=== PATIENT | female | born 1980 | race Caucasian/White ===

== ENCOUNTER 2018-09-03 22:33 | Emergency (ER) | payer BC, SELFPAY ==
[2018-09-03 22:35] VITALS: BP 161/112; PULSE 105; RESP 16; TEMP 36.6; O2SAT 96; BMI 24.9
[2018-09-03 23:27] LABS: Bacteria 0 SEEN /hpf (None Seen); Mucous, Urine 0 SEEN /hpf (<or=2+); Red Blood Cells-Urine 0 SEEN /hpf (0-5); White Blood Cells 0 SEEN /hpf (0-5)
[2018-09-03 23:33] LABS: Color, Urine Straw (Yellow); Glucose, Dipstick Normal (Normal); Ketone-Dipstick Negative (Negative); Leukocyte Esterase-Dipstick Negative /ul (Negative); Nitrite-Dipstick Negative (Negative); Occult Blood-Urine Negative /ul (Negative); Protein-Dipstick Negative (Negative); Specific Gravity, Urine 1.005 (1.002-1.030); Urine Bilirubin Dipstick Negative (Negative); Urine Clarity Clear (Clear); Urine Urobilinogen Normal (Normal); Urine pH 6.5 (5.0 - 8.0)
[2018-09-03 23:42] LABS: Absolute Lymphocyte Count 2.99 X10^3/ul (0.83-4.51); Absolute Neutrophil Count 4.8 X10^3/uL (2.0-7.7); Basophil# 0.11 X10^3/uL; Basophil% 1.3 % (0-1); Eosinophil# 0.16 X10^3/uL; Eosinophils% 1.9 % (0-5); Hematocrit 48.5 % (37-47); Lymphocyte # 2.99 X10^3/ul (4.0); Lymphocyte % 35.2 % (19-41); Mean Corp Hgb Conc 35.1 g/gl (32-36); Mean Corpuscular Hgb 35.6 pg (27.0-32.0); Mean Corpuscular Volume 101.7 fL (81-99); Mean Platelet Vol. 9.4 fl (6.2-12.0); Monocyte# 0.39 X10^3/uL; Monocyte% 4.6 % (0-10); Neutrophil # 4.82 X10^3/uL (2.7-7.7); Neutrophil % 56.8 % (47-70); Platelet Count 358 K/mm3 (150-450); RBC Distribution Width CV 13.6 % (11.6-14.6); RBC Distribution Width SD 50.6 fl (35.1-43.9); Red Blood Count 4.77 M/mm3 (4.2-5.4); White Blood Count 8.5 K/mm3 (4.4-11.0)
--- NOTE | 2018-09-03 23:44 | ED.VIS.GEN ---
History of Present Illness Chief Complaint: Abd Pain Informant: Patient Narrative: Patient presents abdominal pain for the last month. She describes continuous right-sided pain. She thought it might be related to endometriosis that she has had this in the past. Denies any urinary symptoms. She is never had this before. When she has. She normally gets pain on her right side and was told by her BAND SAWING MACHINE OPERATOR that it could be related to endometriosis. She still has her gallbladder. She denies any other medical problems. She is never had abdominal surgeries. She denies nausea vomiting. She has chronic loose bowel movements which have not changed in nature. No fevers or chills. currently her symptoms are resolved. Past Medical History - Allergies and Home Meds Allergies/Adverse Reactions: Allergies No Known Allergies Allergy (Verified 09/03/18 22:39) Primary Care Physician: Care Physician,No Primary [Primary Care Provider] - Prior records reviewed: Yes Past Medical History: - - Endometriosis Surgical History: no surgical history Lives: Spouse/ Significant Other Alcohol: Rare Drugs: None Review of Systems General: Denies: Chills, Fever, Sweats Eyes: Denies: Visual changes - bilaterally, Diplopia ENT: Denies: Rhinorrhea, Sore throat Cardiovascular: Denies: Chest pain, Palpitations Respiratory: Denies: Dyspnea, Cough, Dyspnea on exertion Gastrointestinal: Reports: Abdominal pain. Denies: Nausea, Vomiting, Diarrhea, Melena, Hematochezia Genitourinary: Denies: Dysuria, Hematuria, Frequency Musculoskeletal: Denies: Back pain, Extremity Pain Skin: Denies: Rash, Wounds Neurological: Denies: Headache, Weakness, Numbness Physical Exam Vital Signs/Narrative: Vital Signs Temp Pulse Resp BP Pulse Ox 09/03/18 22:35 97.9 F 105 H 16 161/112 H 96 General: Well nourished, Well developed, No Acute Distress Head: Normocephalic, Atraumatic Eyes: Perrl, EOMI ENT: Moist mucous membranes, No rhinorrhea Neck: Supple, Nontender Cardiovascular: Regular rate, Regular rhythm, No murmurs Respiratory: No distress, CTA bilaterally, Chest nontender Abdomen: Soft, Nontender, Nondistended, Normal bowel sounds Back: Nontender, Normal Inspection Extremities: Nontender, No edema Skin: Normal color, No rash Neurological: Alert, Oriented x3, Cranial nerves II-XII grossly intact, Normal Strength, Normal Sensation Psychological: Normal affect, Normal Mood Diagnostic/Tx/Re-eval - Medical Decision Making Patient stated she is not dehydrated therefore does not need IV fluids. She does not have pain currently or nausea. Lab work obtained. Lab work returns and shows a little bit of elevation in her AST and ALT above 100. The patient does admit to drinking alcohol daily. She states that she at least has 3 drinks daily. She may indeed have a hepatitis from alcohol for the last month that has been causing her symptoms. She does not have elevation in her alk phos or bilirubin. The rest of her lab work is essentially unremarkable. CT abdomen pelvis obtained. CT shows hepatic steatosis and hepatomegaly. 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 The patient is nontoxic. I instructed her that she will have to quit drinking alcohol and her liver should come down with this inflammation. She will follow-up with GI. Given a referral to gastroenterology. She will use [id number] ibuprofen. Instructed not use Tylenol. ED Disposition - Plan for ED Patient: Disposition: Home or Assisted Living Diagnosis: Hepatitis Instructions: Hepatitis C: Know the Facts Referrals: Care Physician,No Primary [Primary Care Provider] - Armando Khan MD [NON-STAFF] -
[2018-09-03 23:45] LABS: Squamous Epithelial Cells - UA 0-5 SEEN /hpf (5-10)
[2018-09-03 23:46] LABS: POSITIVE COUNT NO; POSITIVE DIFFERENTIAL NO; POSITIVE MORPHOLOGY NO
[2018-09-03 23:54] VITALS: BP 121/90
[2018-09-03 23:56] LABS: Anion Gap 9 (5-15); BUN 7 mg/dL (7-18); BUN/Creat Ratio 10.8 RATIO (10-20); Calcium,Total 9.1 mg/dL (8.5-10.1); Chloride 102 mmol/L (98-107); Creatinine, Serum 0.65 mg/dL (0.55-1.02); EST Glomerular Filtration Rate 107 mL/min (>60); Est Glom Filt Rate - Afr Amer 130 mL/min (>60); Estimated Creatinine Clearance 108.78 ml/min; Glucose 92 mg/dL (74-106); Potassium 3.5 mmol/L (3.5-5.1); Sodium Level 136 mmol/L (136-145)
[2018-09-03 23:57] LABS: Internal QC Validated? YES +Cl - CLEAR BKGD; Pregnancy, Serum, hCG Quali. NEGATIVE Negative
[2018-09-04 00:07] LABS: AST(SGOT) 139 U/L (15-37); Alanine Aminotransfer ALT/SGPT 85 U/L (13-56); Albumin, Serum 4.1 g/dL (3.2-5.0); Alkaline Phosphatase 91 U/L (45-117); Bilirubin, Direct 0.12 mg/dL (0.00-0.30); Globulin 4.9 g/dL (2.2-4.2); Lipase 206 U/L (73-393)
--- NOTE | 2018-09-04 00:12 | CT_ITS ---
HISTORY: RUQ PAIN intermittent x one month ADDITIONAL HISTORY: None provided. TECHNIQUE: CT images were obtained of the abdomen and pelvis without IV contrast. Enteric contrast was not given. Number of images including paperwork: [id number]. A radiation dose optimization technique was used for this scan. COMPARISON: None FINDINGS: Evaluation of the abdominopelvic organs is limited in the absence of contrast. LOWER THORAX: No consolidation or pleural effusion. LIVER: No concerning focal lesion. Decreased density compatible with steatosis. Enlarged, right lobe about 20 cm. GALLBLADDER: No radiopaque calculi. BILE DUCTS: No significant biliary dilatation. SPLEEN: Unremarkable. PANCREAS: Unremarkable. ADRENAL GLANDS: Unremarkable. KIDNEYS/URETERS: Unremarkable. BOWEL: No bowel obstruction. No significant bowel wall thickening. No localized inflammation. Colonic diverticulosis. APPENDIX: Normal. FREE FLUID: No significant free fluid. FREE AIR: None. LYMPH NODES: No pathologic appearing adenopathy. PERITONEUM, RETROPERITONEUM AND MESENTERY: Otherwise unremarkable. VASCULATURE: Unremarkable as imaged. ABDOMINAL WALL: Unremarkable. PELVIS: Unremarkable bladder. OSSEOUS AND SOFT TISSUE STRUCTURES: No acute skeletal findings. CT/Abdomen/Pelvis without Cont IMPRESSION: 1. No acute abdominopelvic abnormality. 2. Hepatomegaly. 3. Hepatic steatosis. Individualized dose optimization techniques were used for this CT. at 0049 Reported and signed by: Renetta Claudio MD Electronically Signed: Renetta Claudio MD at 0:49 EDT Tel , Service support ,
[2018-09-04 01:20] VITALS: BP 133/97; PULSE 88; RESP 16; O2SAT 98
== END 2018-09-04 01:20 | disposition home or self-care (01) ==
PROVIDERS: Emergency Provider Emergency Medicine
DX: K75.9 Inflammatory liver disease, unspecified (principal); K76.0 Fatty (change of) liver, not elsewhere classified; F10.99 Alcohol use, unspecified with unspecified alcohol-induced disorder; N80.9 Endometriosis, unspecified
CPT/HCPCS: 74176; 80048; 80076; 81001; 83690; 84703; 85025; 99283

== ENCOUNTER → 2018-12-26 10:04 | Outpatient (CLI) | payer BC, SELFPAY ==
[2018-12-26 09:11] VITALS: BMI 24.9
[2018-12-26 11:01] LABS: Cholesterol 224 mg/dL (200); Estradiol 90.5 pg/mL; Follicle Stimulating Hormone 6.3 mIU/mL; High Density Lipoprotein 43 mg/dL; Thyroid Stim Hormone (TSH) 2.65 uIU/mL (0.358-3.74); Triglycerides 311 mg/dL; Very Low Density Lipoprotein 62 mg/dL (5-40)
[2018-12-31 16:52] LABS: HPV APTIMA, High Risk Negative (Negative)
== END ==
PROVIDERS: Referring Provider Nurse Practitioner Women's Health; Visit Provider Nurse Practitioner Women's Health
DX: Z00.00 Encounter for general adult medical examination without abnormal findings (principal); N92.6 Irregular menstruation, unspecified; Z12.4 Encounter for screening for malignant neoplasm of cervix
CPT/HCPCS: 36415; 80061; 82670; 83001; 84443; 87624; 88175; G0145

== ENCOUNTER 2023-09-02 16:19 | Inpatient (IN) | payer MEDICAID, SELFPAY ==
[2023-09-02] VITALS (14 sets, daily range): BP systolic 82–106; BP diastolic 45–68; PULSE 61–121; RESP 16–29; TEMP 36.3–37.6; O2SAT 88–95; BMI 24.2; BMI 23.9
--- NOTE | 2023-09-02 16:34 | EKG12_ITS ---
Test Reason : GENERAL Blood Pressure : / mmHG Vent. Rate : 108 BPM Atrial Rate : 108 BPM P-R Int : 132 ms QRS Dur : 108 ms QT Int : 412 ms P-R-T Axes : 038 046 063 degrees QTc Int : 552 ms Critical Test Result: Long QTc Sinus tachycardia Nonspecific ST abnormality Prolonged QT Abnormal ECG Confirmed by Griffin Montgomery ([id number]), editor newspaper ASIF VENTURA ([id number]) on 09/04/2023 9:38:08 AM Referred By: Confirmed By:Griffin Montgomery
--- NOTE | 2023-09-02 16:38 | EX.ED.DYSGE1 ---
HPI <RUBÉN Calderon - Last Filed: 09/02/23 19:24> History of Present Illness Chief Complaint: Substance Abuse Narrative Narrative: 43-year-old female is here requesting alcohol detox. She drinks 12 white claws a day and states she has been a heavy drinker for 20 years without cessation. Last drink was last night. Over the last few days she has had epigastric discomfort and heartburn and was taking [id number] medication which helped for short time. She vomited last night. Denies hematemesis, melena, hematochezia or history of bleeding. She states she has never tried to detox before. She smokes 1 pack of cigarettes over about 3 days. Denies other drug use. PFSH <RUBÉN Calderon - Last Filed: 09/02/23 19:24> PFSH Home Medications ?Medication ?Instructions ?Recorded ?Last Taken ?Type levocetirizine 5 mg tablet (Xyzal) 5 mg PO DAILY 09/02/23 Unknown History Allergy/AdvReac Type Severity Reaction Status Date / Time No Known Allergies Allergy Verified 09/02/23 16:23 Family History Brother Diabetes Mother H/O: hysterectomy Social History (Updated 01/21/19 @ 10:28 by Madeleine Spencer NP, DINKING MACHINE OPERATOR-C) number of children: 0 current occupational status: employed current occupation: [employer] Smoking Status: Current every day smoker tobacco type: cigarettes alcohol intake: current alcohol intake frequency: 0-2 drinks per day substance use type: does not use seatbelt use: always do you feel safe at home: Yes additional social history: Nikolai Osman [employer] of [employer] <RUBÉN Calderon - Last Filed: 09/02/23 19:24> ROS ED ROS Narrative Constitutional: Negative for fever, chills. CVS: Negative for chest pain. Respiratory: Negative for shortness of breath. GI: Positive for abdominal pain, nausea, vomiting. EXAM <RUBÉN Calderon - Last Filed: 09/02/23 19:24> Physical Exam Narrative Exam Narrative: CONST: Patient sitting in no acute distress. EYES: Scleral icterus ENT: Normal inspection, slightly dry mucous membranes. NECK: Normal inspection. RESP: No respiratory distress, faint bibasilar expiratory wheeze. CVS: Regular rate and rhythm, no murmur, no gallop. ABD: Abdomen soft with mild distention and hepatomegaly, nontender, no distended veins. SKIN: Mild facial jaundice. EXTREMITIES: 1+ pitting edema both ankles. NEURO: Alert and answering questions appropriately. PSYCH: Normal affect. Const Vital Signs: 09/02/23 16:20 09/02/23 16:20 09/02/23 16:29 Temperature 97.3 F L Temperature Source Temporal Pulse Rate 118 H 115 H 111 H Respiratory Rate 16 16 25 H Respiratory Effort Respiratory Pattern Blood Pressure 85/65 L 85/65 L 104/59 L Blood Pressure Mean 71 71 74 Blood Pressure Source Monitor Blood Pressure Position Semi-Fowlers Blood Pressure Location Right Arm Pulse Ox 91 91 95 Oxygen Delivery Method Room Air Room Air Room Air Oxygen Flow Rate (L/min) 09/02/23 17:31 09/02/23 17:32 09/02/23 17:41 Temperature Temperature Source Pulse Rate 61 Respiratory Rate 18 Respiratory Effort Normal Non-Labored Respiratory Pattern Normal Blood Pressure 99/68 Blood Pressure Mean 78 Blood Pressure Source Blood Pressure Position Blood Pressure Location Pulse Ox 88 95 Oxygen Delivery Method Room Air Nasal Cannula Oxygen Flow Rate (L/min) 2 09/02/23 19:05 Temperature Temperature Source Pulse Rate 108 H Respiratory Rate 29 H Respiratory Effort Respiratory Pattern Blood Pressure 106/64 Blood Pressure Mean 78 Blood Pressure Source Blood Pressure Position Blood Pressure Location Pulse Ox 94 Oxygen Delivery Method Nasal Cannula Oxygen Flow Rate (L/min) 2 <Dr. Tom Fuentes MD - Last Filed: 09/02/23 17:31> Physical Exam Const Vital Signs: 09/02/23 16:20 09/02/23 16:20 09/02/23 16:29 Temperature 97.3 F L Temperature Source Temporal Pulse Rate 118 H 115 H 111 H Respiratory Rate 16 16 25 H Respiratory Effort Respiratory Pattern Blood Pressure 85/65 L 85/65 L 104/59 L Blood Pressure Mean 71 71 74 Blood Pressure Source Monitor Blood Pressure Position Semi-Fowlers Blood Pressure Location Right Arm Pulse Ox 91 91 95 Oxygen Delivery Method Room Air Room Air Room Air Oxygen Flow Rate (L/min) 09/02/23 17:31 09/02/23 17:32 09/02/23 17:41 Temperature Temperature Source Pulse Rate 61 Respiratory Rate 18 Respiratory Effort Normal Non-Labored Respiratory Pattern Normal Blood Pressure 99/68 Blood Pressure Mean 78 Blood Pressure Source Blood Pressure Position Blood Pressure Location Pulse Ox 88 95 Oxygen Delivery Method Room Air Nasal Cannula Oxygen Flow Rate (L/min) 2 09/02/23 19:05 Temperature Temperature Source Pulse Rate 108 H Respiratory Rate 29 H Respiratory Effort Respiratory Pattern Blood Pressure 106/64 Blood Pressure Mean 78 Blood Pressure Source Blood Pressure Position Blood Pressure Location Pulse Ox 94 Oxygen Delivery Method Nasal Cannula Oxygen Flow Rate (L/min) 2 [facility] <RUBÉN Calderon - Last Filed: 09/02/23 19:24> [facility] Narrative Medical decision making narrative: History gathered from: Patient and boyfriend Differential: Alcohol abuse, liver failure, electrolyte abnormality Patient is here for alcohol detox. She has been aeavy drinker for 20 years with recent frequency of about 12 white claws daily. Last drink last night. She appears ill but nontoxic. She has dry mucous membranes and is jaundiced with scleral icterus, hepatomegaly, and 1+ lower extremity pitting edema. She was initially hypotensive but recheck is 104/59. She is in sinus tachycardia in the 110s. Otherwise stable vital signs. She was ordered IV fluids, Protonix, thiamine and folate while labs are pending. WBC is 16.3, hemoglobin 10.6, platelets 547. She has profound electrolyte abnormalities with sodium of 118, potassium 1.8, magnesium 1.2, chloride 69, glucose 44 and anion gap of 20. This was a second BMP drawn to confirm these values. Fingerstick glucose confirms it is 50 and she was given D10 as well as IV and p.o. potassium and IV magnesium sulfate 2 mg. She also has elevated total bilirubin and liver enzymes. Lipase is 1853 consistent with acute pancreatitis. INR normal at 1.2. Case was discussed with the hospitalist and she was admitted to the ICU. I have personally performed a face to face assessment of the patient and have reviewed the MAURI Note. I performed a substantive portion of the visit including all aspects of the following. My palomino findings include: History is 43-year-old female history of alcohol abuse drinks white claws about 12 a day. Patient is requesting detox. Exam is [44-year-old female vital signs are stable afebrile. Does not look septic toxic. No distress. H EENT exam unremarkable. Mildly scleral icterus. Neck nontender. Lungs clear. Heart regular rhythm rate about 110 no murmur. Chest wall and ribs nontender. Abdomen soft nontender. Back nontender. Moving all 4 extremities. Normal strength. Trace ankle edema bilaterally. Neurologically she is awake and alert no focal motor deficits.] Medical Decision Making [patient with a detox workup for liver enzymes are not significantly abnormal she will be admitted here for detox.] Other additions or changes: [None] Lab Data Labs: Laboratory Results - last 24 hr 09/02/23 09/02/23 09/02/23 16:45 17:49 18:23 WBC 16.3 H RBC 3.10 L Hgb 10.6 L Hct 30.5 L MCV 98.4 MCH 34.2 H MCHC 34.8 RDW Std Deviation 46.5 H RDW Coeff of Rebel 13.0 Plt Count 547 H MPV 10.0 Immature Gran % (Auto) 0.800 Neut % (Auto) 88.6 H Lymph % (Auto) 7.0 L [place] % (Auto) 2.6 Eos % (Auto) 0.8 Baso % (Auto) 0.2 Absolute Neuts (auto) 14.4 H Absolute Lymphs (auto) 1.14 Nucleated RBC % 0 PT 15.5 H INR 1.2 Sodium Cancelled 118 L* Potassium Cancelled 1.8 L* Chloride Cancelled 69 L* Carbon Dioxide Cancelled 29.0 Anion Gap Cancelled 20 H BUN Cancelled 17 Creatinine Cancelled 0.96 Estim Creat Clear Calc Cancelled 64.58 Est GFR (MDRD) Af Amer Cancelled 81 Est GFR (MDRD) Non-Af Cancelled 67 BUN/Creatinine Ratio Cancelled 17.7 Glucose Cancelled 44 L* Calcium Cancelled 11.1 H Magnesium Total Bilirubin Cancelled 8.00 H Direct Bilirubin Cancelled 6.14 H AST Cancelled 178 H ALT Cancelled 31 Alkaline Phosphatase Cancelled 92 Ammonia 11.0 Total Protein Cancelled 5.9 L Albumin Cancelled 2.2 L Globulin Cancelled 3.7 Albumin/Globulin Ratio Lipase Cancelled 1853 H Serum , Qual NEGATIVE Urine Opiates Screen NEGATIVE Urine Methadone Screen NEGATIVE Ur Barbiturates Screen NEGATIVE Ur Phencyclidine Scrn NEGATIVE Ur Amphetamines Screen NEGATIVE MDMA (Ecstasy) Screen NEGATIVE U Benzodiazepines Scrn NEGATIVE Urine Cocaine Screen NEGATIVE U Cannabinoids Screen NEGATIVE Ur Drug Screen Comment POC Glucose 50 L 09/02/23 18:30 WBC RBC Hgb Hct MCV MCH MCHC RDW Std Deviation RDW Coeff of Rebel Plt Count MPV Immature Gran % (Auto) Neut % (Auto) Lymph % (Auto) [place] % (Auto) Eos % (Auto) Baso % (Auto) Absolute Neuts (auto) Absolute Lymphs (auto) Nucleated RBC % PT INR Sodium 119 L* Potassium 1.8 L* Chloride 70 L* Carbon Dioxide 29.0 Anion Gap 20 H BUN 18 Creatinine 0.84 Estim Creat Clear Calc 73.80 Est GFR (MDRD) Af Amer 95 Est GFR (MDRD) Non-Af 78 BUN/Creatinine Ratio 21.4 H Glucose 48 L Calcium 11.2 H Magnesium 1.2 L Total Bilirubin 7.90 H Direct Bilirubin AST 190 H ALT 31 Alkaline Phosphatase 89 Ammonia Total Protein 6.0 L Albumin 2.2 L Globulin 3.8 Albumin/Globulin Ratio 0.6 L Lipase Serum , Qual Urine Opiates Screen Urine Methadone Screen Ur Barbiturates Screen Ur Phencyclidine Scrn Ur Amphetamines Screen MDMA (Ecstasy) Screen U Benzodiazepines Scrn Urine Cocaine Screen U Cannabinoids Screen Ur Drug Screen Comment POC Glucose Radiography Diagnostic Testing: Clinical Impression(s) from Imaging Studies Chest X-Ray 09/02/23 16:55 IMPRESSION: No radiographic evidence of acute cardiopulmonary disease. Electronically Signed: Yon Link DO at 17:52 EDT Reading Location ID and State: [facility] / [place] Tel [phone], Service support , EKG Initial EKG: Attestation: I personally reviewed and interpreted this EKG as follows: Comments: Sinus tachycardia at [address] changes Prolonged QTc at 552 ms <Dr. Tom Fuentes MD - Last Filed: 09/02/23 17:31> MDM MDM Narrative Medical decision making narrative: History gathered from: Patient and boyfriend Differential: Alcohol abuse, liver failure Patient is here for alcohol detox. Heavy drinker for 20 years with recent frequency of about 12 white claws daily. Last drink last night. She appears well. She has dry mucous membranes and is mildly jaundiced with scleral icterus, hepatomegaly, and 1+ lower extremity pitting edema. She was initially hypotensive but is rechecked and is 104/59. She is in sinus tachycardia in the 110s. Otherwise stable vital signs. She was ordered IV fluids, Protonix, thiamine and folate while labs are pending. I have personally performed a face to face assessment of the patient and have reviewed the MAURI Note. I performed a substantive portion of the visit including all aspects of the following. My palomino findings include: History is 43-year-old female history of alcohol abuse drinks white claws about 12 a day. Patient is requesting detox. Exam is [44-year-old female vital signs are stable afebrile. Does not look septic toxic. No distress. H EENT exam unremarkable. Mildly scleral icterus. Neck nontender. Lungs clear. Heart regular rhythm rate about 110 no murmur. Chest wall and ribs nontender. Abdomen soft nontender. Back nontender. Moving all 4 extremities. Normal strength. Trace ankle edema bilaterally. Neurologically she is awake and alert no focal motor deficits.] Medical Decision Making [patient with a detox workup for liver enzymes are not significantly abnormal she will be admitted here for detox.] Other additions or changes: [None] Lab Data Attestation: I reviewed the patient's lab results. Lab results narrative: CBC shows a white count of 16.3. H&H 10.6 and 30. Platelets 547. PT and INR 15 and 1.2. Serum test negative. Labs: Laboratory Results - last 24 hr 09/02/23 09/02/23 09/02/23 16:45 17:49 18:23 WBC 16.3 H RBC 3.10 L Hgb 10.6 L Hct 30.5 L MCV 98.4 MCH 34.2 H MCHC 34.8 RDW Std Deviation 46.5 H RDW Coeff of Rebel 13.0 Plt Count 547 H MPV 10.0 Immature Gran % (Auto) 0.800 Neut % (Auto) 88.6 H Lymph % (Auto) 7.0 L [place] % (Auto) 2.6 Eos % (Auto) 0.8 Baso % (Auto) 0.2 Absolute Neuts (auto) 14.4 H Absolute Lymphs (auto) 1.14 Nucleated RBC % 0 PT 15.5 H INR 1.2 Sodium Cancelled 118 L* Potassium Cancelled 1.8 L* Chloride Cancelled 69 L* Carbon Dioxide Cancelled 29.0 Anion Gap Cancelled 20 H BUN Cancelled 17 Creatinine Cancelled 0.96 Estim Creat Clear Calc Cancelled 64.58 Est GFR (MDRD) Af Amer Cancelled 81 Est GFR (MDRD) Non-Af Cancelled 67 BUN/Creatinine Ratio Cancelled 17.7 Glucose Cancelled 44 L* Calcium Cancelled 11.1 H Magnesium Total Bilirubin Cancelled 8.00 H Direct Bilirubin Cancelled 6.14 H AST Cancelled 178 H ALT Cancelled 31 Alkaline Phosphatase Cancelled 92 Ammonia 11.0 Total Protein Cancelled 5.9 L Albumin Cancelled 2.2 L Globulin Cancelled 3.7 Albumin/Globulin Ratio Lipase Cancelled 1853 H Serum , Qual NEGATIVE Urine Opiates Screen NEGATIVE Urine Methadone Screen NEGATIVE Ur Barbiturates Screen NEGATIVE Ur Phencyclidine Scrn NEGATIVE Ur Amphetamines Screen NEGATIVE MDMA (Ecstasy) Screen NEGATIVE U Benzodiazepines Scrn NEGATIVE Urine Cocaine Screen NEGATIVE U Cannabinoids Screen NEGATIVE Ur Drug Screen Comment POC Glucose 50 L 09/02/23 18:30 WBC RBC Hgb Hct MCV MCH MCHC RDW Std Deviation RDW Coeff of Rebel Plt Count MPV Immature Gran % (Auto) Neut % (Auto) Lymph % (Auto) [place] % (Auto) Eos % (Auto) Baso % (Auto) Absolute Neuts (auto) Absolute Lymphs (auto) Nucleated RBC % PT INR Sodium 119 L* Potassium 1.8 L* Chloride 70 L* Carbon Dioxide 29.0 Anion Gap 20 H BUN 18 Creatinine 0.84 Estim Creat Clear Calc 73.80 Est GFR (MDRD) Af Amer 95 Est GFR (MDRD) Non-Af 78 BUN/Creatinine Ratio 21.4 H Glucose 48 L Calcium 11.2 H Magnesium 1.2 L Total Bilirubin 7.90 H Direct Bilirubin AST 190 H ALT 31 Alkaline Phosphatase 89 Ammonia Total Protein 6.0 L Albumin 2.2 L Globulin 3.8 Albumin/Globulin Ratio 0.6 L Lipase Serum , Qual Urine Opiates Screen Urine Methadone Screen Ur Barbiturates Screen Ur Phencyclidine Scrn Ur Amphetamines Screen MDMA (Ecstasy) Screen U Benzodiazepines Scrn Urine Cocaine Screen U Cannabinoids Screen Ur Drug Screen Comment POC Glucose Radiography Diagnostic Testing: Clinical Impression(s) from Imaging Studies Chest X-Ray 09/02/23 16:55 IMPRESSION: No radiographic evidence of acute cardiopulmonary disease. Electronically Signed: Yon Link DO at 17:52 EDT , Discharge Plan Triage Chief Complaint: Substance Abuse ED Midlevel Provider: Hailey Mcqueen ED Provider: Tom Fuentes Dx/Rx/DC Orders Clinical Impression: Alcohol abuse, Hypokalemia, Acute hyponatremia, Hypoglycemia, Anemia, Alcoholic liver failure, Acute pancreatitis, Hypomagnesemia, Desire for detoxification Prescriptions: No Action levocetirizine [Xyzal] 5 mg tablet 5 mg PO DAILY Primary Care Provider: Care Physician,No Primary Referrals: Care Physician,No Primary [Primary Care Provider] - Print Language: Nepali
--- NOTE | 2023-09-02 16:39 | NURSING ---
NO OLD EKGS
[2023-09-02] MEDS: 0.9% Normal Saline (1000mL) 1,000 ML 999 ML IV (16:53)
--- NOTE | 2023-09-02 16:55 | RAD_ITS ---
INDICATION: dyspnea EXAMINATION/TECHNIQUE: X-RAY - XR Chest 1 View COMPARISON: FINDINGS: LINES/DEVICES: None. LUNGS: No consolidation, edema or effusion. No pneumothorax. MEDIASTINUM AND CARDIOVASCULAR STRUCTURES: Cardiac silhouette not enlarged. Central airways and mediastinal contour are unremarkable. BONES AND SOFT TISSUES: Unremarkable. RAD/Chest 1 View (Portable) IMPRESSION: No radiographic evidence of acute cardiopulmonary disease. Electronically Signed: Yon Link DO at 17:52 EDT ,
[2023-09-02 17:06] LABS: Absolute Lymphocyte Count 1.14 X10^3/uL (0.83-4.51); Absolute Neutrophil Count 14.4 X10^3/uL (2.0-7.7); Basophil# 0.04 X10^3/uL; Basophil% 0.2 % (0-1); Eosinophil# 0.13 X10^3/uL; Eosinophils% 0.8 % (0-5); Hematocrit 30.5 % (37-47); Hemoglobin 10.6 g/dL (12.0-15.0); Lymphocyte # 1.14 X10^3/ul (0.83-4.51); Mean Corp Hgb Conc 34.8 g/dL (32-36); Mean Corpuscular Hgb 34.2 pg (27.0-32.0); Mean Corpuscular Volume 98.4 fL (81-99); Monocyte# 0.43 X10^3/uL; Monocyte% 2.6 % (0-10); NRBC Flagged by Analyzer 0 % (0-5); Neutrophil # 14.41 X10^3/uL (2.7-7.7); Neutrophil % 88.6 % (47-70); Platelet Count 547 K/mm3 (150-450); RBC Distribution Width SD 46.5 fl (35.1-43.9); White Blood Count 16.3 K/mm3 (4.4-11.0)
[2023-09-02 17:15] LABS: International Normalized Ratio 1.2; Prothrombin Time (Protime)PT. 15.5 SECONDS (11.7-14.9)
[2023-09-02] MEDS: Pantoprazole Sodium 40 MG in 0.9% Normal Saline (100mL MB+) 100 ML 330 MG IV (17:15)
[2023-09-02 17:18] LABS: Internal QC Validated? YES +Cl - CLEAR BKGD; Pregnancy, Serum, hCG Quali. NEGATIVE Negative
[2023-09-02] MEDS: Thiamine Hydrochloride 100 MG in 0.9% Normal Saline (50mL Bag) 50 ML 200 MG IV (17:46)
[2023-09-02 18:16] LABS: Amphetamine Urine VISTA NEGATIVE (<1000 ng/mL); Barbiturate Urine VISTA NEGATIVE (< 200 ng/mL); Benzodiazepine Urine VISTA NEGATIVE (< 200 ng/mL); Cocaine Urine VISTA NEGATIVE (< 300 ng/mL); Ecstacy Urine VISTA NEGATIVE (< 500 ng/mL); Methadone Urine VISTA NEGATIVE (< 300 ng/mL); PCP Urine VISTA NEGATIVE (< 25 ng/mL); THC Urine VISTA NEGATIVE (< 50 ng/mL); Vista UDS pH Range 5
[2023-09-02] MEDS: Folic Acid 1 MG in 0.9% Normal Saline (50mL Bag) 50 ML 200 MG IV (18:19)
[2023-09-02 18:21] LABS: AST(SGOT) 178 U/L (15-37); Alanine Aminotransfer ALT/SGPT 31 U/L (13-56); Albumin, Serum 2.2 g/dL (3.2-5.0); Alkaline Phosphatase 92 U/L (45-117); Anion Gap 20 (5-15); BUN 17 mg/dL (7-18); BUN/Creat Ratio 17.7 RATIO (10-20); Bilirubin, Direct 6.14 mg/dL (0.00-0.30); Calcium,Total 11.1 mg/dL (8.5-10.1); Chloride 69 mmol/L (98-107); Creatinine, Serum 0.96 mg/dL (0.55-1.02); EST Glomerular Filtration Rate 67 mL/min (>60); Est Glom Filt Rate - Afr Amer 81 mL/min (>60); Estimated Creatinine Clearance 64.58 ml/min; Globulin 3.7 g/dL (2.2-4.2); Glucose 44 mg/dL (74-106); Lipase 1853 U/L (13-75); Potassium 1.8 mmol/L (3.5-5.1); Protein, Total 5.9 g/dL (6.4-8.2); Sodium Level 118 mmol/L (136-145)
[2023-09-02] MEDS: Dextrose 10%-Water 250 ML 999 ML IV (18:37)
[2023-09-02] MEDS: Potassium Chloride Oral Tablet 20 MEQ PO (18:38)
[2023-09-02 18:41] LABS: Bedside Glucose 50 mg/dL (74-106)
[2023-09-02] MEDS: Potassium Chloride 10mEq/100mL 10 MEQ/100 ML IV.SOLN. 100 MEQ IV BOLUS ×2 (18:49→20:42)
[2023-09-02 18:50] LABS: Magnesium 1.2 mg/dL (1.6-2.6)
[2023-09-02 19:15] LABS: ALB/GLOB Ratio 0.6 RATIO (0.9-2.4); AST(SGOT) 190 U/L (15-37); Alanine Aminotransfer ALT/SGPT 31 U/L (13-56); Albumin, Serum 2.2 g/dL (3.2-5.0); Alkaline Phosphatase 89 U/L (45-117); Anion Gap 20 (5-15); BUN 18 mg/dL (7-18); BUN/Creat Ratio 21.4 RATIO (10-20); Calcium,Total 11.2 mg/dL (8.5-10.1); Chloride 70 mmol/L (98-107); Creatinine, Serum 0.84 mg/dL (0.55-1.02); EST Glomerular Filtration Rate 78 mL/min (>60); Est Glom Filt Rate - Afr Amer 95 mL/min (>60); Globulin 3.8 g/dL (2.2-4.2); Glucose 48 mg/dL (74-106); Potassium 1.8 mmol/L (3.5-5.1); Sodium Level 119 mmol/L (136-145)
--- NOTE | 2023-09-02 19:17 | PCM.HP.STD ---
[facility] - General General Date of Admission: 09/02/23 Date of Service: 09/02/23 Chief Complaint: Wants EtOH Detox. HPI Narrative FIONA ZAFAR, is a 43 F with past medical history of tobacco abuse, chronic anemia, history of lichen sclerosis and chronic EtOH Abuse who presents to [facility] ER complaining of wanting help with alcohol detoxification. Ms. Zafar reports she typically drinks 12 white claws a day and has been a heavy drinker for 20 years without cessation. Her last drink was last night. She states that over the 2-3 days she has noted increasing epigastric abdominal pain with associated heartburn for which she has been taking [id number] medications which only helped for short period of time. She denies having undergone alcohol detoxification in the past. She admits to nausea and vomiting with bilious emesis with yellowing of her eyes and mild lower extremity edema. She denies related fever, chills, diarrhea, constipation, chest pain, shortness of breath or obvious signs of bleeding. In the ER she was noted to have laboratory evidence of severe acute hyponatremia of 119 mmol/L, critical hypokalemia of 1.8 mmol/L, severe hypomagnesemia of 1.2 mg/dL, critical hypophosphatemia of 0.1 mg/dL and evidence of acute liver failure with acute hyperbilirubinemia with total bilirubin of 7.9 mg/dL and direct bilirubin of 6.14 mg/dL in the setting of chronic alcohol abuse with patient requesting alcohol detoxification compounded by elevated lipase of 1,853 units/L present on admission with corresponding CT evidence of acute pancreatitis likely due to chronic alcohol abuse and she was then admitted to the ICU for ongoing care for stay that is expected to extend beyond 2 midnights. [facility] Home Medications ?Medication ?Instructions ?Recorded ?Last Taken ?Type levocetirizine 5 mg tablet (Xyzal) 5 mg PO DAILY 09/02/23 Unknown History Allergy/AdvReac Type Severity Reaction Status Date / Time No Known Allergies Allergy Verified 09/02/23 16:23 Family History Brother Diabetes Mother H/O: hysterectomy Social History number of children: 0 current occupational status: employed current occupation: [employer] Smoking Status: Current every day smoker tobacco type: cigarettes alcohol intake: current alcohol intake frequency: 0-2 drinks per day substance use type: does not use seatbelt use: always do you feel safe at home: Yes additional social history: [employer] ROS ROS Narrative Review of systems: General: Patient denies fever or chills. HENT: Denies headache, denies stuffy nose, denies sore throat EYES: Patient admits to yellowing of her eyes but she denies changes in vision or discharge from eyes. Resp: Denies cough, denies shortness of breath Cardiac: Denies chest pain, palpitations or heart racing. GI: Patient admits to abdominal pain and nausea with bilious emesis as per HPI. : Denies changes in urination Extremity: Patient admits to mild symmetrical bilateral lower extremity edema. Musculoskeletal: Feels somewhat generally weak and unwell but denies arthralgias or myalgias. Neuro: Patient denies headache, paresthesias or focal neurologic deficits. Heme: Denies any bleeding or bruising Skin: Denies rashes Psychiatric: No complaints voiced related to uncontrolled depression or anxiety. Endocrine: No polyuria, polydipsia or polyphagia. The rest of the 14 point ROS was negative except for positives in HPI. Vital Signs Vital Signs Vital Signs: 09/02/23 16:20 09/02/23 16:20 09/02/23 16:29 Temperature 97.3 F L Temperature Source Temporal Pulse Rate 118 H 115 H 111 H Respiratory Rate 16 16 25 H Respiratory Effort Respiratory Pattern Blood Pressure 85/65 L 85/65 L 104/59 L Blood Pressure Mean 71 71 74 Blood Pressure Source Monitor Blood Pressure Position Semi-Fowlers Blood Pressure Location Right Arm Pulse Ox 91 91 95 Oxygen Delivery Method Room Air Room Air Room Air Oxygen Flow Rate (L/min) 09/02/23 17:31 09/02/23 17:32 09/02/23 17:41 Temperature Temperature Source Pulse Rate 61 Respiratory Rate 18 Respiratory Effort Normal Non-Labored Respiratory Pattern Normal Blood Pressure 99/68 Blood Pressure Mean 78 Blood Pressure Source Blood Pressure Position Blood Pressure Location Pulse Ox 88 95 Oxygen Delivery Method Room Air Nasal Cannula Oxygen Flow Rate (L/min) 2 09/02/23 19:05 Temperature Temperature Source Pulse Rate 108 H Respiratory Rate 29 H Respiratory Effort Respiratory Pattern Blood Pressure 106/64 Blood Pressure Mean 78 Blood Pressure Source Blood Pressure Position Blood Pressure Location Pulse Ox 94 Oxygen Delivery Method Nasal Cannula Oxygen Flow Rate (L/min) 2 Weight Weight: 141 lb 1.533 oz Body Mass Index (BMI) 24.2 Physical Exam Const alert, oriented x3, no apparent distress and average body habitus General Appearance: cooperative HEENT normocephalic, head/scalp atraumatic and hearing grossly normal bilaterally HEENT Narrative: Mucous membranes dry. Eyes PERRL and EOMs intact bilaterally Neck no lymphadenopathy and supple Resp normal respiratory effort, no retractions, no use of accessory muscles and clear to auscultation bilaterally Cardio regular rate and regular rhythm GI GI Narrative: Patient has mild distention with hepatomegaly but abdomen is soft with normal bowel sounds and nontender. Extremity Extremity Narrative: 1+ bilateral symmetrical with pitting lower extremity edema. Skin Skin Narrative: Patient has evidence of jaundice and scleral icterus but no rash or abscess noted. Neuro oriented x3, CN's II-XII intact bilaterally, moves all extremities and no focal motor deficits Sensorium / Orientation: awake, alert, oriented to person, oriented to place and oriented to time Speech: speech normal Psych affect normal Results Medical Records Data Attestation: I reviewed the patient's medical records Lab / Micro Data Attestation: I reviewed the patient's lab results. 09/03/23 02:00 09/03/23 02:00 Labs: Laboratory Results - last 24 hr 09/02/23 16:45: WBC 16.3 H, RBC 3.10 L, Hgb 10.6 L, Hct 30.5 L, MCV 98.4, MCH 34.2 H, MCHC 34.8, RDW Std Deviation 46.5 H, RDW Coeff of Rebel 13.0, Plt Count 547 H, MPV 10.0, Immature Gran % (Auto) 0.800, Neut % (Auto) 88.6 H, Lymph % (Auto) 7.0 L, Ripley % (Auto) 2.6, Eos % (Auto) 0.8, Baso % (Auto) 0.2, Absolute Neuts (auto) 14.4 H, Absolute Lymphs (auto) 1.14, Nucleated RBC % 0, PT 15.5 H, INR 1.2, Sodium Cancelled, Potassium Cancelled, Chloride Cancelled, Carbon Dioxide Cancelled, Anion Gap Cancelled, BUN Cancelled, Creatinine Cancelled, Estim Creat Clear Calc Cancelled, Est GFR (MDRD) Af Amer Cancelled, Est GFR (MDRD) Non-Af Cancelled, BUN/Creatinine Ratio Cancelled, Glucose Cancelled, Calcium Cancelled, Total Bilirubin Cancelled, Direct Bilirubin Cancelled, AST Cancelled, ALT Cancelled, Alkaline Phosphatase Cancelled, Ammonia 11.0, Total Protein Cancelled, Albumin Cancelled, Globulin Cancelled, Lipase Cancelled, Serum , Qual NEGATIVE 09/02/23 17:49: Sodium 118 L*, Potassium 1.8 L*, Chloride 69 L*, Carbon Dioxide 29.0, Anion Gap 20 H, BUN 17, Creatinine 0.96, Estim Creat Clear Calc 64.58, Est GFR (MDRD) Af Amer 81, Est GFR (MDRD) Non-Af 67, BUN/Creatinine Ratio 17.7, Glucose 44 L*, Calcium 11.1 H, Total Bilirubin 8.00 H, Direct Bilirubin 6.14 H, AST 178 H, ALT 31, Alkaline Phosphatase 92, Total Protein 5.9 L, Albumin 2.2 L, Globulin 3.7, Lipase 1853 H, Urine Opiates Screen NEGATIVE, Urine Methadone Screen NEGATIVE, Ur Barbiturates Screen NEGATIVE, Ur Phencyclidine Scrn NEGATIVE, Ur Amphetamines Screen NEGATIVE, MDMA (Ecstasy) Screen NEGATIVE, U Benzodiazepines Scrn NEGATIVE, Urine Cocaine Screen NEGATIVE, U Cannabinoids Screen NEGATIVE, Ur Drug Screen Comment 09/02/23 18:23: POC Glucose 50 L 09/02/23 18:30: Sodium 119 L*, Potassium 1.8 L*, Chloride 70 L*, Carbon Dioxide 29.0, Anion Gap 20 H, BUN 18, Creatinine 0.84, Estim Creat Clear Calc 73.80, Est GFR (MDRD) Af Amer 95, Est GFR (MDRD) Non-Af 78, BUN/Creatinine Ratio 21.4 H, Glucose 48 L, Calcium 11.2 H, Magnesium 1.2 L, Total Bilirubin 7.90 H, AST 190 H, ALT 31, Alkaline Phosphatase 89, Total Protein 6.0 L, Albumin 2.2 L, Globulin 3.8, Albumin/Globulin Ratio 0.6 L Imaging Radiology Impression Chest X-Ray 09/02/23 16:55 IMPRESSION: No radiographic evidence of acute cardiopulmonary disease. Electronically Signed: Yon Link DO at 17:52 EDT , [facility] Imaging Services [address] [place] [id number] Abdomen/Pelvis without Cont MR#: [id number] Acct: [id number] Name: FIONA ZAFAR Rep #: [id number] : 1980 F 43 From: Yon Link DO PCP: Care Physician,No Primary Status: ADM IN Study: Abdomen/Pelvis without Cont Date of Exam: 09/02/23 Exam# [id number] Ordering Dr: Jimbo Winters DO STUDY: CT ABDOMEN AND PELVIS WITHOUT CONTRAST REASON FOR EXAM: Female, 43 years old. Suspected cirrhosis with EtOH pancreatitis. RADIATION DOSAGE (If Supplied By Facility): CTDIvol = ( 9.22 ) mGy, DLP = ( 501.95 ) mGycm TECHNIQUE: Transaxial images were obtained from the dome of the diaphragm to the symphysis pubis without oral contrast, and without intravenous contrast. Sagittal and coronal images were reconstructed. Individualized dose optimization techniques were used for this CT. COMPARISON: None. FINDINGS: The visualized lung bases are unremarkable. The visualized portions of the heart are within normal limits. Enlarged fatty liver. Normal gallbladder and extrahepatic biliary system. Normal spleen. Peripancreatic mesenteric stranding adjacent to the pancreas. Normal bilateral adrenal glands. Normal right kidney. Normal left kidney. Normal visualized stomach. Normal small intestine. Diverticulosis of the colon. The appendix is visualized and appears normal. Normal abdominal aorta. Normal inferior vena cava. Normal retroperitoneum. Normal urinary bladder. Normal abdominal wall. Normal osseous structures. CT/Abdomen/Pelvis without Cont IMPRESSION: Fatty liver with hepatomegaly. Pancreatitis is suspected in the proper clinical settings. Colonic diverticulosis. Electronically Signed: Yon Link DO at 21:09 EDT Reading Location ID and State: [facility] / [place] Tel [phone], Service support , CC: Dr. 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 Severe acute hyponatremia of 119 mmol/L present on admission - Admit to ICU. Start normal saline IV fluid and recheck BMP every 4 hours to ensure gradual rise of no more than 8 to 10 mmol/L per 24 hours. Check serum and urine osmolality. 2. Critical hypokalemia of 1.8 mmol/L present on admission complicating #1 - Give supplemental IV and oral KCl and then recheck level in a.m. to ensure improvement. 3. Severe hypomagnesemia of 1.2 mg/dL present on admission compounding #1 & #2 - Give magnesium sulfate 2 g IV and then recheck level in a.m. to ensure improvement. 4. Critical Hypophosphatemia of 0.1 mg/dL present on admission adding to the complexity of #1 - #3 - Give IV K-Phos 40 mmol IV once and then recheck level to ensure improvement. 5. Acute hyperbilirubinemia with total bilirubin of 7.9 mg/dL and direct bilirubin of 6.14 mg/dL in the setting of chronic alcohol abuse with patient requesting alcohol detox adding to the pathology of #1 - #4 - EtOH cessation will be strongly encouraged. We will give phenobarbital IV per protocol for alcohol detoxification. Check CMP daily to follow trend. Avoid potentially hepatotoxic agents. Finally, we will consult Dr. Pedraza of gastroenterology to see this patient on-rounds in the AM for further recommendations with help appreciated in advance. 5. Elevated lipase of 1,853 units/L present on admission consistent with suspected alcohol induced pancreatitis enhancing the complexity of #1 - #4 - Keep strict n.p.o. and start IV Protonix. Give IV Zofran as needed nausea or vomiting. Serialize lipase to follow trend. INR 1.2 present on admission indicating adequate synthetic liver function of clotting factors at this time. 6. Mild hypercalcemia of 11.2 mg/dL present on admission - Volume resuscitate and check PTH. Check vitamin D level. 7. Hypoalbuminemia of 2.2 g/dL present on admission suspicious for protein calorie malnutrition - Check prealbumin to confirm suspicion. 8. Leukocytosis of 16.3 K and thrombocytosis of 547 K present on admission - Patient has no obvious signs of infections at this time therefore leukocytosis is suspected to be due to acute stress response arising from above outlined pathologies. 9. Tobacco abuse - Tobacco cessation will be strongly encouraged with nicotine patch offered to control cravings. 10. Chronic anemia - Stable with hemoglobin of 10.6 g/dL present on admission. No reports or signs of bleeding up to this point in time. Check iron studies, ferritin and Hemoccult stools. 11. History of lichen sclerosis - Noted. 12. DVT prophylaxis - SCDs only with hemoglobin dropping to 6.6 g/dL after initial round of volume resuscitation. Total time: Approximately 75 minutes. Update: Patient's hemoglobin dropped to 6.6 g/dL after volume resuscitation requiring transfusion of one unit of PRBC's. Charges/Coding Visit Charges Inpatient E&M: 45252 Init Hosp L3
[2023-09-02 19:24] LABS: Bedside Glucose 136 mg/dL (74-106)
[2023-09-02] MEDS: Magnesium Sulfate 2 GM in Dextrose 5%-Water (100mL Bag) 100 ML IV (19:29)
[2023-09-02] MEDS: 0.9% Normal Saline (500mL Bag) 500 ML 999 ML IV (19:39)
--- NOTE | 2023-09-02 19:52 | CT_ITS ---
STUDY: CT ABDOMEN AND PELVIS WITHOUT CONTRAST REASON FOR EXAM: Female, 43 years old. Suspected cirrhosis with EtOH pancreatitis. RADIATION DOSAGE (If Supplied By Facility): CTDIvol = ( 9.22 ) mGy, DLP = ( 501.95 ) mGycm TECHNIQUE: Transaxial images were obtained from the dome of the diaphragm to the symphysis pubis without oral contrast, and without intravenous contrast. Sagittal and coronal images were reconstructed. Individualized dose optimization techniques were used for this CT. COMPARISON: None. FINDINGS: The visualized lung bases are unremarkable. The visualized portions of the heart are within normal limits. Enlarged fatty liver. Normal gallbladder and extrahepatic biliary system. Normal spleen. Peripancreatic mesenteric stranding adjacent to the pancreas. Normal bilateral adrenal glands. Normal right kidney. Normal left kidney. Normal visualized stomach. Normal small intestine. Diverticulosis of the colon. The appendix is visualized and appears normal. Normal abdominal aorta. Normal inferior vena cava. Normal retroperitoneum. Normal urinary bladder. Normal abdominal wall. Normal osseous structures. CT/Abdomen/Pelvis without Cont IMPRESSION: Fatty liver with hepatomegaly. Pancreatitis is suspected in the proper clinical settings. Colonic diverticulosis. Electronically Signed: Yon Link DO at 21:09 EDT Reading Location ID and State: [facility] / [place] Tel [phone], Service support ,
[2023-09-02 21:08] LABS: Bedside Glucose 108 mg/dL (74-106)
[2023-09-02] MEDS: Potassium Chloride Oral Tablet 20 MEQ 60 MEQ PO (21:17)
[2023-09-02] MEDS: KCL 20MEQ in 0.9% NS 20 MEQ/1,000 ML IV.SOLN. 150 MEQ IV (21:17)
[2023-09-02] MEDS: 0.9% Saline Lock 10 ML Syringe IV (21:18)
[2023-09-02 22:06] LABS: PTHIN 3.5 pg/mL (18.4-80.1)
[2023-09-02] MEDS: Phenobarbital Sodium 65 MG/ML Vial 32.5 MG IV (22:06)
[2023-09-02 22:20] LABS: Anion Gap 17 (5-15); BUN 18 mg/dL (7-18); BUN/Creat Ratio 22.6 RATIO (10-20); Calcium,Total 10.4 mg/dL (8.5-10.1); Chloride 74 mmol/L (98-107); EST Glomerular Filtration Rate 83 mL/min (>60); Est Glom Filt Rate - Afr Amer 101 mL/min (>60); Estimated Creatinine Clearance 77.49 ml/min; Glucose 104 mg/dL (74-106); Potassium 2.1 mmol/L (3.5-5.1); Prealbumin 7.2 mg/dL (20.0-40.0); Sodium Level 121 mmol/L (136-145)
[2023-09-02 22:27] LABS: Osmolality, Serum 262 mOsm/KG (275-295)
[2023-09-02] MEDS: Albumin Human 25% (100 mL) 25 GM/100 ML BAG IV (22:41)
[2023-09-02 22:47] LABS: Hemoglobin A1c 4.6 % (3.8-5.6)
[2023-09-02 23:19] LABS: Allen Test Positive; Base Excess 8 mmol/L (-2 to +2); Bicarbonate 29.8 mmol/L (22-26); Blood Gas Specimen Type ART; Mode Not entered; O2 Delivery Device Cannula; PO2 61 mmHG (75-100); SITE L Radial; SO2 94 % (95-99); Total Carbon Dioxide 31 mmol/L; pCO2 32.7 mmHg (35-45); pH 7.57 (7.35-7.45)
[2023-09-03] VITALS (45 sets, daily range): BP systolic 77–135; BP diastolic 50–95; PULSE 102–129; RESP 12–42; TEMP 36.3–37.3; O2SAT 80–100; BMI 23.9
[2023-09-03] MEDS: KCL 20MEQ in 0.9% NS 20 MEQ/1,000 ML IV.SOLN. 75 MEQ IV (00:24)
[2023-09-03] MEDS: Potassium Chloride Oral Tablet 20 MEQ 60 MEQ PO ×3 (01:00→07:55)
[2023-09-03] MEDS: Furosemide 40 MG/4 ML Vial IV ×4 (01:20→17:12)
[2023-09-03 01:46] LABS: Osmolality, Urine 309 mOsm/KG
[2023-09-03] MEDS: 0.9% Saline Lock 10 ML Syringe IV ×8 (02:19→20:18)
[2023-09-03 02:23] LABS: Absolute Lymphocyte Count 1.05 X10^3/uL (0.83-4.51); Absolute Neutrophil Count 17.4 X10^3/uL (2.0-7.7); Basophil# 0.06 X10^3/uL; Basophil% 0.3 % (0-1); Eosinophils% 0.5 % (0-5); Hematocrit 18.9 % (37-47); Hemoglobin 6.6 g/dL (12.0-15.0); Lymphocyte # 1.05 X10^3/ul (0.83-4.51); Lymphocyte % 5.4 % (19-41); Mean Corp Hgb Conc 34.9 g/dL (32-36); Mean Corpuscular Hgb 34.6 pg (27.0-32.0); Mean Platelet Vol. 10.5 fl (6.2-12.0); Monocyte# 0.71 X10^3/uL; Monocyte% 3.6 % (0-10); NRBC Flagged by Analyzer 0 % (0-5); Neutrophil # 17.39 X10^3/uL (2.7-7.7); Neutrophil % 89.3 % (47-70); POSITIVE MORPHOLOGY YES; Platelet Count 316 K/mm3 (150-450); RBC Distribution Width CV 12.9 % (11.6-14.6); Red Blood Count 1.91 M/mm3 (4.2-5.4); White Blood Count 19.5 K/mm3 (4.4-11.0)
[2023-09-03 02:38] LABS: Differential Indicated SCAN CRITERIA MET
[2023-09-03 03:17] LABS: ALB/GLOB Ratio 0.8 RATIO (0.9-2.4); AST(SGOT) 312 U/L (15-37); Alanine Aminotransfer ALT/SGPT 38 U/L (13-56); Albumin, Serum 2.4 g/dL (3.2-5.0); Alkaline Phosphatase 48 U/L (45-117); Anion Gap 15 (5-15); BUN 21 mg/dL (7-18); BUN/Creat Ratio 28.2 RATIO (10-20); Calcium,Total 10.2 mg/dL (8.5-10.1); Chloride 75 mmol/L (98-107); Creatinine, Serum 0.74 mg/dL (0.55-1.02); EST Glomerular Filtration Rate 90 mL/min (>60); Est Glom Filt Rate - Afr Amer 109 mL/min (>60); Estimated Creatinine Clearance 83.77 ml/min; Globulin 2.9 g/dL (2.2-4.2); Glucose 92 mg/dL (74-106); Lipase 861 U/L (13-75); Magnesium 1.7 mg/dL (1.6-2.6); Phosphorus 0.1 mg/dL (2.5-4.9); Potassium 2.3 mmol/L (3.5-5.1); Protein, Total 5.3 g/dL (6.4-8.2); Sodium Level 120 mmol/L (136-145); Thyroid Stim Hormone (TSH) 0.72 uIU/mL (0.358-3.74)
[2023-09-03] MEDS: Potassium Phosphate 40 MM in 0.9% Normal Saline (500mL Bag) 500 ML 62.5 MM IV (03:31)
[2023-09-03] MEDS: Vancomycin HCl 1,500 MG in 0.9% Normal Saline (500mL Bag) 500 ML 250 MG IV (04:31)
[2023-09-03 04:42] LABS: Allen Test Positive; Base Excess 8 mmol/L (-2 to +2); Bicarbonate 30.6 mmol/L (22-26); Blood Gas Specimen Type ART; Mode Not entered; O2 Delivery Device Cannula; PO2 71 mmHG (75-100); SITE L Radial; SO2 96 % (95-99); Total Carbon Dioxide 32 mmol/L; pH 7.53 (7.35-7.45)
[2023-09-03 04:42] LABS: Ferritin 3101 ng/mL (8-252); Iron 121 ug/dL (50-170); Iron Binding Capacity,Total 131 ug/dL (250-450); PERCENT IRON SATURATION 92.4 % (15.0-55.0)
--- NOTE | 2023-09-03 04:49 | PCM.RX.CS ---
Consult Antibiotic Management Pharmacy has been consulted to manage selected antibiotic: Vancomycin Type of Intervention Type of Consult: New start Labs Labs: Sodium 120 mmol/L (136-145) L 09/03/23 02:00 Potassium 2.3 mmol/L (3.5-5.1) L* 09/03/23 02:00 Chloride 75 mmol/L (98-107) L 09/03/23 02:00 Carbon Dioxide 30.0 mmol/L (21.0-32.0) 09/03/23 02:00 Anion Gap 15 (5-15) 09/03/23 02:00 BUN 21 mg/dL (7-18) H 09/03/23 02:00 Creatinine 0.74 mg/dL (0.55-1.02) 09/03/23 02:00 Est GFR (MDRD) Af Amer 109 mL/min (>60) 09/03/23 02:00 Est GFR (MDRD) Non-Af 90 mL/min (>60) 09/03/23 02:00 BUN/Creatinine Ratio 28.2 RATIO (10-20) H 09/03/23 02:00 Glucose 92 mg/dL (74-106) 09/03/23 02:00 Dosing Weight Weight used for dosin.3 kg Estimated Creatinine Clearance Estimated Creatinine Clearance: 84 Goal Trough Goal Trough: 15-20 mcg/mL Pharmacy Plan for Drug Dosing Pharmacy Plan for Drug Dosing: Pharmacy Service will continue to monitor and adjust dosing as required. Follow-Up Labs Follow-Up Labs: Trough: Vancomycin Date/Time Labs Ordered Labs to be done on [date and time ordered]: 09/04/23 @1600
[2023-09-03] MEDS: Piperacil/Tazobactam 3.375 GM in 0.9% Normal Saline (50mL MB+) 50 ML IV ×3 (05:04→20:07)
[2023-09-03] MEDS: Phenobarbital Sodium 65 MG/ML Vial 32.5 MG IV (05:07)
[2023-09-03 05:49] LABS: BNP,B-Type NATRIURETIC PEPTIDE 143.5 pg/mL (0-100)
[2023-09-03 06:42] LABS: Anion Gap 14 (5-15); BUN 21 mg/dL (7-18); BUN/Creat Ratio 32.5 RATIO (10-20); Chloride 79 mmol/L (98-107); Creatinine, Serum 0.65 mg/dL (0.55-1.02); EST Glomerular Filtration Rate 106 mL/min (>60); Est Glom Filt Rate - Afr Amer 128 mL/min (>60); Estimated Creatinine Clearance 95.37 ml/min; Glucose 81 mg/dL (74-106); Sodium Level 123 mmol/L (136-145)
[2023-09-03 06:46] LABS: Differential Comment SCANNED; Stomatocyte 3+
--- NOTE | 2023-09-03 08:39 | CPS ---
Patient attempted BiPAP and tolerated only 10 minutes.
[2023-09-03] MEDS: Pantoprazole Sodium 40 MG in 0.9% Normal Saline (100mL MB+) 100 ML 330 MG IV (09:29)
[2023-09-03] MEDS: Phenobarbital 32.4 MG Tablet 64.8 MG PO ×4 (09:29→19:58)
[2023-09-03] MEDS: Magnesium Sulfate 2 GM in Dextrose 5%-Water (100mL Bag) 100 ML IV (09:29)
--- NOTE | 2023-09-03 10:22 | EX.PCM.CON.G ---
HPI Consult Data Date of Consult: 09/03/23 HPI Narrative Reason for Consultation: Alcoholic hepatitis HPI Narrative: FIONA ZAFAR, is a 43 F with past medical history of tobacco abuse and chronic EtOH Abuse who presents to [facility] ER complaining of wanting help with alcohol detoxification. Ms. Zafar reports she typically drinks 12 white claws a day and has been a heavy drinker for 20 years without cessation. Her last drink was last night. She states that over the 2-3 days she has noted increasing epigastric abdominal pain with associated heartburn for which she has been taking [id number] medications which only helped for short period of time. She denies having undergone alcohol detoxification in the past. She admits to nausea and vomiting with bilious emesis with yellowing of her eyes and mild lower extremity edema. She denies related fever, chills, diarrhea, constipation, chest pain, shortness of breath or obvious signs of bleeding. In the ER she was noted to have laboratory evidence of severe acute hyponatremia of 119 mmol/L, critical hypokalemia of 1.8 mmol/L, severe hypomagnesemia of 1.2 mg/dL, critical hypophosphatemia of 0.1 mg/dL and evidence of acute liver failure with acute hyperbilirubinemia with total bilirubin of 7.9 mg/dL and direct bilirubin of 6.14 mg/dL. In the setting of chronic alcohol abuse with patient requesting alcohol detoxification compounded by elevated lipase of 1,853 units/L present on admission with corresponding CT evidence of acute pancreatitis likely due to chronic alcohol abuse and she was then admitted to the ICU. Also the CT noted massive hepatomegaly with the liver span of 35 cm. There was no splenomegaly that was noted. [facility] Home Medications ?Medication ?Instructions ?Recorded ?Last Taken ?Type levocetirizine 5 mg tablet (Xyzal) 5 mg PO DAILY 09/02/23 Unknown History Allergy/AdvReac Type Severity Reaction Status Date / Time No Known Allergies Allergy Verified 09/02/23 16:23 Family History Brother Diabetes Mother H/O: hysterectomy Social History number of children: 0 current occupational status: employed current occupation: [employer] Smoking Status: Current every day smoker tobacco type: cigarettes alcohol intake: current alcohol intake frequency: 0-2 drinks per day substance use type: does not use seatbelt use: always do you feel safe at home: Yes additional social history: [employer] Narrative Review of systems: General: Patient denies fever or chills. HENT: Denies headache, denies stuffy nose, denies sore throat EYES: Patient admits to yellowing of her eyes but she denies changes in vision or discharge from eyes. Resp: Denies cough, denies shortness of breath Cardiac: Denies chest pain, palpitations or heart racing. GI: Patient admits to abdominal pain and nausea with bilious emesis as per HPI. : Denies changes in urination Extremity: Patient admits to mild symmetrical bilateral lower extremity edema. Musculoskeletal: Feels somewhat generally weak and unwell but denies arthralgias or myalgias. Neuro: Patient denies headache, paresthesias or focal neurologic deficits. Heme: Denies any bleeding or bruising Skin: Denies rashes Psychiatric: No complaints voiced related to uncontrolled depression or anxiety. Endocrine: No polyuria, polydipsia or polyphagia. The rest of the 14 point ROS was negative except for positives in HPI. Physical Exam Const alert, oriented x3, no apparent distress and average body habitus General Appearance: cooperative HEENT normocephalic, head/scalp atraumatic and hearing grossly normal bilaterally HEENT Narrative: Mucous membranes dry. Eyes PERRL and EOMs intact bilaterally Neck no lymphadenopathy and supple Resp normal respiratory effort, no retractions, no use of accessory muscles and clear to auscultation bilaterally Cardio regular rate and regular rhythm GI GI Narrative: Patient has mild distention with hepatomegaly but abdomen is soft with normal bowel sounds and nontender. Extremity Extremity Narrative: 1+ bilateral symmetrical with pitting lower extremity edema. Skin Skin Narrative: Patient has evidence of jaundice and scleral icterus but no rash or abscess noted. Neuro oriented x3, CN's II-XII intact bilaterally, moves all extremities and no focal motor deficits Sensorium / Orientation: awake, alert, oriented to person, oriented to place and oriented to time Speech: speech normal Psych affect normal Lab / Micro Data 09/03/23 10:15 09/03/23 10:15 Labs: Laboratory Results - last 24 hr 09/02/23 16:45: WBC 16.3 H, RBC 3.10 L, Hgb 10.6 L, Hct 30.5 L, MCV 98.4, MCH 34.2 H, MCHC 34.8, RDW Std Deviation 46.5 H, RDW Coeff of Rebel 13.0, Plt Count 547 H, MPV 10.0, Immature Gran % (Auto) 0.800, Neut % (Auto) 88.6 H, Lymph % (Auto) 7.0 L, Deuel % (Auto) 2.6, Eos % (Auto) 0.8, Baso % (Auto) 0.2, Absolute Neuts (auto) 14.4 H, Absolute Lymphs (auto) 1.14, Nucleated RBC % 0, PT 15.5 H, INR 1.2, Sodium Cancelled, Potassium Cancelled, Chloride Cancelled, Carbon Dioxide Cancelled, Anion Gap Cancelled, BUN Cancelled, Creatinine Cancelled, Estim Creat Clear Calc Cancelled, Est GFR (MDRD) Af Amer Cancelled, Est GFR (MDRD) Non-Af Cancelled, BUN/Creatinine Ratio Cancelled, Glucose Cancelled, Hemoglobin A1c 4.6, Calcium Cancelled, Total Bilirubin Cancelled, Direct Bilirubin Cancelled, AST Cancelled, ALT Cancelled, Alkaline Phosphatase Cancelled, Ammonia 11.0, Total Protein Cancelled, Albumin Cancelled, Globulin Cancelled, Lipase Cancelled, Serum , Qual NEGATIVE 09/02/23 17:49: Sodium 118 L*, Potassium 1.8 L*, Chloride 69 L*, Carbon Dioxide 29.0, Anion Gap 20 H, BUN 17, Creatinine 0.96, Estim Creat Clear Calc 64.58, Est GFR (MDRD) Af Amer 81, Est GFR (MDRD) Non-Af 67, BUN/Creatinine Ratio 17.7, Glucose 44 L*, Calcium 11.1 H, Total Bilirubin 8.00 H, Direct Bilirubin 6.14 H, AST 178 H, ALT 31, Alkaline Phosphatase 92, Total Protein 5.9 L, Albumin 2.2 L, Globulin 3.7, Lipase 1853 H, Urine Opiates Screen NEGATIVE, Urine Methadone Screen NEGATIVE, Ur Barbiturates Screen NEGATIVE, Ur Phencyclidine Scrn NEGATIVE, Ur Amphetamines Screen NEGATIVE, MDMA (Ecstasy) Screen NEGATIVE, U Benzodiazepines Scrn NEGATIVE, Urine Cocaine Screen NEGATIVE, U Cannabinoids Screen NEGATIVE, Ur Drug Screen Comment 09/02/23 18:23: POC Glucose 50 L 09/02/23 18:30: Sodium 119 L*, Potassium 1.8 L*, Chloride 70 L*, Carbon Dioxide 29.0, Anion Gap 20 H, BUN 18, Creatinine 0.84, Estim Creat Clear Calc 73.80, Est GFR (MDRD) Af Amer 95, Est GFR (MDRD) Non-Af 78, BUN/Creatinine Ratio 21.4 H, Glucose 48 L, Calcium 11.2 H, Magnesium 1.2 L, Total Bilirubin 7.90 H, AST 190 H, ALT 31, Alkaline Phosphatase 89, Total Protein 6.0 L, Albumin 2.2 L, Globulin 3.8, Albumin/Globulin Ratio 0.6 L 09/02/23 19:06: POC Glucose 136 H 09/02/23 20:45: POC Glucose 108 H 09/02/23 21:25: Sodium 121 L, Potassium 2.1 L*, Chloride 74 L*, Carbon Dioxide 30.0, Anion Gap 17 H, BUN 18, Creatinine 0.80, Estim Creat Clear Calc 77.49, Est GFR (MDRD) Af Amer 101, Est GFR (MDRD) Non-Af 83, BUN/Creatinine Ratio 22.6 H, Glucose 104, Serum Osmolality 262 L, Calcium 10.4 H, Prealbumin 7.2 L, PTH Intact 3.5 L 09/03/23 00:50: Urine Osmolality 309 09/03/23 02:00: WBC 19.5 H, RBC 1.91 L, Hgb 6.6 L, Hct 18.9 L, MCV 99.0, MCH 34.6 H, MCHC 34.9, RDW Std Deviation 46.0 H, RDW Coeff of Rebel 12.9, Plt Count 316, MPV 10.5, Immature Gran % (Auto) 0.900, Neut % (Auto) 89.3 H, Lymph % (Auto) 5.4 L, Deuel % (Auto) 3.6, Eos % (Auto) 0.5, Baso % (Auto) 0.3, Absolute Neuts (auto) 17.4 H, Absolute Lymphs (auto) 1.05, Nucleated RBC % 0, Differential Comment SCANNED, Stomatocytes 3+, Sodium 120 L, Potassium 2.3 L*, Chloride 75 L, Carbon Dioxide 30.0, Anion Gap 15, BUN 21 H, Creatinine 0.74, Estim Creat Clear Calc 83.77, Est GFR (MDRD) Af Amer 109, Est GFR (MDRD) Non-Af 90, BUN/Creatinine Ratio 28.2 H, Glucose 92, Calcium 10.2 H, Phosphorus 0.1 L*, Magnesium 1.7, Iron 121, TIBC 131 L, Iron Saturation 92.4 H, Ferritin 3101 H, Total Bilirubin 11.50 H, AST 312 H, ALT 38, Alkaline Phosphatase 48, B-Natriuretic Peptide 143.5 H, Total Protein 5.3 L, Albumin 2.4 L, Globulin 2.9, Albumin/Globulin Ratio 0.8 L, Lipase 861 H, TSH 0.72 09/03/23 03:25: Blood Type B POSITIVE, Antibody Screen NEGATIVE, Crossmatch See Detail 09/03/23 05:45: Sodium 123 L, Potassium 3.0 L, Chloride 79 L, Carbon Dioxide 30.0, Anion Gap 14, BUN 21 H, Creatinine 0.65, Estim Creat Clear Calc 95.37, Est GFR (MDRD) Af Amer 128, Est GFR (MDRD) Non-Af 106, BUN/Creatinine Ratio 32.5 H, Glucose 81, Calcium 10.0 ABG Data ABG results: ABG 09/02/23 09/03/23 23:16 04:38 Specimen Type ART ART Sample Site L Radial L Radial pH 7.57 H 7.53 H Bicarbonate Actual 29.8 H 30.6 H Total CO2 31 32 Base Excess 8 H 8 H O2 Saturation 94 L 96 O2 % 6.0 15.0 ABG pCO2 32.7 L 37.0 ABG pO2 61 L 71 L Oswald Test Positive Positive O2 Delivery Device Cannula Cannula Vent Mode Not entered Not entered Imaging Radiology Impression Chest X-Ray 09/02/23 16:55 IMPRESSION: No radiographic evidence of acute cardiopulmonary disease. Electronically Signed: Yon Link DO at 17:52 EDT , Abdomen/Pelvis CT 06/22/24 19:52 IMPRESSION: Fatty liver with hepatomegaly. Pancreatitis is suspected in the proper clinical settings. Colonic diverticulosis. Electronically Signed: Yon Nikolay at 21:09 EDT Reading Location ID and State: [facility] / [place] Tel [phone], Service support , Assessment & Plan Assessment/Plan (1) Acute hyponatremia: (2) Hypokalemia: (3) Hypomagnesemia: (4) Hypophosphatemia: (5) Alcoholic liver failure: (6) Acute pancreatitis: QUALIFIERS: Acute pancreatitis complication: unspecified Pancreatitis type: alcohol induced Qualified Code(s): K85.20 - Alcohol induced acute pancreatitis without necrosis or infection (7) Desire for detoxification: (8) Alcohol abuse: PLAN: Plan 43-year-old with history of alcoholism presents with status discovered to have multiple metabolic abnormalities : Severe acute hyponatremia of 119 mmol/L likely secondary to to alcoholism. Current sodium is 123. It accompanies her multiple electrolyte abnormalities including critical hypokalemia, hypomagnesemia and hypophosphatemia. This is being managed by primary team. She also has severe acute hyperbilirubinemia with total bilirubin of 7.9 mg/dL that has increased to 11.5. And direct bilirubin of 6.14 mg/dL in the setting of chronic alcohol abuse with patient requesting alcohol detox adding to the pathology of #1 - #4 - EtOH cessation will be strongly encouraged. We will give phenobarbital IV per protocol for alcohol detoxification. Check CMP daily to follow trend. Avoid potentially hepatotoxic agents. She has no previous history of cirrhosis. No previous history of chronic hepatitis B or chronic hepatitis C. No previous history HIV. She does not take any medicines for lichen sclerosus. She has not been diagnosed with alcoholic hepatitis in the past. She has not received any blood transfusions she has no past medical history of tuberculosis. We need to check her for acute viral hepatitis and nonviral hepatitis. In the ICU she was discovered to have a pH of 7.5, sodium bicarbonate of 30, CO2 37. Her creatinine is 0.65, bilirubin is 11 and INR is 1.4. This gives her a MELD sodium score of 20 which carries of 25% mortality rate in 90 days. Her Madrey score for alcoholic hepatitis was 31.9. She is mildly encephalopathic and is on phenobarbital. Alcoholic pancreatitis identified by elevated lipase of 1,853 units/L and imaging showing pancreatitis. Severe alcoholic hepatitis has a high mortality, and it is associated with encephalopathy, acute renal failure, sepsis, gastrointestinal bleeding, and endotoxemia. The 28-d mortality remains poor (34%-40%), because no effective treatment has been established. Recently, corticosteroids have been considered effective for significantly improving the prognosis of those with AH, as it prevents the production of pro-inflammatory cytokines. However, CS are not always appropriate as an initial therapeutic option, such as in cases with an infection or resistance to CS. Hyper ferritin anemia secondary to acute liver injury. There is a possibility of secondary hemochromatosis and infiltrative disease affecting the liver. Patient's hemoglobin dropped to 6.6 g/dL after volume resuscitation requiring transfusion of one unit of PRBC's. Recommendations: -Hopefully INR will not continue to increase. I would give her vitamin K 5 mg IV -I would also carefully look at her magnesium and Phos and potassium -I am hesitant to give her steroids at this time due to her increasing white blood cell count and monotherapy with N-acetylcysteine for nonacetaminophen-induced alcoholic hepatitis has not been proven to improve more than 30-day mortality -At this time she does not need a liver transplant evaluation. She is not acidotic by her blood gas. She is high risk for development of respiratory and metabolic acidosis. -Check labs for autoimmune hepatitis, Siddharth's disease, CMV, EBV, HIV -Check SHADI, iron, transferrin and if white blood cell count continues to increase -Lactulose 30 cc twice daily -Xifaxan 550 mg twice a day Patient's hemoglobin dropped to 6.6 g/dL after volume resuscitation requiring transfusion of one unit of PRBC's. Charges/Coding Visit Charges Inpatient E&M: 85963 Init Hosp L3
[2023-09-03 10:30] LABS: Hematocrit 24.1 % (37-47); Hemoglobin 8.4 g/dL (12.0-15.0); Mean Corp Hgb Conc 34.9 g/dL (32-36); Mean Corpuscular Hgb 34.4 pg (27.0-32.0); Mean Corpuscular Volume 98.8 fL (81-99); Mean Platelet Vol. 10.4 fl (6.2-12.0); Platelet Count 236 K/mm3 (150-450); RBC Distribution Width CV 13.2 % (11.6-14.6); RBC Distribution Width SD 46.8 fl (35.1-43.9); Red Blood Count 2.44 M/mm3 (4.2-5.4); White Blood Count 24.4 K/mm3 (4.4-11.0)
[2023-09-03 10:44] LABS: Albumin, Serum 2.3 g/dL (3.2-5.0); BUN 20 mg/dL (7-18); BUN/Creat Ratio 29.6 RATIO (10-20); Calcium,Total 9.6 mg/dL (8.5-10.1); Chloride 84 mmol/L (98-107); Creatinine, Serum 0.68 mg/dL (0.55-1.02); EST Glomerular Filtration Rate 100 mL/min (>60); Est Glom Filt Rate - Afr Amer 121 mL/min (>60); Estimated Creatinine Clearance 91.17 ml/min; Glucose 79 mg/dL (74-106); Phosphorus 1.5 mg/dL (2.5-4.9); Sodium Level 125 mmol/L (136-145)
[2023-09-03 10:47] LABS: International Normalized Ratio 1.4; Prothrombin Time (Protime)PT. 16.7 SECONDS (11.7-14.9)
--- NOTE | 2023-09-03 11:00 | RAD_ITS ---
INDICATION: Shortness of breath EXAMINATION/TECHNIQUE: X-RAY - XR Chest 1 View COMPARISON: Prior study dated: 09/02/2023 FINDINGS: LINES/DEVICES: None. LUNGS: Hypoventilatory changes. Mild left perihilar and lower lung infiltrate new since previous exam. No evidence of pleural effusions. MEDIASTINUM AND CARDIOVASCULAR STRUCTURES: Cardiac silhouette not enlarged. Central airways and mediastinal contour are unremarkable. BONES AND SOFT TISSUES: Unremarkable. RAD/Chest 1 View (Portable) IMPRESSION: Hypoventilatory changes. New mild left perihilar and lower lung infiltrate. Electronically Signed: Gaurang Hadley MD at 11:47 EDT ,
--- NOTE | 2023-09-03 11:02 | PCM.PN.HOSP ---
Reason for Visit Reason for Visit: Diagnoses Other disorders of phosphorus metabolism (09/02/23) Hypomagnesemia (09/02/23) Hypo-osmolality and hyponatremia (09/02/23) Hypokalemia (09/02/23) Alcohol abuse, uncomplicated (09/02/23) Alcoholic hepatic failure without coma (09/02/23) Alcohol induced acute pancreatitis without necrosis or infection (09/02/23) Acute pancreatitis without necrosis or infection, unspecified (09/02/23) Subjective Subjective Patient admitted overnight to the ICU for acute alcoholic hepatitis with several other significant medical concerns. These concerns include the following: Acute hypoxic respiratory failure, acute pancreatitis, severe anemia, severe hypophosphatemia, severe hypokalemia, severe hyponatremia and impending alcohol withdrawal. Patient does not wear oxygen at home. I saw her at the bedside this morning. She was requiring 15 L of high flow nasal cannula with oxygen saturations in the low to mid 90s. Patient was given a significant amount of fluids for acute pancreatitis on admission and it was suspected she was volume overloaded from this. Was given a dose of IV Lasix earlier this morning with only some urine output. When I saw her, she was breathing comfortably but her breaths were shallow likely due to abdominal distention and some abdominal pain. Shortly after this encounter, nursing staff trialed her on BiPAP but she did not tolerate this well, so they switched her over to Airvo. When I saw her this afternoon, she was again having shallow breaths with respiration rate around 30 but otherwise had good oxygen saturations and did not look any more fatigued than she did this morning. Patient had a hemoglobin drop of 10.6 overnight to 6.6 this morning. Only lab for comparison was back in 2019 when hemoglobin was 17.0. Patient was given a unit of blood with hemoglobin recheck of 8.4. Patient denies any recent dark or bloody bowel movements. Suspect that patient has largely chronic anemia and the large drop from overnight to this morning was due to IV fluid resuscitation. Dr. Pedraza with GI saw patient this morning. Patient has severe alcohol hepatitis with MELD score of 20 and Madrey score of 31. Also has very high ferritin level of 3101 and it is suspected that her anemia is secondary to her acute liver disease. Per GI, large lab workup was ordered and patient was started on lactulose and Xifaxan. Notably, steroids were not started at this time given her increasing white blood cell count. Patient's potassium, phosphorus and magnesium have been aggressively repleted today and repeat labs have shown significant improvement in these values. Patient's sodium was 118 this morning and has slowly been rising on lab checks with most recent sodium being 125. Not getting any further fluids currently and will give 1 more dose of IV Lasix tonight. Will plan to recheck sodium and electrolytes again tonight and tomorrow morning and can make adjustments to management based on these findings. Patient's significant other was present at the bedside this afternoon as well. Patient has tolerated the first few doses of phenobarbital without significant issue, has not had significant sedation with these doses. She denies any acute withdrawal symptoms. Told patient and significant other that we would continue to monitor her very closely given her significant medical issues as noted above. Patient had no other acute concerns at this time. Objective Data Objective Data Vital Signs: Vital Signs Temp Pulse Resp BP Pulse Ox O2 Del Method O2 Flow Rate 98.2 F 121 H 33 H 110/77 98 Airvo 60 09/03/23 10:00 09/03/23 11:00 09/03/23 11:00 09/03/23 11:00 09/03/23 11:00 09/03/23 11:00 09/03/23 11:00 FiO2 45 09/03/23 11:00 Oxygen Flow Rate (L/min) 60 Oxygen Delivery Method Airvo Weight: 63.6 kg Body Mass Index (BMI) 23.9 Intake & Output: Intake and Output for Last 24 Hours 09/01/23 09/02/23 09/03/23 23:59 23:59 23:59 Intake Total 2527.7 / 2527.7 1074.75 / 1074.75 Output Total 500 / 500 Balance 2527.7 / 2527.7 574.75 / 574.75 Lab / Micro Data 09/03/23 10:15 09/03/23 10:15 Labs: Laboratory Results - last 24 hr 09/02/23 16:45: WBC 16.3 H, RBC 3.10 L, Hgb 10.6 L, Hct 30.5 L, MCV 98.4, MCH 34.2 H, MCHC 34.8, RDW Std Deviation 46.5 H, RDW Coeff of Rebel 13.0, Plt Count 547 H, MPV 10.0, Immature Gran % (Auto) 0.800, Neut % (Auto) 88.6 H, Lymph % (Auto) 7.0 L, [place] % (Auto) 2.6, Eos % (Auto) 0.8, Baso % (Auto) 0.2, Absolute Neuts (auto) 14.4 H, Absolute Lymphs (auto) 1.14, Nucleated RBC % 0, PT 15.5 H, INR 1.2, Sodium Cancelled, Potassium Cancelled, Chloride Cancelled, Carbon Dioxide Cancelled, Anion Gap Cancelled, BUN Cancelled, Creatinine Cancelled, Estim Creat Clear Calc Cancelled, Est GFR (MDRD) Af Amer Cancelled, Est GFR (MDRD) Non-Af Cancelled, BUN/Creatinine Ratio Cancelled, Glucose Cancelled, Hemoglobin A1c 4.6, Calcium Cancelled, Total Bilirubin Cancelled, Direct Bilirubin Cancelled, AST Cancelled, ALT Cancelled, Alkaline Phosphatase Cancelled, Ammonia 11.0, Total Protein Cancelled, Albumin Cancelled, Globulin Cancelled, Lipase Cancelled, Serum , Qual NEGATIVE 09/02/23 17:49: Sodium 118 L*, Potassium 1.8 L*, Chloride 69 L*, Carbon Dioxide 29.0, Anion Gap 20 H, BUN 17, Creatinine 0.96, Estim Creat Clear Calc 64.58, Est GFR (MDRD) Af Amer 81, Est GFR (MDRD) Non-Af 67, BUN/Creatinine Ratio 17.7, Glucose 44 L*, Calcium 11.1 H, Total Bilirubin 8.00 H, Direct Bilirubin 6.14 H, AST 178 H, ALT 31, Alkaline Phosphatase 92, Total Protein 5.9 L, Albumin 2.2 L, Globulin 3.7, Lipase 1853 H, Urine Opiates Screen NEGATIVE, Urine Methadone Screen NEGATIVE, Ur Barbiturates Screen NEGATIVE, Ur Phencyclidine Scrn NEGATIVE, Ur Amphetamines Screen NEGATIVE, MDMA (Ecstasy) Screen NEGATIVE, U Benzodiazepines Scrn NEGATIVE, Urine Cocaine Screen NEGATIVE, U Cannabinoids Screen NEGATIVE, Ur Drug Screen Comment 09/02/23 18:23: POC Glucose 50 L 09/02/23 18:30: Sodium 119 L*, Potassium 1.8 L*, Chloride 70 L*, Carbon Dioxide 29.0, Anion Gap 20 H, BUN 18, Creatinine 0.84, Estim Creat Clear Calc 73.80, Est GFR (MDRD) Af Amer 95, Est GFR (MDRD) Non-Af 78, BUN/Creatinine Ratio 21.4 H, Glucose 48 L, Calcium 11.2 H, Magnesium 1.2 L, Total Bilirubin 7.90 H, AST 190 H, ALT 31, Alkaline Phosphatase 89, Total Protein 6.0 L, Albumin 2.2 L, Globulin 3.8, Albumin/Globulin Ratio 0.6 L 09/02/23 19:06: POC Glucose 136 H 09/02/23 20:45: POC Glucose 108 H 09/02/23 21:25: Sodium 121 L, Potassium 2.1 L*, Chloride 74 L*, Carbon Dioxide 30.0, Anion Gap 17 H, BUN 18, Creatinine 0.80, Estim Creat Clear Calc 77.49, Est GFR (MDRD) Af Amer 101, Est GFR (MDRD) Non-Af 83, BUN/Creatinine Ratio 22.6 H, Glucose 104, Serum Osmolality 262 L, Calcium 10.4 H, Prealbumin 7.2 L, PTH Intact 3.5 L 09/03/23 00:50: Urine Osmolality 309 09/03/23 02:00: WBC 19.5 H, RBC 1.91 L, Hgb 6.6 L, Hct 18.9 L, MCV 99.0, MCH 34.6 H, MCHC 34.9, RDW Std Deviation 46.0 H, RDW Coeff of Rebel 12.9, Plt Count 316, MPV 10.5, Immature Gran % (Auto) 0.900, Neut % (Auto) 89.3 H, Lymph % (Auto) 5.4 L, [place] % (Auto) 3.6, Eos % (Auto) 0.5, Baso % (Auto) 0.3, Absolute Neuts (auto) 17.4 H, Absolute Lymphs (auto) 1.05, Nucleated RBC % 0, Differential Comment SCANNED, Stomatocytes 3+, Sodium 120 L, Potassium 2.3 L*, Chloride 75 L, Carbon Dioxide 30.0, Anion Gap 15, BUN 21 H, Creatinine 0.74, Estim Creat Clear Calc 83.77, Est GFR (MDRD) Af Amer 109, Est GFR (MDRD) Non-Af 90, BUN/Creatinine Ratio 28.2 H, Glucose 92, Calcium 10.2 H, Phosphorus 0.1 L*, Magnesium 1.7, Iron 121, TIBC 131 L, Iron Saturation 92.4 H, Ferritin 3101 H, Total Bilirubin 11.50 H, AST 312 H, ALT 38, Alkaline Phosphatase 48, B-Natriuretic Peptide 143.5 H, Total Protein 5.3 L, Albumin 2.4 L, Globulin 2.9, Albumin/Globulin Ratio 0.8 L, Lipase 861 H, TSH 0.72 09/03/23 03:25: Blood Type B POSITIVE, Antibody Screen NEGATIVE, Crossmatch See Detail 09/03/23 05:45: Sodium 123 L, Potassium 3.0 L, Chloride 79 L, Carbon Dioxide 30.0, Anion Gap 14, BUN 21 H, Creatinine 0.65, Estim Creat Clear Calc 95.37, Est GFR (MDRD) Af Amer 128, Est GFR (MDRD) Non-Af 106, BUN/Creatinine Ratio 32.5 H, Glucose 81, Calcium 10.0 09/03/23 10:15: WBC 24.4 H, RBC 2.44 L, Hgb 8.4 L, Hct 24.1 L, MCV 98.8, MCH 34.4 H, MCHC 34.9, RDW Std Deviation 46.8 H, RDW Coeff of Rebel 13.2, Plt Count 236, MPV 10.4, PT 16.7 H, INR 1.4, Sodium 125 L, Potassium 4.0, Chloride 84 L, Carbon Dioxide 28.0, BUN 20 H, Creatinine 0.68, Estim Creat Clear Calc 91.17, Est GFR (MDRD) Af Amer 121, Est GFR (MDRD) Non-Af 100, BUN/Creatinine Ratio 29.6 H, Glucose 79, Calcium 9.6, Phosphorus 1.5 L, Albumin 2.3 L ABG Data ABG results: ABG 09/02/23 09/03/23 23:16 04:38 Specimen Type ART ART Sample Site L Radial L Radial pH 7.57 H 7.53 H Bicarbonate Actual 29.8 H 30.6 H Total CO2 31 32 Base Excess 8 H 8 H O2 Saturation 94 L 96 O2 % 6.0 15.0 ABG pCO2 32.7 L 37.0 ABG pO2 61 L 71 L Oswald Test Positive Positive O2 Delivery Device Cannula Cannula Vent Mode Not entered Not entered Radiography Diagnostic Testing: Radiology Impression Chest X-Ray 09/02/23 16:55 IMPRESSION: No radiographic evidence of acute cardiopulmonary disease. Electronically Signed: Yon Link DO at 17:52 EDT , Abdomen/Pelvis CT 09/02/23 19:52 IMPRESSION: Fatty liver with hepatomegaly. Pancreatitis is suspected in the proper clinical settings. Colonic diverticulosis. Electronically Signed: Yon Link DO at 21:09 EDT , Physical Exam Const alert Constitutional Narrative: Middle-age female, whole-body jaundice noted, mildly fatigued appearing, shallow respirations with mild increased work of breathing noted, otherwise sitting up in bed, making appropriate eye contact and answering questions with short appropriate responses, in no acute distress. General Appearance: cooperative HEENT normocephalic, head/scalp atraumatic, hearing grossly normal bilaterally and nasal mucous membranes and turbinates normal Eyes PERRL and EOMs intact bilaterally Eyes Narrative: Scleral icterus noted. Neck full ROM Chest inspection of chest normal Resp Resp Narrative: Mild increased work of breathing with shallow respirations noted on Airvo. Moderate crackles noted in upper to mid airways bilaterally with decreased lung sounds noted at bases. No wheezing noted. Cardio no murmurs and peripheral pulses 2+ throughout Cardio Narrative: Tachycardic, regular rhythm. GI GI Narrative: Abdomen distended and mildly hard on palpation. Mildly tender to palpation diffusely. Mildly hypoactive bowel sounds throughout. Back/Spine normal ROM Extremity normal to inspection and full ROM Extremity Narrative: +1-2 lower extremity edema noted. Neuro no focal motor deficits and no sensory deficits noted Assessment & Plan Assessment/Plan (1) Acute hypoxic respiratory failure: (2) Alcoholic hepatitis: (3) Acute pancreatitis: QUALIFIERS: Pancreatitis type: alcohol induced Acute pancreatitis complication: unspecified Qualified Code(s): K85.20 - Alcohol induced acute pancreatitis without necrosis or infection (4) Anemia: (5) Acute hyponatremia: (6) Hypokalemia: (7) Hypophosphatemia: (8) Alcohol abuse: (9) Desire for detoxification: PLAN: Plan Patient is a 43-year-old female who presented [facility] ED on 09/02/2023 with worsening abdominal pain and distention. 1. Acute hypoxic respiratory failure ? Underground Dr[employer] consulted. Suspect due to volume overload from heavy IV fluid resuscitation on admission along with shallow breathing from abdominal pain/distention. Cannot rule out pneumonia. Chest x-ray on hospital day 2 showed hypoventilatory changes with some vascular congestion new and mild left perihilar and lower lung infiltrates currently requiring high flow nasal cannula at 15 L with oxygen saturations in the mid 90s. Given 3 doses of IV Lasix since admission, will give another dose tonight and continue to spot dose for now as needed. Wean supplemental oxygen as able. DuoNebs as needed ordered. Encouraged use of incentive spirometry. Treated with antibiotics as noted below. 2. Severe acute alcoholic hepatitis ? GI following. MELD score of 20 and Madrey score of 31 on admit. Labs on admit of T. bili 7.90, direct bili 6.14, AST 190, ALT 31, alk phos 89, INR 1.2. CT abdomen pelvis without contrast on admit showed fatty liver with hepatomegaly and suspected pancreatitis. Suspected alcoholic hepatitis without underlying cirrhosis at this time. Large lab workup sent per GI, will follow-up on results. INR worsened to 1.4 on hospital day 2, given dose of IV vitamin K 5 mg x 1. Ammonia level normal x 2 but patient does seem to have mild cognitive slowing so started on Xifaxan and lactulose by GI. Monitor daily labs. Not giving steroids at this time given concern for active infection. 3. Acute pancreatitis ? GI following as above. Lipase [address] abdomen pelvis with findings consistent with pancreatitis as noted above. Was given heavy IV fluid resuscitation on admission but developed volume overload as noted above, holding on further IV fluids for now. Pain control with IV morphine every 4 hours as needed. Patient notably with abdominal distention and mild abdominal pain but does not have severe pain or active nausea/vomiting at this time. 4. Severe anemia ? Hemoglobin 10.6 on admit, decreased to 6.6 on hospital day 2 after heavy IV fluid resuscitation. S/p 1 unit of blood on 09/02 with hemoglobin recheck 8.4. Iron studies with ferritin 3101. Suspected that patient has acute on chronic anemia due to severe acute liver disease as noted above. Monitor CBC daily. 5. Severe hyponatremia ? Sodium 118 on admit. Patient with mild cognitive slowing but was not acutely encephalopathic so she was not given hypertonic saline. Suspected to be more chronic hyponatremia possibly due to beer potomania and poor solute intake. Sodium with steady rise on frequent lab checks on hospital day 2. Most recent sodium level 125. Will recheck sodium level at again tonight and tomorrow morning. Goal sodium less than 128 tomorrow morning. Not giving any further IV fluids, giving intermittent doses of IV Lasix as noted above. Would be careful with any IV fluid resuscitation for sodium overcorrection. 6. Severe hypophosphatemia, hypokalemia and hypomagnesemia ? Phosphorus 0.1, potassium 1.8, magnesium 1.2 on admit. Presumed secondary to alcohol abuse with poor solute intake. All electrolytes aggressively repleted on admission with significant improvement. Repeat labs ordered for tonight and tomorrow morning. Suspect patient will be at high risk for refeeding syndrome once she is able to start a diet again, will need to check labs more frequently at that point. 7. Alcohol abuse with concern for alcohol withdrawal ? Reported drinking about 12 white claws per day recently. Has 20-year history of heavy alcohol use without cessation. No history of alcohol withdrawal. Given high concern for impending alcohol drawl, patient was started on phenobarbital taper admission with adequate symptom control. Continue phenobarbital taper and other as needed medications per alcohol withdrawal order set. Continue folate and thiamine. Monitor closely. 8. Leukocytosis ? WBC count 16.3 on admit, worsening to 24.4 on hospital day 2 despite IV fluid resuscitation. Chest x-ray on hospital day 2 with concern for developing pneumonia as noted above. Patient afebrile since admission but with persistent sinus tachycardia and hypoxia as noted above. Will treat with IV Zosyn for now. Blood cultures pending. Sputum culture and UA ordered. Trend daily CBC. 9. Tobacco abuse ? Current smoker. Nicotine patch ordered on admission. Encouraged cessation. 10. Suspected protein calorie malnutrition with hypoalbuminemia ? Nutrition consulted. Albumin 2.2 on admit, prealbumin also low. Suspect malnutrition secondary to poor food intake as noted above. 11. Mild hypercalcemia ? Calcium 11.2 on admit. Improved back to normal range after IV fluid resuscitation. PTH low at 3.5, vitamin D level pending. Continue to monitor calcium level. 12. History of lichen sclerosis ? Previously required treatment, not currently active. DVT prophylaxis: SCDs CODE STATUS: Full code, verified Expected disposition: TBD Total clinical time spent by myself addressing the patient's medical issues, reviewing all the data, and collaborating with patient's care team: 50 minutes. Charges/Coding Visit Charges Inpatient E&M: 52804 Subs Hosp L3
[2023-09-03 11:30] LABS: Ammonia < 10.0 umol/L (11-32)
[2023-09-03 12:07] LABS: Erythrocyte Sedimentation Rate 17 mm/hr (0-30)
[2023-09-03] MEDS: Potassium Phosphate 30 MM in 0.9% Normal Saline (250mL Bag) 250 ML 42 MM IV (12:19)
[2023-09-03 12:26] LABS: CPK Total, Creatine Kinase 134 U/L (26-192)
[2023-09-03] MEDS: Phytonadione (Vit K) 5 MG in 0.9% Normal Saline (50mL Bag) 50 ML 150 MG IV (13:23)
[2023-09-03 13:35] LABS: HIV - WCH Non-Reactive (Nonreactive)
[2023-09-03] MEDS: Albuterol 2.5 MG/3 ML VIAL.NEB. INHALATION (14:10)
[2023-09-03 15:59] LABS: Mucous, Urine 0 SEEN /hpf (<or=2+)
--- NOTE | 2023-09-03 16:01 | CON.PCM.CC_ITS ---
HPI Consult Data Date of Consult: 09/03/23 HPI Narrative Reason for Consultation: SOB HPI Narrative: FIONA ZAFAR, is a 43 F who presents to ICU after admission to hospital with worsening respiratory distress this morning so that BiPAP was needed for a time.She apparently has a complicated medical history with alcoholism, hepatic steatosis on that basis and presents jaundiced with profound metabolic derangements all attributed to liver disease. She initially improved with NIV, was given two doses of furosemide 20 mg IV with only modest urinary response. She states she feels some better but is clearly tachypneic at the time of the interview. PFSH Home Medications ?Medication ?Instructions ?Recorded ?Last Taken ?Type levocetirizine 5 mg tablet (Xyzal) 5 mg PO DAILY 09/02/23 Unknown History Allergy/AdvReac Type Severity Reaction Status Date / Time No Known Allergies Allergy Verified 09/02/23 16:23 Family History Brother Diabetes Mother H/O: hysterectomy Social History number of children: 0 current occupational status: employed current occupation: [employer] Smoking Status: Current every day smoker tobacco type: cigarettes alcohol intake: current alcohol intake frequency: 0-2 drinks per day substance use type: does not use seatbelt use: always do you feel safe at home: Yes additional social history: Nikolai Osman Pres. of [employer] [facility] Review of Systems ROS Unobtainable: due to encephalopathy Objective Data Objective Data Vital Signs: Vital Signs Last response 3 Temperature 37.2 C 09/03/23 14:00 Temperature Source Oral 09/03/23 14:00 Pulse Rate 119 H 09/03/23 15:00 Respiratory Rate 31 H 09/03/23 15:00 Respiratory Effort Short of Breath, Labored 09/03/23 15:54 Respiratory Depth Shallow 09/03/23 15:54 Respiratory Pattern Tachypnea 09/03/23 15:54 Blood Pressure 101/71 09/03/23 15:00 Blood Pressure Mean 81 09/03/23 15:00 Blood Pressure Source Monitor 09/03/23 15:00 Blood Pressure Position Semi-Fowlers 09/03/23 15:00 Blood Pressure Location Left Arm 09/03/23 15:00 Pulse Ox 100 09/03/23 15:00 Oxygen Delivery Method High Flow 09/03/23 15:54 Oxygen Flow Rate (L/min) 10 09/03/23 15:54 Fraction of Inspired Oxygen (FIO2) 40 09/03/23 13:00 I&O: I&O Last 24 Hours 3 09/02/23 09/03/23 09/03/23 23:59 11:59 23:59 Intake Total 2527.7 / 2527.7 1872.0833 / 1922.5833 50.5 / 1922.5833 Output Total 1000 / 1000 Balance 2527.7 / 2527.7 872.0833 / 922.5833 50.5 / 922.5833 I&O: Total Stay 3 09/02/23 16:19 thru 09/03/23 13:57 Intake Total 4450.2833 Output Total 1000 Balance 3450.2833 Current Meds Ordered / Administered: Current meds ordered / Administered 3 Generic Name Dose Route Start Last Admin Trade Name Freq PRN Reason Stop Dose Admin Albuterol Sulfate 2.5 mg 09/02/23 20:58 09/03/23 14:10 Albuterol 2.5 Mg/3 Ml Vial.Neb. INHALATION 2.5 mg Q2H PRN PRN Administration SOB &/OR WHEEZING Albuterol/Ipratropium 3 ml 09/03/23 15:00 Ipratropium/Albuterol Sulfate 3 Ml Ampul.Neb INHALATION Q6H PRN SHORTNESS OF BREATH Dicyclomine HCl 20 mg 09/03/23 08:28 Dicyclomine 10 Mg Capsule PO Q6H PRN PRN abdominal discomfort Folic Acid 1 mg 09/04/23 08:00 Folic Acid 1 Mg Tablet PO DAILY@0800 SHELIA Furosemide 40 mg 09/03/23 18:00 Furosemide 40 Mg/4 Ml Vial IV 09/03/23 18:01 X1 ONE Protocol Gabapentin 300 mg 09/03/23 08:28 Gabapentin 300 Mg Capsule PO Q8H PRN PRN moderate to severe anxiety Hydroxyzine Pamoate 50 mg 09/03/23 08:28 Hydroxyzine Angela 25 Mg Capsule PO Q4H PRN PRN mild anxiety Sodium Chloride 250 mls @ 15 mls/hr 09/02/23 21:05 IV .[id number] PRN Additional IVPB Infusion Sodium Chloride 250 mls @ 15 mls/hr 09/02/23 21:05 IV .[id number] PRN Saline Flush Piperacillin Sod/Tazobactam 50 mls @ 12.5 mls/hr 09/03/23 06:00 09/03/23 13:24 Sod 3.375 gm/ Sodium Chloride IV 12.5 mls/hr Q8 SHELIA Administration Potassium Phosphate 30 mm/ 260 mls @ 42 mls/hr 09/03/23 12:00 09/03/23 12:19 Sodium Chloride IV 09/03/23 18:11 42 mls/hr X1 ONE Administration Pantoprazole Sodium 40 mg/ 110 mls @ 330 mls/hr 09/04/23 10:00 Sodium Chloride IV DAILY SHELIA Loperamide HCl 2 mg 09/03/23 08:28 Loperamide 2 Mg Capsule PO Q4H PRN PRN Loose Stools Nicotine 14 mg 09/02/23 20:58 09/03/23 09:31 Nicotine 14 Mg Patch TD 14 mg DAILY SHELIA Administration Nutritional Formula (Lactose Free) 120 ml 09/03/23 14:00 09/03/23 12:58 Ensure Clear 120 Ml Liquid PO Not Given 4X/DAY SHELIA Ondansetron HCl 4 mg 09/02/23 20:58 Ondansetron 4 Mg/2 Ml Vial IV Q8H PRN PRN NAUSEA/VOMITING Phenobarbital 97.2 mg 09/03/23 08:45 09/03/23 13:23 Phenobarbital 32.4 Mg Tablet PO 09/07/23 16:44 97.2 mg Q4H SHELIA Administration Taper Sodium Chloride 10 - 40 ml 09/02/23 21:05 09/03/23 12:19 0.9% Saline Lock 10 Ml Syringe IV 40 ml UD PRN Administration SALINE FLUSH Thiamine HCl 100 mg 09/04/23 08:00 Thiamine Hydrochloride 100 Mg Tablet PO DAILYCM SHELIA Trazodone HCl 100 mg 09/03/23 08:28 Trazodone 100 Mg Tablet PO QHS PRN INSOMNIA Physical Exam Const alert General Appearance: ill appearing Orientation / Consciousness: confused Exam Limitations: behavioral limitations HEENT normocephalic and head/scalp atraumatic Head and Scalp: atraumatic Nose: external nose normal Mouth: oral and palatal mucosa normal Eyes Eyes Narrative: scleral icterus Pupil: PERRL Neck full ROM Resp Effort and Inspection: tachypneic and respiratory distress Auscultation: bronchovesicular breath sounds Cardio Rate: tachycardic GI Inspection: abdominal distention Palpation: hepatomegaly Lab / Micro Data Attestation: I reviewed the patient's lab results. 09/03/23 10:15 09/03/23 10:15 Labs: Laboratory Results - last 24 hr 09/02/23 16:45: WBC 16.3 H, RBC 3.10 L, Hgb 10.6 L, Hct 30.5 L, MCV 98.4, MCH 34.2 H, MCHC 34.8, RDW Std Deviation 46.5 H, RDW Coeff of Rebel 13.0, Plt Count 547 H, MPV 10.0, Immature Gran % (Auto) 0.800, Neut % (Auto) 88.6 H, Lymph % (Auto) 7.0 L, Foster % (Auto) 2.6, Eos % (Auto) 0.8, Baso % (Auto) 0.2, Absolute Neuts (auto) 14.4 H, Absolute Lymphs (auto) 1.14, Nucleated RBC % 0, PT 15.5 H, INR 1.2, Sodium Cancelled, Potassium Cancelled, Chloride Cancelled, Carbon Dioxide Cancelled, Anion Gap Cancelled, BUN Cancelled, Creatinine Cancelled, Estim Creat Clear Calc Cancelled, Est GFR (MDRD) Af Amer Cancelled, Est GFR (MDRD) Non-Af Cancelled, BUN/Creatinine Ratio Cancelled, Glucose Cancelled, Hemoglobin A1c 4.6, Calcium Cancelled, Total Bilirubin Cancelled, Direct Bilirubin Cancelled, AST Cancelled, ALT Cancelled, Alkaline Phosphatase Cancelled, Ammonia 11.0, Total Protein Cancelled, Albumin Cancelled, Globulin Cancelled, Lipase Cancelled, Serum , Qual NEGATIVE 09/02/23 17:49: Sodium 118 L*, Potassium 1.8 L*, Chloride 69 L*, Carbon Dioxide 29.0, Anion Gap 20 H, BUN 17, Creatinine 0.96, Estim Creat Clear Calc 64.58, Est GFR (MDRD) Af Amer 81, Est GFR (MDRD) Non-Af 67, BUN/Creatinine Ratio 17.7, G lucose 44 L*, Calcium 11.1 H, Total Bilirubin 8.00 H, Direct Bilirubin 6.14 H, A ST 178 H, ALT 31, Alkaline Phosphatase 92, Total Protein 5.9 L, Albumin 2.2 L, Globulin 3.7, Lipase 1853 H, Urine Opiates Screen NEGATIVE, Urine Methadone Screen NEGATIVE, Ur Barbiturates Screen NEGATIVE, Ur Phencyclidine Scrn NEGATIVE, Ur Amphetamines Screen NEGATIVE, MDMA (Ecstasy) Screen NEGATIVE, U Benzodiazepines Scrn NEGATIVE, Urine Cocaine Screen NEGATIVE, U Cannabinoids Screen NEGATIVE, Ur Drug Screen Comment 09/02/23 18:23: POC Glucose 50 L 09/02/23 18:30: Sodium 119 L*, Potassium 1.8 L*, Chloride 70 L*, Carbon Dioxide 29.0, Anion Gap 20 H, BUN 18, Creatinine 0.84, Estim Creat Clear Calc 73.80, Est GFR (MDRD) Af Amer 95, Est GFR (MDRD) Non-Af 78, BUN/Creatinine Ratio 21.4 H, G lucose 48 L, Calcium 11.2 H, Magnesium 1.2 L, Total Bilirubin 7.90 H, AST 190 H, ALT 31, Alkaline Phosphatase 89, Total Protein 6.0 L, Albumin 2.2 L, Globulin 3.8, Albumin/Globulin Ratio 0.6 L 09/02/23 19:06: POC Glucose 136 H 09/02/23 20:45: POC Glucose 108 H 09/02/23 21:25: Sodium 121 L, Potassium 2.1 L*, Chloride 74 L*, Carbon Dioxide 30.0, Anion Gap 17 H, BUN 18, Creatinine 0.80, Estim Creat Clear Calc 77.49, Est GFR (MDRD) Af Amer 101, Est GFR (MDRD) Non-Af 83, BUN/Creatinine Ratio 22.6 H, Glucose 104, Serum Osmolality 262 L, Calcium 10.4 H, Prealbumin 7.2 L, PTH Intact 3.5 L 09/03/23 00:50: Urine Osmolality 309 09/03/23 02:00: WBC 19.5 H, RBC 1.91 L, Hgb 6.6 L, Hct 18.9 L, MCV 99.0, MCH 34.6 H, MCHC 34.9, RDW Std Deviation 46.0 H, RDW Coeff of Rebel 12.9, Plt Count 316, MPV 10.5, Immature Gran % (Auto) 0.900, Neut % (Auto) 89.3 H, Lymph % (Auto) 5.4 L, Foster % (Auto) 3.6, Eos % (Auto) 0.5, Baso % (Auto) 0.3, Absolute Neuts (auto) 17.4 H, Absolute Lymphs (auto) 1.05, Nucleated RBC % 0, Differential Comment SCANNED, Stomatocytes 3+, Sodium 120 L, Potassium 2.3 L*, C hloride 75 L, Carbon Dioxide 30.0, Anion Gap 15, BUN 21 H, Creatinine 0.74, Estim Creat Clear Calc 83.77, Est GFR (MDRD) Af Amer 109, Est GFR (MDRD) Non-Af 90, BUN/Creatinine Ratio 28.2 H, Glucose 92, Calcium 10.2 H, Phosphorus 0.1 L*, Magnesium 1.7, Iron 121, TIBC 131 L, Iron Saturation 92.4 H, Ferritin 3101 H, T otal Bilirubin 11.50 H, AST 312 H, ALT 38, Alkaline Phosphatase 48, B- Natriuretic Peptide 143.5 H, Total Protein 5.3 L, Albumin 2.4 L, Globulin 2.9, A lbumin/Globulin Ratio 0.8 L, Lipase 861 H, TSH 0.72 09/03/23 03:25: Blood Type B POSITIVE, Antibody Screen NEGATIVE, Crossmatch See Detail 09/03/23 05:45: Sodium 123 L, Potassium 3.0 L, Chloride 79 L, Carbon Dioxide 30.0, Anion Gap 14, BUN 21 H, Creatinine 0.65, Estim Creat Clear Calc 95.37, Est GFR (MDRD) Af Amer 128, Est GFR (MDRD) Non-Af 106, BUN/Creatinine Ratio 32.5 H, Glucose 81, Calcium 10.0 09/03/23 10:15: WBC 24.4 H, RBC 2.44 L, Hgb 8.4 L, Hct 24.1 L, MCV 98.8, MCH 34.4 H, MCHC 34.9, RDW Std Deviation 46.8 H, RDW Coeff of Rebel 13.2, Plt Count 236, MPV 10.4, ESR 17, PT 16.7 H, INR 1.4, Sodium 125 L, Potassium 4.0, Chloride 84 L, Carbon Dioxide 28.0, BUN 20 H, Creatinine 0.68, Estim Creat Clear Calc 91.17, Est GFR (MDRD) Af Amer 121, Est GFR (MDRD) Non-Af 100, BUN/Creatinine Ratio 29.6 H, Glucose 79, Calcium 9.6, Phosphorus 1.5 L, Total Creatine Kinase 134, C-React Prot Ext Range 261.00 H, Albumin 2.3 L 09/03/23 10:55: Ammonia < 10.0 L 09/03/23 12:30: Urine Myoglobin Cancelled, Serum Copper Cancelled, HIV 1&2 Antibody Non-Reactive ABG Data ABG results: ABG 09/02/23 09/03/23 23:16 04:38 Specimen Type ART ART Sample Site L Radial L Radial pH 7.57 H 7.53 H Bicarbonate Actual 29.8 H 30.6 H Total CO2 31 32 Base Excess 8 H 8 H O2 Saturation 94 L 96 O2 % 6.0 15.0 ABG pCO2 32.7 L 37.0 ABG pO2 61 L 71 L Oswald Test Positive Positive O2 Delivery Device Cannula Cannula Vent Mode Not entered Not entered Imaging Radiology Impression Chest X-Ray 09/02/23 16:55 IMPRESSION: No radiographic evidence of acute cardiopulmonary disease. Electronically Signed: Yon Link DO at 17:52 EDT , Abdomen/Pelvis CT 09/02/23 19:52 IMPRESSION: Fatty liver with hepatomegaly. Pancreatitis is suspected in the proper clinical settings. Colonic diverticulosis. Electronically Signed: Yon Link DO at 21:09 EDT , Chest X-Ray 09/03/23 11:00 IMPRESSION: Hypoventilatory changes. New mild left perihilar and lower lung infiltrate. Electronically Signed: Gaurang Hadley MD at 11:47 EDT , Assessment and Plan . Assessment and plan: Assessment: #acute respiratory distress associated with worsening CXR - CXR showing interval development of low lung inflation and increased pulmonary vascular congestion since yesterday - volume overload vs TRALI vs pancreatitis vs. other - urinary response to lasix has only been modest (900 mL after two doses) - consensus of staff is she is improving with supportive care #smoker with some risk for COPD #hepatic failure or at least dysfunction in the setting of acute alcoholic hepatitis related to binge drinking - MELD score is elevated - per GI #acute pancreatitis - by imaging and lipase values - presumably related to binge EtOH Recommendations: 1. agree with diuresis carefully monitoring of creatinine- at risk for HRS 2. BiPAP PRN 3. Bronchodilators 4. follow CXR every 24-48 hrs 5. Standard ICU px Her prognosis is uncertain given the complexity and severity of issues confronting her Critical Care Time: 60 minutes The entirety of this encounter was done via Telemedicine
[2023-09-03 16:11] LABS: Color, Urine Yellow (Yellow); Glucose, Dipstick Normal (Normal); Ketone-Dipstick Negative (Negative); Urine Bilirubin Dipstick 6 mg/dL (Negative); Urine Clarity Cloudy (Clear)
[2023-09-03 16:12] LABS: Leukocyte Esterase-Dipstick 500 /ul (Negative); Nitrite-Dipstick Positive (Negative); Occult Blood-Urine 25 /ul (Negative); Protein-Dipstick 30 mg/dl (Negative); Urine Urobilinogen 4 mg/dl (Normal)
[2023-09-03 16:16] LABS: White Blood Cells 25-50 SEEN /hpf (0-5)
[2023-09-03 16:17] LABS: Amorphous Sediment 1+ URATE; Bacteria RARE /hpf (None Seen); Red Blood Cells-Urine 0-5 SEEN /hpf (0-5); Squamous Epithelial Cells - UA 0-5 SEEN /hpf (5-10)
--- NOTE | 2023-09-03 17:27 | ECHOCS_ITS ---
Reason For Study: other Procedure This was a 2D Doppler, Color Flow transthoracic echocardiogram. The study was technically difficult. Contrast injection was performed. Exam performed portable in ICU/CCU. Left Ventricle Normal size and thickness. Interventricular septal flattening during systole consistent with RV pressure overload. Mild to moderate LV global hypokinesis. Estimated LVEF 40%. Right Ventricle Moderate RV hypokinesis. Atria Normal left atrium. The right atrium is moderately enlarged. Mitral Valve Mild (1+) mitral valve insufficiency. Tricuspid Valve Moderately severe (3+) tricuspid valve insufficiency. Right ventricular systolic pressure estimated to be 43 mmHg. Aortic Valve Trisinus/trileaflet aortic valve. Pulmonic Valve The pulmonic valve is not well visualized. Great Vessels Normal sized aortic root. Pericardium/Pleural No pericardial effusion. Medication Diluted definity 2ml given slow IV push to enhance endocardial definition. MMode/2D Measurements & Calculations LVIDd: 4.2 cm IVSd: 0.83 cm Ao root diam: 2.7 cm LVIDs: 3.3 cm LVPWd: 0.89 cm FS: 21.9 % LAV(MOD-bp): 28.2 ml LVAd ap4: 32.2 cm2 SV(MOD-sp4): 34.1 ml LAV(MOD-bp) Indexed: 16.6 ml/m2 LVLd ap4: 8.9 cm LAV(MOD-sp2): 37.8 ml EDV(MOD-sp4): 96.2 ml LAV(MOD-sp4): 21.0 ml EDV(sp4-el): 98.9 ml LVAs ap4: 23.3 cm2 LVLs ap4: 7.2 cm ESV(MOD-sp4): 62.0 ml ESV(sp4-el): 64.0 ml EF(MOD-sp4): 35.5 % EF(sp4-el): 35.3 % SV(sp4-el): 34.9 ml LA A4 area: 11.9 cm2 LA dimension(2D): 3.1 cm RA A4 area: 19.2 cm2 TAPSE: 1.6 cm Time Measurements MV dec time: 0.23 sec Doppler Measurements & Calculations MV E max shawn: 57.2 cm/sec Lat Peak E' Shawn: 18.5 cm/sec Med Peak E' Shawn: 11.7 cm/sec MV A max shawn: 39.8 cm/sec E/E' lat: 3.1 E/E' med: 4.9 MV E/A: 1.4 MV V2 max: 67.6 cm/sec MV dec slope: 253.3 cm/sec2 Ao V2 max: 106.6 cm/sec MV max P.8 mmHg Ao max P.6 mmHg MV V2 mean: 45.1 cm/sec Ao V2 mean: 76.9 cm/sec MV mean P.90 mmHg Ao mean P.7 mmHg MV V2 VTI: 22.3 cm Ao V2 VTI: 20.0 cm AV (velocity ratio): 1.00 LV V1 max: 101.4 cm/sec PA V2 max: 87.1 cm/sec TR max shawn: 262.5 cm/sec LV V1 max P.1 mmHg PA V2 mean: 66.5 cm/sec TR max P.6 mmHg LV V1 mean P.5 mmHg LV V1 mean: 75.4 cm/sec LV V1 VTI: 20.0 cm ECHO/Echo Complete W/ Contrast Interpretation Summary Mild to moderate LV global hypokinesis. Estimated LVEF 40%. Interventricular septal flattening during systole consistent with RV pressure o verload. Moderate RV hypokinesis. The right atrium is moderately enlarged. Mild (1+) mitral valve insufficiency. Moderately severe (3+) tricuspid valve insufficiency. Right ventricular systolic pressure estimated to be 43 mmHg. Ordering Physician: Tommy Taylor Referring Physician: mayte pcp Performed By: Bette Posada RCS
[2023-09-03] MEDS: hydrOXYzine PAM 25 MG Capsule 50 MG PO (18:50)
[2023-09-03] MEDS: Gabapentin 300 MG Capsule PO (18:50)
[2023-09-03 18:52] LABS: Albumin, Serum 2.3 g/dL (3.2-5.0); BUN 24 mg/dL (7-18); BUN/Creat Ratio 29.4 RATIO (10-20); Calcium,Total 9.3 mg/dL (8.5-10.1); Chloride 87 mmol/L (98-107); Creatinine, Serum 0.82 mg/dL (0.55-1.02); EST Glomerular Filtration Rate 81 mL/min (>60); Est Glom Filt Rate - Afr Amer 98 mL/min (>60); Glucose 84 mg/dL (74-106); Phosphorus 2.4 mg/dL (2.5-4.9); Potassium 4.7 mmol/L (3.5-5.1); Sodium Level 126 mmol/L (136-145)
[2023-09-03] MEDS: traZODone 100 MG Tablet PO (20:18)
[2023-09-03] MEDS: dexMEDEtomidine 400 MCG in 0.9% Normal Saline (100mL Bag) 96 ML 8 MCG CONT INF (20:43)
[2023-09-03 21:07] LABS: Ammonia < 10.0 umol/L (11-32)
[2023-09-04] VITALS (46 sets, daily range): BP systolic 61–120; BP diastolic 38–88; PULSE 77–122; RESP 21–44; TEMP 36.1–37; O2SAT 82–100; BMI 24.5
[2023-09-04] MEDS: Phenobarbital 32.4 MG Tablet 64.8 MG PO ×6 (00:27→20:34)
[2023-09-04] MEDS: Albumin Human 25% (50 mL) 12.5 GM/50 ML IV.SOLN IV (01:58)
[2023-09-04] MEDS: CHLORHEXIDINE GLUC 2% CLOTH 1 EACH TOWELETTE TOPICAL (01:58)
[2023-09-04] MEDS: MethylPREDNISolone 125 MG/2 ML Vial IV (03:18)
[2023-09-04 03:19] LABS: Hematocrit 21.9 % (37-47); Hemoglobin 7.5 g/dL (12.0-15.0); Mean Corp Hgb Conc 34.2 g/dL (32-36); Mean Corpuscular Hgb 34.7 pg (27.0-32.0); Mean Corpuscular Volume 101.4 fL (81-99); Mean Platelet Vol. 10.7 fl (6.2-12.0); Platelet Count 201 K/mm3 (150-450); RBC Distribution Width CV 14.5 % (11.6-14.6); RBC Distribution Width SD 52.2 fl (35.1-43.9); Red Blood Count 2.16 M/mm3 (4.2-5.4)
[2023-09-04] MEDS: 0.9% Saline Lock 10 ML Syringe IV ×3 (03:20→05:44)
[2023-09-04 03:24] LABS: International Normalized Ratio 1.3; Prothrombin Time (Protime)PT. 16.1 SECONDS (11.7-14.9)
[2023-09-04 03:44] LABS: Magnesium 2.2 mg/dL (1.6-2.6)
[2023-09-04 04:11] LABS: BNP,B-Type NATRIURETIC PEPTIDE 198.8 pg/mL (0-100)
[2023-09-04] MEDS: TITRATION PARAMETER CHANGE 1 EACH IV ×2 (04:14→16:53)
[2023-09-04] MEDS: Norepinephrine 8 MG in 0.9% Normal Saline (250mL Bag) 242 ML 9.4 MG CONT INF (04:38)
[2023-09-04] MEDS: Piperacil/Tazobactam 3.375 GM in 0.9% Normal Saline (50mL MB+) 50 ML IV ×3 (04:46→20:34)
--- NOTE | 2023-09-04 05:00 | RAD_ITS ---
EXAM: XR CHEST, 1 VIEW CLINICAL INDICATION: fluid overload TECHNIQUE: Frontal view of the chest. COMPARISON: September 03, 2023 FINDINGS: LUNGS AND PLEURAL SPACES: Patchy pneumonia involving the left upper to lower lung with possible small left pleural effusion with adjacent passive atelectasis. Vascular congestion. Right lung is clear with no pneumothorax identified bilaterally. HEART: Unremarkable. Cardiac silhouette not enlarged. MEDIASTINUM: Central airways and mediastinal contour are unremarkable. BONES/JOINTS: Unremarkable. No acute fracture. SOFT TISSUES: Unremarkable. LYMPH NODES: Probably reactive left hilar adenopathy. RAD/Chest 1 View (Portable) IMPRESSION: 1. Aspiration/pneumonia suspected at the left upper and lower lobes. 2. Possible small to moderate left pleural effusion with adjacent passive atelectasis. 3. Vascular congestion at the lungs without cardiomegaly. Electronically Signed: Da Tamez MD at 3:22 EDT ,
--- NOTE | 2023-09-04 05:13 | NURSING ---
Pt incessantly fidgeting with wires/cords and pulled an IV. Bilateral soft wrist restraints applied to maintain line integrity. New IV placed in R AC.
[2023-09-04 05:29] LABS: AST(SGOT) 229 U/L (15-37); Alanine Aminotransfer ALT/SGPT 33 U/L (13-56); Albumin, Serum 2.2 g/dL (3.2-5.0); Alkaline Phosphatase 56 U/L (45-117); BUN 32 mg/dL (7-18); BUN/Creat Ratio 27.1 RATIO (10-20); Calcium,Total 8.8 mg/dL (8.5-10.1); Chloride 90 mmol/L (98-107); Creatinine, Serum 1.18 mg/dL (0.55-1.02); EST Glomerular Filtration Rate 53 mL/min (>60); Est Glom Filt Rate - Afr Amer 64 mL/min (>60); Estimated Creatinine Clearance 52.54 ml/min; Globulin 3.4 g/dL (2.2-4.2); Glucose 79 mg/dL (74-106); Phosphorus 1.4 mg/dL (2.5-4.9); Potassium 4.8 mmol/L (3.5-5.1); Protein, Total 5.6 g/dL (6.4-8.2); Sodium Level 128 mmol/L (136-145)
[2023-09-04] MEDS: dexMEDEtomidine 400 MCG in 0.9% Normal Saline (100mL Bag) 96 ML 14.7 MCG CONT INF (05:43)
[2023-09-04] MEDS: Potassium Phosphate 40 MM in 0.9% Normal Saline (500mL Bag) 500 ML 62.5 MM IV (06:13)
--- NOTE | 2023-09-04 07:39 | PCM.PN.INT ---
Assessment & Plan Assessment/Plan (1) Acute hypoxic respiratory failure: (2) Alcoholic hepatitis: (3) Acute pancreatitis: QUALIFIERS: Acute pancreatitis complication: unspecified Pancreatitis type: alcohol induced Qualified Code(s): K85.20 - Alcohol induced acute pancreatitis without necrosis or infection PLAN: Plan RECOMMENDATIONS: 1. Continue Levophed to maintain a mean arterial pressure at or above 65 mmHg. 2. Judicious use of fluids given tenuous respiratory status. 3. Transfuse blood products if hemoglobin drops below 7 g/dL. 4. Continue empiric antibiotics. 5. Continue PPI therapy. 6. Continue Precedex and phenobarbital. 7. Obtain ammonia level and ABG. 8. Patient to remain n.p.o. for now. IMPRESSIONS: 1. Multifactorial shock Clinical concern for septic versus hypovolemic etiologies in the setting of pancreatitis and infiltrates noted on chest imaging. The patient remains on vasopressor support in an attempt to maintain hemodynamic stability. Her volume status has been challenging due to her tenuous respiratory status. The patient remains on antimicrobials, which will be continued, pending culture results. In the interim, continue current supportive measures. I would advocate that we give the patient additional IV fluids, given her hemodynamic status and acute pancreatitis. If her respiratory status worsens, I would plan to proceed with intubation. 2. Acute alcohol withdrawal Continue current medication regimen along with thiamine and folic acid. 3. Acute hypoxemic respiratory failure Clinical concern for third spacing of fluids in the setting of acute pancreatitis coupled with possible underlying pneumonia. The patient remains on appropriate antimicrobial therapy at the present time. Will obtain arterial blood gas this morning. I will hold off on any additional attempts at diuresis, given the patient's tenuous hemodynamic status. I would have a low threshold to intubate this patient if she worsens any further from a respiratory perspective. 4. Severe alcoholic hepatitis/acute alcoholic pancreatitis Coagulation profile is relatively stable this morning. Total bilirubin appears to have plateaued. Gastroenterology is currently following to assist with medical management. Continue supportive measures. 5. Anemia Continue to monitor blood counts daily. Transfuse if hemoglobin drops below 7 g/dL. Continue PPI therapy. Again, gastroenterology is following to assist with medical management. TIME: 38 minutes of critical care time, independent of procedures, was spent addressing the patient's multifactorial shock, acute alcohol withdrawal, acute hypoxemic respiratory failure, alcoholic hepatitis, acute pancreatitis, anemia, review of all data and collaboration with the care team. Subjective Subjective The patient was seen and examined at the bedside this morning. Events from the last 24 hours have been reviewed. The patient is currently afebrile but is requiring Levophed at 10 mcg/min to maintain hemodynamic stability. She remains on Precedex. White count is elevated at 23,000 this morning with a hemoglobin of 7.5 g/dL. Sodium is low at 128 with a chloride of 90, BUN of 32 and creatinine of 1.18. Phosphorus is low at 1.4. Total bilirubin is increased at 11.3. AST is increased to 229. The patient remains on empiric antibiotics, thiamine, folate and phenobarbital. Objective Data Objective Data The patient's most recent lab work, culture data and imaging studies have all been personally reviewed. Sputum and blood cultures are pending. Echocardiogram is pending. Vital Signs: Vital Signs Temp Pulse Resp BP Pulse Ox O2 Del Method O2 Flow Rate 98.3 F 84 36 H 73/51 L 98 High Flow 6 09/04/23 04:00 09/04/23 07:00 09/04/23 07:00 09/04/23 07:00 09/04/23 07:00 09/04/23 07:00 09/04/23 07:00 FiO2 6 09/04/23 06:00 Oxygen Flow Rate (L/min) 6 Oxygen Delivery Method High Flow Weight: 143 lb 15.39 oz Body Mass Index (BMI) 24.5 Intake & Output: Intake and Output for Last 24 Hours 09/02/23 09/03/23 09/04/23 23:59 23:59 23:59 Intake Total 2527.7 / 2527.7 2408.4433 / 2421.1433 205.17 / 205.17 Output Total 1400 / 1400 90 / 90 Balance 2527.7 / 2527.7 1008.4433 / 1021.1433 115.17 / 115.17 Lab / Micro Data Attestation: I reviewed the patient's lab results. 09/04/23 03:00 09/04/23 03:00 Labs: Laboratory Results - last 24 hr 09/03/23 03:25: Crossmatch See Detail 09/03/23 10:15: WBC 24.4 H, RBC 2.44 L, Hgb 8.4 L, Hct 24.1 L, MCV 98.8, MCH 34.4 H, MCHC 34.9, RDW Std Deviation 46.8 H, RDW Coeff of Rebel 13.2, Plt Count 236, MPV 10.4, ESR 17, PT 16.7 H, INR 1.4, Sodium 125 L, Potassium 4.0, Chloride 84 L, Carbon Dioxide 28.0, BUN 20 H, Creatinine 0.68, Estim Creat Clear Calc 91.17, Est GFR (MDRD) Af Amer 121, Est GFR (MDRD) Non-Af 100, BUN/Creatinine Ratio 29.6 H, Glucose 79, Calcium 9.6, Phosphorus 1.5 L, Total Creatine Kinase 134, C-React Prot Ext Range 261.00 H, Albumin 2.3 L 09/03/23 10:55: Ammonia < 10.0 L 09/03/23 12:30: Urine Myoglobin Cancelled, Serum Copper Cancelled, HIV 1&2 Antibody Non-Reactive 09/03/23 15:45: Urine Color Yellow, Urine Clarity Cloudy, Urine pH 5.0, Ur Specific [place] Not Reportable, Urine Protein 30 H, Urine Glucose (UA) Normal, Urine Ketones Negative, Urine Occult Blood 25 H, Urine Nitrite Positive H, Urine Bilirubin 6 H, Urine Urobilinogen 4 H, Ur Leukocyte Esterase 500 H, Urine RBC 0-5 SEEN, Urine WBC 25-50 SEEN, Ur Squamous Epith Cells 0-5 SEEN, Amorphous Sediment 1+ URATE, Urine Bacteria RARE, Urine Mucus 0 SEEN 09/03/23 17:23: Sodium Cancelled, Potassium Cancelled, Chloride Cancelled, Carbon Dioxide Cancelled, BUN Cancelled, Creatinine Cancelled, Estim Creat Clear Calc Cancelled, Est GFR (MDRD) Af Amer Cancelled, Est GFR (MDRD) Non-Af Cancelled, BUN/Creatinine Ratio Cancelled, Glucose Cancelled, Calcium Cancelled, Phosphorus Cancelled, Albumin Cancelled 09/03/23 18:30: Sodium 126 L, Potassium 4.7, Chloride 87 L, Carbon Dioxide 26.0, BUN 24 H, Creatinine 0.82, Estim Creat Clear Calc 75.60, Est GFR (MDRD) Af Amer 98, Est GFR (MDRD) Non-Af 81, BUN/Creatinine Ratio 29.4 H, Glucose 84, Calcium 9.3, Phosphorus 2.4 L, Albumin 2.3 L 09/03/23 20:24: Ammonia < 10.0 L 09/04/23 03:00: WBC 23.0 H, RBC 2.16 L, Hgb 7.5 L, Hct 21.9 L, MCV 101.4 H, MCH 34.7 H, MCHC 34.2, RDW Std Deviation 52.2 H, RDW Coeff of Rebel 14.5, Plt Count 201, MPV 10.7, PT 16.1 H, INR 1.3, Sodium 128 L, Potassium 4.8, Chloride 90 L, Carbon Dioxide 24.0, BUN 32 H, Creatinine 1.18 H, Estim Creat Clear Calc 52.54, Est GFR (MDRD) Af Amer 64, Est GFR (MDRD) Non-Af 53 L, BUN/Creatinine Ratio 27.1 H, Glucose 79, Calcium 8.8, Phosphorus 1.4 L, Magnesium 2.2, Total Bilirubin 11.30 H, Direct Bilirubin 8.90 H, AST 229 H, ALT 33, Alkaline Phosphatase 56, B-Natriuretic Peptide 198.8 H, Total Protein 5.6 L, Albumin 2.2 L, Globulin 3.4 Radiography Diagnostic Testing: Radiology Impression Chest X-Ray 09/03/23 11:00 IMPRESSION: Hypoventilatory changes. New mild left perihilar and lower lung infiltrate. Electronically Signed: Gaurang Hadley MD at 11:47 EDT , Chest X-Ray 09/04/23 05:00 IMPRESSION: 1. Aspiration/pneumonia suspected at the left upper and lower lobes. 2. Possible small to moderate left pleural effusion with adjacent passive atelectasis. 3. Vascular congestion at the lungs without cardiomegaly. Electronically Signed: Da Tamez MD at 3:22 EDT , Physical Exam Const Constitutional Narrative: Acutely ill-appearing and diaphoretic. Currently sedated and not interactive. Jaundiced HEENT normocephalic and head/scalp atraumatic Eyes PERRL Neck supple General: trachea midline Chest inspection of chest normal Resp Effort and Inspection: tachypneic Auscultation: rhonchi, wheezes and diminished lung sounds Cardio S1 normal heart sound and S2 normal heart sound Rate: tachycardic GI normal to inspection, nondistended, normoactive bowel sounds Extremity General Extremity: edema Skin no rashes or lesions noted Neuro no focal motor deficits Psych Mood & Affect: flat affect Charges/Coding Procedures Hospitalists Procedures: 45019 Critical Care 1st Hr
[2023-09-04 08:01] LABS: Lipase 234 U/L (13-75)
[2023-09-04] MEDS: 0.9% Normal Saline (1000mL) 1,000 ML 999 ML IV (08:18)
[2023-09-04 08:27] LABS: Allen Test Positive; Base Excess 3 mmol/L (-2 to +2); Bicarbonate 26.6 mmol/L (22-26); Blood Gas Specimen Type ART; Mode Not entered; O2 Delivery Device Cannula; PO2 74 mmHG (75-100); SITE L Radial; SO2 96 % (95-99); Total Carbon Dioxide 28 mmol/L; pCO2 36.3 mmHg (35-45); pH 7.47 (7.35-7.45)
[2023-09-04] MEDS: Pantoprazole Sodium 40 MG in 0.9% Normal Saline (100mL MB+) 100 ML 330 MG IV (09:18)
[2023-09-04 09:25] LABS: Ammonia < 10.0 umol/L (11-32)
--- NOTE | 2023-09-04 10:27 | CASEMGMT ---
RN CM Assessment Pt is currently disoriented and is unable to answer this RN CM questions for assessment. TC to pt SO on file (Conrad). Conrad states that he is willing to answer this RN CM questions. Care providers, pharmacy, and demographics verified. Admitting dx: Hyponatremia, Hypokalemia, ETOH Withdrawal LACE Strata: 2 PCP: Conrad states that the pt has a PCP in [facility] but cannot recall the name at this time Specialists: Denies Preferred Pharmacy: [facility] Insurance: [facility]/ [employer] Prescription Benefit: Yes LNOK: Conrad Vanegas (SO), Hailey Moreno (M) Living Arrangements: Pt lives with her SO in a single story home with 5 steps to enter ADLs/IADLs: Ind at baseline Transportation: Self and SO DME: Conrad states that the pt does not have or need any DME at this time. However, the pt is currently requiring supplemental oxygen. A verbal list of local in-network DME companies provided to Conrad and Conrad states that he would prefer to go through [employer] if the pt qualifies for home O2. HHC/SNF: Denies history ETOH: Conrad states that the pt drinks around 6 12oz White Claws per day and also an unknown amount of vodka Plan: TBD. Pt is currently disoriented and medically unstable to be seen by PT at this time. Conrad states that the pt has shown increased weakness and fatigue lately. Conrad wishes the pt to detox and return to PLOF. Conrad wishes to have counseling for the pt. SW updated. CM and SW to follow to ensure the safest DC plan moving forward. Terra Schaffer RN, CM
--- NOTE | 2023-09-04 11:26 | PCM.PN.HOSP ---
Reason for Visit Reason for Visit: Diagnoses Anemia, unspecified (09/02/23) Other disorders of phosphorus metabolism (09/02/23) Hypomagnesemia (09/02/23) Hypo-osmolality and hyponatremia (09/02/23) Hypokalemia (09/02/23) Alcohol abuse, uncomplicated (09/02/23) Acute respiratory failure with hypoxia (09/02/23) Alcoholic hepatitis without ascites (09/02/23) Alcoholic hepatic failure without coma (09/02/23) Alcohol induced acute pancreatitis without necrosis or infection (09/02/23) Acute pancreatitis without necrosis or infection, unspecified (09/02/23) Subjective Subjective Overnight patient became combative and needed to be restrained and was started on Precedex. She did develop hypotension after starting Precedex and was started on low-dose Levophed at that time. I saw patient this morning at the bedside. Precedex had been discontinued but patient was still mildly drowsy. She was still in restraints as well. Patient was given a liter of IV fluids shortly before I saw her and her blood pressures were slightly improved. She was continuing to have shallow breaths with significant rhonchi bilaterally in upper airways but had good oxygen saturations on 4 L nasal cannula. She did make appropriate eye contact with me and answered questions with short responses. She denied any significant abdominal pain or distention this morning. She denied any chest pain or shortness of breath at rest. Had no other acute concerns this morning. Objective Data Objective Data Vital Signs: Vital Signs Temp Pulse Resp BP Pulse Ox O2 Del Method O2 Flow Rate 98.1 F 87 28 H 91/66 98 High Flow 4 09/04/23 08:00 09/04/23 10:00 09/04/23 10:00 09/04/23 10:00 09/04/23 10:00 09/04/23 10:00 09/04/23 10:00 FiO2 6 09/04/23 06:00 Oxygen Flow Rate (L/min) 4 Oxygen Delivery Method High Flow Weight: 65.3 kg Body Mass Index (BMI) 24.5 Intake & Output: Intake and Output for Last 24 Hours 09/02/23 09/03/23 09/04/23 23:59 23:59 23:59 Intake Total 2527.7 / 2527.7 2408.4433 / 2421.1433 1429.76 / 1429.76 Output Total 1400 / 1400 110 / 110 Balance 2527.7 / 2527.7 1008.4433 / 1021.1433 1319.76 / 1319.76 Lab / Micro Data 09/04/23 12:10 09/04/23 12:10 Labs: Laboratory Results - last 24 hr 09/03/23 10:15: ESR 17, Total Creatine Kinase 134, C-React Prot Ext Range 261.00 H 09/03/23 10:55: Ammonia < 10.0 L 09/03/23 12:30: Urine Myoglobin Cancelled, Serum Copper Cancelled, HIV 1&2 Antibody Non-Reactive 09/03/23 15:45: Urine Color Yellow, Urine Clarity Cloudy, Urine pH 5.0, Ur Specific [place] Not Reportable, Urine Protein 30 H, Urine Glucose (UA) Normal, Urine Ketones Negative, Urine Occult Blood 25 H, Urine Nitrite Positive H, Urine Bilirubin 6 H, Urine Urobilinogen 4 H, Ur Leukocyte Esterase 500 H, Urine RBC 0-5 SEEN, Urine WBC 25-50 SEEN, Ur Squamous Epith Cells 0-5 SEEN, Amorphous Sediment 1+ URATE, Urine Bacteria RARE, Urine Mucus 0 SEEN 09/03/23 17:23: Sodium Cancelled, Potassium Cancelled, Chloride Cancelled, Carbon Dioxide Cancelled, BUN Cancelled, Creatinine Cancelled, Estim Creat Clear Calc Cancelled, Est GFR (MDRD) Af Amer Cancelled, Est GFR (MDRD) Non-Af Cancelled, BUN/Creatinine Ratio Cancelled, Glucose Cancelled, Calcium Cancelled, Phosphorus Cancelled, Albumin Cancelled 09/03/23 18:30: Sodium 126 L, Potassium 4.7, Chloride 87 L, Carbon Dioxide 26.0, BUN 24 H, Creatinine 0.82, Estim Creat Clear Calc 75.60, Est GFR (MDRD) Af Amer 98, Est GFR (MDRD) Non-Af 81, BUN/Creatinine Ratio 29.4 H, Glucose 84, Calcium 9.3, Phosphorus 2.4 L, Albumin 2.3 L 09/03/23 20:24: Ammonia < 10.0 L 09/04/23 03:00: WBC 23.0 H, RBC 2.16 L, Hgb 7.5 L, Hct 21.9 L, MCV 101.4 H, MCH 34.7 H, MCHC 34.2, RDW Std Deviation 52.2 H, RDW Coeff of Rebel 14.5, Plt Count 201, MPV 10.7, PT 16.1 H, INR 1.3, Sodium 128 L, Potassium 4.8, Chloride 90 L, Carbon Dioxide 24.0, BUN 32 H, Creatinine 1.18 H, Estim Creat Clear Calc 52.54, Est GFR (MDRD) Af Amer 64, Est GFR (MDRD) Non-Af 53 L, BUN/Creatinine Ratio 27.1 H, Glucose 79, Calcium 8.8, Phosphorus 1.4 L, Magnesium 2.2, Total Bilirubin 11.30 H, Direct Bilirubin 8.90 H, AST 229 H, ALT 33, Alkaline Phosphatase 56, B-Natriuretic Peptide 198.8 H, Total Protein 5.6 L, Albumin 2.2 L, Globulin 3.4, Lipase 234 H 09/04/23 08:30: Ammonia < 10.0 L ABG Data ABG results: ABG 09/04/23 08:23 Specimen Type ART Sample Site L Radial pH 7.47 H Bicarbonate Actual 26.6 H Total CO2 28 Base Excess 3 H O2 Saturation 96 O2 % 6.0 ABG pCO2 36.3 ABG pO2 74 L Oswald Test Positive O2 Delivery Device Cannula Vent Mode Not entered Radiography Diagnostic Testing: Radiology Impression Chest X-Ray 09/03/23 11:00 IMPRESSION: Hypoventilatory changes. New mild left perihilar and lower lung infiltrate. Electronically Signed: Gaurang Hadley MD at 11:47 EDT , Chest X-Ray 09/04/23 05:00 IMPRESSION: 1. Aspiration/pneumonia suspected at the left upper and lower lobes. 2. Possible small to moderate left pleural effusion with adjacent passive atelectasis. 3. Vascular congestion at the lungs without cardiomegaly. Electronically Signed: Da Tamez MD at 3:22 EDT , Physical Exam Const alert Constitutional Narrative: Middle-age female, ill-appearing, whole-body jaundice noted, mildly sedated, in bilateral wrist restraints, shallow respirations with mild increased work of breathing noted, otherwise sitting up in bed, making appropriate eye contact and answering questions with short appropriate responses, not combative for me. General Appearance: cooperative HEENT normocephalic, head/scalp atraumatic, hearing grossly normal bilaterally and nasal mucous membranes and turbinates normal Mouth: dry mucous membranes Eyes PERRL and EOMs intact bilaterally Eyes Narrative: Scleral icterus noted. Neck full ROM Chest inspection of chest normal Resp Resp Narrative: Mild increased work of breathing with shallow respirations noted on low-flow nasal cannula. Moderate crackles noted in upper to mid airways bilaterally with decreased lung sounds noted at bases, similar to previous. No wheezing noted. Cardio no murmurs and peripheral pulses 2+ throughout Cardio Narrative: Tachycardic, regular rhythm. GI GI Narrative: Abdomen distended and mildly hard on palpation. Mildly tender to palpation diffusely. Mildly hypoactive bowel sounds throughout. Stable from previous. Back/Spine normal ROM Extremity normal to inspection and full ROM Extremity Narrative: +1-2 lower extremity edema noted. Stable. Neuro no focal motor deficits and no sensory deficits noted Assessment & Plan Assessment/Plan (1) Acute hypoxic respiratory failure: (2) Alcoholic hepatitis: (3) Acute pancreatitis: QUALIFIERS: Acute pancreatitis complication: unspecified Pancreatitis type: alcohol induced Qualified Code(s): K85.20 - Alcohol induced acute pancreatitis without necrosis or infection (4) Anemia: (5) Acute hyponatremia: (6) Hypokalemia: (7) Hypophosphatemia: (8) Alcohol abuse: (9) Desire for detoxification: PLAN: Plan Patient is a 43-year-old female who presented [facility] ED on 09/02/2023 with worsening abdominal pain and distention. 1. Acute hypoxic respiratory failure ? Licensed Mental Health Counselor following. Suspect due to volume overload from IV fluid resuscitation on admission along with shallow breathing from abdominal pain/distention. Cannot rule out pneumonia. Chest x-ray on hospital day 2 showed hypoventilatory changes with some vascular congestion new and mild left perihilar and lower lung infiltrates currently requiring high flow nasal cannula at 15 L with oxygen saturations in the mid 90s. Was given 3 doses of IV Lasix on hospital day 2 with decent urine output. However, became on evening of 09/02 as noted below and was suspected to be hypovolemic, so was given fluid resuscitation as noted below. Will monitor respiratory status closely. DuoNebs as needed ordered. Encouraged use of incentive spirometry. Treating with antibiotics as noted below. 2. Multifactorial shock with worsening leukocytosis ? Licensed Mental Health Counselor following as above. High concern is for septic versus hypovolemic shock in setting of pancreatitis and infiltrates noted on chest imaging. Was initially given IV fluids for pancreatitis but then developed respiratory failure as noted above, so Lasix was given on hospital day 2. Suspected that patient was dry from Lasix, now giving IV fluids on hospital day 3 and monitoring blood pressure closely. Okay to continue Levophed, wean as able. Unclear if worsening leukocytosis is secondary to infection versus generalized inflammation. Continue treatment with IV Zosyn and vancomycin for now. Blood cultures pending. 3. Severe acute alcoholic hepatitis ? GI following. MELD score of 20 and Madrey score of 31 on admit. Labs on admit of T. bili 7.90, direct bili 6.14, AST 190, ALT 31, alk phos 89, INR 1.2. CT abdomen pelvis without contrast on admit showed fatty liver with hepatomegaly and suspected pancreatitis. Suspected alcoholic hepatitis without underlying cirrhosis at this time. Large lab workup sent per GI, will follow-up on results. INR worsened to 1.4 on hospital day 2, given dose of IV vitamin K 5 mg x 1. Ammonia level normal x 2 but patient does seem to have mild cognitive slowing so started on Xifaxan and lactulose by GI. Monitor daily labs. Not giving steroids at this time given concern for active infection. 4. Acute encephalopathy, multifactorial ? Patient became more confused and combative on evening of 09/02, was placed in restraints and started on Precedex with improvement. Precedex discontinued on morning of 09/03. Suspect multifactorial in setting of shock, respiratory failure, acute hepatitis, alcohol withdrawal and medications. Treatment as noted above. Avoid deliriogenic medications as able. N.p.o. status for now. 5. New onset HFrEF, concern for PE ? Echo 09/03 showed EF 40%, mild to moderate LV global hypokinesis, interventricular septal flattening during systole consistent with RV pressure overload. Have concern for possible PE given hypoxia and hypercoagulability in setting of acute liver disease. Patient has mildly elevated INR but this is not therapeutic. Will obtain CTA chest today for further evaluation. 6. Acute pancreatitis ? GI following as above. Lipase [address] abdomen pelvis with findings consistent with pancreatitis as noted above. Was given IV fluids on admission but developed volume overload as noted above so was given IV Lasix. Appeared volume depleted on hospital day 3, given IV fluids again. Pain control with IV morphine every 4 hours as needed. Patient notably with abdominal distention and mild abdominal pain but does not have severe pain or active nausea/vomiting at this time. 7. Severe anemia ? Hemoglobin 10.6 on admit, decreased to 6.6 on hospital day 2 after heavy IV fluid resuscitation. S/p 1 unit of blood on 09/02 with hemoglobin recheck 8.4. Iron studies with ferritin 3101. Suspected that patient has acute on chronic anemia due to severe acute liver disease as noted above. Monitor CBC daily. Transfuse for hemoglobin less than 7. 8. Severe hyponatremia, improving ? Sodium 118 on admit. Patient with mild cognitive slowing but was not acutely encephalopathic so she was not given hypertonic saline. Suspected to be more chronic hyponatremia possibly due to beer potomania and poor solute intake. Sodium with steady rise on frequent lab checks on hospital day 2. Sodium 129 on hospital day 3, stable. Continue to monitor daily labs. 9. Severe hypophosphatemia, hypokalemia and hypomagnesemia ? Phosphorus 0.1, potassium 1.8, magnesium 1.2 on admit. Presumed secondary to alcohol abuse with poor solute intake. All electrolytes aggressively repleted on admission with significant improvement. Continue to monitor daily labs. Suspect patient will be at high risk for refeeding syndrome once she is able to start a diet again, will need to check labs more frequently at that point. 10. Alcohol abuse with concern for alcohol withdrawal ? Reported drinking about 12 white claws per day recently. Has 20-year history of heavy alcohol use without cessation. No history of alcohol withdrawal. Given high concern for impending alcohol drawl, patient was started on phenobarbital taper admission with adequate symptom control. Continue phenobarbital taper and other as needed medications per alcohol withdrawal order set. Continue folate and thiamine. Monitor closely. 11. Tobacco abuse ? Current smoker. Nicotine patch ordered on admission. Encouraged cessation. 12. Suspected protein calorie malnutrition with hypoalbuminemia ? Nutrition following. Albumin 2.2 on admit, prealbumin also low. Suspect malnutrition secondary to poor food intake as noted above. Patient currently n.p.o. given acute encephalopathy as noted above. 13. Mild hypercalcemia ? Calcium 11.2 on admit. Improved back to normal range after IV fluid resuscitation. PTH low at 3.5, vitamin D level pending. Continue to monitor calcium level. 14. History of lichen sclerosis ? Previously required treatment, not currently active. DVT prophylaxis: SCDs CODE STATUS: Full code, verified Expected disposition: TBD Total clinical time spent by myself addressing the patient's medical issues, reviewing all the data, and collaborating with patient's care team: 50 minutes. Charges/Coding Visit Charges Inpatient E&M: 56572 [facility] L3
[2023-09-04 12:23] LABS: Hematocrit 24.7 % (37-47); Hemoglobin 8.3 g/dL (12.0-15.0); Mean Corp Hgb Conc 33.6 g/dL (32-36); Mean Corpuscular Hgb 35.2 pg (27.0-32.0); Mean Corpuscular Volume 104.7 fL (81-99); Mean Platelet Vol. 10.8 fl (6.2-12.0); POSITIVE COUNT YES; Platelet Count 245 K/mm3 (150-450); RBC Distribution Width CV 14.9 % (11.6-14.6); RBC Distribution Width SD 56.3 fl (35.1-43.9); Red Blood Count 2.36 M/mm3 (4.2-5.4); White Blood Count 31.5 K/mm3 (4.4-11.0)
[2023-09-04 12:35] LABS: Scan Indicated on CBC? Y/N YES- FLAGS NOTED
[2023-09-04 13:06] LABS: BUN 39 mg/dL (7-18); BUN/Creat Ratio 32.2 RATIO (10-20); Calcium,Total 8.4 mg/dL (8.5-10.1); Chloride 93 mmol/L (98-107); Creatinine, Serum 1.21 mg/dL (0.55-1.02); EST Glomerular Filtration Rate 51 mL/min (>60); Est Glom Filt Rate - Afr Amer 62 mL/min (>60); Estimated Creatinine Clearance 51.23 ml/min; Glucose 131 mg/dL (74-106); Phosphorus 4.6 mg/dL (2.5-4.9); Potassium 5.9 mmol/L (3.5-5.1); Sodium Level 129 mmol/L (136-145)
--- NOTE | 2023-09-04 14:10 | CT_ITS ---
STUDY: CTA CHEST REASON FOR EXAM: Female, 43 years old. r/o PE RADIATION DOSAGE (If Supplied By Facility): CTDIvol = ( 10.12 ) mGy, DLP = ( 331.43 ) mGycm TECHNIQUE: The examination was performed with the intravenous administration of IV 100mL Isovue-370. Post-processing of the angiographic images was performed, with multiplanar reformation and 3D reconstruction. Individualized dose optimization techniques were used for this CT. COMPARISON: None. FINDINGS: Normal enhancement of the main pulmonary artery and right and left pulmonary arteries. Normal enhancement of the bilateral peripheral pulmonary arteries. There is no demonstrated pulmonary embolism. Normal thoracic aorta and visualized great vessels. There is no demonstrated aortic dissection. Normal heart and pericardium. Normal mediastinum. Normal hilar regions. Normal visualized trachea and bronchi. The lungs are well expanded. There are multifocal patchy infiltrates in the upper and lower lobes bilaterally more severe on the left. There is moderate size left pleural effusion with consolidation of the left lower lobe and smaller right pleural effusion Normal chest wall structures. Normal osseous structures. The liver is enlarged and diffusely fatty infiltrated. CT/CTA Chest W/WO Contrast IMPRESSION: Multifocal pulmonary infiltrates more severe in the left lung suspicious for inflammatory disease. Bilateral pleural effusions larger on the left with consolidation of left lower lobe No evidence for pulmonary embolus Electronically Signed: Eliseo Rios MD at 16:23 EDT ,
[2023-09-04] MEDS: Vancomycin HCl 1,750 MG in 0.9% Normal Saline (500mL Bag) 500 ML 250 MG IV (14:41)
[2023-09-04] MEDS: Insulin Lispro 10 UNIT in Syringe 0 ML 6 UNIT IV (14:41)
[2023-09-04] MEDS: Dextrose 10%-Water 250 ML 999 ML IV (14:41)
--- NOTE | 2023-09-04 15:13 | PCM.RX.CS ---
Consult Antibiotic Management Pharmacy has been consulted to manage selected antibiotic: Vancomycin Type of Intervention Type of Consult: New start Suspected Infection Suspected Infection: Pneumonia Labs Labs: Sodium 129 mmol/L (136-145) L 09/04/23 12:10 Potassium 5.9 mmol/L (3.5-5.1) H 09/04/23 12:10 Chloride 93 mmol/L (98-107) L 09/04/23 12:10 Carbon Dioxide 24.0 mmol/L (21.0-32.0) 09/04/23 12:10 Anion Gap 14 (5-15) 09/03/23 05:45 BUN 39 mg/dL (7-18) H 09/04/23 12:10 Creatinine 1.21 mg/dL (0.55-1.02) H 09/04/23 12:10 Est GFR (MDRD) Af Amer 62 mL/min (>60) 09/04/23 12:10 Est GFR (MDRD) Non-Af 51 mL/min (>60) L 09/04/23 12:10 BUN/Creatinine Ratio 32.2 RATIO (10-20) H 09/04/23 12:10 Glucose 131 mg/dL (74-106) H 09/04/23 12:10 Microbiology Microbiology: Microbiology 09/03/23 17:10 Sputum, Expectorated/Coughed Gram Stain - Final 09/03/23 17:10 Sputum, Expectorated/Coughed Respiratory Culture - Preliminary Appears to be normal respiratory sindy. Further studies to follow. Pharmacy Plan for Drug Dosing Pharmacy Plan for Drug Dosing: NEW START IV VANCOMYCIN Consulting Physician: Master Indication: Pneumonia Goal Trough: 15-20MG/DL SrCr: 1.21 MG/DL CrCl: 51.2 ML/MIN Comments: Patient did received a 1500mg loading dose 09/02 @ 0430. Since 34 hours have passed did re-dose the loading dose and patient received 1750mg 09/03 @ 1441. Vancomycin Dose: Will start 750mg Q12 09/04 @ 0300 and get a trough prior to 4th dose per policy. Pending Level: 09/06/23 @ 0230 Pharmacy Service will continue to monitor and adjust dosing as required.
[2023-09-04 16:58] LABS: Anion Gap 10 (5-15); BUN 41 mg/dL (7-18); BUN/Creat Ratio 35.3 RATIO (10-20); Calcium,Total 7.6 mg/dL (8.5-10.1); Chloride 93 mmol/L (98-107); Creatinine, Serum 1.16 mg/dL (0.55-1.02); EST Glomerular Filtration Rate 54 mL/min (>60); Est Glom Filt Rate - Afr Amer 65 mL/min (>60); Estimated Creatinine Clearance 53.44 ml/min; Glucose 153 mg/dL (74-106); Potassium 4.6 mmol/L (3.5-5.1); Sodium Level 129 mmol/L (136-145)
--- NOTE | 2023-09-04 17:39 | EX.PCM.PN.GI ---
Subjective Subjective Patient still with worsening shortness of breath. She did go down for CT of the chest because she underwent an echocardiogram and it showed decreased ejection fraction with some right heart failure. She was started on Precedex overnight and has been having some altered mental status. Objective Data Objective Data Vital Signs: Vital Signs Temp Pulse Resp BP Pulse Ox O2 Del Method O2 Flow Rate 98.6 F 105 H 22 H 120/79 96 Nasal Cannula 6 09/04/23 16:00 09/04/23 16:00 09/04/23 16:00 09/04/23 16:45 09/04/23 16:00 09/04/23 16:00 09/04/23 16:00 FiO2 6 09/04/23 06:00 Oxygen Flow Rate (L/min) 6 Oxygen Delivery Method Nasal Cannula Weight: 143 lb 15.39 oz Body Mass Index (BMI) 24.5 Intake & Output: Intake and Output for Last 24 Hours 09/02/23 09/03/23 09/04/23 23:59 23:59 23:59 Intake Total 2527.7 / 2527.7 2408.4433 / 2421.1433 2852.1433 / 2852.1433 Output Total 1400 / 1400 160 / 160 Balance 2527.7 / 2527.7 1008.4433 / 1021.1433 2692.1433 / 2692.1433 Lab / Micro Data 09/04/23 12:10 09/04/23 Unknown Labs: Laboratory Results - last 24 hr 09/03/23 17:23: Sodium Cancelled, Potassium Cancelled, Chloride Cancelled, Carbon Dioxide Cancelled, BUN Cancelled, Creatinine Cancelled, Estim Creat Clear Calc Cancelled, Est GFR (MDRD) Af Amer Cancelled, Est GFR (MDRD) Non-Af Cancelled, BUN/Creatinine Ratio Cancelled, Glucose Cancelled, Calcium Cancelled, Phosphorus Cancelled, Albumin Cancelled 09/03/23 18:30: Sodium 126 L, Potassium 4.7, Chloride 87 L, Carbon Dioxide 26.0, BUN 24 H, Creatinine 0.82, Estim Creat Clear Calc 75.60, Est GFR (MDRD) Af Amer 98, Est GFR (MDRD) Non-Af 81, BUN/Creatinine Ratio 29.4 H, Glucose 84, Calcium 9.3, Phosphorus 2.4 L, Albumin 2.3 L 09/03/23 20:24: Ammonia < 10.0 L 09/04/23 03:00: WBC 23.0 H, RBC 2.16 L, Hgb 7.5 L, Hct 21.9 L, MCV 101.4 H, MCH 34.7 H, MCHC 34.2, RDW Std Deviation 52.2 H, RDW Coeff of Rebel 14.5, Plt Count 201, MPV 10.7, PT 16.1 H, INR 1.3, Sodium 128 L, Potassium 4.8, Chloride 90 L, Carbon Dioxide 24.0, BUN 32 H, Creatinine 1.18 H, Estim Creat Clear Calc 52.54, Est GFR (MDRD) Af Amer 64, Est GFR (MDRD) Non-Af 53 L, BUN/Creatinine Ratio 27.1 H, Glucose 79, Calcium 8.8, Phosphorus 1.4 L, Magnesium 2.2, Total Bilirubin 11.30 H, Direct Bilirubin 8.90 H, AST 229 H, ALT 33, Alkaline Phosphatase 56, B-Natriuretic Peptide 198.8 H, Total Protein 5.6 L, Albumin 2.2 L, Globulin 3.4, Lipase 234 H 09/04/23 08:30: Ammonia < 10.0 L 09/04/23 12:10: WBC 31.5 H*, RBC 2.36 L, Hgb 8.3 L, Hct 24.7 L, MCV 104.7 H, MCH 35.2 H, MCHC 33.6, RDW Std Deviation 56.3 H, RDW Coeff of Rebel 14.9 H, Plt Count 245, MPV 10.8, Diff Path Review July, Sodium 129 L, Potassium 5.9 H, Chloride 93 L, Carbon Dioxide 24.0, BUN 39 H, Creatinine 1.21 H, Estim Creat Clear Calc 51.23, Est GFR (MDRD) Af Amer 62, Est GFR (MDRD) Non-Af 51 L, BUN/Creatinine Ratio 32.2 H, Glucose 131 H, Calcium 8.4 L, Phosphorus 4.6, Albumin 2.0 L 09/04/23 : Sodium 129 L, Potassium 4.6, Chloride 93 L, Carbon Dioxide 26.0, Anion Gap 10, BUN 41 H, Creatinine 1.16 H, Estim Creat Clear Calc 53.44, Est GFR (MDRD) Af Amer 65, Est GFR (MDRD) Non-Af 54 L, BUN/Creatinine Ratio 35.3 H, Glucose 153 H, Calcium 7.6 L Micro: Microbiology 09/03/23 17:10 Sputum, Expectorated/Coughed Gram Stain - Final 09/03/23 17:10 Sputum, Expectorated/Coughed Respiratory Culture - Preliminary Appears to be normal respiratory sindy. Further studies to follow. ABG Data ABG results: ABG 09/04/23 08:23 Specimen Type ART Sample Site L Radial pH 7.47 H Bicarbonate Actual 26.6 H Total CO2 28 Base Excess 3 H O2 Saturation 96 O2 % 6.0 ABG pCO2 36.3 ABG pO2 74 L Oswald Test Positive O2 Delivery Device Cannula Vent Mode Not entered Radiography Diagnostic Testing: Radiology Impression Echocardiogram 09/03/23 17:27 Interpretation Summary Mild to moderate LV global hypokinesis. Estimated LVEF 40%. Interventricular septal flattening during systole consistent with RV pressure overload. Moderate RV hypokinesis. The right atrium is moderately enlarged. Mild (1+) mitral valve insufficiency. Moderately severe (3+) tricuspid valve insufficiency. Right ventricular systolic pressure estimated to be 43 mmHg. Ordering Physician: Tommy Taylor Referring Physician: mayte pcp Performed By: Bette Posada RCS Chest X-Ray 09/04/23 05:00 IMPRESSION: 1. Aspiration/pneumonia suspected at the left upper and lower lobes. 2. Possible small to moderate left pleural effusion with adjacent passive atelectasis. 3. Vascular congestion at the lungs without cardiomegaly. Electronically Signed: Da Tamez MD at 3:22 EDT , Chest CTA 09/04/23 14:10 IMPRESSION: Multifocal pulmonary infiltrates more severe in the left lung suspicious for inflammatory disease. Bilateral pleural effusions larger on the left with consolidation of left lower lobe No evidence for pulmonary embolus Electronically Signed: Eliseo Rios MD at 16:23 EDT Reading Location ID and State: [facility] / [place] Tel , Service support , Physical Exam Const Constitutional Narrative: . Currently sedated and not interactive. Jaundiced HEENT normocephalic and head/scalp atraumatic Eyes PERRL Neck supple General: trachea midline Chest inspection of chest normal Resp Effort and Inspection: tachypneic Auscultation: rhonchi, wheezes and diminished lung sounds Cardio S1 normal heart sound and S2 normal heart sound Rate: tachycardic GI normal to inspection, nondistended, normoactive bowel sounds Extremity General Extremity: edema Skin no rashes or lesions noted Neuro no focal motor deficits Psych Mood & Affect: flat affect Assessment & Plan Assessment/Plan (1) Acute hyponatremia: (2) Hypokalemia: (3) Hypomagnesemia: (4) Hypophosphatemia: (5) Alcoholic liver failure: (6) Acute pancreatitis: QUALIFIERS: Pancreatitis type: alcohol induced Acute pancreatitis complication: unspecified Qualified Code(s): K85.20 - Alcohol induced acute pancreatitis without necrosis or infection (7) Desire for detoxification: (8) Alcohol abuse: PLAN: Plan 43-year-old with history of alcoholism presents with status discovered to have multiple metabolic abnormalities : Severe acute hyponatremia of 119 mmol/L likely secondary to to alcoholism. Current sodium is 123. It accompanies her multiple electrolyte abnormalities including critical hypokalemia, hypomagnesemia and hypophosphatemia. This is being managed by primary team. She also has severe acute hyperbilirubinemia with total bilirubin of 7.9 mg/dL that has increased to 11.5. And direct bilirubin of 6.14 mg/dL in the setting of chronic alcohol abuse with patient requesting alcohol detox adding to the pathology of #1 - #4 - EtOH cessation will be strongly encouraged. We will give phenobarbital IV per protocol for alcohol detoxification. Check CMP daily to follow trend. Avoid potentially hepatotoxic agents. She has no previous history of cirrhosis. No previous history of chronic hepatitis B or chronic hepatitis C. No previous history HIV. She does not take any medicines for lichen sclerosus. She has not been diagnosed with alcoholic hepatitis in the past. She has not received any blood transfusions she has no past medical history of tuberculosis. We need to check her for acute viral hepatitis and nonviral hepatitis. In the ICU she was discovered to have a pH of 7.5, sodium bicarbonate of 30, CO2 37. Her creatinine is 0.65, bilirubin is 11 and INR is 1.4. This gives her a MELD sodium score of 20 which carries of 25% mortality rate in 90 days. Her Madrey score for alcoholic hepatitis was 31.9. She is mildly encephalopathic and is on phenobarbital. Alcoholic pancreatitis identified by elevated lipase of 1,853 units/L and imaging showing pancreatitis. Severe alcoholic hepatitis has a high mortality, and it is associated with encephalopathy, acute renal failure, sepsis, gastrointestinal bleeding, and endotoxemia. The 28-d mortality remains poor (34%-40%), because no effective treatment has been established. Recently, corticosteroids have been considered effective for significantly improving the prognosis of those with AH, as it prevents the production of pro-inflammatory cytokines. However, CS are not always appropriate as an initial therapeutic option, such as in cases with an infection or resistance to CS. Hyper ferritin anemia secondary to acute liver injury. There is a possibility of secondary hemochromatosis and infiltrative disease affecting the liver. Patient's hemoglobin dropped to 6.6 g/dL after volume resuscitation requiring transfusion of one unit of PRBC's. Recommendations: -Hopefully INR will not continue to increase. I would give her vitamin K 5 mg IV -I would also carefully look at her magnesium and Phos and potassium -I am hesitant to give her steroids at this time due to her increasing white blood cell count and monotherapy with N-acetylcysteine for nonacetaminophen-induced alcoholic hepatitis has not been proven to improve more than 30-day mortality -At this time she does not need a liver transplant evaluation. She is not acidotic by her blood gas. She is high risk for development of respiratory and metabolic acidosis. -Check labs for autoimmune hepatitis, Siddharth's disease, CMV, EBV, HIV -Check SHADI, iron, transferrin and if white blood cell count continues to increase -Lactulose 30 cc twice daily -Xifaxan 550 mg twice a day Patient's hemoglobin dropped to 6.6 g/dL after volume resuscitation requiring transfusion of one unit of PRBC's. 09/04/2023- . Infections, particularly bacterial infections, are one of the most frequent and severe complications of severe alcoholic hepatitis. Her white blood cell count keeps increasing. Blood cultures have been negative. She has been on antibiotics since her admission. Her LFTs (bilirubin and INR) are about the same ,along with her liver enzymes improving. Also her kidney function has been holding steady. I would check stool studies such as enteric pathogens and C. difficile. .Severe alcoholic hepatitis has a high mortality, and it is associated with encephalopathy, acute renal failure, sepsis, gastrointestinal bleeding, and endotoxemia. Corticosteroids have been considered effective for significantly improving the prognosis of those with AH, as it prevents the production of pro-inflammatory cytokines. However, CS are not always appropriate as an initial therapeutic option, such as in cases with an infection. Her MELD score is still 20 and her Sarah score has improved to 29. Her David alcoholic hepatitis score is 6. Anything overnight is associated with a 50% mortality. Her CRP is very high at 261. CT showed marked hepatomegaly with severe steatosis without splenomegaly, which is a good sign. Current CT scan of the chest did not show any signs of pulmonary embolism. But it did show multifocal disease with very large left pleural effusion and small right pleural effusion. Recommendations: -Continue to monitor MELD and Madrey score -Await chronic liver disease workup -Continue Xifaxan 550 twice a day - Repeat ammonia, INR in the morning -Guarded prognosis Charges/Coding Visit Charges Inpatient E&M: 80621 Subs Hosp L3
[2023-09-04] MEDS: traZODone 100 MG Tablet PO (20:34)
[2023-09-04] MEDS: hydrOXYzine PAM 25 MG Capsule 50 MG PO (20:34)
[2023-09-04 22:05] LABS: Anion Gap 9 (5-15); BUN 43 mg/dL (7-18); BUN/Creat Ratio 41.3 RATIO (10-20); Calcium,Total 7.5 mg/dL (8.5-10.1); Chloride 96 mmol/L (98-107); Creatinine, Serum 1.04 mg/dL (0.55-1.02); EST Glomerular Filtration Rate 61 mL/min (>60); Est Glom Filt Rate - Afr Amer 74 mL/min (>60); Estimated Creatinine Clearance 59.61 ml/min; Glucose 151 mg/dL (74-106); Potassium 4.6 mmol/L (3.5-5.1); Sodium Level 132 mmol/L (136-145)
[2023-09-05] VITALS (42 sets, daily range): BP systolic 68–113; BP diastolic 45–88; PULSE 95–122; RESP 12–39; TEMP 36.2–37.1; O2SAT 93–100; BMI 24.7
[2023-09-05] MEDS: Gabapentin 300 MG Capsule PO (02:55)
[2023-09-05] MEDS: Phenobarbital 32.4 MG Tablet 64.8 MG PO ×2 (02:55→05:45)
[2023-09-05] MEDS: Piperacil/Tazobactam 3.375 GM in 0.9% Normal Saline (50mL MB+) 50 ML IV (05:45)
[2023-09-05] MEDS: CHLORHEXIDINE GLUC 2% CLOTH 1 EACH TOWELETTE TOPICAL (07:18)
[2023-09-05] MEDS: 0.9% Saline Lock 10 ML Syringe IV ×4 (07:18→21:36)
[2023-09-05] MEDS: Vancomycin HCl 750 MG in 0.9% Normal Saline (250mL Bag) 250 ML 250 MG IV ×2 (07:20→15:06)
--- NOTE | 2023-09-05 07:30 | PN.CC_ITS ---
Assessment & Plan Assessment/Plan (1) Acute hypoxic respiratory failure: (2) Alcoholic hepatitis: (3) Acute pancreatitis: QUALIFIERS: Acute pancreatitis complication: unspecified P ancreatitis type: alcohol induced Qualified Code(s): K85.20 - Alcohol induced acute pancreatitis without necrosis or infection PLAN: Plan RECOMMENDATIONS: 1. Transfuse blood products if hemoglobin drops below 7 g/dL. 2. Continue empiric antibiotics. 3. Continue PPI therapy. 4. Continue phenobarbital. 5. Cautious dietary advancement as mental status permits. IMPRESSIONS: 1. Multifactorial shock Clinical concern for septic versus hypovolemic etiologies in the setting of pancreatitis and infiltrates noted on chest imaging. The patient has been successfully weaned from vasopressor support and remains on empiric broad- spectrum antimicrobials. Cultures are pending. 2. Acute alcohol withdrawal Continue current medication regimen along with thiamine and folic acid. 3. Acute hypoxemic respiratory failure Clinical concern for third spacing of fluids in the setting of acute pancreatitis coupled with possible underlying pneumonia. The patient remains on appropriate antimicrobial therapy at the present time. CTA completed ruled out pulmonary embolism. Continue to wean supplemental oxygen as tolerated. 4. Severe alcoholic hepatitis/acute alcoholic pancreatitis Liver function parameters appear to be slowly improving. Gastroenterology is currently following to assist with medical management. Continue supportive measures. 5. Anemia Continue to monitor blood counts daily. Transfuse if hemoglobin drops below 7 g/dL. Continue PPI therapy. Again, gastroenterology is following to assist with medical management. This note was generated with [employer] dictation software. It may contain incorrect words, spelling, and punctuation that were not noted in checking the note before signing. Subjective Subjective The patient was seen and examined at the bedside this morning. Events from the last 24 hours have been reviewed. The patient is currently afebrile, hemodynamically stable and maintaining appropriate oxygen saturations on 6 L/min via nasal cannula. The patient was able to be successfully weaned off of Precedex and Levophed yesterday. Creatinine has normalized. CTA chest completed yesterday ruled out pulmonary embolism. Objective Data Objective Data The patient's most recent lab work, culture data and imaging studies have all been personally reviewed. Surface echocardiogram demonstrated normal LV size and thickness with mild to moderate global hypokinesis of the LV. Ejection fraction was noted to be 40%. Right ventricular systolic pressure was estimated to be 43 mmHg. Sputum and blood cultures are pending. Vital Signs: Vital Signs Temp Pulse Resp BP Pulse Ox O2 Del Method O2 Flow Rate 97.0 F L 115 H 21 H 87/67 L 96 Nasal Cannula 6 09/04/23 22:00 09/04/23 23:00 09/04/23 23:00 09/04/23 23:00 09/04/23 23:00 09/04/23 23:17 09/04/23 23:17 FiO2 6 09/04/23 06:00 Oxygen Flow Rate (L/min) 6 Oxygen Delivery Method Nasal Cannula Weight: 143 lb 15.39 oz Body Mass Index (BMI) 24.5 Intake & Output: Intake and Output for Last 24 Hours 09/03/23 09/04/23 09/05/23 23:59 23:59 23:59 Intake Total 2408.4433 / 2421.1433 2917.2133 / 3017.2133 150 / 150 Output Total 1400 / 1400 485 / 985 500 / 500 Balance 1008.4433 / 1021.1433 2432.2133 / 2032.2133 -350 / -350 Lab / Micro Data Attestation: I reviewed the patient's lab results. 09/04/23 12:10 09/05/23 04:55 Labs: Laboratory Results - last 24 hr 09/04/23 03:00: Lipase 234 H 09/04/23 08:30: Ammonia < 10.0 L 09/04/23 12:10: WBC 31.5 H*, RBC 2.36 L, Hgb 8.3 L, Hct 24.7 L, MCV 104.7 H, MCH 35.2 H, MCHC 33.6, RDW Std Deviation 56.3 H, RDW Coeff of Rebel 14.9 H, Plt Count 245, MPV 10.8, Diff Path Review July, Sodium 129 L, Potassium 5.9 H, C hloride 93 L, Carbon Dioxide 24.0, BUN 39 H, Creatinine 1.21 H, Estim Creat Clear Calc 51.23, Est GFR (MDRD) Af Amer 62, Est GFR (MDRD) Non-Af 51 L, B UN/Creatinine Ratio 32.2 H, Glucose 131 H, Calcium 8.4 L, Phosphorus 4.6, A lbumin 2.0 L 09/04/23 21:35: Sodium 132 L, Potassium 4.6, Chloride 96 L, Carbon Dioxide 27.0, Anion Gap 9, BUN 43 H, Creatinine 1.04 H, Estim Creat Clear Calc 59.61, Est GFR (MDRD) Af Amer 74, Est GFR (MDRD) Non-Af 61, BUN/Creatinine Ratio 41.3 H, G lucose 151 H, Calcium 7.5 L 09/04/23 : Sodium 129 L, Potassium 4.6, Chloride 93 L, Carbon Dioxide 26.0, Anion Gap 10, BUN 41 H, Creatinine 1.16 H, Estim Creat Clear Calc 53.44, Est GFR (MDRD) Af Amer 65, Est GFR (MDRD) Non-Af 54 L, BUN/Creatinine Ratio 35.3 H, G lucose 153 H, Calcium 7.6 L Micro: Microbiology 09/03/23 17:10 Sputum, Expectorated/Coughed Gram Stain - Final 09/03/23 17:10 Sputum, Expectorated/Coughed Respiratory Culture - Preliminary Appears to be normal respiratory sindy. Further studies to follow. ABG Data ABG results: ABG 09/04/23 08:23 Specimen Type ART Sample Site L Radial pH 7.47 H Bicarbonate Actual 26.6 H Total CO2 28 Base Excess 3 H O2 Saturation 96 O2 % 6.0 ABG pCO2 36.3 ABG pO2 74 L Oswald Test Positive O2 Delivery Device Cannula Vent Mode Not entered Radiography Diagnostic Testing: Radiology Impression Echocardiogram 09/03/23 17:27 Interpretation Summary Mild to moderate LV global hypokinesis. Estimated LVEF 40%. Interventricular septal flattening during systole consistent with RV pressure overload. Moderate RV hypokinesis. The right atrium is moderately enlarged. Mild (1+) mitral valve insufficiency. Moderately severe (3+) tricuspid valve insufficiency. Right ventricular systolic pressure estimated to be 43 mmHg. Ordering Physician: Tommy Taylor Referring Physician: mayte pcp Performed By: Bette Posada RCS Chest CTA 09/04/23 14:10 IMPRESSION: Multifocal pulmonary infiltrates more severe in the left lung suspicious for inflammatory disease. Bilateral pleural effusions larger on the left with consolidation of left lower lobe No evidence for pulmonary embolus Electronically Signed: Eliseo Rios MD at 16:23 EDT Reading Location ID and State: [address] [place] [address] Tel , Service support , Physical Exam Const alert and no apparent distress HEENT normocephalic and head/scalp atraumatic Eyes PERRL and EOMs intact bilaterally Neck supple General: trachea midline Chest inspection of chest normal Resp Effort and Inspection: tachypneic Auscultation: rhonchi and diminished lung sounds Cardio S1 normal heart sound and S2 normal heart sound Rate: tachycardic GI normal to inspection, nondistended, normoactive bowel sounds Extremity General Extremity: edema Skin no rashes or lesions noted Neuro moves all extremities and no focal motor deficits Psych Activity / Motor Behavior: restless Mood & Affect: flat affect Charges/Coding Visit Charges Inpatient E&M: 13212 Subs Hosp L3
[2023-09-05] MEDS: Folic Acid 1 MG Tablet PO (08:05)
[2023-09-05] MEDS: Thiamine Hydrochloride 100 MG Tablet PO (08:05)
[2023-09-05 08:06] LABS: AST(SGOT) 195 U/L (15-37); Alanine Aminotransfer ALT/SGPT 38 U/L (13-56); Albumin, Serum 1.9 g/dL (3.2-5.0); Alkaline Phosphatase 82 U/L (45-117); Anion Gap 8 (5-15); BUN 44 mg/dL (7-18); BUN/Creat Ratio 48.8 RATIO (10-20); Bilirubin, Direct 8.84 mg/dL (0.00-0.30); Calcium,Total 7.5 mg/dL (8.5-10.1); Chloride 98 mmol/L (98-107); EST Glomerular Filtration Rate 72 mL/min (>60); Est Glom Filt Rate - Afr Amer 87 mL/min (>60); Estimated Creatinine Clearance 74.52 ml/min; Globulin 3.6 g/dL (2.2-4.2); Glucose 157 mg/dL (74-106); Phosphorus 3.1 mg/dL (2.5-4.9); Potassium 4.7 mmol/L (3.5-5.1); Protein, Total 5.5 g/dL (6.4-8.2); Sodium Level 133 mmol/L (136-145)
[2023-09-05 08:10] LABS: International Normalized Ratio 1.2; Prothrombin Time (Protime)PT. 15.2 SECONDS (11.7-14.9)
[2023-09-05] MEDS: Azithromycin 500 MG in Dextrose 5%-Water (250mL Bag) 250 ML 250 MG IV (09:18)
[2023-09-05 10:13] LABS: Hematocrit 21.3 % (37-47); Hemoglobin 6.9 g/dL (12.0-15.0); Mean Corp Hgb Conc 32.4 g/dL (32-36); Mean Corpuscular Hgb 35.4 pg (27.0-32.0); Mean Corpuscular Volume 109.2 fL (81-99); POSITIVE COUNT YES; Platelet Count 188 K/mm3 (150-450); RBC Distribution Width CV 14.9 % (11.6-14.6); RBC Distribution Width SD 59.4 fl (35.1-43.9); Red Blood Count 1.95 M/mm3 (4.2-5.4); White Blood Count 30.2 K/mm3 (4.4-11.0)
[2023-09-05] MEDS: Pantoprazole Sodium 40 MG in 0.9% Normal Saline (100mL MB+) 100 ML 330 MG IV (10:32)
[2023-09-05 10:57] LABS: Scan Indicated on CBC? Y/N YES- FLAGS NOTED
[2023-09-05] MEDS: Cefepime HCl 2 GM in 0.9% Normal Saline (100mL MB+) 100 ML IV ×2 (10:59→21:31)
--- NOTE | 2023-09-05 12:39 | PN.HOSP_ITS ---
Reason for Visit Reason for Visit: Diagnoses Anemia, unspecified (09/02/23) Other disorders of phosphorus metabolism (09/02/23) Hypomagnesemia (09/02/23) Hypo-osmolality and hyponatremia (09/02/23) Hypokalemia (09/02/23) Alcohol abuse, uncomplicated (09/02/23) Acute respiratory failure with hypoxia (09/02/23) Alcoholic hepatitis without ascites (09/02/23) Alcoholic hepatic failure without coma (09/02/23) Alcohol induced acute pancreatitis without necrosis or infection (09/02/23) Acute pancreatitis without necrosis or infection, unspecified (09/02/23) Subjective Subjective Overnight patient had some worsening respiratory status and was intermittently on BiPAP. I saw patient at the bedside this morning. She was on BiPAP at that time. Her oxygen saturations were consistently in the mid to high 90s. She was moderately somnolent at that time. Was arousing to voice but not answering any questions for me. She generally appeared fatigued as well. She was maintaining her airway without issue. She continued to have crackles noted on lung exam, similar to previous days. No other significant changes from a physical exam standpoint. No other new concerns this morning. Objective Data Objective Data Vital Signs: Vital Signs Temp Pulse Resp BP Pulse Ox O2 Del Method O2 Flow Rate 98.2 F 115 H 24 H 99/71 96 Bi-pap 6 09/05/23 12:00 09/05/23 12:00 09/05/23 12:00 09/05/23 12:00 09/05/23 12:00 09/05/23 12:00 09/05/23 11:00 FiO2 60 09/05/23 12:00 Oxygen Flow Rate (L/min) 6 Oxygen Delivery Method Bi-pap Weight: 65.9 kg Body Mass Index (BMI) 24.7 Intake & Output: Intake and Output for Last 24 Hours 09/03/23 09/04/23 09/05/23 23:59 23:59 23:59 Intake Total 2408.4433 / 2421.1433 2917.2133 / 3017.2133 930 / 930 Output Total 1400 / 1400 485 / 985 1425 / 1425 Balance 1008.4433 / 1021.1433 2432.2133 / 2032.2133 -495 / -495 Lab / Micro Data 09/05/23 04:55 09/05/23 04:55 Labs: Laboratory Results - last 24 hr 09/03/23 09:25: Crossmatch See Detail 09/04/23 12:10: Diff Path Review July foll, Sodium 129 L, Potassium 5.9 H, C hloride 93 L, Carbon Dioxide 24.0, BUN 39 H, Creatinine 1.21 H, Estim Creat Clear Calc 51.23, Est GFR (MDRD) Af Amer 62, Est GFR (MDRD) Non-Af 51 L, B UN/Creatinine Ratio 32.2 H, Glucose 131 H, Calcium 8.4 L, Phosphorus 4.6, A lbumin 2.0 L 09/04/23 21:35: Sodium 132 L, Potassium 4.6, Chloride 96 L, Carbon Dioxide 27.0, Anion Gap 9, BUN 43 H, Creatinine 1.04 H, Estim Creat Clear Calc 59.61, Est GFR (MDRD) Af Amer 74, Est GFR (MDRD) Non-Af 61, BUN/Creatinine Ratio 41.3 H, G lucose 151 H, Calcium 7.5 L 09/04/23 : Sodium 129 L, Potassium 4.6, Chloride 93 L, Carbon Dioxide 26.0, Anion Gap 10, BUN 41 H, Creatinine 1.16 H, Estim Creat Clear Calc 53.44, Est GFR (MDRD) Af Amer 65, Est GFR (MDRD) Non-Af 54 L, BUN/Creatinine Ratio 35.3 H, G lucose 153 H, Calcium 7.6 L 09/05/23 04:55: WBC 30.2 H*, RBC 1.95 L, Hgb 6.9 L, Hct 21.3 L, MCV 109.2 H, MCH 35.4 H, MCHC 32.4, RDW Std Deviation 59.4 H, RDW Coeff of Rebel 14.9 H, Plt Count 188, MPV 10.0, Differential Comment COMMENT, Diff Path Review July foll, PT 15.2 H, INR 1.2, Sodium 133 L, Potassium 4.7, Chloride 98, Carbon Dioxide 27.0, Anion Gap 8, BUN 44 H, Creatinine 0.90, Estim Creat Clear Calc 74.52, Est GFR (MDRD) Af Amer 87, Est GFR (MDRD) Non-Af 72, BUN/Creatinine Ratio 48.8 H, Glucose 157 H , Calcium 7.5 L, Phosphorus 3.1, Total Bilirubin 10.60 H, Direct Bilirubin 8.84 H, AST 195 H, ALT 38, Alkaline Phosphatase 82, Total Protein 5.5 L, Albumin 1.9 L, Globulin 3.6 Micro: Microbiology 09/03/23 17:10 Sputum, Expectorated/Coughed Gram Stain - Final 09/03/23 17:10 Sputum, Expectorated/Coughed Respiratory Culture - Final Streptococcus group C 09/03/23 04:25 Blood Culture (Wb) - Anticubital Right Blood Culture - Preliminary No growth in 48 hours. 09/03/23 04:20 Blood Culture (Wb) - Left Forearm Blood Culture - Preliminary No growth in 48 hours. 09/05/23 09:15 Mucosa - Nasopharyngeal SARS-CoV-2, Influenza & RSV (PCR) - Final 09/05/23 07:35 Stool C. difficile GDH Antigen & Toxins - Final 09/05/23 07:35 Stool Clostridioides difficile (PCR) - Final 09/05/23 09:20 Urine Catheter - Catheter Legionella Antigen - Final 09/05/23 09:20 Urine Catheter - Catheter Streptococcus pneumoniae Antigen (M - Final 09/04/23 09:45 Urine Catheter - Rojas Urine Culture - Preliminary Culture exhibits no growth. 09/05/23 07:35 Stool Stool Occult Blood (JOSE) - Final Occult Blood Positive Radiography Diagnostic Testing: Radiology Impression Echocardiogram 09/03/23 17:27 Interpretation Summary Mild to moderate LV global hypokinesis. Estimated LVEF 40%. Interventricular septal flattening during systole consistent with RV pressure overload. Moderate RV hypokinesis. The right atrium is moderately enlarged. Mild (1+) mitral valve insufficiency. Moderately severe (3+) tricuspid valve insufficiency. Right ventricular systolic pressure estimated to be 43 mmHg. Ordering Physician: Tommy Taylor Referring Physician: no pcp Performed By: Bette Posada RCS Chest CTA 09/04/23 14:10 IMPRESSION: Multifocal pulmonary infiltrates more severe in the left lung suspicious for inflammatory disease. Bilateral pleural effusions larger on the left with consolidation of left lower lobe No evidence for pulmonary embolus Electronically Signed: Eliseo Rios MD at 16:23 EDT Reading Location ID and State: [address] [place] [address] Tel , Service support , Physical Exam Const alert Constitutional Narrative: Middle-age female, ill-appearing, whole-body jaundice noted, on BiPAP this morning, moderately somnolent and fatigued appearing, arousing to voice but not answering any questions for me, otherwise with good oxygen saturations and maintaining her airway without issue. General Appearance: cooperative HEENT normocephalic, head/scalp atraumatic, hearing grossly normal bilaterally and nasal mucous membranes and turbinates normal Mouth: dry mucous membranes Eyes PERRL and EOMs intact bilaterally Eyes Narrative: Scleral icterus noted. Neck full ROM Chest inspection of chest normal Resp Resp Narrative: Mild increased work of breathing with shallow respirations noted on BiPAP. Moderate crackles noted in upper to mid airways bilaterally with decreased lung sounds noted at bases, similar to previous. No wheezing noted. Cardio no murmurs and peripheral pulses 2+ throughout Cardio Narrative: Tachycardic, regular rhythm. GI GI Narrative: Abdomen distended and mildly hard on palpation. Mildly tender to palpation diffusely. Mildly hypoactive bowel sounds throughout. Stable from previous. Back/Spine normal ROM Extremity normal to inspection and full ROM Extremity Narrative: +1-2 lower extremity edema noted. Stable. Neuro no focal motor deficits and no sensory deficits noted Assessment & Plan Assessment/Plan (1) Acute hypoxic respiratory failure: (2) Alcoholic hepatitis: (3) Acute pancreatitis: QUALIFIERS: Pancreatitis type: alcohol induced Acute pancreatitis complication: unspecified Qualified Code(s): K85.20 - Alcohol induced acute pancreatitis without necrosis or infection (4) Anemia: (5) Acute hyponatremia: (6) Hypokalemia: (7) Hypophosphatemia: (8) Alcohol abuse: (9) Desire for detoxification: PLAN: Plan Patient is a 43-year-old female who presented [facility] ED on 09/02/2023 with worsening abdominal pain and distention. 1. Acute hypoxic respiratory failure ? [employer] following. Initially suspected primarily due to volume overload from initial IV fluid resuscitation along with trial breathing from abdominal pain/distention. However, now seems more consistent with some volume overload but also with pneumonia. Had concern for PE on 09/03 as noted below; CTA chest showed no PE but did show multifocal pulmonary traits more severe and left lung suspicious for inflammatory disease along with bilateral pleural effusions larger on the left with consolidation of left lower lobe. Was being treated with IV vancomycin and Zosyn but continued to have worsening leukocytosis as noted below. Infectious workup negative to this point as noted below. Treatment as below. Currently on BiPAP with moderate oxygen requirements, wean as able. 2. Multifactorial shock with severe leukocytosis ? [employer] following as above. Highest concern is for septic versus hypovolemic shock in setting of pancreatitis versus pneumonia. CTA chest on 09/03 with findings as noted above; unclear if more consistent with pneumonia versus inflammatory disease of unclear etiology. Urine antigens negative. Sputum culture negative. Blood cultures with no growth to date. WBC count only 16K on admit, worsened significantly with peak of 31K. Most recent WBC count of 30K on 09/04. Treated with IV vancomycin and Zosyn through 09/03 with no significant improvement. Transitioned to IV cefepime on 09/04, will continue IV vancomycin. Continue to monitor closely. Okay to treat with Levophed as needed to maintain MAP greater than 65. 3. Severe acute alcoholic hepatitis ? GI following. MELD score of 20 and Madrey score of 31 on admit. Labs on admit of T. bili 7.90, direct bili 6.14, AST 190, ALT 31, alk phos 89, INR 1.2. CT abdomen pelvis without contrast on admit showed fatty liver with hepatomegaly and suspected pancreatitis. Suspected alcoholic hepatitis without underlying cirrhosis at this time. Large lab workup sent per GI, will follow-up on results. INR worsened to 1.4 on hospital day 2, given dose of IV vitamin K 5 mg x 1, has now remained stable. Ammonia level normal but with encephalopathy as noted below, started on Xifaxan and lactulose on admission, will continue these for now. Monitor daily labs. Not giving steroids at this time given concern for active infection. 4. Acute encephalopathy, multifactorial ? Patient became more confused and combative on evening of 09/02, was placed in restraints and started on Precedex with improvement. Precedex discontinued on morning of 09/03. Suspect multifactorial in setting of shock, respiratory failure, acute hepatitis, alcohol withdrawal and medications. Treatment as noted above. Avoid deliriogenic medications as able. N.p.o. status for now. 5. New onset HFrEF, concern for PE ? Echo 09/03 showed EF 40%, mild to moderate LV global hypokinesis, interventricular septal flattening during systole consistent with RV pressure overload. CTA chest on 09/03 with no PE but with signs of pneumonia versus inflammatory disease as noted above. Continue treatment as noted above for now. 6. Acute pancreatitis ? GI following as above. Lipase [address] abdomen pelvis with findings consistent with pancreatitis as noted above. Was given IV fluids on admission but developed volume overload as noted above so was given IV Lasix. Appeared volume depleted on hospital day 3, given IV fluids again. Pain control with IV morphine every 4 hours as needed. Patient notably with abdominal distention and mild abdominal pain but does not have severe pain or active nausea/vomiting at this time. Holding on further IV fluids for now but can consider if needed. 7. Severe anemia ? Hemoglobin 10.6 on admit, decreased to 6.6 on hospital day 2 after heavy IV fluid resuscitation. S/p 1 unit of blood on 09/02 with hemoglobin recheck 8.4. Iron studies with ferritin 3101. Suspected that patient has acute on chronic anemia due to severe acute liver disease as noted above. Hemoglobin trended down to 6.9 on 09/04, given another 1 unit of blood, recheck pending. Stool occult blood positive on 09/04. GI following as above. 8. Severe hyponatremia, improved ? Sodium 118 on admit. Patient with mild cognitive slowing but was not acutely encephalopathic so she was not given hypertonic saline. Suspected to be more chronic hyponatremia possibly due to beer potomania and poor solute intake. Sodium with steady rise on frequent lab checks on hospital day 2. Sodium 133 on 09/04, stable. Continue to monitor daily labs. 9. Severe hypophosphatemia, hypokalemia and hypomagnesemia ? Phosphorus 0.1, potassium 1.8, magnesium 1.2 on admit. Presumed secondary to alcohol abuse with poor solute intake. All electrolytes aggressively repleted on admission with significant improvement. Continue to monitor daily labs. Suspect patient will be at high risk for refeeding syndrome once she is able to start a diet again, will need to check labs more frequently at that point. 10. Alcohol abuse with concern for alcohol withdrawal ? Reported drinking about 12 white claws per day recently. Has 20-year history of heavy alcohol use without cessation. No history of alcohol withdrawal. Given high concern for impending alcohol drawl, patient was started on phenobarbital taper admission with adequate symptom control. Continue phenobarbital taper and other as needed medications per alcohol withdrawal order set. Continue folate and thiamine. Monitor closely. 11. Tobacco abuse ? Current smoker. Nicotine patch ordered on admission. Encouraged cessation. 12. Suspected protein calorie malnutrition with hypoalbuminemia ? Nutrition following. Albumin 2.2 on admit, prealbumin also low. Suspect malnutrition secondary to poor food intake as noted above. Patient currently n.p.o. given acute encephalopathy as noted above. If remains n.p.o., will likely need to initiate supplemental feeding in the next few days. 13. Mild hypercalcemia ? Calcium 11.2 on admit. Improved back to normal range after IV fluid resuscitation. PTH low at 3.5, vitamin D level pending. Continue to monitor calcium level. 14. History of lichen sclerosis ? Previously required treatment, not currently active. DVT prophylaxis: SCDs CODE STATUS: Full code, verified Expected disposition: TBD Total clinical time spent by myself addressing the patient's medical issues, reviewing all the data, and collaborating with patient's care team: 50 minutes. Charges/Coding Visit Charges Inpatient E&M: 01306 Subs Hosp L3
[2023-09-05 13:36] LABS: Pathologist Review Reviewed
[2023-09-05] MEDS: dexMEDEtomidine 400 MCG in 0.9% Normal Saline (100mL Bag) 96 ML 8.2 MCG CONT INF (13:40)
[2023-09-05] MEDS: Furosemide 40 MG/4 ML Vial IV (13:53)
[2023-09-05 14:11] LABS: Anti-Centromere B Ab <0.2 AI (0.0-0.9); Anti-Chromatin <0.2 AI (0.0-0.9); Anti-Jo <0.2 AI (0.0-0.9); Anti-Mitochondrial AB 43.1 Units (0.0-20.0); Anti-Scleroderma-70 AB <0.2 AI (0.0-0.9); Anti-dsDNA Ab <1 IU/mL (0-9); RNP Ab 0.2 AI (0.0-0.9); SJOGREN'S Anti-SS-A test < 0.2 AI (0.0-0.9); SJOGREN'S Anti-SS-B test < 0.2 AI (0.0-0.9); Smith Ab <0.2 AI (0.0-0.9)
--- NOTE | 2023-09-05 17:42 | EX.PCM.PN.GI ---
Subjective Subjective Patient has been maintained on and off of BiPAP due to respiratory distress. She has been hypotensive and tachycardic all day today. She cannot tell if her urine is lightening up. She denies any abdominal pain, bloating, nausea or vomiting. Objective Data Objective Data Vital Signs: Vital Signs Temp Pulse Resp BP Pulse Ox O2 Del Method O2 Flow Rate 97.1 F L 112 H 39 H 81/55 L 99 Bi-pap 6 09/05/23 17:00 09/05/23 17:00 09/05/23 17:00 09/05/23 17:00 09/05/23 16:00 09/05/23 17:00 09/05/23 12:55 FiO2 60 09/05/23 17:00 Oxygen Flow Rate (L/min) 6 Oxygen Delivery Method Bi-pap Weight: 145 lb 4.554 oz Body Mass Index (BMI) 24.7 Intake & Output: Intake and Output for Last 24 Hours 09/03/23 09/04/23 09/05/23 23:59 23:59 23:59 Intake Total 2408.4433 / 2421.1433 2917.2133 / 3017.2133 1217.08 / 1217.08 Output Total 1400 / 1400 485 / 985 2100 / 2100 Balance 1008.4433 / 1021.1433 2432.2133 / 2032.2133 -882.92 / -882.92 Lab / Micro Data 09/05/23 04:55 09/05/23 04:55 Labs: Laboratory Results - last 24 hr 09/03/23 09:25: Crossmatch See Detail 09/03/23 12:30: ASHLEY-1 Antibody <0.2, SS-A/Ro IgG Antibody < 0.2, SS-B/La IgG Antibody < 0.2, Sm (Dias) Antibody <0.2, ACADEMIC HOSPITALIST Antibody 0.2, Scl-70 Scleroderma Ab <0.2, Double Strand DNA Ab <1, Centromere B Antibody <0.2, Anti-Mitochondrial Ab 43.1 H 09/04/23 12:10: Diff Path Review Reviewed 09/04/23 21:35: Sodium 132 L, Potassium 4.6, Chloride 96 L, Carbon Dioxide 27.0, Anion Gap 9, BUN 43 H, Creatinine 1.04 H, Estim Creat Clear Calc 59.61, Est GFR (MDRD) Af Amer 74, Est GFR (MDRD) Non-Af 61, BUN/Creatinine Ratio 41.3 H, Glucose 151 H, Calcium 7.5 L 09/05/23 04:55: WBC 30.2 H*, RBC 1.95 L, Hgb 6.9 L, Hct 21.3 L, MCV 109.2 H, MCH 35.4 H, MCHC 32.4, RDW Std Deviation 59.4 H, RDW Coeff of Rebel 14.9 H, Plt Count 188, MPV 10.0, Differential Comment COMMENT, Diff Path Review July, PT 15.2 H, INR 1.2, Sodium 133 L, Potassium 4.7, Chloride 98, Carbon Dioxide 27.0, Anion Gap 8, BUN 44 H, Creatinine 0.90, Estim Creat Clear Calc 74.52, Est GFR (MDRD) Af Amer 87, Est GFR (MDRD) Non-Af 72, BUN/Creatinine Ratio 48.8 H, Glucose 157 H, Calcium 7.5 L, Phosphorus 3.1, Total Bilirubin 10.60 H, Direct Bilirubin 8.84 H, AST 195 H, ALT 38, Alkaline Phosphatase 82, Total Protein 5.5 L, Albumin 1.9 L, Globulin 3.6 Micro: Microbiology 09/05/23 09:15 Mucosa - Nasopharyngeal Respiratory Panel (PCR) - Final 09/05/23 09:15 Mucosa - Nasopharyngeal SARS-CoV-2, Influenza & RSV (PCR) - Final 09/03/23 17:10 Sputum, Expectorated/Coughed Gram Stain - Final 09/03/23 17:10 Sputum, Expectorated/Coughed Respiratory Culture - Final Streptococcus group C 09/03/23 04:25 Blood Culture (Wb) - Anticubital Right Blood Culture - Preliminary No growth in 48 hours. 09/03/23 04:20 Blood Culture (Wb) - Left Forearm Blood Culture - Preliminary No growth in 48 hours. 09/05/23 07:35 Stool C. difficile GDH Antigen & Toxins - Final 09/05/23 07:35 Stool Clostridioides difficile (PCR) - Final 09/05/23 09:20 Urine Catheter - Catheter Legionella Antigen - Final 09/05/23 09:20 Urine Catheter - Catheter Streptococcus pneumoniae Antigen (M - Final 09/04/23 09:45 Urine Catheter - Rojas Urine Culture - Preliminary Culture exhibits no growth. 09/05/23 07:35 Stool Stool Occult Blood (JOSE) - Final Occult Blood Positive Physical Exam Const alert General Appearance: cooperative HEENT normocephalic, head/scalp atraumatic, hearing grossly normal bilaterally and nasal mucous membranes and turbinates normal Mouth: dry mucous membranes Eyes PERRL and EOMs intact bilaterally Eyes Narrative: Scleral icterus noted. Neck full ROM Chest inspection of chest normal Resp Resp Narrative: Mild increased work of breathing with shallow respirations noted on BiPAP. Moderate crackles noted in upper to mid airways bilaterally with decreased lung sounds noted at bases, similar to previous. No wheezing noted. Cardio no murmurs and peripheral pulses 2+ throughout Cardio Narrative: Tachycardic, regular rhythm. GI GI Narrative: Abdomen distended and mildly hard on palpation. Mildly tender to palpation diffusely. Mildly hypoactive bowel sounds throughout. Stable from previous. Back/Spine normal ROM Extremity normal to inspection and full ROM Extremity Narrative: +1-2 lower extremity edema noted. Stable. Neuro no focal motor deficits and no sensory deficits noted Assessment & Plan Assessment/Plan (1) Acute hyponatremia: (2) Hypokalemia: (3) Hypomagnesemia: (4) Hypophosphatemia: (5) Alcoholic liver failure: (6) Acute pancreatitis: QUALIFIERS: Pancreatitis type: alcohol induced Acute pancreatitis complication: unspecified Qualified Code(s): K85.20 - Alcohol induced acute pancreatitis without necrosis or infection (7) Desire for detoxification: (8) Alcohol abuse: PLAN: Plan 43-year-old with history of alcoholism presents with status discovered to have multiple metabolic abnormalities : Severe acute hyponatremia of 119 mmol/L likely secondary to to alcoholism. Current sodium is 123. It accompanies her multiple electrolyte abnormalities including critical hypokalemia, hypomagnesemia and hypophosphatemia. This is being managed by primary team. She also has severe acute hyperbilirubinemia with total bilirubin of 7.9 mg/dL that has increased to 11.5. And direct bilirubin of 6.14 mg/dL in the setting of chronic alcohol abuse with patient requesting alcohol detox adding to the pathology of #1 - #4 - EtOH cessation will be strongly encouraged. We will give phenobarbital IV per protocol for alcohol detoxification. Check CMP daily to follow trend. Avoid potentially hepatotoxic agents. She has no previous history of cirrhosis. No previous history of chronic hepatitis B or chronic hepatitis C. No previous history HIV. She does not take any medicines for lichen sclerosus. She has not been diagnosed with alcoholic hepatitis in the past. She has not received any blood transfusions she has no past medical history of tuberculosis. We need to check her for acute viral hepatitis and nonviral hepatitis. In the ICU she was discovered to have a pH of 7.5, sodium bicarbonate of 30, CO2 37. Her creatinine is 0.65, bilirubin is 11 and INR is 1.4. This gives her a MELD sodium score of 20 which carries of 25% mortality rate in 90 days. Her Madrey score for alcoholic hepatitis was 31.9. She is mildly encephalopathic and is on phenobarbital. Alcoholic pancreatitis identified by elevated lipase of 1,853 units/L and imaging showing pancreatitis. Severe alcoholic hepatitis has a high mortality, and it is associated with encephalopathy, acute renal failure, sepsis, gastrointestinal bleeding, and endotoxemia. The 28-d mortality remains poor (34%-40%), because no effective treatment has been established. Recently, corticosteroids have been considered effective for significantly improving the prognosis of those with AH, as it prevents the production of pro-inflammatory cytokines. However, CS are not always appropriate as an initial therapeutic option, such as in cases with an infection or resistance to CS. Hyper ferritin anemia secondary to acute liver injury. There is a possibility of secondary hemochromatosis and infiltrative disease affecting the liver. Patient's hemoglobin dropped to 6.6 g/dL after volume resuscitation requiring transfusion of one unit of PRBC's. Recommendations: -Hopefully INR will not continue to increase. I would give her vitamin K 5 mg IV -I would also carefully look at her magnesium and Phos and potassium -I am hesitant to give her steroids at this time due to her increasing white blood cell count and monotherapy with N-acetylcysteine for nonacetaminophen-induced alcoholic hepatitis has not been proven to improve more than 30-day mortality -At this time she does not need a liver transplant evaluation. She is not acidotic by her blood gas. She is high risk for development of respiratory and metabolic acidosis. -Check labs for autoimmune hepatitis, Siddharth's disease, CMV, EBV, HIV -Check SHADI, iron, transferrin and if white blood cell count continues to increase -Lactulose 30 cc twice daily -Xifaxan 550 mg twice a day Patient's hemoglobin dropped to 6.6 g/dL after volume resuscitation requiring transfusion of one unit of PRBC's. 09/04/2023- . Infections, particularly bacterial infections, are one of the most frequent and severe complications of severe alcoholic hepatitis. Her white blood cell count keeps increasing. Blood cultures have been negative. She has been on antibiotics since her admission. Her LFTs (bilirubin and INR) are about the same ,along with her liver enzymes improving. Also her kidney function has been holding steady. I would check stool studies such as enteric pathogens and C. difficile. .Severe alcoholic hepatitis has a high mortality, and it is associated with encephalopathy, acute renal failure, sepsis, gastrointestinal bleeding, and endotoxemia. Corticosteroids have been considered effective for significantly improving the prognosis of those with AH, as it prevents the production of pro-inflammatory cytokines. However, CS are not always appropriate as an initial therapeutic option, such as in cases with an infection. Her MELD score is still 20 and her Sarah score has improved to 29. Her Murtaugh alcoholic hepatitis score is 6. Anything overnight is associated with a 50% mortality. Her CRP is very high at 261. CT showed marked hepatomegaly with severe steatosis without splenomegaly, which is a good sign. Current CT scan of the chest did not show any signs of pulmonary embolism. But it did show multifocal disease with very large left pleural effusion and small right pleural effusion. Recommendations: -Continue to monitor MELD and Madrey score -Await chronic liver disease workup -Continue Xifaxan 550 twice a day - Repeat ammonia, INR in the morning -Guarded prognosis 09/05/2023-Patient's LFTs continue to improve. This is a good sign regarding her synthetic function being disturbed likely secondary to endotoxin from alcoholic hepatitis and pancreatitis with an underlying possible lung infection..Bilirubin I believe has peaked and should start to go down. Continue to check INR, ammonia, CRP. Charges/Coding Visit Charges Inpatient E&M: 72838 Subs Hosp L3
[2023-09-05 18:09] LABS: Aldolase 4.2 U/L (3.3-10.3); Anti-Smooth Muscle ABS 11 Units (0-19); Ceruloplasmin 32.2 mg/dL (19.0-39.0); Cytoplasmic Ab (C-ANCA) <1:20 titer (Neg:<1:20); EBV Acute VCA IgM < 36.0 U/mL (0.0-35.9); EBV Nuclear Antigen IgG > 600.0 U/mL (0.0-17.9); HEPATITIS B SURFACE AG Negative (Negative); Hep C Antibodies Non Reactive (Non Reactive); Hepatitis A IgM Antibody Negative (Negative); Hepatitis B Core AB IgM Negative (Negative); Myoglobin, Serum 353 ng/mL (25-58); Perinuclear Ab (P-ANCA) <1:20 titer (Neg:<1:20)
[2023-09-05] MEDS: Norepinephrine 8 MG in 0.9% Normal Saline (250mL Bag) 242 ML 9.4 MG CONT INF (20:05)
[2023-09-05] MEDS: dexMEDEtomidine 400 MCG in 0.9% Normal Saline (100mL Bag) 96 ML 16.3 MCG CONT INF (21:32)
[2023-09-06] VITALS (58 sets, daily range): BP systolic 75–105; BP diastolic 52–74; PULSE 92–112; RESP 12–35; TEMP 35.9–37.1; O2SAT 91–100; BMI 24.5
[2023-09-06 00:07] LABS: QNTFERON TB Mitogen Value 0.25 IU/mL (.); QNTFERON TB Nil Value 0.89 IU/mL (.); QNTFERON TB1+ Ag Value 0.16 IU/mL (.); QNTFERON TB2+ Ag Value 0.28 IU/mL (.); QNTIFERON TB Positive Criteria Indeterminate (Negative)
[2023-09-06] MEDS: Vancomycin Trough/Random Due 1 LAB MC (02:37)
[2023-09-06 02:51] LABS: Vancomycin, Trough Level 21.3 ug/mL (5.0-15.0)
[2023-09-06] MEDS: dexMEDEtomidine 400 MCG in 0.9% Normal Saline (100mL Bag) 96 ML 16.3 MCG CONT INF ×3 (02:57→15:24)
[2023-09-06] MEDS: 0.9% Saline Lock 10 ML Syringe IV ×3 (02:58→11:06)
--- NOTE | 2023-09-06 03:00 | PCM.RX.CS ---
Consult Antibiotic Management Pharmacy has been consulted to manage selected antibiotic: Vancomycin Type of Intervention Type of Consult: Follow-up Suspected Infection Suspected Infection: Pneumonia Labs Labs: Sodium 133 mmol/L (136-145) L 09/05/23 04:55 Potassium 4.7 mmol/L (3.5-5.1) 09/05/23 04:55 Chloride 98 mmol/L (98-107) 09/05/23 04:55 Carbon Dioxide 27.0 mmol/L (21.0-32.0) 09/05/23 04:55 Anion Gap 8 (5-15) 09/05/23 04:55 BUN 44 mg/dL (7-18) H 09/05/23 04:55 Creatinine 0.90 mg/dL (0.55-1.02) 09/05/23 04:55 Est GFR (MDRD) Af Amer 87 mL/min (>60) 09/05/23 04:55 Est GFR (MDRD) Non-Af 72 mL/min (>60) 09/05/23 04:55 BUN/Creatinine Ratio 48.8 RATIO (10-20) H 09/05/23 04:55 Glucose 157 mg/dL (74-106) H 09/05/23 04:55 Vancomycin Trough 21.3 ug/mL (5.0-15.0) H 09/06/23 02:27 Microbiology Microbiology: Microbiology 09/05/23 09:15 Mucosa - Nasopharyngeal Respiratory Panel (PCR) - Final 09/05/23 09:15 Mucosa - Nasopharyngeal SARS-CoV-2, Influenza & RSV (PCR) - Final 09/03/23 17:10 Sputum, Expectorated/Coughed Gram Stain - Final 09/03/23 17:10 Sputum, Expectorated/Coughed Respiratory Culture - Final Streptococcus group C 09/03/23 04:25 Blood Culture (Wb) - Anticubital Right Blood Culture - Preliminary No growth in 48 hours. 09/03/23 04:20 Blood Culture (Wb) - Left Forearm Blood Culture - Preliminary No growth in 48 hours. 09/05/23 07:35 Stool C. difficile GDH Antigen & Toxins - Final 09/05/23 07:35 Stool Clostridioides difficile (PCR) - Final 09/05/23 09:20 Urine Catheter - Catheter Legionella Antigen - Final 09/05/23 09:20 Urine Catheter - Catheter Streptococcus pneumoniae Antigen (M - Final 09/04/23 09:45 Urine Catheter - Rojas Urine Culture - Preliminary Culture exhibits no growth. 09/05/23 07:35 Stool Stool Occult Blood (JOSE) - Final Occult Blood Positive Dosing Weight Weight used for dosin.9 kg Estimated Creatinine Clearance Estimated Creatinine Clearance: 75 Goal Trough Goal Trough: 15-20 mcg/mL Pharmacy Plan for Drug Dosing Pharmacy Plan for Drug Dosing: Vancomycin trough level of 21.3, drawn 11.5hrs post-dose, was high. Current dosing will be held. A random vanco level will be drawn in 12 hours and further dosing determined from that result. Pharmacy Service will continue to monitor and adjust dosing as required. Follow-Up Labs Follow-Up Labs: Trough: Vancomycin (random) Date/Time Labs Ordered Labs to be done on [date and time ordered]: 09/06/23 @[id number]
[2023-09-06 03:37] LABS: Hematocrit 29.1 % (37-47); Hemoglobin 9.3 g/dL (12.0-15.0); Mean Corpuscular Hgb 34.3 pg (27.0-32.0); Mean Corpuscular Volume 107.4 fL (81-99); Mean Platelet Vol. 10.6 fl (6.2-12.0); POSITIVE COUNT YES; Platelet Count 238 K/mm3 (150-450); RBC Distribution Width CV 16.3 % (11.6-14.6); RBC Distribution Width SD 63.4 fl (35.1-43.9); Red Blood Count 2.71 M/mm3 (4.2-5.4)
[2023-09-06 03:43] LABS: Scan Indicated on CBC? Y/N YES- FLAGS NOTED; White Blood Count 44.3 K/mm3 (4.4-11.0)
[2023-09-06 04:04] LABS: International Normalized Ratio 1.2; Prothrombin Time (Protime)PT. 15.1 SECONDS (11.7-14.9)
[2023-09-06 04:08] LABS: Copper, Serum or Plasma 123 ug/dL (80-158)
[2023-09-06 04:13] LABS: ALB/GLOB Ratio 0.5 RATIO (0.9-2.4); AST(SGOT) 239 U/L (15-37); Alanine Aminotransfer ALT/SGPT 50 U/L (13-56); Albumin, Serum 1.9 g/dL (3.2-5.0); Alkaline Phosphatase 141 U/L (45-117); Anion Gap 7 (5-15); BUN 40 mg/dL (7-18); BUN/Creat Ratio 66.7 RATIO (10-20); Bilirubin, Direct 9.11 mg/dL (0.00-0.30); Calcium,Total 7.4 mg/dL (8.5-10.1); Chloride 105 mmol/L (98-107); EST Glomerular Filtration Rate 115 mL/min (>60); Est Glom Filt Rate - Afr Amer 139 mL/min (>60); Estimated Creatinine Clearance 111.78 ml/min; Globulin 3.9 g/dL (2.2-4.2); Glucose 151 mg/dL (74-106); Potassium 4.9 mmol/L (3.5-5.1); Protein, Total 5.8 g/dL (6.4-8.2); Sodium Level 141 mmol/L (136-145)
[2023-09-06] MEDS: Cefepime HCl 2 GM in 0.9% Normal Saline (100mL MB+) 100 ML IV ×3 (05:16→21:20)
[2023-09-06] MEDS: Midazolam 2 MG/2 ML Syringe 4 MG IV (07:44)
[2023-09-06] MEDS: fentaNYL drip 100 ML 5 MCG CONT INF (07:45)
[2023-09-06] MEDS: Etomidate 20 MG/10 ML Vial IV (07:46)
--- NOTE | 2023-09-06 07:49 | RAD_ITS ---
HISTORY: ETT, OG PLACEMENT. TECHNIQUE: XR Chest 1 View. COMPARISON: 09/04/2023. FINDINGS: LINES/TUBES: Endotracheal tube tip 2 to 3 cm above the darren. Orogastric tube tip in the left upper quadrant in the region of the stomach. Left PICC tip at the level of the right atrium. CARDIOMEDIASTINAL BORDERS: Stable. LUNGS: Moderate patchy consolidation in the bilateral lungs, most confluent in the right upper lobe. PLEURA: Trace right pleural effusion. RAD/Chest 1 View (Portable) IMPRESSION: Increased bilateral pneumonia. Satisfactory endotracheal and orogastric tube placement. Left PICC tip at the level of the right atrium; consider 3 cm retraction. Electronically Signed: Jodi Viera MD at 8:13 EDT ,
--- NOTE | 2023-09-06 08:27 | NURSING ---
Respiratory at bedside at 0730, preparing to intubate at this time. Dr. Freed at bedside at 0740. Versed given at 0744, fentanyl started at 0745, etomidate given at 0747. Successful intubation with bilateral breath sounds completed at 0750. 7.5 ETT, 21 at the lip. Pt tolerated well. CXR confirmed placement of ETT and OG.
--- NOTE | 2023-09-06 08:38 | PN.CC_ITS ---
Assessment & Plan Assessment/Plan (1) Acute hypoxic respiratory failure: (2) Alcoholic hepatitis: (3) Acute pancreatitis: QUALIFIERS: Acute pancreatitis complication: unspecified P ancreatitis type: alcohol induced Qualified Code(s): K85.20 - Alcohol induced acute pancreatitis without necrosis or infection PLAN: Plan RECOMMENDATIONS: 1. Proceed with intubation and initiate assist-control mode mechanical ventilation. Wean FiO2 and PEEP for saturations greater than 90%. 2. Postintubation ABG in 1 hour. 3. Obtain sputum and sent for culture. 4. Continue broad-spectrum antimicrobials. 5. Precedex and fentanyl for sedation. 6. Continue to monitor blood counts and transfuse if hemoglobin drops below 7 g/dL. 7. Continue PPI therapy. 8. Await additional recommendations by GI. IMPRESSIONS: 1. Multifactorial shock Clinical concern for septic versus hypovolemic etiologies in the setting of pancreatitis and progressive infiltrates noted on chest imaging. The patient remains on vasopressor support in an attempt to maintain hemodynamic stability. Cultures are currently pending. In the interim, the patient will remain on broad-spectrum antimicrobials. 2. Acute alcohol withdrawal Continue current medication regimen along with thiamine and folic acid. 3. Acute hypoxemic respiratory failure Clinical concern for third spacing of fluids in the setting of acute pancreatitis coupled with possible underlying pneumonia. The patient's respiratory status has continued to decline over the last 24 to 48 hours. Accordingly, the patient was intubated on the morning of September 05. She will be continued on broad-spectrum antimicrobials. Unfortunately, due to her tenuous hemodynamic status, I would hold off on proceeding with any form of diuresis. He will be maintained on assist-control mode mechanical ventilation, with a goal to wean FiO2 and PEEP to maintain saturations at or above 90%. 4. Severe alcoholic hepatitis/acute alcoholic pancreatitis Liver function parameters remain tenuous. Gastroenterology is currently following to assist with medical management. Continue supportive measures. 5. Anemia Continue to monitor blood counts daily. Transfuse if hemoglobin drops below 7 g/dL. Continue PPI therapy. Again, gastroenterology is following to assist with medical management. TIME: 40 minutes of critical care time, inclusive of procedures, was spent addressing the patient's multifactorial shock, acute alcohol withdrawal, acute hypoxemic respiratory failure, severe alcoholic hepatitis, anemia, review of all data and collaboration with care team. Subjective Subjective The patient was seen and examined at the bedside this morning. Events from the last 24 hours have been reviewed. Although the patient is afebrile, she is once again requiring Levophed to maintain hemodynamic stability. The patient had to be restarted on Precedex and her respiratory status continues to decline. She remains tachypneic and on BiPAP therapy. Each time she is withdrawn from PAP therapy she readily desaturates. Therefore, following my evaluation of the patient this morning, the decision was made to proceed with intubation. Laboratory evaluation revealed a white blood cell count of 44,000. Hemoglobin has improved to 9.3 g/dL. Platelet count is within normal limits. INR is stable at 1.2. Creatinine is within normal limits. Total bilirubin has increased somewhat. The patient remains on cefepime and vancomycin. She is now sedated on Precedex and fentanyl. Intubation Indication: Respiratory failure The patient was placed in the appropriate sniffing position. Preoxygenated sedation via BiPAP was provided for a minimum of 3 minutes. The patient had continuous cardiac as well as pulse oximetry monitoring during the procedure. Procedure sedation was provided by the administration of 4 mg of Versed and 20 mg of etomidate. Direct laryngoscopy was then performed using a number 3 MAC blade, which revealed a grade 1 view. A 7.5 mm endotracheal tube was visualized advancing between the cords to the level of 22 cm at the lip. The stylette was then removed and discarded. Tube placement was confirmed by fogging in the tube along with equal and bilateral breath sounds. Colorimetric change was visualized on the CO2 meter. The cuff was then inflated and the tube secured using a commercially available device. A good pulse oximetry waveform was seen on the monitor throughout the procedure. A portable chest x-ray has been ordered to confirm appropriate placement. The patient tolerated the procedure well. Objective Data Objective Data The patient's most recent lab work, culture data and imaging studies have all been personally reviewed. Surface echocardiogram demonstrated normal LV size and thickness with mild to moderate global hypokinesis of the LV. Ejection fraction was noted to be 40%. Right ventricular systolic pressure was estimated to be 43 mmHg. Sputum and blood cultures are pending. Respiratory viral panel along with COVID PCR was negative. Strep and urine Legionella antigens were negative. Vital Signs: Vital Signs Temp Pulse Resp BP Pulse Ox O2 Del Method O2 Flow Rate 98.2 F 92 20 H 87/63 L 100 Mechanical Ventilator 6 09/06/23 08:00 09/06/23 08:00 09/06/23 08:00 09/06/23 08:15 09/06/23 08:00 09/06/23 08:00 09/05/23 12:55 FiO2 21 09/06/23 08:00 Oxygen Flow Rate (L/min) 6 Oxygen Delivery Method Mechanical Ventilator Weight: 143 lb 11.862 oz Body Mass Index (BMI) 24.5 Intake & Output: Intake and Output for Last 24 Hours 09/04/23 09/05/23 09/06/23 23:59 23:59 23:59 Intake Total 2917.2133 / 3017.2133 1457.07 / 1464.85 355.88 / 355.88 Output Total 485 / 985 2300 / 2300 300 / 300 Balance 2432.2133 / 2032.2133 -842.93 / -835.15 55.88 / 55.88 Lab / Micro Data Attestation: I reviewed the patient's lab results. 09/06/23 03:25 09/06/23 03:25 Labs: Laboratory Results - last 24 hr 09/03/23 09:25: Crossmatch See Detail 09/03/23 12:30: Myoglobin 353 H, Ceruloplasmin 32.2, Aldolase 4.2, c-ANCA Antibody <1:20, Atypical p-ANCA <1:20, p-ANCA Antibody <1:20, ASHLEY-1 Antibody <0.2, SS-A/Ro IgG Antibody < 0.2, SS-B/La IgG Antibody < 0.2, Sm (Dias) Antibody <0.2, DESKTOP SUPPORT MANAGER Antibody 0.2, Scl-70 Scleroderma Ab <0.2, Double Strand DNA Ab <1, Centromere B Antibody <0.2, Anti-Mitochondrial Ab 43.1 H, Anti-Smooth Muscle Ab 11, EBV Capsid Ag IgG Ab 505.0 H, EBV Capsid Ag IgM Ab < 36.0, EBV Nuclear Ag IgG Ab > 600.0 H, EBV Antibody Interp Comment, Hepatitis A IgM Ab Negative, Hep Bs Antigen Negative, Hep B Core IgM Ab Negative, Hepatitis C Ab (EIA) Non Reactive, Hep C Ab Comment Comment 09/03/23 13:15: Serum Copper 123, TB Test (QFT) Nil 0.89, TB Test (QFT) Mitogen 0.25, TB Test (QFT) Ag 1 0.16, TB Test (QFT) Ag 2 0.28, TB Test (QFT) Comment, T B Positive Criteria Indeterminate H 09/04/23 12:10: Diff Path Review Reviewed 09/05/23 04:55: WBC 30.2 H*, RBC 1.95 L, Hgb 6.9 L, Hct 21.3 L, MCV 109.2 H, MCH 35.4 H, MCHC 32.4, RDW Std Deviation 59.4 H, RDW Coeff of Rebel 14.9 H, Plt Count 188, MPV 10.0, Differential Comment COMMENT, Diff Path Review July09/06/23 02:27: Vancomycin Trough 21.3 H 09/06/23 03:25: WBC 44.3 H*, RBC 2.71 L, Hgb 9.3 L, Hct 29.1 L, MCV 107.4 H, MCH 34.3 H, MCHC 32.0, RDW Std Deviation 63.4 H, RDW Coeff of Rebel 16.3 H, Plt Count 238, MPV 10.6, Diff Path Review July, PT 15.1 H, INR 1.2, Sodium 141, Potassium 4.9, Chloride 105, Carbon Dioxide 29.0, Anion Gap 7, BUN 40 H, Creatinine 0.60, Estim Creat Clear Calc 111.78, Est GFR (MDRD) Af Amer 139, Est GFR (MDRD) Non-Af 115, BUN/Creatinine Ratio 66.7 H, Glucose 151 H, Calcium 7.4 L , Total Bilirubin 11.30 H, Direct Bilirubin 9.11 H, AST 239 H, ALT 50, Alkaline Phosphatase 141 H, Total Protein 5.8 L, Albumin 1.9 L, Globulin 3.9, A lbumin/Globulin Ratio 0.5 L Micro: Microbiology 09/04/23 09:45 Urine Catheter - Rojas Urine Culture - Final Culture exhibits no growth. 09/05/23 09:15 Mucosa - Nasopharyngeal Respiratory Panel (PCR) - Final 09/05/23 09:15 Mucosa - Nasopharyngeal SARS-CoV-2, Influenza & RSV (PCR) - Final 09/03/23 17:10 Sputum, Expectorated/Coughed Gram Stain - Final 09/03/23 17:10 Sputum, Expectorated/Coughed Respiratory Culture - Final Streptococcus group C 09/03/23 04:25 Blood Culture (Wb) - Anticubital Right Blood Culture - Preliminary No growth in 48 hours. 09/03/23 04:20 Blood Culture (Wb) - Left Forearm Blood Culture - Preliminary No growth in 48 hours. 09/05/23 07:35 Stool C. difficile GDH Antigen & Toxins - Final 09/05/23 07:35 Stool Clostridioides difficile (PCR) - Final 09/05/23 09:20 Urine Catheter - Catheter Legionella Antigen - Final 09/05/23 09:20 Urine Catheter - Catheter Streptococcus pneumoniae Antigen (M - Final 09/05/23 07:35 Stool Stool Occult Blood (JOSE) - Final Occult Blood Positive ABG Data ABG results: ABG 09/04/23 08:23 Specimen Type ART Sample Site L Radial pH 7.47 H Bicarbonate Actual 26.6 H Total CO2 28 Base Excess 3 H O2 Saturation 96 O2 % 6.0 ABG pCO2 36.3 ABG pO2 74 L Oswald Test Positive O2 Delivery Device Cannula Vent Mode Not entered Radiography Diagnostic Testing: Radiology Impression Chest X-Ray 09/06/23 07:49 IMPRESSION: Increased bilateral pneumonia. Satisfactory endotracheal and orogastric tube placement. Left PICC tip at the level of the right atrium; consider 3 cm retraction. Electronically Signed: oJdi Viera MD at 8:13 EDT , Physical Exam Const Constitutional Narrative: Acutely ill in appearance. Lethargic on BiPAP. HEENT normocephalic and head/scalp atraumatic Eyes EOMs intact bilaterally Neck supple General: trachea midline Chest inspection of chest normal Resp Effort and Inspection: tachypneic and labored Auscultation: rhonchi, wheezes and diminished lung sounds Cardio S1 normal heart sound and S2 normal heart sound Rate: tachycardic GI normal to inspection, nondistended, normoactive bowel sounds Extremity General Extremity: edema Skin no rashes or lesions noted Neuro moves all extremities and no focal motor deficits Psych Mood & Affect: flat affect Charges/Coding Procedures Hospitalists Procedures: 65324 Critical Care 1st Hr
[2023-09-06] MEDS: Thiamine Hydrochloride 100 MG Tablet PO (08:48)
[2023-09-06] MEDS: Folic Acid 1 MG Tablet PO (08:48)
[2023-09-06 09:22] LABS: Base Excess 5 mmol/L (-2 to +2); Bicarbonate 29.6 mmol/L (22-26); Blood Gas Specimen Type ART; Mode AC; O2 Delivery Device Adult Vent; PEEP 5; PO2 72 mmHG (75-100); RR 16; SITE R Brach; SO2 94 % (95-99); Total Carbon Dioxide 31 mmol/L; pCO2 47.1 mmHg (35-45); pH 7.41 (7.35-7.45)
[2023-09-06] MEDS: Norepinephrine 8 MG in 0.9% Normal Saline (250mL Bag) 242 ML 18.8 MG CONT INF (09:26)
[2023-09-06] MEDS: Pantoprazole Sodium 40 MG in 0.9% Normal Saline (100mL MB+) 100 ML 330 MG IV (11:07)
--- NOTE | 2023-09-06 11:25 | PCM.PN.HOSP ---
Reason for Visit Reason for Visit: Diagnoses Anemia, unspecified (09/02/23) Other disorders of phosphorus metabolism (09/02/23) Hypomagnesemia (09/02/23) Hypo-osmolality and hyponatremia (09/02/23) Hypokalemia (09/02/23) Alcohol abuse, uncomplicated (09/02/23) Acute respiratory failure with hypoxia (09/02/23) Alcoholic hepatitis without ascites (09/02/23) Alcoholic hepatic failure without coma (09/02/23) Alcohol induced acute pancreatitis without necrosis or infection (09/02/23) Acute pancreatitis without necrosis or infection, unspecified (09/02/23) Subjective Subjective Patient was intubated this morning by director medicare sales for ongoing respiratory decline. Saw patient at the bedside later this morning, was intubated and sedated and not following any commands. Objective Data Objective Data Vital Signs: Vital Signs Temp Pulse Resp BP Pulse Ox O2 Del Method O2 Flow Rate 98.2 F 92 16 89/64 L 100 Mechanical Ventilator 6 09/06/23 08:00 09/06/23 09:00 09/06/23 09:00 09/06/23 09:15 09/06/23 09:00 09/06/23 09:00 09/05/23 12:55 FiO2 80 09/06/23 09:00 Oxygen Flow Rate (L/min) 6 Oxygen Delivery Method Mechanical Ventilator Weight: 65.2 kg Body Mass Index (BMI) 24.5 Intake & Output: Intake and Output for Last 24 Hours 09/04/23 09/05/23 09/06/23 23:59 23:59 23:59 Intake Total 2917.2133 / 3017.2133 1457.07 / 1464.85 412.91 / 412.91 Output Total 485 / 985 2300 / 2300 300 / 300 Balance 2432.2133 / 2032.2133 -842.93 / -835.15 112.91 / 112.91 Lab / Micro Data 09/06/23 03:25 09/06/23 03:25 Labs: Laboratory Results - last 24 hr 09/03/23 09:25: Crossmatch See Detail 09/03/23 12:30: Myoglobin 353 H, Ceruloplasmin 32.2, Aldolase 4.2, c-ANCA Antibody <1:20, Atypical p-ANCA <1:20, p-ANCA Antibody <1:20, ASHLEY-1 Antibody <0.2, SS-A/Ro IgG Antibody < 0.2, SS-B/La IgG Antibody < 0.2, Sm (Dias) Antibody <0.2, CORE COMPOSER MACHINE TENDER Antibody 0.2, Scl-70 Scleroderma Ab <0.2, Double Strand DNA Ab <1, Centromere B Antibody <0.2, Anti-Mitochondrial Ab 43.1 H, Anti-Smooth Muscle Ab 11, EBV Capsid Ag IgG Ab 505.0 H, EBV Capsid Ag IgM Ab < 36.0, EBV Nuclear Ag IgG Ab > 600.0 H, EBV Antibody Interp Comment, Hepatitis A IgM Ab Negative, Hep Bs Antigen Negative, Hep B Core IgM Ab Negative, Hepatitis C Ab (EIA) Non Reactive, Hep C Ab Comment Comment 09/03/23 13:15: Serum Copper 123, TB Test (QFT) Nil 0.89, TB Test (QFT) Mitogen 0.25, TB Test (QFT) Ag 1 0.16, TB Test (QFT) Ag 2 0.28, TB Test (QFT) Comment, TB Positive Criteria Indeterminate H 09/04/23 12:10: Diff Path Review Reviewed 09/06/23 02:27: Vancomycin Trough 21.3 H 09/06/23 03:25: WBC 44.3 H*, RBC 2.71 L, Hgb 9.3 L, Hct 29.1 L, MCV 107.4 H, MCH 34.3 H, MCHC 32.0, RDW Std Deviation 63.4 H, RDW Coeff of Rebel 16.3 H, Plt Count 238, MPV 10.6, Diff Path Review July, PT 15.1 H, INR 1.2, Sodium 141, Potassium 4.9, Chloride 105, Carbon Dioxide 29.0, Anion Gap 7, BUN 40 H, Creatinine 0.60, Estim Creat Clear Calc 111.78, Est GFR (MDRD) Af Amer 139, Est GFR (MDRD) Non-Af 115, BUN/Creatinine Ratio 66.7 H, Glucose 151 H, Calcium 7.4 L, Total Bilirubin 11.30 H, Direct Bilirubin 9.11 H, AST 239 H, ALT 50, Alkaline Phosphatase 141 H, Total Protein 5.8 L, Albumin 1.9 L, Globulin 3.9, Albumin/Globulin Ratio 0.5 L Micro: Microbiology 09/04/23 09:45 Urine Catheter - Rojas Urine Culture - Final Culture exhibits no growth. 09/05/23 09:15 Mucosa - Nasopharyngeal Respiratory Panel (PCR) - Final 09/05/23 09:15 Mucosa - Nasopharyngeal SARS-CoV-2, Influenza & RSV (PCR) - Final 09/03/23 17:10 Sputum, Expectorated/Coughed Gram Stain - Final 09/03/23 17:10 Sputum, Expectorated/Coughed Respiratory Culture - Final Streptococcus group C 09/03/23 04:25 Blood Culture (Wb) - Anticubital Right Blood Culture - Preliminary No growth in 48 hours. 09/03/23 04:20 Blood Culture (Wb) - Left Forearm Blood Culture - Preliminary No growth in 48 hours. 09/05/23 07:35 Stool C. difficile GDH Antigen & Toxins - Final 09/05/23 07:35 Stool Clostridioides difficile (PCR) - Final 09/05/23 09:20 Urine Catheter - Catheter Legionella Antigen - Final 09/05/23 09:20 Urine Catheter - Catheter Streptococcus pneumoniae Antigen (M - Final 09/05/23 07:35 Stool Stool Occult Blood (JOSE) - Final Occult Blood Positive ABG Data ABG results: ABG 09/06/23 09:19 Specimen Type ART Sample Site R Brach pH 7.41 Bicarbonate Actual 29.6 H Total CO2 31 Base Excess 5 H O2 Saturation 94 L O2 % 80.0 ABG pCO2 47.1 H ABG pO2 72 L Respiration Rate 16 O2 Delivery Device Adult Vent Vent Mode AC Tidal Volume 400.0 POC PEEP 5 Radiography Diagnostic Testing: Radiology Impression Chest X-Ray 09/06/23 07:49 IMPRESSION: Increased bilateral pneumonia. Satisfactory endotracheal and orogastric tube placement. Left PICC tip at the level of the right atrium; consider 3 cm retraction. Electronically Signed: Jodi Viera MD at 8:13 EDT , Physical Exam Const Constitutional Narrative: Intubated and sedated, not following any commands. HEENT normocephalic and head/scalp atraumatic HEENT Narrative: ET tube in place. Eyes Eyes Narrative: Scleral icterus noted. Chest inspection of chest normal Resp Resp Narrative: On mechanical ventilation. Moderate crackles still noted in bilateral airways, similar to previous days. No wheezing noted. Cardio no murmurs and peripheral pulses 2+ throughout Cardio Narrative: Tachycardic, regular rhythm. GI GI Narrative: Abdomen distended and mildly hard on palpation. Stable from previous. Extremity normal to inspection Extremity Narrative: +1-2 lower extremity edema noted. Stable. Assessment & Plan Assessment/Plan (1) Acute hypoxic respiratory failure: (2) Alcoholic hepatitis: (3) Acute pancreatitis: QUALIFIERS: Pancreatitis type: alcohol induced Acute pancreatitis complication: unspecified Qualified Code(s): K85.20 - Alcohol induced acute pancreatitis without necrosis or infection (4) Anemia: (5) Acute hyponatremia: (6) Hypokalemia: (7) Hypophosphatemia: (8) Alcohol abuse: (9) Desire for detoxification: PLAN: Plan Patient is a 43-year-old female who presented [facility] ED on 09/02/2023 with worsening abdominal pain and distention. 1. Acute hypoxic respiratory failure ? Franchise Specialist following. Initially suspected primarily due to volume overload from initial IV fluid resuscitation along with trial breathing from abdominal pain/distention. However, now seems more consistent with some volume overload but also with pneumonia. Had concern for PE on 09/03 as noted below; CTA chest showed no PE but did show multifocal pulmonary traits more severe and left lung suspicious for inflammatory disease along with bilateral pleural effusions larger on the left with consolidation of left lower lobe. Was being treated with IV vancomycin and Zosyn but continued to have worsening leukocytosis as noted below. Infectious workup negative to this point as noted below. Treatment as below. Started on IV Solu-Medrol 40 mg daily on 09/04 given no improvement in respiratory function, will continue this for now. Continue to have respiratory decline and was intubated on morning of 09/05. Currently intubated and sedated. Further vent management per director medicare sales. 2. Multifactorial shock with severe leukocytosis ? Franchise Specialist following as above. Highest concern is for septic versus hypovolemic shock in setting of pancreatitis versus pneumonia. CTA chest on 09/03 with findings as noted above; unclear if more consistent with pneumonia versus inflammatory disease of unclear etiology. Urine antigens negative. Sputum culture negative. Blood cultures with no growth to date. WBC count only 16K on admit, has worsened significantly since admission. Most recent WBC count 44 K on 09/05; notably was started on IV steroids on , could be contributing.. Treated with IV vancomycin and Zosyn through 09/03 with no significant improvement. Transitioned to IV cefepime on 09/04, will continue IV vancomycin. Continue to monitor closely. Okay to treat with Levophed as needed to maintain MAP greater than 65. 3. Severe acute alcoholic hepatitis ? GI following. MELD score of 20 and Madrey score of 31 on admit. Labs on admit of T. bili 7.90, direct bili 6.14, AST 190, ALT 31, alk phos 89, INR 1.2. CT abdomen pelvis without contrast on admit showed fatty liver with hepatomegaly and suspected pancreatitis. Suspected alcoholic hepatitis without underlying cirrhosis at this time. Large lab workup sent per GI, will follow-up on results. INR worsened to 1.4 on hospital day 2, given dose of IV vitamin K 5 mg x 1, has now remained stable. Ammonia level normal but with encephalopathy as noted below, started on Xifaxan and lactulose on admission, will continue these for now. Monitor daily labs. 4. Acute encephalopathy, multifactorial ? Patient became more confused and combative on evening of 09/02, was placed in restraints and started on Precedex with improvement. Precedex discontinued on morning of 09/03. Suspect multifactorial in setting of shock, respiratory failure, acute hepatitis, alcohol withdrawal and medications. Treatment as noted above. Patient was intubated on 09/05 as noted above. Currently intubated and sedated and not following commands. 5. New onset HFrEF, concern for PE ? Echo 09/03 showed EF 40%, mild to moderate LV global hypokinesis, interventricular septal flattening during systole consistent with RV pressure overload. CTA chest on 09/03 with no PE but with signs of pneumonia versus inflammatory disease as noted above. Continue treatment as noted above for now. 6. Acute pancreatitis ? GI following as above. Lipase [address] abdomen pelvis with findings consistent with pancreatitis as noted above. Was given IV fluids on admission but developed volume overload as noted above so was given IV Lasix. Appeared volume depleted on hospital day 3, given IV fluids again. Pain control with IV morphine every 4 hours as needed. Patient notably with abdominal distention and mild abdominal pain but does not have severe pain or active nausea/vomiting at this time. Holding on further IV fluids for now but can consider if needed. 7. Severe anemia ? Hemoglobin 10.6 on admit, decreased to 6.6 on hospital day 2 after heavy IV fluid resuscitation. S/p 1 unit of blood on 09/02 with hemoglobin recheck 8.4. Iron studies with ferritin 3101. Suspected that patient has acute on chronic anemia due to severe acute liver disease as noted above. Hemoglobin trended down to 6.9 on 09/04, given another 1 unit of blood, recheck 9.3. Stool occult blood positive on 09/04. GI following as above. 8. Severe hyponatremia, improved ? Sodium 118 on admit. Patient with mild cognitive slowing but was not acutely encephalopathic so she was not given hypertonic saline. Suspected to be more chronic hyponatremia possibly due to beer potomania and poor solute intake. Sodium with steady rise on frequent lab checks on hospital day 2. Sodium 133 on 09/04, stable. Continue to monitor daily labs. 9. Severe hypophosphatemia, hypokalemia and hypomagnesemia ? Phosphorus 0.1, potassium 1.8, magnesium 1.2 on admit. Presumed secondary to alcohol abuse with poor solute intake. All electrolytes aggressively repleted on admission with significant improvement. Continue to monitor daily labs. Suspect patient will be at high risk for refeeding syndrome once she is able to start a diet again, will need to check labs more frequently at that point. 10. Alcohol abuse with concern for alcohol withdrawal ? Reported drinking about 12 white claws per day recently. Has 20-year history of heavy alcohol use without cessation. No history of alcohol withdrawal. Given high concern for impending alcohol drawl, patient was started on phenobarbital taper admission with adequate symptom control. Continue phenobarbital taper and other as needed medications per alcohol withdrawal order set. Continue folate and thiamine. Monitor closely. 11. Tobacco abuse ? Current smoker. Nicotine patch ordered on admission. Encouraged cessation. 12. Suspected protein calorie malnutrition with hypoalbuminemia ? Nutrition following. Albumin 2.2 on admit, prealbumin also low. Suspect malnutrition secondary to poor food intake as noted above. Patient currently n.p.o. given acute encephalopathy as noted above. Intubated on 09/05. Will likely need to start tube feeds in the next few days. 13. Mild hypercalcemia ? Calcium 11.2 on admit. Improved back to normal range after IV fluid resuscitation. PTH low at 3.5, vitamin D level pending. Continue to monitor calcium level. 14. History of lichen sclerosis ? Previously required treatment, not currently active. DVT prophylaxis: SCDs CODE STATUS: Full code, verified Expected disposition: TBD Total clinical time spent by myself addressing the patient's medical issues, reviewing all the data, and collaborating with patient's care team: 35 minutes. Charges/Coding Visit Charges Inpatient E&M: 37535 Subs Hosp L2
[2023-09-06 12:09] LABS: Vitamin D 1,25-Dihydroxy <5.0 pg/mL (24.8-81.5)
[2023-09-06 15:02] LABS: Vancomycin, Random Level 14.2 ug/mL (0.0-15.0)
[2023-09-06 15:08] LABS: Myoglobin, Urine 3 ng/mL (0-13)
--- NOTE | 2023-09-06 15:26 | PCM.RX.CS ---
Consult Antibiotic Management Pharmacy has been consulted to manage selected antibiotic: Vancomycin Type of Intervention Type of Consult: Follow-up Suspected Infection Suspected Infection: Pneumonia Labs Labs: Sodium 141 mmol/L (136-145) 09/06/23 03:25 Potassium 4.9 mmol/L (3.5-5.1) 09/06/23 03:25 Chloride 105 mmol/L (98-107) 09/06/23 03:25 Carbon Dioxide 29.0 mmol/L (21.0-32.0) 09/06/23 03:25 Anion Gap 7 (5-15) 09/06/23 03:25 BUN 40 mg/dL (7-18) H 09/06/23 03:25 Creatinine 0.60 mg/dL (0.55-1.02) 09/06/23 03:25 Est GFR (MDRD) Af Amer 139 mL/min (>60) 09/06/23 03:25 Est GFR (MDRD) Non-Af 115 mL/min (>60) 09/06/23 03:25 BUN/Creatinine Ratio 66.7 RATIO (10-20) H 09/06/23 03:25 Glucose 151 mg/dL (74-106) H 09/06/23 03:25 Vancomycin Trough 21.3 ug/mL (5.0-15.0) H 09/06/23 02:27 Random Vancomycin 14.2 ug/mL (0.0-15.0) 09/06/23 14:33 Microbiology Microbiology: Microbiology 09/04/23 09:45 Urine Catheter - Rojas Urine Culture - Final Culture exhibits no growth. 09/05/23 09:15 Mucosa - Nasopharyngeal Respiratory Panel (PCR) - Final 09/05/23 09:15 Mucosa - Nasopharyngeal SARS-CoV-2, Influenza & RSV (PCR) - Final 09/03/23 17:10 Sputum, Expectorated/Coughed Gram Stain - Final 09/03/23 17:10 Sputum, Expectorated/Coughed Respiratory Culture - Final Streptococcus group C 09/03/23 04:25 Blood Culture (Wb) - Anticubital Right Blood Culture - Preliminary No growth in 48 hours. 09/03/23 04:20 Blood Culture (Wb) - Left Forearm Blood Culture - Preliminary No growth in 48 hours. 09/05/23 07:35 Stool C. difficile GDH Antigen & Toxins - Final 09/05/23 07:35 Stool Clostridioides difficile (PCR) - Final 09/05/23 09:20 Urine Catheter - Catheter Legionella Antigen - Final 09/05/23 09:20 Urine Catheter - Catheter Streptococcus pneumoniae Antigen (M - Final 09/05/23 07:35 Stool Stool Occult Blood (JOSE) - Final Occult Blood Positive Pharmacy Plan for Drug Dosing Pharmacy Plan for Drug Dosing: VANCOMYCIN LEVEL RECEIVED Current Vancomycin Dose: held, previously on 750mg Q12 Number of Doses Received: 3 Vancomycin Level: 14.2 mg/dL Hours Since Last Dose: 23.5 Renal Function: SCr 0.6 mg/dL, CrCl 111 mL/min Renal Function Trend: improved Lab/Micro: sputum cx pending, previous sputum with group c strep Vancomycin Plan/Comments: 23.5 hour random level is now slightly subtherapeutic. Will resume dosing at decreased dose of 500mg Q12 and get a trough prior to 4th dose of new regimen. Pending Level: 09/08/23 @ 0130 Pharmacy Service will continue to monitor and adjust dosing as required.
[2023-09-06] MEDS: Vancomycin IV 500 MG/100 ML BAG 100 MG IV (15:58)
[2023-09-06] MEDS: Norepinephrine 8 MG in 0.9% Normal Saline (250mL Bag) 242 ML 30 MG CONT INF (17:20)
--- NOTE | 2023-09-06 17:39 | PN.GI_ITS ---
Subjective Subjective Patient intubated and sedated with severe hypoxic respiratory failure. She is currently on a vent. Objective Data Objective Data Vital Signs: Vital Signs Temp Pulse Resp BP Pulse Ox O2 Del Method O2 Flow Rate 96.7 F L 98 26 H 98/64 93 Mechanical Ventilator 6 09/06/23 16:00 09/06/23 17:00 09/06/23 17:00 09/06/23 17:00 09/06/23 17:00 09/06/23 17:00 09/05/23 12:55 FiO2 30 09/06/23 17:00 Oxygen Flow Rate (L/min) 6 Oxygen Delivery Method Mechanical Ventilator Weight: 143 lb 11.862 oz Body Mass Index (BMI) 24.5 Intake & Output: Intake and Output for Last 24 Hours 09/04/23 09/05/23 09/06/23 23:59 23:59 23:59 Intake Total 2917.2133 / 3017.2133 1457.07 / 1464.85 1109.37 / 1109.37 Output Total 485 / 985 2300 / 2300 825 / 825 Balance 2432.2133 / 2032.2133 -842.93 / -835.15 284.37 / 284.37 Lab / Micro Data 09/06/23 03:25 09/06/23 03:25 Labs: Laboratory Results - last 24 hr 09/02/23 : Vit D 1,25-Dihydroxy <5.0 L 09/03/23 12:30: Myoglobin 353 H, Ceruloplasmin 32.2, Aldolase 4.2, c-ANCA Antibody <1:20, Atypical p-ANCA <1:20, p-ANCA Antibody <1:20, Anti-Smooth Muscle Ab 11, EBV Capsid Ag IgG Ab 505.0 H, EBV Capsid Ag IgM Ab < 36.0, EBV Nuclear Ag IgG Ab > 600.0 H, EBV Antibody Interp Comment, Hepatitis A IgM Ab Negative, Hep Bs Antigen Negative, Hep B Core IgM Ab Negative, Hepatitis C Ab (EIA) Non Reactive, Hep C Ab Comment Comment 09/03/23 13:10: Urine Myoglobin 3 09/03/23 13:15: Serum Copper 123, TB Test (QFT) Nil 0.89, TB Test (QFT) Mitogen 0.25, TB Test (QFT) Ag 1 0.16, TB Test (QFT) Ag 2 0.28, TB Test (QFT) Comment, T B Positive Criteria Indeterminate H 09/06/23 02:27: Vancomycin Trough 21.3 H 09/06/23 03:25: WBC 44.3 H*, RBC 2.71 L, Hgb 9.3 L, Hct 29.1 L, MCV 107.4 H, MCH 34.3 H, MCHC 32.0, RDW Std Deviation 63.4 H, RDW Coeff of Rebel 16.3 H, Plt Count 238, MPV 10.6, Diff Path Review July, PT 15.1 H, INR 1.2, Sodium 141, Potassium 4.9, Chloride 105, Carbon Dioxide 29.0, Anion Gap 7, BUN 40 H, Creatinine 0.60, Estim Creat Clear Calc 111.78, Est GFR (MDRD) Af Amer 139, Est GFR (MDRD) Non-Af 115, BUN/Creatinine Ratio 66.7 H, Glucose 151 H, Calcium 7.4 L , Total Bilirubin 11.30 H, Direct Bilirubin 9.11 H, AST 239 H, ALT 50, Alkaline Phosphatase 141 H, C-React Prot Ext Range 134.00 H, Total Protein 5.8 L, Albumin 1.9 L, Globulin 3.9, Albumin/Globulin Ratio 0.5 L 09/06/23 14:33: Random Vancomycin 14.2 Micro: Microbiology 09/06/23 08:03 Sputum, Induced/Lukens Gram Stain - Final 09/04/23 09:45 Urine Catheter - Rojas Urine Culture - Final Culture exhibits no growth. 09/05/23 09:15 Mucosa - Nasopharyngeal Respiratory Panel (PCR) - Final 09/05/23 09:15 Mucosa - Nasopharyngeal SARS-CoV-2, Influenza & RSV (PCR) - Final 09/03/23 17:10 Sputum, Expectorated/Coughed Gram Stain - Final 09/03/23 17:10 Sputum, Expectorated/Coughed Respiratory Culture - Final Streptococcus group C 09/03/23 04:25 Blood Culture (Wb) - Anticubital Right Blood Culture - Preliminary No growth in 48 hours. 09/03/23 04:20 Blood Culture (Wb) - Left Forearm Blood Culture - Preliminary No growth in 48 hours. 09/05/23 07:35 Stool C. difficile GDH Antigen & Toxins - Final 09/05/23 07:35 Stool Clostridioides difficile (PCR) - Final 09/05/23 09:20 Urine Catheter - Catheter Legionella Antigen - Final 09/05/23 09:20 Urine Catheter - Catheter Streptococcus pneumoniae Antigen (M - Final 09/05/23 07:35 Stool Stool Occult Blood (JOSE) - Final Occult Blood Positive ABG Data ABG results: ABG 09/06/23 09:19 Specimen Type ART Sample Site R Brach pH 7.41 Bicarbonate Actual 29.6 H Total CO2 31 Base Excess 5 H O2 Saturation 94 L O2 % 80.0 ABG pCO2 47.1 H ABG pO2 72 L Respiration Rate 16 O2 Delivery Device Adult Vent Vent Mode AC Tidal Volume 400.0 POC PEEP 5 Radiography Diagnostic Testing: Radiology Impression Chest X-Ray 09/06/23 07:49 IMPRESSION: Increased bilateral pneumonia. Satisfactory endotracheal and orogastric tube placement. Left PICC tip at the level of the right atrium; consider 3 cm retraction. Electronically Signed: Jodi Viera MD at 8:13 EDT , Physical Exam Const Constitutional Narrative: Intubated and sedated, not following any commands. HEENT normocephalic and head/scalp atraumatic HEENT Narrative: ET tube in place. Eyes Eyes Narrative: Scleral icterus noted. Chest inspection of chest normal Resp Resp Narrative: On mechanical ventilation. Moderate crackles still noted in bilateral airways, similar to previous days. No wheezing noted. Cardio no murmurs and peripheral pulses 2+ throughout Cardio Narrative: Tachycardic, regular rhythm. GI GI Narrative: Abdomen distended and mildly hard on palpation. Stable from previous. Extremity normal to inspection Extremity Narrative: +1-2 lower extremity edema noted. Stable. Assessment & Plan Assessment/Plan (1) Acute hyponatremia: (2) Hypokalemia: (3) Hypomagnesemia: (4) Hypophosphatemia: (5) Alcoholic liver failure: (6) Acute pancreatitis: QUALIFIERS: Pancreatitis type: alcohol induced Acute pancreatitis complication: unspecified Qualified Code(s): K85.20 - Alcohol induced acute pancreatitis without necrosis or infection (7) Desire for detoxification: (8) Alcohol abuse: PLAN: Plan 43-year-old with history of alcoholism presents with status discovered to have multiple metabolic abnormalities : Severe acute hyponatremia of 119 mmol/L likely secondary to to alcoholism. Current sodium is 123. It accompanies her multiple electrolyte abnormalities including critical hypokalemia, hypomagnesemia and hypophosphatemia. This is being managed by primary team. She also has severe acute hyperbilirubinemia with total bilirubin of 7.9 mg/dL that has increased to 11.5. And direct bilirubin of 6.14 mg/dL in the setting of chronic alcohol abuse with patient requesting alcohol detox adding to the pathology of #1 - #4 - EtOH cessation will be strongly encouraged. We will give phenobarbital IV per protocol for alcohol detoxification. Check CMP daily to follow trend. Avoid potentially hepatotoxic agents. She has no previous history of cirrhosis. No previous history of chronic hepatitis B or chronic hepatitis C. No previous history HIV. She does not take any medicines for lichen sclerosus. She has not been diagnosed with alcoholic hepatitis in the past. She has not received any blood transfusions she has no past medical history of tuberculosis. We need to check her for acute viral hepatitis and nonviral hepatitis. In the ICU she was discovered to have a pH of 7.5, sodium bicarbonate of 30, CO2 37. Her creatinine is 0.65, bilirubin is 11 and INR is 1.4. This gives her a MELD sodium score of 20 which carries of 25% mortality rate in 90 days. Her Madrey score for alcoholic hepatitis was 31.9. She is mildly encephalopathic and is on phenobarbital. Alcoholic pancreatitis identified by elevated lipase of 1,853 units/L and imaging showing pancreatitis. Severe alcoholic hepatitis has a high mortality, and it is associated with encephalopathy, acute renal failure, sepsis, gastrointestinal bleeding, and endotoxemia. The 28-d mortality remains poor (34%-40%), because no effective treatment has been established. Recently, corticosteroids have been considered effective for significantly improving the prognosis of those with AH, as it prevents the production of pro-inflammatory cytokines. However, CS are not always appropriate as an initial therapeutic option, such as in cases with an infection or resistance to CS. Hyper ferritin anemia secondary to acute liver injury. There is a possibility of secondary hemochromatosis and infiltrative disease affecting the liver. Patient's hemoglobin dropped to 6.6 g/dL after volume resuscitation requiring transfusion of one unit of PRBC's. Recommendations: -Hopefully INR will not continue to increase. I would give her vitamin K 5 mg IV -I would also carefully look at her magnesium and Phos and potassium -I am hesitant to give her steroids at this time due to her increasing white blood cell count and monotherapy with N-acetylcysteine for nonacetaminophen- induced alcoholic hepatitis has not been proven to improve more than 30-day mortality -At this time she does not need a liver transplant evaluation. She is not acidotic by her blood gas. She is high risk for development of respiratory and metabolic acidosis. -Check labs for autoimmune hepatitis, Siddharth's disease, CMV, EBV, HIV -Check SHADI, iron, transferrin and if white blood cell count continues to increase -Lactulose 30 cc twice daily -Xifaxan 550 mg twice a day Patient's hemoglobin dropped to 6.6 g/dL after volume resuscitation requiring transfusion of one unit of PRBC's. 09/04/2023- . Infections, particularly bacterial infections, are one of the most frequent and severe complications of severe alcoholic hepatitis. Her white blood cell count keeps increasing. Blood cultures have been negative. She has been on antibiotics since her admission. Her LFTs (bilirubin and INR) are about the same ,along with her liver enzymes improving. Also her kidney function has been holding steady. I would check stool studies such as enteric pathogens and C. difficile. .Severe alcoholic hepatitis has a high mortality, and it is associated with encephalopathy, acute renal failure, sepsis, gastrointestinal bleeding, and endotoxemia. Corticosteroids have been considered effective for significantly improving the prognosis of those with AH, as it prevents the production of pro- inflammatory cytokines. However, CS are not always appropriate as an initial therapeutic option, such as in cases with an infection. Her MELD score is still 20 and her Sarah score has improved to 29. Her David alcoholic hepatitis score is 6. Anything overnight is associated with a 50% mortality. Her CRP is very high at 261. CT showed marked hepatomegaly with severe steatosis without splenomegaly, which is a good sign. Current CT scan of the chest did not show any signs of pulmonary embolism. But it did show multifocal disease with very large left pleural effusion and small right pleural effusion. Recommendations: -Continue to monitor MELD and Madrey score -Await chronic liver disease workup -Continue Xifaxan 550 twice a day - Repeat ammonia, INR in the morning -Guarded prognosis 09/05/2023-Patient's LFTs continue to improve. This is a good sign regarding her synthetic function being disturbed likely secondary to endotoxin from alcoholic hepatitis and pancreatitis with an underlying possible lung infection..Bilirubin I believe has peaked and should start to go down. Continue to check INR, ammonia, CRP. 09/06/2023-her LFTs are about the same. Her liver function test including platelet count, INR are about the same. However her bilirubin is still elevated which is not a good sign for severe alcoholic hepatitis. Her Glascow alcoholic hepatitis score has increased to 8. Her CRP is going down from 2 61-134. Her abdomen does seem more distended and it could be secondary to third spacing in the setting of hypoalbuminemia from severe liver injury. By her liver enzymes she does not seem to be experiencing any signs of shock liver at this time. I would suggest to do an ultrasound of the abdomen to look for ascites due to distended abdomen. If her kidney functions okay I would repeat a CT scan abdomen pelvis to look for repair hepatic ascites, perisplenic ascites or pelvic ascites secondary to severe alcoholic hepatitis. MELD is still ranging 20-22. Continue supportive care. Charges/Coding Visit Charges Inpatient E&M: 18675 Subs Hosp L3
[2023-09-06] MEDS: Chlorhexidine 15 ML PO (21:20)
[2023-09-06] MEDS: dexMEDEtomidine 400 MCG in 0.9% Normal Saline (100mL Bag) 96 ML 18 MCG CONT INF (21:20)
[2023-09-07] VITALS (52 sets, daily range): BP systolic 68–118; BP diastolic 49–101; PULSE 75–109; RESP 16–27; TEMP 36.7–41.2; O2SAT 93–98; BMI 24.4
[2023-09-07] MEDS: fentaNYL drip 100 ML 7.5 MCG CONT INF (01:11)
[2023-09-07] MEDS: CHLORHEXIDINE GLUC 2% CLOTH 1 EACH TOWELETTE TOPICAL (01:23)
[2023-09-07] MEDS: Vancomycin IV 500 MG/100 ML BAG 100 MG IV ×2 (01:23→14:07)
[2023-09-07] MEDS: Norepinephrine 8 MG in 0.9% Normal Saline (250mL Bag) 242 ML 26.3 MG CONT INF (02:11)
[2023-09-07] MEDS: dexMEDEtomidine 400 MCG in 0.9% Normal Saline (100mL Bag) 96 ML 18 MCG CONT INF (02:46)
[2023-09-07 03:31] LABS: Hematocrit 28.2 % (37-47); Hemoglobin 8.9 g/dL (12.0-15.0); Mean Corp Hgb Conc 31.6 g/dL (32-36); Mean Corpuscular Hgb 34.1 pg (27.0-32.0); POSITIVE COUNT YES; Platelet Count 281 K/mm3 (150-450); RBC Distribution Width CV 16.5 % (11.6-14.6); RBC Distribution Width SD 63.9 fl (35.1-43.9); Red Blood Count 2.61 M/mm3 (4.2-5.4)
[2023-09-07 03:38] LABS: White Blood Count 45.3 K/mm3 (4.4-11.0)
[2023-09-07 03:50] LABS: ALB/GLOB Ratio 0.4 RATIO (0.9-2.4); AST(SGOT) 171 U/L (15-37); Alanine Aminotransfer ALT/SGPT 38 U/L (13-56); Albumin, Serum 1.7 g/dL (3.2-5.0); Alkaline Phosphatase 129 U/L (45-117); Anion Gap 8 (5-15); BUN 31 mg/dL (7-18); BUN/Creat Ratio 40.4 RATIO (10-20); Bilirubin, Direct 8.59 mg/dL (0.00-0.30); Calcium,Total 7.5 mg/dL (8.5-10.1); Chloride 115 mmol/L (98-107); Creatinine, Serum 0.77 mg/dL (0.55-1.02); EST Glomerular Filtration Rate 87 mL/min (>60); Est Glom Filt Rate - Afr Amer 105 mL/min (>60); Estimated Creatinine Clearance 80.51 ml/min; Glucose 125 mg/dL (74-106); Magnesium 2.3 mg/dL (1.6-2.6); Potassium 4.4 mmol/L (3.5-5.1); Protein, Total 5.7 g/dL (6.4-8.2); Sodium Level 150 mmol/L (136-145)
[2023-09-07 03:56] LABS: International Normalized Ratio 1.2; Prothrombin Time (Protime)PT. 15.5 SECONDS (11.7-14.9)
[2023-09-07 04:31] LABS: Phosphorus 0.7 mg/dL (2.5-4.9)
--- NOTE | 2023-09-07 04:36 | PCM.HOSP.N ---
Hospitalist Note Patient with onset significant fever. Given significant liver history we will cautiously dosed with Tylenol. In addition we will discontinue Precedex and transition to propofol at this time. Will add electrolyte replacement protocol given deficiencies although likely will need more even than the aggressive repletion. Will add daily CBC, CMP, mag, phos checks.
[2023-09-07 04:38] LABS: Scan Indicated on CBC? Y/N YES- FLAGS NOTED
[2023-09-07] MEDS: Acetaminophen 650 MG/20 ML UDC GT (04:40)
--- NOTE | 2023-09-07 04:44 | NURSING ---
Temporal temperature noted to be 99.8, checked an axillary and it was 104.4. Switched out existing lott with a core temp lott for accurate temperature monitoring. Core temperature on monitor noted to be 106.1. Pt put on cooling blanket, packed with ice, given ice bath, and ice water put down OG. Precedex paused. Dr. Vines notified of fever. Order given for tylenol PRN for fever and okay to switch precedex to propofol. Dr. Vines notified of phos 0.7 as well, KPhos order given.
[2023-09-07] MEDS: Cefepime HCl 2 GM in 0.9% Normal Saline (100mL MB+) 100 ML IV ×2 (04:52→12:41)
[2023-09-07] MEDS: 0.9% Saline Lock 10 ML Syringe IV ×4 (04:53→21:12)
[2023-09-07] MEDS: Potassium Phosphate 21 MM in 0.9% Normal Saline (250mL Bag) 250 ML 84 MM IV ×2 (05:02→08:55)
[2023-09-07] MEDS: Propofol 10MG/Ml 1,000 MG/100 ML Bottle 3.9 MG CONT INF (05:04)
[2023-09-07 05:11] LABS: CPK Total, Creatine Kinase 97 U/L (26-192); Triglycerides 485 mg/dL
--- NOTE | 2023-09-07 06:55 | PCM.PN.INT ---
Assessment & Plan Assessment/Plan (1) Acute hypoxic respiratory failure: (2) Alcoholic hepatitis: (3) Acute pancreatitis: QUALIFIERS: Pancreatitis type: alcohol induced Acute pancreatitis complication: unspecified Qualified Code(s): K85.20 - Alcohol induced acute pancreatitis without necrosis or infection PLAN: Plan RECOMMENDATIONS: 1. Continue assist-control mode of mechanical ventilation. Wean FiO2 and PEEP as tolerated. 2. Obtain repeat blood cultures. 3. Repeat CT abdomen/pelvis. 4. Obtain ID consultation. Continue empiric broad-spectrum antimicrobials. 5. Continue propofol and fentanyl for sedation. Monitor triglyceride level closely. 6. Continue to monitor blood counts and transfuse if hemoglobin drops below 7 g/dL. 7. Continue PPI therapy. 8. Aggressive electrolyte repletion. 9. Initiate tube feeding as tolerated. IMPRESSIONS: 1. Multifactorial shock Clinical concern for septic and hypovolemic etiologies in the setting of pancreatitis and progressive infiltrates noted on chest imaging. The patient has clinically worsened over the last 24 hours with high-grade fevers noted. She remains on broad-spectrum antimicrobials. In light of the aforementioned, will obtain ID consultation along with repeat blood cultures and follow-up CT abdomen/pelvis. Continue vasopressor support to maintain a mean arterial pressure at or above 65 mmHg. 2. Acute alcohol withdrawal Continue current medication regimen along with thiamine and folic acid. 3. Acute hypoxemic respiratory failure Clinical concern for third spacing of fluids in the setting of acute pancreatitis coupled with probable underlying pneumonia. The patient's respiratory status continued to worsen and she was ultimately intubated on September 05. Plan to continue assist-control mode mechanical ventilation. Wean FiO2 and PEEP to maintain saturations at or above 90%. The patient will remain on broad-spectrum antimicrobials. Follow-up chest x-ray will be obtained this morning. 4. Severe alcoholic hepatitis/acute alcoholic pancreatitis Liver function parameters remain tenuous. Gastroenterology is currently following to assist with medical management. Continue supportive measures. 5. Anemia Continue to monitor blood counts daily. Transfuse if hemoglobin drops below 7 g/dL. Continue PPI therapy. Again, gastroenterology is following to assist with medical management. TIME: 36 minutes of critical care time, inclusive of procedures, was spent addressing the patient's multifactorial shock, acute alcohol withdrawal, acute hypoxemic respiratory failure, severe alcoholic hepatitis, anemia, review of all data and collaboration with care team. Subjective Subjective The patient was seen and examined at the bedside this morning. Events from the last 24 hours have been reviewed. The patient reportedly spiked a fever overnight to 106.1 ?F. In addition, her Levophed requirement has increased to 17 mcg/min. Her white count is elevated at 45,000. Hemoglobin is stable at 8.9 g/dL. INR stable at 1.2. Sodium is increased at 150 with a chloride of 115 and BUN of 31. Phosphorus is low at 0.7. Liver function parameters are somewhat improved from yesterday. Ultimately, overnight, the patient's Precedex was discontinued and she was transition to propofol for sedation purposes. The patient remains on cefepime and vancomycin. Objective Data Objective Data The patient's most recent lab work, culture data and imaging studies have all been personally reviewed. Surface echocardiogram demonstrated normal LV size and thickness with mild to moderate global hypokinesis of the LV. Ejection fraction was noted to be 40%. Right ventricular systolic pressure was estimated to be 43 mmHg. Sputum culture dated September 02 was positive for group C streptococcus. Respiratory viral panel along with COVID PCR was negative. Strep and urine Legionella antigens were negative. Vital Signs: Vital Signs Temp Pulse Resp BP Pulse Ox O2 Del Method O2 Flow Rate 100.0 F H 90 22 H 95/64 94 Mechanical Ventilator 6 09/07/23 06:00 09/07/23 06:00 09/07/23 06:00 09/07/23 06:00 09/07/23 06:00 09/07/23 06:00 09/05/23 12:55 FiO2 40 09/07/23 06:00 Oxygen Flow Rate (L/min) 6 Oxygen Delivery Method Mechanical Ventilator Weight: 143 lb 1.28 oz Body Mass Index (BMI) 24.4 Intake & Output: Intake and Output for Last 24 Hours 09/05/23 09/06/23 09/07/23 23:59 23:59 23:59 Intake Total 1457.07 / 1464.85 1539.51 / 1571.59 769.46 / 769.46 Output Total 2300 / 2300 1375 / 1375 400 / 400 Balance -842.93 / -835.15 164.51 / 196.59 369.46 / 369.46 Lab / Micro Data Attestation: I reviewed the patient's lab results. 09/07/23 03:20 09/07/23 03:20 Labs: Laboratory Results - last 24 hr 09/02/23 : Vit D 1,25-Dihydroxy <5.0 L 09/03/23 13:10: Urine Myoglobin 3 09/06/23 03:25: C-React Prot Ext Range 134.00 H 09/06/23 14:33: Random Vancomycin 14.2 09/07/23 03:20: WBC 45.3 H*, RBC 2.61 L, Hgb 8.9 L, Hct 28.2 L, MCV 108.0 H, MCH 34.1 H, MCHC 31.6 L, RDW Std Deviation 63.9 H, RDW Coeff of Rebel 16.5 H, Plt Count 281, MPV 11.0, Diff Path Review July, PT 15.5 H, INR 1.2, Sodium 150 H, Potassium 4.4, Chloride 115 H, Carbon Dioxide 27.0, Anion Gap 8, BUN 31 H, Creatinine 0.77, Estim Creat Clear Calc 80.51, Est GFR (MDRD) Af Amer 105, Est GFR (MDRD) Non-Af 87, BUN/Creatinine Ratio 40.4 H, Glucose 125 H, Calcium 7.5 L, Phosphorus 0.7 L*, Magnesium 2.3, Total Bilirubin 10.60 H, Direct Bilirubin 8.59 H, AST 171 H, ALT 38, Alkaline Phosphatase 129 H, Total Creatine Kinase 97, Total Protein 5.7 L, Albumin 1.7 L, Globulin 4.0, Albumin/Globulin Ratio 0.4 L, Triglycerides 485 H Micro: Microbiology 09/06/23 08:03 Sputum, Induced/Lukens Gram Stain - Final 09/04/23 09:45 Urine Catheter - Rojas Urine Culture - Final Culture exhibits no growth. 09/05/23 09:15 Mucosa - Nasopharyngeal Respiratory Panel (PCR) - Final 09/05/23 09:15 Mucosa - Nasopharyngeal SARS-CoV-2, Influenza & RSV (PCR) - Final 09/03/23 17:10 Sputum, Expectorated/Coughed Gram Stain - Final 09/03/23 17:10 Sputum, Expectorated/Coughed Respiratory Culture - Final Streptococcus group C 09/03/23 04:25 Blood Culture (Wb) - Anticubital Right Blood Culture - Preliminary No growth in 48 hours. 09/03/23 04:20 Blood Culture (Wb) - Left Forearm Blood Culture - Preliminary No growth in 48 hours. 09/05/23 07:35 Stool C. difficile GDH Antigen & Toxins - Final 09/05/23 07:35 Stool Clostridioides difficile (PCR) - Final 09/05/23 09:20 Urine Catheter - Catheter Legionella Antigen - Final 09/05/23 09:20 Urine Catheter - Catheter Streptococcus pneumoniae Antigen (M - Final 09/05/23 07:35 Stool Stool Occult Blood (JOSE) - Final Occult Blood Positive ABG Data ABG results: ABG 09/06/23 09:19 Specimen Type ART Sample Site R Brach pH 7.41 Bicarbonate Actual 29.6 H Total CO2 31 Base Excess 5 H O2 Saturation 94 L O2 % 80.0 ABG pCO2 47.1 H ABG pO2 72 L Respiration Rate 16 O2 Delivery Device Adult Vent Vent Mode AC Tidal Volume 400.0 POC PEEP 5 Radiography Diagnostic Testing: Radiology Impression Chest X-Ray 09/06/23 07:49 IMPRESSION: Increased bilateral pneumonia. Satisfactory endotracheal and orogastric tube placement. Left PICC tip at the level of the right atrium; consider 3 cm retraction. Electronically Signed: Jodi Viera MD at 8:13 EDT , Physical Exam Const Constitutional Narrative: Acutely ill and jaundiced in appearance. Intubated, sedated and mechanically ventilated. HEENT normocephalic and head/scalp atraumatic Mouth: endotracheal tube in place and OG tube in place Eyes PERRL Sclera: sclera abnormal Neck supple General: trachea midline Chest inspection of chest normal Resp Auscultation: rhonchi and diminished lung sounds Cardio regular rate, regular rhythm, S1 normal heart sound and S2 normal heart sound GI normal to inspection, nondistended, normoactive bowel sounds Extremity General Extremity: edema Skin no rashes or lesions noted Neuro Sensorium / Orientation: sedated on vent Charges/Coding Procedures Hospitalists Procedures: [id number] Critical Care 1st Hr
--- NOTE | 2023-09-07 08:00 | CPS ---
Increased Peep to [address] Freed
[2023-09-07] MEDS: Pantoprazole Sodium 40 MG in 0.9% Normal Saline (100mL MB+) 100 ML 330 MG IV (08:09)
[2023-09-07] MEDS: Dextrose 5%-Water (1000mL Bag) 1,000 ML 100 ML IV ×2 (08:09→17:15)
[2023-09-07] MEDS: Thiamine Hydrochloride 100 MG Tablet PO (08:10)
[2023-09-07] MEDS: Chlorhexidine 15 ML PO ×2 (08:10→21:11)
[2023-09-07] MEDS: Folic Acid 1 MG Tablet PO (08:10)
--- NOTE | 2023-09-07 08:11 | RAD_ITS ---
STUDY: X-RAY CHEST REASON FOR EXAM: Female, 43 years old. Hypoxia TECHNIQUE: Single AP portable view of the chest. COMPARISON: Comparison is made with prior study dated September 06, 2023. FINDINGS: An endotracheal tube is in situ. The tip is at 1.2 cm proximal to the darren. This should be withdrawn approximately 2 cm. The tip of the orogastric tube is in the body of the stomach. A left-sided PICC line catheter seen with the tip in the right atrium. Stable infiltrations in the right upper lobe as well as in the left upper and left lower lobes. There is no demonstrated pleural abnormality. Normal size heart. Normal mediastinum and zenaida. Normal visualized pulmonary arteries. Normal visualized aortic arch and descending thoracic aorta. Normal visualized thoracic spine. Normal visualized ribs, clavicles, and shoulders. There is no demonstrated abnormality of the visualized soft tissue structures of the upper abdomen. RAD/Chest 1 View (Portable) IMPRESSION: Essentially stable examination. The tip of the endotracheal tube is at 1.2 cm proximal to the darren. It should be withdrawn approximately 2 cm. Electronically Signed: Bong Krishnamurthy MD at 8:29 EDT ,
[2023-09-07] MEDS: Norepinephrine 8 MG in 0.9% Normal Saline (250mL Bag) 242 ML 37.5 MG CONT INF (09:50)
[2023-09-07 10:16] LABS: Pathologist Review Reviewed
[2023-09-07 10:26] LABS: Pathologist Review Reviewed
[2023-09-07 10:49] LABS: Bedside Glucose 148 mg/dL (74-106)
[2023-09-07] MEDS: fentaNYL drip 100 ML 12.5 MCG CONT INF ×2 (10:57→18:35)
--- NOTE | 2023-09-07 11:40 | CT_ITS ---
STUDY: CT ABDOMEN AND PELVIS WITH CONTRAST REASON FOR EXAM: Female, 43 years old. Septic Shock RADIATION DOSAGE (If Supplied By Facility): CTDIvol = ( 16.77 ) mGy, DLP = ( 1179.70 ) mGycm TECHNIQUE: Transaxial images were obtained from the dome of the diaphragm to the symphysis pubis with oral contrast. Oral and amp; IV Gastrografin and amp; 100mL Isovue-370 was administered. Sagittal and coronal images were reconstructed. Individualized dose optimization techniques were used for this CT. COMPARISON: None. FINDINGS: A right-sided line is seen in the superior vena cava. A nasogastric tube is seen. Dense consolidation in the right upper lobe as well as patchy consolidation in the lingular segment of the left upper lobe and left lower lobe with atelectasis and/or infiltrates at both lung bases. Small left pleural effusion. The visualized portions of the heart are within normal limits. There is decreased attenuation of the liver consistent with steatosis. Hepatomegaly. Gallbladder wall thickening. Normal spleen. There is diffuse enlargement of the pancreas with adelfo-pancreatic edema suggesting acute pancreatitis. Normal bilateral adrenal glands. Normal right kidney. Normal left kidney. Fluid is seen in the left pararenal space most likely secondary to the acute pancreatitis. Normal visualized stomach. Normal small intestine. Abnormal appearance of the cecum and ascending colon to the level of the hepatic flexure with thickening of the haustral pattern. Colitis should be ruled out. The appendix is visualized and appears normal. Normal abdominal aorta. Normal inferior vena cava. Normal retroperitoneum. A Rojas catheter is seen within the decompressed urinary bladder. Free fluid is seen in the pelvis. Subcutaneous edema of the subcutaneous fat overlying the lower abdomen. Normal osseous structures. CT/Abdomen/Pelvis WITH Contrast IMPRESSION: Diffuse pancreatitis. Marked degree of hepatomegaly with diffuse fatty infiltration of the liver. Thickening of the gallbladder wall with small amount of pericholecystic fluid. Ascites. Abnormal appearance of the right hemicolon. Dense infiltration in the lungs as described. Electronically Signed: Bong Krishnamurthy MD at 12:00 EDT ,
--- NOTE | 2023-09-07 12:25 | CPS ---
Per MD decreased pt PEEP to 8
[2023-09-07] MEDS: Propofol 10MG/Ml 1,000 MG/100 ML Bottle 7.8 MG CONT INF (14:11)
--- NOTE | 2023-09-07 14:13 | PCM.PN.HOSP ---
Reason for Visit Reason for Visit: Diagnoses Anemia, unspecified (09/02/23) Other disorders of phosphorus metabolism (09/02/23) Hypomagnesemia (09/02/23) Hypo-osmolality and hyponatremia (09/02/23) Hypokalemia (09/02/23) Alcohol abuse, uncomplicated (09/02/23) Acute respiratory failure with hypoxia (09/02/23) Alcoholic hepatitis without ascites (09/02/23) Alcoholic hepatic failure without coma (09/02/23) Alcohol induced acute pancreatitis without necrosis or infection (09/02/23) Acute pancreatitis without necrosis or infection, unspecified (09/02/23) Objective Data Objective Data Vital Signs: Vital Signs Temp Pulse Resp BP Pulse Ox O2 Del Method O2 Flow Rate 98.9 F 77 16 90/63 98 Mechanical Ventilator 6 09/07/23 14:00 09/07/23 14:00 09/07/23 14:00 09/07/23 14:00 09/07/23 14:00 09/07/23 14:00 09/05/23 12:55 FiO2 40 09/07/23 14:00 Oxygen Flow Rate (L/min) 6 Oxygen Delivery Method Mechanical Ventilator Weight: 143 lb 1.28 oz Body Mass Index (BMI) 24.4 Intake & Output: Intake and Output for Last 24 Hours 09/05/23 09/06/23 09/07/23 23:59 23:59 23:59 Intake Total 1457.07 / 1464.85 1539.51 / 1571.59 1982.55 / 1982.55 Output Total 2300 / 2300 1375 / 1375 550 / 550 Balance -842.93 / -835.15 164.51 / 196.59 1432.55 / 1432.55 Lab / Micro Data 09/07/23 03:20 09/07/23 03:20 Labs: Laboratory Results - last 24 hr 09/03/23 13:10: Urine Myoglobin 3 09/06/23 03:25: Diff Path Review Reviewed 09/06/23 14:33: Random Vancomycin 14.2 09/07/23 03:20: WBC 45.3 H*, RBC 2.61 L, Hgb 8.9 L, Hct 28.2 L, MCV 108.0 H, MCH 34.1 H, MCHC 31.6 L, RDW Std Deviation 63.9 H, RDW Coeff of Rebel 16.5 H, Plt Count 281, MPV 11.0, Diff Path Review Reviewed, PT 15.5 H, INR 1.2, Sodium 150 H, Potassium 4.4, Chloride 115 H, Carbon Dioxide 27.0, Anion Gap 8, BUN 31 H, Creatinine 0.77, Estim Creat Clear Calc 80.51, Est GFR (MDRD) Af Amer 105, Est GFR (MDRD) Non-Af 87, BUN/Creatinine Ratio 40.4 H, Glucose 125 H, Calcium 7.5 L, Phosphorus 0.7 L*, Magnesium 2.3, Total Bilirubin 10.60 H, Direct Bilirubin 8.59 H, AST 171 H, ALT 38, Alkaline Phosphatase 129 H, Total Creatine Kinase 97, Total Protein 5.7 L, Albumin 1.7 L, Globulin 4.0, Albumin/Globulin Ratio 0.4 L, Triglycerides 485 H 09/07/23 10:32: POC Glucose 148 H Micro: Microbiology 09/06/23 08:03 Sputum, Induced/Lukens Gram Stain - Final 09/06/23 08:03 Sputum, Induced/Lukens Respiratory Culture - Preliminary Presumptive C albicans 09/04/23 09:45 Urine Catheter - Rojas Urine Culture - Final Culture exhibits no growth. 09/05/23 09:15 Mucosa - Nasopharyngeal Respiratory Panel (PCR) - Final 09/05/23 09:15 Mucosa - Nasopharyngeal SARS-CoV-2, Influenza & RSV (PCR) - Final 09/03/23 17:10 Sputum, Expectorated/Coughed Gram Stain - Final 09/03/23 17:10 Sputum, Expectorated/Coughed Respiratory Culture - Final Streptococcus group C 09/03/23 04:25 Blood Culture (Wb) - Anticubital Right Blood Culture - Preliminary No growth in 48 hours. 09/03/23 04:20 Blood Culture (Wb) - Left Forearm Blood Culture - Preliminary No growth in 48 hours. 09/05/23 07:35 Stool C. difficile GDH Antigen & Toxins - Final 09/05/23 07:35 Stool Clostridioides difficile (PCR) - Final 09/05/23 09:20 Urine Catheter - Catheter Legionella Antigen - Final 09/05/23 09:20 Urine Catheter - Catheter Streptococcus pneumoniae Antigen (M - Final 09/05/23 07:35 Stool Stool Occult Blood (JOSE) - Final Occult Blood Positive Radiography Diagnostic Testing: Radiology Impression Chest X-Ray 09/07/23 08:11 IMPRESSION: Essentially stable examination. The tip of the endotracheal tube is at 1.2 cm proximal to the darren. It should be withdrawn approximately 2 cm. Electronically Signed: Bong Krishnamurthy MD at 8:29 EDT , Abdomen/Pelvis CT 09/07/23 11:40 IMPRESSION: Diffuse pancreatitis. Marked degree of hepatomegaly with diffuse fatty infiltration of the liver. Thickening of the gallbladder wall with small amount of pericholecystic fluid. Ascites. Abnormal appearance of the right hemicolon. Dense infiltration in the lungs as described. Electronically Signed: Bong Krishnamurthy MD at 12:00 EDT , Physical Exam Narrative Seen and examined. Patient is intubated on ventilator. Responds to verbal stimuli. Physical exam General: Awake. Responds to verbal stimuli. HEENT: Jaundice/icterus. Atraumatic, PERRLA, EOMI, Normocephalic Oral: ET and OG tube. Neck: Supple, No JVD, Negative Carotid Bruits Chest wall/Lungs: Air entry diminished in bilateral lung bases. No crepitation/rhonchi Cardiovascular: Regular rate, Regular Rhythm, Normal S1, Normal S2, No M/G/R Abdomen: Soft, Non Tender, mild distended. Bowel sounds very sluggish : No dysuria. No renal angle tenderness. No suprapubic tenderness. Extremities: Mild edema, Capillary Refill Less than 3 Seconds Skin: No rashes, No breakdown Musculoskeletal: No Tenderness to Palpation of Joints or Extremities Neurological: Cranial nerves II-XII grossly intact, DTR 2+/4. No acute focal neurological deficit. Psych/Mental Status: Flat affect. Assessment & Plan Assessment/Plan (1) Acute hypoxic respiratory failure: (2) Alcoholic hepatitis: (3) Acute pancreatitis: QUALIFIERS: Pancreatitis type: alcohol induced Acute pancreatitis complication: unspecified Qualified Code(s): K85.20 - Alcohol induced acute pancreatitis without necrosis or infection (4) Anemia: (5) Acute hyponatremia: (6) Hypokalemia: (7) Hypophosphatemia: (8) Desire for detoxification: PLAN: Plan Patient is a 43-year-old female who presented [facility] ED on 09/02/2023 with worsening abdominal pain and distention. 1. Acute hypoxic respiratory failure ? [employer] following. Initially suspected primarily due to volume overload from initial IV fluid resuscitation along with trial breathing from abdominal pain/distention. However, now seems more consistent with some volume overload but also with pneumonia. Had concern for PE on 09/03 as noted below; CTA chest showed no PE but did show multifocal pulmonary traits more severe and left lung suspicious for inflammatory disease along with bilateral pleural effusions larger on the left with consolidation of left lower lobe. Was being treated with IV vancomycin and Zosyn but continued to have worsening leukocytosis as noted below. Infectious workup negative to this point as noted below. Treatment as below. Started on IV Solu-Medrol 40 mg daily on 09/04 given no improvement in respiratory function, will continue this for now. Continue to have respiratory decline and was intubated on morning of 09/05. Currently intubated and sedated. Further vent management per [employer] school biology teacher. 09/06: Patient is intubated. Responding to verbal stimuli. On 40% FiO2. On propofol. Precedex discontinued. 2. Multifactorial shock with severe leukocytosis ? Edge [employer]ander Operator following as above. Highest concern is for septic versus hypovolemic shock in setting of pancreatitis versus pneumonia. CTA chest on 09/03 with findings as noted above; unclear if more consistent with pneumonia versus inflammatory disease of unclear etiology. Urine antigens negative. Sputum culture negative. Blood cultures with no growth to date. WBC count only 16K on admit, has worsened significantly since admission. Most recent WBC count 44 K on 09/05; notably was started on IV steroids on , could be contributing.. Treated with IV vancomycin and Zosyn through 09/03 with no significant improvement. Transitioned to IV cefepime on 09/04, will continue IV vancomycin. Continue to monitor closely. Okay to treat with Levophed as needed to maintain MAP greater than 65. 09/06: 3. Severe acute alcoholic hepatitis ? GI following. MELD score of 20 and Madrey score of 31 on admit. Labs on admit of T. bili 7.90, direct bili 6.14, AST 190, ALT 31, alk phos 89, INR 1.2. CT abdomen pelvis without contrast on admit showed fatty liver with hepatomegaly and suspected pancreatitis. Suspected alcoholic hepatitis without underlying cirrhosis at this time. Large lab workup sent per GI, will follow-up on results. INR worsened to 1.4 on hospital day 2, given dose of IV vitamin K 5 mg x 1, has now remained stable. Ammonia level normal but with encephalopathy as noted below, started on Xifaxan and lactulose on admission, will continue these for now. Monitor daily labs. 09/06: ALT normal. AST 171, AST/ALT more than 3:1 ratio. 4. Acute encephalopathy, multifactorial ? Patient became more confused and combative on evening of 09/02, was placed in restraints and started on Precedex with improvement. Precedex discontinued on morning of 09/03. Suspect multifactorial in setting of shock, respiratory failure, acute hepatitis, alcohol withdrawal and medications. Treatment as noted above. Patient was intubated on 09/05 as noted above. Currently intubated and sedated and not following commands. 09/06: Patient mental status could not be assessed effectively but she is responding to verbal stimuli. 5. New onset HFrEF, concern for PE ? Echo 09/03 showed EF 40%, mild to moderate LV global hypokinesis, interventricular septal flattening during systole consistent with RV pressure overload. CTA chest on 09/03 with no PE but with signs of pneumonia versus inflammatory disease as noted above. Continue treatment as noted above for now. 6. Acute pancreatitis ? GI following as above. Lipase [address] abdomen pelvis with findings consistent with pancreatitis as noted above. Was given IV fluids on admission but developed volume overload as noted above so was given IV Lasix. Appeared volume depleted on hospital day 3, given IV fluids again. Pain control with IV morphine every 4 hours as needed. Patient notably with abdominal distention and mild abdominal pain but does not have severe pain or active nausea/vomiting at this time. Holding on further IV fluids for now but can consider if needed. 7. Severe anemia ? Hemoglobin 10.6 on admit, decreased to 6.6 on hospital day 2 after heavy IV fluid resuscitation. S/p 1 unit of blood on 09/02 with hemoglobin recheck 8.4. Iron studies with ferritin 3101. Suspected that patient has acute on chronic anemia due to severe acute liver disease as noted above. Hemoglobin trended down to 6.9 on 09/04, given another 1 unit of blood, recheck 9.3. Stool occult blood positive on 09/04. GI following as above. 8. Severe hyponatremia, improved ? Sodium 118 on admit. Patient with mild cognitive slowing but was not acutely encephalopathic so she was not given hypertonic saline. Suspected to be more chronic hyponatremia possibly due to beer potomania and poor solute intake. Sodium with steady rise on frequent lab checks on hospital day 2. Sodium 133 on 09/04, stable. Continue to monitor daily labs. 9. Severe hypophosphatemia, hypokalemia and hypomagnesemia ? Phosphorus 0.1, potassium 1.8, magnesium 1.2 on admit. Presumed secondary to alcohol abuse with poor solute intake. All electrolytes aggressively repleted on admission with significant improvement. Continue to monitor daily labs. Suspect patient will be at high risk for refeeding syndrome once she is able to start a diet again, will need to check labs more frequently at that point. 10. Alcohol abuse with concern for alcohol withdrawal ? Reported drinking about 12 white claws per day recently. Has 20-year history of heavy alcohol use without cessation. No history of alcohol withdrawal. Given high concern for impending alcohol drawl, patient was started on phenobarbital taper admission with adequate symptom control. Continue phenobarbital taper and other as needed medications per alcohol withdrawal order set. Continue folate and thiamine. Monitor closely. 11. Tobacco abuse ? Current smoker. Nicotine patch ordered on admission. Encouraged cessation. 12. Suspected protein calorie malnutrition with hypoalbuminemia ? Nutrition following. Albumin 2.2 on admit, prealbumin also low. Suspect malnutrition secondary to poor food intake as noted above. Patient currently n.p.o. given acute encephalopathy as noted above. Intubated on 09/05. Will likely need to start tube feeds in the next few days. 13. Mild hypercalcemia ? Calcium 11.2 on admit. Improved back to normal range after IV fluid resuscitation. PTH low at 3.5, vitamin D level pending. Continue to monitor calcium level. 14. History of lichen sclerosis ? Previously required treatment, not currently active. DVT prophylaxis: SCDs CODE STATUS: Full code, verified Expected disposition: TBD Total clinical time spent by myself addressing the patient's medical issues, reviewing all the data, and collaborating with patient's care team: 35 minutes. Charges/Coding Visit Charges Inpatient E&M: 00555 Subs Hosp L3
[2023-09-07 14:18] LABS: Pathologist Review Reviewed
[2023-09-07 14:33] LABS: Phosphorus 3.3 mg/dL (2.5-4.9)
--- NOTE | 2023-09-07 14:46 | PCM.CONS.GEN ---
Assessment & Plan Assessment/Plan (1) Alcoholic hepatitis: (2) Acute hypoxic respiratory failure: (3) Acute pancreatitis: QUALIFIERS: Pancreatitis type: alcohol induced Acute pancreatitis complication: unspecified Qualified Code(s): K85.20 - Alcohol induced acute pancreatitis without necrosis or infection PLAN: septic shock with acute pancreatitis - repeat CT showed no abscess or necrosis around pancreas. Will broaden to vanc/allan while cxs pending. Will follow, thank you HPI Consult Data Date of Consult: 09/07/23 HPI Narrative Reason for Consultation: septic shock HPI Narrative: FIONA ZAFAR, is a 43 F with h/o etoh abuse, presented 09/01 for etoh detox. Averages 12 drinks/day. C/o 2 days progressive epigastric pain, nausea, emesis. Dx pancreatitis, admitted to icu, GI consulted. Started on vanc/cefepime, now fever to 106 overnight, on vent and pressor. Family at bedside ROS unobtainable due to intubation PFSH Home Medications ?Medication ?Instructions ?Recorded ?Last Taken ?Type levocetirizine 5 mg tablet (Xyzal) 5 mg PO DAILY 09/02/23 Unknown History Allergy/AdvReac Type Severity Reaction Status Date / Time No Known Allergies Allergy Verified 09/02/23 16:23 Family History Brother Diabetes Mother H/O: hysterectomy Social History number of children: 0 current occupational status: employed current occupation: [employer] Smoking Status: Current every day smoker tobacco type: cigarettes alcohol intake: current alcohol intake frequency: 0-2 drinks per day substance use type: does not use seatbelt use: always do you feel safe at home: Yes additional social history: Nikolai Osman Pres. of [employer] of [employer] Physical Exam Const no apparent distress Constitutional Narrative: intubated, sedated HEENT normocephalic Eyes PERRL Neck supple and No nodes Resp normal air movement and clear to auscultation bilaterally Cardio regular rate and regular rhythm GI soft to palpation, non-tender and non-distended Extremity General Extremity: edema Skin no rashes or lesions noted Skin Narrative: jaundiced Neuro Neuro Narrative: not following commands Lab / Micro Data Attestation: I reviewed the patient's lab results. 09/07/23 03:20 09/07/23 03:20 Labs: Laboratory Results - last 24 hr 09/03/23 13:10: Urine Myoglobin 3 09/05/23 04:55: Diff Path Review Reviewed 09/06/23 03:25: Diff Path Review Reviewed 09/06/23 14:33: Random Vancomycin 14.2 09/07/23 03:20: WBC 45.3 H*, RBC 2.61 L, Hgb 8.9 L, Hct 28.2 L, MCV 108.0 H, MCH 34.1 H, MCHC 31.6 L, RDW Std Deviation 63.9 H, RDW Coeff of Rebel 16.5 H, Plt Count 281, MPV 11.0, Diff Path Review Reviewed, PT 15.5 H, INR 1.2, Sodium 150 H, Potassium 4.4, Chloride 115 H, Carbon Dioxide 27.0, Anion Gap 8, BUN 31 H, Creatinine 0.77, Estim Creat Clear Calc 80.51, Est GFR (MDRD) Af Amer 105, Est GFR (MDRD) Non-Af 87, BUN/Creatinine Ratio 40.4 H, Glucose 125 H, Calcium 7.5 L, Phosphorus 0.7 L*, Magnesium 2.3, Total Bilirubin 10.60 H, Direct Bilirubin 8.59 H, AST 171 H, ALT 38, Alkaline Phosphatase 129 H, Total Creatine Kinase 97, Total Protein 5.7 L, Albumin 1.7 L, Globulin 4.0, Albumin/Globulin Ratio 0.4 L, Triglycerides 485 H 09/07/23 10:32: POC Glucose 148 H 09/07/23 14:05: Phosphorus 3.3, Magnesium 2.0 Micro: Microbiology 09/06/23 08:03 Sputum, Induced/Lukens Gram Stain - Final 09/06/23 08:03 Sputum, Induced/Lukens Respiratory Culture - Preliminary Presumptive C albicans Imaging Radiology Impression Chest X-Ray 09/07/23 08:11 IMPRESSION: Essentially stable examination. The tip of the endotracheal tube is at 1.2 cm proximal to the darren. It should be withdrawn approximately 2 cm. Electronically Signed: Bong Krishnamurthy MD at 8:29 EDT , Abdomen/Pelvis CT 09/07/23 11:40 IMPRESSION: Diffuse pancreatitis. Marked degree of hepatomegaly with diffuse fatty infiltration of the liver. Thickening of the gallbladder wall with small amount of pericholecystic fluid. Ascites. Abnormal appearance of the right hemicolon. Dense infiltration in the lungs as described. Electronically Signed: Bong Krishnamurthy MD at 12:00 EDT ,
[2023-09-07] MEDS: Albuterol 2.5 MG/3 ML VIAL.NEB. INHALATION ×2 (15:14→19:42)
[2023-09-07] MEDS: Meropenem 1 GM in 0.9% Normal Saline (100mL MB+) 100 ML IV ×2 (15:20→21:10)
[2023-09-07 16:55] LABS: Bedside Glucose 234 mg/dL (74-106)
[2023-09-07] MEDS: Insulin Lispro 100 UNIT/ML INSULN.PEN SC (17:14)
[2023-09-07] MEDS: Norepinephrine 8 MG in 0.9% Normal Saline (250mL Bag) 242 ML 28.1 MG CONT INF (17:15)
--- NOTE | 2023-09-07 18:07 | PN.GI_ITS ---
Subjective Subjective Patient is still intubated and sedated. She has been spiking fevers. Highest fever was up to 106. Objective Data Objective Data Vital Signs: Vital Signs Temp Pulse Resp BP Pulse Ox O2 Del Method O2 Flow Rate 100.2 F H 92 16 86/67 L 95 Mechanical Ventilator 6 09/07/23 16:00 09/07/23 17:00 09/07/23 17:00 09/07/23 17:00 09/07/23 17:00 09/07/23 17:00 09/05/23 12:55 FiO2 40 09/07/23 17:00 Oxygen Flow Rate (L/min) 6 Oxygen Delivery Method Mechanical Ventilator Weight: 143 lb 1.28 oz Body Mass Index (BMI) 24.4 Intake & Output: Intake and Output for Last 24 Hours 09/05/23 09/06/23 09/07/23 23:59 23:59 23:59 Intake Total 1457.07 / 1464.85 1539.51 / 1571.59 3143.35 / 3143.35 Output Total 2300 / 2300 1375 / 1375 1100 / 1100 Balance -842.93 / -835.15 164.51 / 196.59 2043.35 / 2043.35 Lab / Micro Data 09/07/23 03:20 09/07/23 03:20 Labs: Laboratory Results - last 24 hr 09/05/23 04:55: Diff Path Review Reviewed 09/06/23 03:25: Diff Path Review Reviewed 09/07/23 03:20: WBC 45.3 H*, RBC 2.61 L, Hgb 8.9 L, Hct 28.2 L, MCV 108.0 H, MCH 34.1 H, MCHC 31.6 L, RDW Std Deviation 63.9 H, RDW Coeff of Rebel 16.5 H, Plt Count 281, MPV 11.0, Diff Path Review Reviewed, PT 15.5 H, INR 1.2, Sodium 150 H , Potassium 4.4, Chloride 115 H, Carbon Dioxide 27.0, Anion Gap 8, BUN 31 H, Creatinine 0.77, Estim Creat Clear Calc 80.51, Est GFR (MDRD) Af Amer 105, Est GFR (MDRD) Non-Af 87, BUN/Creatinine Ratio 40.4 H, Glucose 125 H, Calcium 7.5 L, Phosphorus 0.7 L*, Magnesium 2.3, Total Bilirubin 10.60 H, Direct Bilirubin 8.59 H, AST 171 H, ALT 38, Alkaline Phosphatase 129 H, Total Creatine Kinase 97, T otal Protein 5.7 L, Albumin 1.7 L, Globulin 4.0, Albumin/Globulin Ratio 0.4 L, T riglycerides 485 H 09/07/23 10:32: POC Glucose 148 H 09/07/23 14:05: Phosphorus 3.3, Magnesium 2.0 09/07/23 16:32: POC Glucose 234 H Micro: Microbiology 09/06/23 08:03 Sputum, Induced/Lukens Gram Stain - Final 09/06/23 08:03 Sputum, Induced/Lukens Respiratory Culture - Preliminary Presumptive C albicans 09/04/23 09:45 Urine Catheter - Rojas Urine Culture - Final Culture exhibits no growth. 09/05/23 09:15 Mucosa - Nasopharyngeal Respiratory Panel (PCR) - Final 09/05/23 09:15 Mucosa - Nasopharyngeal SARS-CoV-2, Influenza & RSV (PCR) - Final 09/03/23 17:10 Sputum, Expectorated/Coughed Gram Stain - Final 09/03/23 17:10 Sputum, Expectorated/Coughed Respiratory Culture - Final Streptococcus group C 09/03/23 04:25 Blood Culture (Wb) - Anticubital Right Blood Culture - Preliminary No growth in 48 hours. 09/03/23 04:20 Blood Culture (Wb) - Left Forearm Blood Culture - Preliminary No growth in 48 hours. 09/05/23 07:35 Stool C. difficile GDH Antigen & Toxins - Final 09/05/23 07:35 Stool Clostridioides difficile (PCR) - Final 09/05/23 09:20 Urine Catheter - Catheter Legionella Antigen - Final 09/05/23 09:20 Urine Catheter - Catheter Streptococcus pneumoniae Antigen (M - Final 09/05/23 07:35 Stool Stool Occult Blood (JOSE) - Final Occult Blood Positive Radiography Diagnostic Testing: Radiology Impression Chest X-Ray 09/07/23 08:11 IMPRESSION: Essentially stable examination. The tip of the endotracheal tube is at 1.2 cm proximal to the darren. It should be withdrawn approximately 2 cm. Electronically Signed: Bong Krishnamurthy MD at 8:29 EDT , Abdomen/Pelvis CT 09/07/23 11:40 IMPRESSION: Diffuse pancreatitis. Marked degree of hepatomegaly with diffuse fatty infiltration of the liver. Thickening of the gallbladder wall with small amount of pericholecystic fluid. Ascites. Abnormal appearance of the right hemicolon. Dense infiltration in the lungs as described. Electronically Signed: Bong Krishnamurthy MD at 12:00 EDT , Physical Exam Const no apparent distress Constitutional Narrative: intubated, sedated HEENT normocephalic Eyes PERRL Neck supple and No nodes Resp normal air movement and clear to auscultation bilaterally Cardio regular rate and regular rhythm GI soft to palpation, non-tender and non-distended Extremity General Extremity: edema Skin no rashes or lesions noted Skin Narrative: jaundiced Neuro Neuro Narrative: not following commands Assessment & Plan Assessment/Plan (1) Acute hyponatremia: (2) Hypokalemia: (3) Hypomagnesemia: (4) Hypophosphatemia: (5) Alcoholic liver failure: (6) Acute pancreatitis: QUALIFIERS: Acute pancreatitis complication: unspecified P ancreatitis type: alcohol induced Qualified Code(s): K85.20 - Alcohol induced acute pancreatitis without necrosis or infection (7) Desire for detoxification: (8) Alcohol abuse: PLAN: Plan 43-year-old with history of alcoholism presents with status discovered to have multiple metabolic abnormalities : Severe acute hyponatremia of 119 mmol/L likely secondary to to alcoholism. Current sodium is 123. It accompanies her multiple electrolyte abnormalities including critical hypokalemia, hypomagnesemia and hypophosphatemia. This is being managed by primary team. She also has severe acute hyperbilirubinemia with total bilirubin of 7.9 mg/dL that has increased to 11.5. And direct bilirubin of 6.14 mg/dL in the setting of chronic alcohol abuse with patient requesting alcohol detox adding to the pathology of #1 - #4 - EtOH cessation will be strongly encouraged. We will give phenobarbital IV per protocol for alcohol detoxification. Check CMP daily to follow trend. Avoid potentially hepatotoxic agents. She has no previous history of cirrhosis. No previous history of chronic hepatitis B or chronic hepatitis C. No previous history HIV. She does not take any medicines for lichen sclerosus. She has not been diagnosed with alcoholic hepatitis in the past. She has not received any blood transfusions she has no past medical history of tuberculosis. We need to check her for acute viral hepatitis and nonviral hepatitis. In the ICU she was discovered to have a pH of 7.5, sodium bicarbonate of 30, CO2 37. Her creatinine is 0.65, bilirubin is 11 and INR is 1.4. This gives her a MELD sodium score of 20 which carries of 25% mortality rate in 90 days. Her Madrey score for alcoholic hepatitis was 31.9. She is mildly encephalopathic and is on phenobarbital. Alcoholic pancreatitis identified by elevated lipase of 1,853 units/L and imaging showing pancreatitis. Severe alcoholic hepatitis has a high mortality, and it is associated with encephalopathy, acute renal failure, sepsis, gastrointestinal bleeding, and endotoxemia. The 28-d mortality remains poor (34%-40%), because no effective treatment has been established. Recently, corticosteroids have been considered effective for significantly improving the prognosis of those with AH, as it prevents the production of pro-inflammatory cytokines. However, CS are not always appropriate as an initial therapeutic option, such as in cases with an infection or resistance to CS. Hyper ferritin anemia secondary to acute liver injury. There is a possibility of secondary hemochromatosis and infiltrative disease affecting the liver. Patient's hemoglobin dropped to 6.6 g/dL after volume resuscitation requiring transfusion of one unit of PRBC's. Recommendations: -Hopefully INR will not continue to increase. I would give her vitamin K 5 mg IV -I would also carefully look at her magnesium and Phos and potassium -I am hesitant to give her steroids at this time due to her increasing white blood cell count and monotherapy with N-acetylcysteine for nonacetaminophen- induced alcoholic hepatitis has not been proven to improve more than 30-day mortality -At this time she does not need a liver transplant evaluation. She is not acidotic by her blood gas. She is high risk for development of respiratory and metabolic acidosis. -Check labs for autoimmune hepatitis, Siddharth's disease, CMV, EBV, HIV -Check SHADI, iron, transferrin and if white blood cell count continues to increase -Lactulose 30 cc twice daily -Xifaxan 550 mg twice a day Patient's hemoglobin dropped to 6.6 g/dL after volume resuscitation requiring transfusion of one unit of PRBC's. 09/04/2023- . Infections, particularly bacterial infections, are one of the most frequent and severe complications of severe alcoholic hepatitis. Her white blood cell count keeps increasing. Blood cultures have been negative. She has been on antibiotics since her admission. Her LFTs (bilirubin and INR) are about the same ,along with her liver enzymes improving. Also her kidney function has been holding steady. I would check stool studies such as enteric pathogens and C. difficile. .Severe alcoholic hepatitis has a high mortality, and it is associated with encephalopathy, acute renal failure, sepsis, gastrointestinal bleeding, and endotoxemia. Corticosteroids have been considered effective for significantly improving the prognosis of those with AH, as it prevents the production of pro- inflammatory cytokines. However, CS are not always appropriate as an initial therapeutic option, such as in cases with an infection. Her MELD score is still 20 and her Sarah score has improved to 29. Her David alcoholic hepatitis score is 6. Anything overnight is associated with a 50% mortality. Her CRP is very high at 261. CT showed marked hepatomegaly with severe steatosis without splenomegaly, which is a good sign. Current CT scan of the chest did not show any signs of pulmonary embolism. But it did show multifocal disease with very large left pleural effusion and small right pleural effusion. Recommendations: -Continue to monitor MELD and Madrey score -Await chronic liver disease workup -Continue Xifaxan 550 twice a day - Repeat ammonia, INR in the morning -Guarded prognosis 09/05/2023-Patient's LFTs continue to improve. This is a good sign regarding her synthetic function being disturbed likely secondary to endotoxin from alcoholic hepatitis and pancreatitis with an underlying possible lung infection..Bilirubin I believe has peaked and should start to go down. Continue to check INR, ammonia, CRP. 09/06/2023-her LFTs are about the same. Her liver function test including platelet count, INR are about the same. However her bilirubin is still elevated which is not a good sign for severe alcoholic hepatitis. Her Glascow alcoholic hepatitis score has increased to 8. Her CRP is going down from 2 61-134. Her abdomen does seem more distended and it could be secondary to third spacing in the setting of hypoalbuminemia from severe liver injury. By her liver enzymes she does not seem to be experiencing any signs of shock liver at this time. I would suggest to do an ultrasound of the abdomen to look for ascites due to distended abdomen. If her kidney functions okay I would repeat a CT scan abdomen pelvis to look for repair hepatic ascites, perisplenic ascites or pelvic ascites secondary to severe alcoholic hepatitis. MELD is still ranging 20-22. Continue supportive care. 09/07/2023-bilirubin is similar. Due to increase in ALT to normal an increase in AST to a range of 3:1. Repeat CT scan does not show any signs of pancreatic necrosis as etiology of patient's fever and severe sepsis at this time. Her CT scan did display abnormal appearance of the cecum and ascending colon to the level of the hepatic flexure with thickening of the haustral pattern. I suspect that this is secondary to ischemic hepatitis. There was not any ascites seen on the imaging that may be amenable to diagnostic paracentesis to see if there is another source of her increasing white blood cell count. Her synthetic function is still poor being that her bilirubin is elevated. However her INR is only 1.2 which is good from a liver standpoint. Working diagnosis is severe sepsis and she is being seen by infectious disease, hospitalist service and perl developer. Continue supportive care . Charges/Coding Visit Charges Inpatient E&M: 65350 Subs Hosp L3
[2023-09-07] MEDS: Propofol 10MG/Ml 1,000 MG/100 ML Bottle 9.7 MG CONT INF (23:03)
[2023-09-08] VITALS (46 sets, daily range): BP systolic 87–117; BP diastolic 54–90; PULSE 69–106; RESP 16–22; TEMP 36.4–38.1; O2SAT 93–100; BMI 25.8
[2023-09-08] MEDS: Insulin Lispro 100 UNIT/ML INSULN.PEN SC ×3 (00:08→17:15)
[2023-09-08 00:36] LABS: Bedside Glucose 194 mg/dL (74-106)
[2023-09-08] MEDS: Albuterol 2.5 MG/3 ML VIAL.NEB. INHALATION ×4 (01:42→20:07)
[2023-09-08] MEDS: Propofol 10MG/Ml 1,000 MG/100 ML Bottle 9.7 MG CONT INF (02:00)
[2023-09-08] MEDS: Vancomycin Trough/Random Due 1 LAB MC (02:04)
[2023-09-08] MEDS: Norepinephrine 8 MG in 0.9% Normal Saline (250mL Bag) 242 ML 24.4 MG CONT INF (02:07)
[2023-09-08 02:15] LABS: Vancomycin, Trough Level 11.4 ug/mL (5.0-15.0)
[2023-09-08] MEDS: fentaNYL drip 100 ML 15 MCG CONT INF ×3 (02:21→16:05)
[2023-09-08] MEDS: Dextrose 5%-Water (1000mL Bag) 1,000 ML 100 ML IV ×3 (02:22→21:26)
--- NOTE | 2023-09-08 02:25 | PCM.RX.CS ---
Consult Antibiotic Management Pharmacy has been consulted to manage selected antibiotic: Vancomycin Suspected Infection Suspected Infection: Sepsis Labs Labs: Sodium 150 mmol/L (136-145) H 09/07/23 03:20 Potassium 4.4 mmol/L (3.5-5.1) 09/07/23 03:20 Chloride 115 mmol/L (98-107) H 09/07/23 03:20 Carbon Dioxide 27.0 mmol/L (21.0-32.0) 09/07/23 03:20 Anion Gap 8 (5-15) 09/07/23 03:20 BUN 31 mg/dL (7-18) H 09/07/23 03:20 Creatinine 0.77 mg/dL (0.55-1.02) 09/07/23 03:20 Est GFR (MDRD) Af Amer 105 mL/min (>60) 09/07/23 03:20 Est GFR (MDRD) Non-Af 87 mL/min (>60) 09/07/23 03:20 BUN/Creatinine Ratio 40.4 RATIO (10-20) H 09/07/23 03:20 Glucose 125 mg/dL (74-106) H 09/07/23 03:20 Vancomycin Trough 11.4 ug/mL (5.0-15.0) 09/08/23 01:50 Random Vancomycin 14.2 ug/mL (0.0-15.0) 09/06/23 14:33 Microbiology Microbiology: Microbiology 09/06/23 08:03 Sputum, Induced/Lukens Gram Stain - Final 09/06/23 08:03 Sputum, Induced/Lukens Respiratory Culture - Preliminary Presumptive C albicans 09/04/23 09:45 Urine Catheter - Rojas Urine Culture - Final Culture exhibits no growth. 09/05/23 09:15 Mucosa - Nasopharyngeal Respiratory Panel (PCR) - Final 09/05/23 09:15 Mucosa - Nasopharyngeal SARS-CoV-2, Influenza & RSV (PCR) - Final 09/03/23 17:10 Sputum, Expectorated/Coughed Gram Stain - Final 09/03/23 17:10 Sputum, Expectorated/Coughed Respiratory Culture - Final Streptococcus group C 09/03/23 04:25 Blood Culture (Wb) - Anticubital Right Blood Culture - Preliminary No growth in 48 hours. 09/03/23 04:20 Blood Culture (Wb) - Left Forearm Blood Culture - Preliminary No growth in 48 hours. 09/05/23 07:35 Stool C. difficile GDH Antigen & Toxins - Final 09/05/23 07:35 Stool Clostridioides difficile (PCR) - Final 09/05/23 09:20 Urine Catheter - Catheter Legionella Antigen - Final 09/05/23 09:20 Urine Catheter - Catheter Streptococcus pneumoniae Antigen (M - Final 09/05/23 07:35 Stool Stool Occult Blood (JOSE) - Final Occult Blood Positive Goal Trough Goal Trough: 15-20 mcg/mL Pharmacy Plan for Drug Dosing Pharmacy Plan for Drug Dosing: VANCOMYCIN LEVEL RECEIVED Current Vancomycin Dose: 500mg Q12H Number of Doses Received: 500mg x3 Vancomycin Level: 11.4 Hours Since Last Dose: 11.75 Renal Function: sCr 0.77 Renal Function Trend: improved since admission Lab/Micro: cx pending Vancomycin Plan/Comments: Adjust Vancomycin dosing regimen to 750mg Q12H due to SUBtherapeutic trough level Pending Level: Vancomycin trough @ 14:30 09/09/23 Pharmacy Service will continue to monitor and adjust dosing as required. Follow-Up Labs Follow-Up Labs: Trough: Vancomycin (14:30 09/09/23)
[2023-09-08] MEDS: Vancomycin HCl 750 MG in 0.9% Normal Saline (250mL Bag) 250 ML 250 MG IV ×2 (02:48→16:03)
[2023-09-08] MEDS: Meropenem 1 GM in 0.9% Normal Saline (100mL MB+) 100 ML IV ×3 (05:43→21:26)
[2023-09-08 06:01] LABS: Hematocrit 29.9 % (37-47); Hemoglobin 9.1 g/dL (12.0-15.0); Mean Corp Hgb Conc 30.4 g/dL (32-36); Mean Corpuscular Hgb 33.7 pg (27.0-32.0); Mean Corpuscular Volume 110.7 fL (81-99); Mean Platelet Vol. 11.5 fl (6.2-12.0); POSITIVE COUNT YES; POSITIVE DIFFERENTIAL YES; POSITIVE MORPHOLOGY YES; Platelet Count 275 K/mm3 (150-450); RBC Distribution Width CV 16.3 % (11.6-14.6); RBC Distribution Width SD 66.1 fl (35.1-43.9)
[2023-09-08 06:09] LABS: Differential Indicated MANUAL DIFF; White Blood Count 43.2 K/mm3 (4.4-11.0)
[2023-09-08] MEDS: TITRATION PARAMETER CHANGE 1 EACH IV (06:14)
[2023-09-08 06:20] LABS: Bedside Glucose 159 mg/dL (74-106)
[2023-09-08 06:26] LABS: ALB/GLOB Ratio 0.4 RATIO (0.9-2.4); AST(SGOT) 78 U/L (15-37); Alanine Aminotransfer ALT/SGPT 28 U/L (13-56); Albumin, Serum 1.5 g/dL (3.2-5.0); Alkaline Phosphatase 117 U/L (45-117); Anion Gap 10 (5-15); BUN 26 mg/dL (7-18); BUN/Creat Ratio 57.9 RATIO (10-20); Calcium,Total 6.4 mg/dL (8.5-10.1); Chloride 109 mmol/L (98-107); Creatinine, Serum 0.45 mg/dL (0.55-1.02); EST Glomerular Filtration Rate 161 mL/min (>60); Est Glom Filt Rate - Afr Amer 195 mL/min (>60); Estimated Creatinine Clearance 151.36 ml/min; Globulin 3.8 g/dL (2.2-4.2); Glucose 192 mg/dL (74-106); Magnesium 1.9 mg/dL (1.6-2.6); Phosphorus 1.7 mg/dL (2.5-4.9); Potassium 3.9 mmol/L (3.5-5.1); Protein, Total 5.3 g/dL (6.4-8.2); Sodium Level 143 mmol/L (136-145)
--- NOTE | 2023-09-08 06:49 | PN.CC_ITS ---
Assessment & Plan Assessment/Plan (1) Acute hypoxic respiratory failure: (2) Alcoholic hepatitis: (3) Acute pancreatitis: QUALIFIERS: Pancreatitis type: alcohol induced Acute pancreatitis complication: unspecified Qualified Code(s): K85.20 - Alcohol induced acute pancreatitis without necrosis or infection PLAN: Plan RECOMMENDATIONS: 1. Continue assist-control mode of mechanical ventilation. Wean FiO2 and PEEP as tolerated. 2. Continue antimicrobials per ID recommendations. 3. Continue to wean Levophed to maintain a mean arterial pressure at or above 65 mmHg. 4. Continue current sedation regimen and monitor triglyceride level closely. 5. Continue to monitor blood counts and transfuse if hemoglobin drops below 7 g/dL. 6. Continue PPI therapy. 7. Aggressive electrolyte repletion. IMPRESSIONS: 1. Multifactorial shock Clinical concern for septic and hypovolemic etiologies in the setting of pancreatitis and progressive infiltrates noted on chest imaging. The patient has clinically worsened over the last 24 hours with high-grade fevers noted. She remains on broad-spectrum antimicrobials. In light of the aforementioned, will obtain ID consultation along with repeat blood cultures and follow-up CT abdomen/pelvis. Continue vasopressor support to maintain a mean arterial pressure at or above 65 mmHg. 2. Acute alcohol withdrawal Continue current medication regimen along with thiamine and folic acid. 3. Acute hypoxemic respiratory failure Clinical concern for third spacing of fluids in the setting of acute pancreatitis coupled with probable underlying pneumonia. The patient's respiratory status continued to worsen and she was ultimately intubated on September 05. Plan to continue assist-control mode mechanical ventilation. Wean FiO2 and PEEP to maintain saturations at or above 90%. The patient will remain on broad- spectrum antimicrobials. Follow-up chest x-ray will be obtained this morning. 4. Severe alcoholic hepatitis/acute alcoholic pancreatitis Liver function parameters remain tenuous. Gastroenterology is currently following to assist with medical management. Continue supportive measures. 5. Anemia Continue to monitor blood counts daily. Transfuse if hemoglobin drops below 7 g/dL. Continue PPI therapy. Again, gastroenterology is following to assist with medical management. TIME: 32 minutes of critical care time, inclusive of procedures, was spent addressing the patient's multifactorial shock, acute alcohol withdrawal, acute hypoxemic respiratory failure, severe alcoholic hepatitis, anemia, review of all data and collaboration with care team. Subjective Subjective The patient was seen and examined at the bedside this morning. Events from the last 24 hours have been reviewed. The patient is currently afebrile, but is still requiring Levophed at 11 mcg/min to maintain hemodynamic stability. The patient's antimicrobials were broadened yesterday by infectious diseases. White blood cell count remains elevated at 43,000. Hemoglobin and platelet count are stable. Creatinine remains within normal limits. Phosphorus remains low at 1.7. Total bilirubin is improving at 7.6 mg/dL. Objective Data Objective Data The patient's most recent lab work, culture data and imaging studies have all been personally reviewed. Surface echocardiogram demonstrated normal LV size and thickness with mild to moderate global hypokinesis of the LV. Ejection fraction was noted to be 40%. Right ventricular systolic pressure was estimated to be 43 mmHg. Sputum culture dated September 02 was positive for group C streptococcus. Respiratory viral panel along with COVID PCR was negative. Strep and urine Legionella antigens were negative. Vital Signs: Vital Signs Temp Pulse Resp BP Pulse Ox O2 Del Method O2 Flow Rate 98.5 F 74 16 87/64 L 99 Mechanical Ventilator 6 09/08/23 06:00 09/08/23 06:00 09/08/23 06:00 09/08/23 06:00 09/08/23 06:00 09/08/23 06:00 09/05/23 12:55 FiO2 35 09/08/23 06:00 Oxygen Flow Rate (L/min) 6 Oxygen Delivery Method Mechanical Ventilator Weight: 150 lb 5.684 oz Body Mass Index (BMI) 25.8 Intake & Output: Intake and Output for Last 24 Hours 09/06/23 09/07/23 09/08/23 23:59 23:59 23:59 Intake Total 1539.51 / 1571.59 3721.49 / 3767.61 1451.83 / 1451.83 Output Total 1375 / 1375 1525 / 1725 500 / 500 Balance 164.51 / 196.59 2196.49 / 2042.61 951.83 / 951.83 Lab / Micro Data Attestation: I reviewed the patient's lab results. 09/08/23 05:35 09/08/23 05:35 Labs: Laboratory Results - last 24 hr 09/05/23 04:55: Diff Path Review Reviewed 09/06/23 03:25: Diff Path Review Reviewed 09/07/23 03:20: Diff Path Review Reviewed 09/07/23 10:32: POC Glucose 148 H 09/07/23 14:05: Phosphorus 3.3, Magnesium 2.0 09/07/23 16:32: POC Glucose 234 H 09/08/23 00:07: POC Glucose 194 H 09/08/23 01:50: Vancomycin Trough 11.4 09/08/23 05:35: WBC 43.2 H*, RBC 2.70 L, Hgb 9.1 L, Hct 29.9 L, MCV 110.7 H, MCH 33.7 H, MCHC 30.4 L, RDW Std Deviation 66.1 H, RDW Coeff of Rebel 16.3 H, Plt Count 275, MPV 11.5, Neut % (Auto) Not Reportable, Sodium 143, Potassium 3.9, C hloride 109 H, Carbon Dioxide 24.0, Anion Gap 10, BUN 26 H, Creatinine 0.45 L, Estim Creat Clear Calc 151.36, Est GFR (MDRD) Af Amer 195, Est GFR (MDRD) Non-Af 161, BUN/Creatinine Ratio 57.9 H, Glucose 192 H, Calcium 6.4 L*, Phosphorus 1.7 L, Magnesium 1.9, Total Bilirubin 7.60 H, AST 78 H, ALT 28, Alkaline Phosphatase 117, Total Protein 5.3 L, Albumin 1.5 L, Globulin 3.8, Albumin/Globulin Ratio 0.4 L 09/08/23 05:50: POC Glucose 159 H Micro: Microbiology 09/06/23 08:03 Sputum, Induced/Lukens Gram Stain - Final 09/06/23 08:03 Sputum, Induced/Lukens Respiratory Culture - Preliminary Presumptive C albicans 09/04/23 09:45 Urine Catheter - Rojas Urine Culture - Final Culture exhibits no growth. 09/05/23 09:15 Mucosa - Nasopharyngeal Respiratory Panel (PCR) - Final 09/05/23 09:15 Mucosa - Nasopharyngeal SARS-CoV-2, Influenza & RSV (PCR) - Final 09/03/23 17:10 Sputum, Expectorated/Coughed Gram Stain - Final 09/03/23 17:10 Sputum, Expectorated/Coughed Respiratory Culture - Final Streptococcus group C 09/03/23 04:25 Blood Culture (Wb) - Anticubital Right Blood Culture - Preliminary No growth in 48 hours. 09/03/23 04:20 Blood Culture (Wb) - Left Forearm Blood Culture - Preliminary No growth in 48 hours. 09/05/23 07:35 Stool C. difficile GDH Antigen & Toxins - Final 09/05/23 07:35 Stool Clostridioides difficile (PCR) - Final 09/05/23 09:20 Urine Catheter - Catheter Legionella Antigen - Final 09/05/23 09:20 Urine Catheter - Catheter Streptococcus pneumoniae Antigen (M - Final 09/05/23 07:35 Stool Stool Occult Blood (JOSE) - Final Occult Blood Positive ABG Data ABG results: ABG 09/06/23 09:19 Specimen Type ART Sample Site R Brach pH 7.41 Bicarbonate Actual 29.6 H Total CO2 31 Base Excess 5 H O2 Saturation 94 L O2 % 80.0 ABG pCO2 47.1 H ABG pO2 72 L Respiration Rate 16 O2 Delivery Device Adult Vent Vent Mode AC Tidal Volume 400.0 POC PEEP 5 Radiography Diagnostic Testing: Radiology Impression Chest X-Ray 09/07/23 08:11 IMPRESSION: Essentially stable examination. The tip of the endotracheal tube is at 1.2 cm proximal to the darren. It should be withdrawn approximately 2 cm. Electronically Signed: Bong Krishnamurthy MD at 8:29 EDT , Abdomen/Pelvis CT 09/07/23 11:40 IMPRESSION: Diffuse pancreatitis. Marked degree of hepatomegaly with diffuse fatty infiltration of the liver. Thickening of the gallbladder wall with small amount of pericholecystic fluid. Ascites. Abnormal appearance of the right hemicolon. Dense infiltration in the lungs as described. Electronically Signed: Bong Krishnamurthy MD at 12:00 EDT , Physical Exam Const Constitutional Narrative: Acutely ill and jaundiced in appearance. Intubated, sedated and mechanically ventilated. HEENT normocephalic and head/scalp atraumatic Mouth: endotracheal tube in place and OG tube in place Eyes PERRL Sclera: sclera abnormal Neck supple General: trachea midline Chest inspection of chest normal Resp Auscultation: rhonchi and diminished lung sounds Cardio regular rate, regular rhythm, S1 normal heart sound and S2 normal heart sound GI normal to inspection, nondistended, normoactive bowel sounds Extremity General Extremity: edema Skin no rashes or lesions noted Neuro Sensorium / Orientation: sedated on vent
--- NOTE | 2023-09-08 07:00 | EKG12_ITS ---
Test Reason : am ekg Blood Pressure : / mmHG Vent. Rate : 073 BPM Atrial Rate : 073 BPM P-R Int : 162 ms QRS Dur : 096 ms QT Int : 458 ms P-R-T Axes : 044 069 086 degrees QTc Int : 504 ms Normal sinus rhythm Prolonged QT Abnormal ECG Confirmed by Griffin Montgomery ([id number]), assignment editor BUBBA CALLES ([id number]) on 09/11/2023 10:39:02 AM Referred By: Master Confirmed By:Griffin Montgomery
[2023-09-08] MEDS: Folic Acid 1 MG Tablet PO (07:39)
[2023-09-08] MEDS: Thiamine Hydrochloride 100 MG Tablet PO (07:39)
[2023-09-08] MEDS: Chlorhexidine 15 ML PO ×2 (07:40→21:28)
[2023-09-08] MEDS: Propofol 10MG/Ml 1,000 MG/100 ML Bottle 10.2 MG CONT INF ×2 (08:28→14:30)
[2023-09-08] MEDS: Pantoprazole Sodium 40 MG in 0.9% Normal Saline (100mL MB+) 100 ML 330 MG IV (08:54)
[2023-09-08] MEDS: CHLORHEXIDINE GLUC 2% CLOTH 1 EACH TOWELETTE TOPICAL (08:55)
[2023-09-08] MEDS: Potassium Phosphate 30 MMOL in 0.9% Normal Saline (250mL Bag) 250 ML 42 MMOL IV (09:48)
[2023-09-08 09:50] LABS: Lymphocyte 7 % (19-41); Metamyelocyte 3 % (0-1); Myelocyte 1 % (0-0); Neutrophil-Band 5 % (0-5); Neutrophil-Segmented 84 % (47-70); Nucleated Red Bld Cells,Manual 1 % (0-5); Total Cells Counted 100 (MANUAL DIFF)
[2023-09-08 09:53] LABS: Absolute Neutrophil Count 38.4 X10^3/uL (2.0-7.7); Anisocytosis 2+; Macrocytosis 2+
[2023-09-08 09:54] LABS: Absolute Lymphocyte Count 3.02 X10^3/uL (0.83-4.51)
[2023-09-08 10:08] LABS: Bedside Glucose 128 mg/dL (74-106)
[2023-09-08 11:24] LABS: Pathologist Review Reviewed
[2023-09-08 11:50] LABS: Bedside Glucose 131 mg/dL (74-106)
[2023-09-08] MEDS: Norepinephrine 8 MG in 0.9% Normal Saline (250mL Bag) 242 ML 20.6 MG CONT INF (13:40)
--- NOTE | 2023-09-08 14:32 | PCM.PN.HOSP ---
Reason for Visit Reason for Visit: Diagnoses Anemia, unspecified (09/02/23) Other disorders of phosphorus metabolism (09/02/23) Hypomagnesemia (09/02/23) Hypo-osmolality and hyponatremia (09/02/23) Hypokalemia (09/02/23) Alcohol abuse, uncomplicated (09/02/23) Acute respiratory failure with hypoxia (09/02/23) Alcoholic hepatitis without ascites (09/02/23) Alcoholic hepatic failure without coma (09/02/23) Alcohol induced acute pancreatitis without necrosis or infection (09/02/23) Acute pancreatitis without necrosis or infection, unspecified (09/02/23) Objective Data Objective Data Vital Signs: Vital Signs Temp Pulse Resp BP Pulse Ox O2 Del Method O2 Flow Rate 100.1 F H 102 H 16 104/77 95 Mechanical Ventilator 6 09/08/23 14:00 09/08/23 14:00 09/08/23 14:00 09/08/23 14:00 09/08/23 14:00 09/08/23 14:00 09/05/23 12:55 FiO2 35 09/08/23 13:40 Oxygen Flow Rate (L/min) 6 Oxygen Delivery Method Mechanical Ventilator Weight: 150 lb 5.684 oz Body Mass Index (BMI) 25.8 Intake & Output: Intake and Output for Last 24 Hours 09/06/23 09/07/23 09/08/23 23:59 23:59 23:59 Intake Total 1539.51 / 1571.59 3721.49 / 3767.61 2914.29 / 2914.29 Output Total 1375 / 1375 1525 / 1725 1250 / 1250 Balance 164.51 / 196.59 2196.49 / 2042.61 1664.29 / 1664.29 Lab / Micro Data 09/08/23 05:35 09/08/23 05:35 Labs: Laboratory Results - last 24 hr 09/07/23 14:05: Phosphorus 3.3, Magnesium 2.0 09/07/23 16:32: POC Glucose 234 H 09/08/23 00:07: POC Glucose 194 H 09/08/23 01:50: Vancomycin Trough 11.4 09/08/23 05:35: WBC 43.2 H*, RBC 2.70 L, Hgb 9.1 L, Hct 29.9 L, MCV 110.7 H, MCH 33.7 H, MCHC 30.4 L, RDW Std Deviation 66.1 H, RDW Coeff of Rebel 16.3 H, Plt Count 275, MPV 11.5, Neut % (Auto) Not Reportable, Absolute Neuts (auto) 38.4 H, Absolute Lymphs (auto) 3.02, Total Counted 100, Neutrophils % (Manual) 84 H, Band Neutrophils % 5, Lymphocytes % (Manual) 7 L, Metamyelocytes % 3 H, Myelocytes % 1 H, Nucleated RBCs/100 WBC 1, Diff Path Review Reviewed, Anisocytosis 2+, Macrocytosis 2+, Sodium 143, Potassium 3.9, Chloride 109 H, Carbon Dioxide 24.0, Anion Gap 10, BUN 26 H, Creatinine 0.45 L, Estim Creat Clear Calc 151.36, Est GFR (MDRD) Af Amer 195, Est GFR (MDRD) Non-Af 161, BUN/Creatinine Ratio 57.9 H, Glucose 192 H, Calcium 6.4 L*, Phosphorus 1.7 L, Magnesium 1.9, Total Bilirubin 7.60 H, AST 78 H, ALT 28, Alkaline Phosphatase 117, Total Protein 5.3 L, Albumin 1.5 L, Globulin 3.8, Albumin/Globulin Ratio 0.4 L 09/08/23 05:50: POC Glucose 159 H 09/08/23 09:47: POC Glucose 128 H 09/08/23 11:32: POC Glucose 131 H Micro: Microbiology 09/07/23 19:30 Sputum, Induced/Lukens Gram Stain - Final 09/07/23 19:30 Sputum, Induced/Lukens Respiratory Culture - Preliminary Culture exhibits no growth. 09/07/23 06:45 Urine Catheter - Rojas Urine Culture - Preliminary Culture exhibits no growth. 09/06/23 08:03 Sputum, Induced/Lukens Gram Stain - Final 09/06/23 08:03 Sputum, Induced/Lukens Respiratory Culture - Final Presumptive C albicans 09/03/23 04:25 Blood Culture (Wb) - Anticubital Right Blood Culture - Final No growth in 5 days. 09/03/23 04:20 Blood Culture (Wb) - Left Forearm Blood Culture - Final No growth in 5 days. 09/04/23 09:45 Urine Catheter - Rojas Urine Culture - Final Culture exhibits no growth. 09/05/23 09:15 Mucosa - Nasopharyngeal Respiratory Panel (PCR) - Final 09/05/23 09:15 Mucosa - Nasopharyngeal SARS-CoV-2, Influenza & RSV (PCR) - Final 09/03/23 17:10 Sputum, Expectorated/Coughed Gram Stain - Final 09/03/23 17:10 Sputum, Expectorated/Coughed Respiratory Culture - Final Streptococcus group C 09/05/23 07:35 Stool C. difficile GDH Antigen & Toxins - Final 09/05/23 07:35 Stool Clostridioides difficile (PCR) - Final 09/05/23 09:20 Urine Catheter - Catheter Legionella Antigen - Final 09/05/23 09:20 Urine Catheter - Catheter Streptococcus pneumoniae Antigen (M - Final 09/05/23 07:35 Stool Stool Occult Blood (JOSE) - Final Occult Blood Positive Physical Exam Narrative Seen and examined. Patient is intubated on ventilator. Responds to verbal stimuli. Abdomen is distended. Physical exam General: Awake. Responds to verbal stimuli. HEENT: Jaundice/icterus. Atraumatic, PERRLA, EOMI, Normocephalic Oral: ET and OG tube. Neck: Supple, No JVD, Negative Carotid Bruits Chest wall/Lungs: Air entry diminished in bilateral lung bases. No crepitation/rhonchi Cardiovascular: Regular rate, Regular Rhythm, Normal S1, Normal S2, No M/G/R Abdomen: Soft, Non Tender, distended. Bowel sounds very sluggish : No dysuria. No renal angle tenderness. No suprapubic tenderness. Extremities: Mild edema, Capillary Refill Less than 3 Seconds Skin: No rashes, No breakdown Musculoskeletal: No Tenderness to Palpation of Joints or Extremities Neurological: Cranial nerves II-XII grossly intact, DTR 2+/4. No acute focal neurological deficit. Psych/Mental Status: Flat affect. Assessment & Plan Assessment/Plan (1) Acute hypoxic respiratory failure: (2) Alcoholic hepatitis: (3) Acute pancreatitis: QUALIFIERS: Pancreatitis type: alcohol induced Acute pancreatitis complication: unspecified Qualified Code(s): K85.20 - Alcohol induced acute pancreatitis without necrosis or infection (4) Anemia: (5) Acute hyponatremia: (6) Hypokalemia: (7) Hypophosphatemia: (8) Desire for detoxification: PLAN: Plan Patient is a 43-year-old female who presented [facility] ED on 09/02/2023 with worsening abdominal pain and distention. 1. Acute hypoxic respiratory failure ? [employer] following. Initially suspected primarily due to volume overload from initial IV fluid resuscitation along with trial breathing from abdominal pain/distention. However, now seems more consistent with some volume overload but also with pneumonia. Had concern for PE on 09/03 as noted below; CTA chest showed no PE but did show multifocal pulmonary traits more severe and left lung suspicious for inflammatory disease along with bilateral pleural effusions larger on the left with consolidation of left lower lobe. Was being treated with IV vancomycin and Zosyn but continued to have worsening leukocytosis as noted below. Infectious workup negative to this point as noted below. Treatment as below. Started on IV Solu-Medrol 40 mg daily on 09/04 given no improvement in respiratory function, will continue this for now. Continue to have respiratory decline and was intubated on morning of 09/05. Currently intubated and sedated. Further vent management per health care / medical job titles. 09/06: Patient is intubated. Responding to verbal stimuli. On 40% FiO2. On propofol. Precedex discontinued. 09/07: On propofol and fentanyl for light sedation 2. Multifactorial shock with severe leukocytosis ? [employer] following as above. Highest concern is for septic versus hypovolemic shock in setting of pancreatitis versus pneumonia. CTA chest on 09/03 with findings as noted above; unclear if more consistent with pneumonia versus inflammatory disease of unclear etiology. Urine antigens negative. Sputum culture negative. Blood cultures with no growth to date. WBC count only 16K on admit, has worsened significantly since admission. Most recent WBC count 44 K on 09/05; notably was started on IV steroids on 625, could be contributing.. Treated with IV vancomycin and Zosyn through 09/03 with no significant improvement. Transitioned to IV cefepime on 09/04, will continue IV vancomycin. Continue to monitor closely. Okay to treat with Levophed as needed to maintain MAP greater than 65. 09/07: CT abdomen reviewed. It showed severe and diffuse pancreatitis, marked of hepatomegaly with diffuse fatty infiltration. Thickening of GB small amount of pericholecystic fluid ascites. Abnormal appearance of right hemicolon from cecum to hepatic flexure. Patient on IV vancomycin and meropenem as recommended by ID 3. Severe acute alcoholic hepatitis ? GI following. MELD score of 20 and Madrey score of 31 on admit. Labs on admit of T. bili 7.90, direct bili 6.14, AST 190, ALT 31, alk phos 89, INR 1.2. CT abdomen pelvis without contrast on admit showed fatty liver with hepatomegaly and suspected pancreatitis. Suspected alcoholic hepatitis without underlying cirrhosis at this time. Large lab workup sent per GI, will follow-up on results. INR worsened to 1.4 on hospital day 2, given dose of IV vitamin K 5 mg x 1, has now remained stable. Ammonia level normal but with encephalopathy as noted below, started on Xifaxan and lactulose on admission, will continue these for now. Monitor daily labs. 09/06: ALT normal. AST 171, AST/ALT more than 3:1 ratio. 09/07: CRP improved to 134. Abdomen is still very distended. Ascites. Leukocytosis, no significant improvement. INR 1.2. Phosphorus low at 1.7. Magnesium normal. Hypocalcemia 6.4. Total bilirubin improving 7.6 bili direct due to atypical severe presentation of severe alcoholic hepatitis. AST and ALT improving. Alkaline phosphatase normal. [facility]'s dismission factor is gradually improving. Most recent .4. As mentioned above not candidate for astride because of multifactorial shock on Levophed. 4. Acute encephalopathy, multifactorial ? Patient became more confused and combative on evening of 09/02, was placed in restraints and started on Precedex with improvement. Precedex discontinued on morning of 09/03. Suspect multifactorial in setting of shock, respiratory failure, acute hepatitis, alcohol withdrawal and medications. Treatment as noted above. Patient was intubated on 09/05 as noted above. Currently intubated and sedated and not following commands. 09/06: Patient mental status could not be assessed effectively but she is responding to verbal stimuli. 5. New onset HFrEF, concern for PE ? Echo 09/03 showed EF 40%, mild to moderate LV global hypokinesis, interventricular septal flattening during systole consistent with RV pressure overload. CTA chest on 09/03 with no PE but with signs of pneumonia versus inflammatory disease as noted above. Continue treatment as noted above for now. 6. Acute pancreatitis ? GI following as above. Lipase [address] abdomen pelvis with findings consistent with pancreatitis as noted above. Was given IV fluids on admission but developed volume overload as noted above so was given IV Lasix. Appeared volume depleted on hospital day 3, given IV fluids again. Pain control with IV morphine every 4 hours as needed. Patient notably with abdominal distention and mild abdominal pain but does not have severe pain or active nausea/vomiting at this time. Holding on further IV fluids for now but can consider if needed. 7. Severe anemia ? Hemoglobin 10.6 on admit, decreased to 6.6 on hospital day 2 after heavy IV fluid resuscitation. S/p 1 unit of blood on 09/02 with hemoglobin recheck 8.4. Iron studies with ferritin 3101. Suspected that patient has acute on chronic anemia due to severe acute liver disease as noted above. Hemoglobin trended down to 6.9 on 09/04, given another 1 unit of blood, recheck 9.3. Stool occult blood positive on 09/04. GI following as above. 8. Severe hyponatremia, improved ? Sodium 118 on admit. Patient with mild cognitive slowing but was not acutely encephalopathic so she was not given hypertonic saline. Suspected to be more chronic hyponatremia possibly due to beer potomania and poor solute intake. Sodium with steady rise on frequent lab checks on hospital day 2. Sodium 133 on 09/04, stable. Continue to monitor daily labs. 9. Severe hypophosphatemia, hypokalemia and hypomagnesemia ? Phosphorus 0.1, potassium 1.8, magnesium 1.2 on admit. Presumed secondary to alcohol abuse with poor solute intake. All electrolytes aggressively repleted on admission with significant improvement. Continue to monitor daily labs. Suspect patient will be at high risk for refeeding syndrome once she is able to start a diet again, will need to check labs more frequently at that point. 10. Alcohol abuse with concern for alcohol withdrawal ? Reported drinking about 12 white claws per day recently. Has 20-year history of heavy alcohol use without cessation. No history of alcohol withdrawal. Given high concern for impending alcohol drawl, patient was started on phenobarbital taper admission with adequate symptom control. Continue phenobarbital taper and other as needed medications per alcohol withdrawal order set. Continue folate and thiamine. Monitor closely. 11. Tobacco abuse ? Current smoker. Nicotine patch ordered on admission. Encouraged cessation. 12. Suspected protein calorie malnutrition with hypoalbuminemia ? Nutrition following. Albumin 2.2 on admit, prealbumin also low. Suspect malnutrition secondary to poor food intake as noted above. Patient currently n.p.o. given acute encephalopathy as noted above. Intubated on 09/05. Will likely need to start tube feeds in the next few days. 13. Mild hypercalcemia ? Calcium 11.2 on admit. Improved back to normal range after IV fluid resuscitation. PTH low at 3.5, vitamin D level pending. Continue to monitor calcium level. 14. History of lichen sclerosis ? Previously required treatment, not currently active. DVT prophylaxis: SCDs CODE STATUS: Full code, verified Expected disposition: TBD Total clinical time spent by myself addressing the patient's medical issues, reviewing all the data, and collaborating with patient's care team: 35 minutes. Charges/Coding Visit Charges Inpatient E&M: 34811 Subs Hosp L3
--- NOTE | 2023-09-08 14:50 | PCM.PN.ID ---
Physical Exam Narrative Awake on vent, mom at bedside Const no apparent distress Resp Effort and Inspection: mechanically ventilated Cardio Rate: tachycardic GI soft to palpation, non-tender and non-distended Extremity General Extremity: Negative for edema Skin Skin Narrative: jaundiced ID ID: Route of nutrition/ use of supplements: [] Nutritional Intake: [] IV Site: [] Rojas Catheter: [] Assessment & Plan Assessment/Plan (1) Alcoholic hepatitis: (2) Acute hypoxic respiratory failure: (3) Acute pancreatitis: QUALIFIERS: Pancreatitis type: alcohol induced Acute pancreatitis complication: unspecified Qualified Code(s): K85.20 - Alcohol induced acute pancreatitis without necrosis or infection PLAN: septic shock with acute pancreatitis - repeat CT showed no abscess or necrosis around pancreas. 09/06 broadened to vanc/allan while cxs pending. Fever much improved. Will follow
[2023-09-08] MEDS: Calcium Gluconate IV 2 GM in 0.9% Normal Saline (100mL Bag) 100 ML IV (17:10)
[2023-09-08 17:34] LABS: Bedside Glucose 172 mg/dL (74-106)
[2023-09-08] MEDS: 0.9% Saline Lock 10 ML Syringe IV (21:27)
[2023-09-08] MEDS: Propofol 10MG/Ml 1,000 MG/100 ML Bottle 12.3 MG CONT INF (22:00)
[2023-09-08] MEDS: fentaNYL drip 100 ML 17.5 MCG CONT INF (22:38)
[2023-09-09] VITALS (40 sets, daily range): BP systolic 86–110; BP diastolic 50–81; PULSE 69–114; RESP 15–30; TEMP 36.9–38.3; O2SAT 93–100; BMI 27.2
[2023-09-09 00:30] LABS: Bedside Glucose 119 mg/dL (74-106)
[2023-09-09] MEDS: Vancomycin HCl 750 MG in 0.9% Normal Saline (250mL Bag) 250 ML 250 MG IV (02:44)
[2023-09-09] MEDS: Norepinephrine 8 MG in 0.9% Normal Saline (250mL Bag) 242 ML 11.3 MG CONT INF (02:44)
[2023-09-09] MEDS: Propofol 10MG/Ml 1,000 MG/100 ML Bottle 12.3 MG CONT INF (02:46)
[2023-09-09] MEDS: fentaNYL drip 100 ML 17.5 MCG CONT INF ×4 (04:21→22:32)
[2023-09-09 05:15] LABS: Hematocrit 29.1 % (37-47); Hemoglobin 8.7 g/dL (12.0-15.0); Mean Corp Hgb Conc 29.9 g/dL (32-36); Mean Corpuscular Hgb 33.3 pg (27.0-32.0); Mean Corpuscular Volume 111.5 fL (81-99); Mean Platelet Vol. 11.8 fl (6.2-12.0); POSITIVE COUNT YES; POSITIVE DIFFERENTIAL YES; POSITIVE MORPHOLOGY YES; Platelet Count 336 K/mm3 (150-450); RBC Distribution Width CV 16.1 % (11.6-14.6); RBC Distribution Width SD 64.2 fl (35.1-43.9); Red Blood Count 2.61 M/mm3 (4.2-5.4)
[2023-09-09 05:20] LABS: White Blood Count 42.3 K/mm3 (4.4-11.0)
[2023-09-09 05:21] LABS: Differential Indicated MANUAL DIFF
[2023-09-09 05:37] LABS: ALB/GLOB Ratio 0.4 RATIO (0.9-2.4); AST(SGOT) 89 U/L (15-37); Alanine Aminotransfer ALT/SGPT 31 U/L (13-56); Albumin, Serum 1.5 g/dL (3.2-5.0); Alkaline Phosphatase 112 U/L (45-117); Anion Gap 8 (5-15); BUN 20 mg/dL (7-18); BUN/Creat Ratio 54.5 RATIO (10-20); Calcium,Total 6.7 mg/dL (8.5-10.1); Chloride 110 mmol/L (98-107); Creatinine, Serum 0.37 mg/dL (0.55-1.02); EST Glomerular Filtration Rate 203 mL/min (>60); Est Glom Filt Rate - Afr Amer 246 mL/min (>60); Estimated Creatinine Clearance 184.09 ml/min; Globulin 3.6 g/dL (2.2-4.2); Glucose 126 mg/dL (74-106); Magnesium 1.6 mg/dL (1.6-2.6); Phosphorus 1.7 mg/dL (2.5-4.9); Potassium 4.3 mmol/L (3.5-5.1); Protein, Total 5.1 g/dL (6.4-8.2); Sodium Level 143 mmol/L (136-145)
[2023-09-09] MEDS: Meropenem 1 GM in 0.9% Normal Saline (100mL MB+) 100 ML IV ×3 (05:41→19:55)
[2023-09-09 05:55] LABS: Basophilic Stippling RARE; Stomatocyte 1+; Toxic Granulation 2+
[2023-09-09 05:56] LABS: Lymphocyte 6 % (19-41); Metamyelocyte 1 % (0-1); Monocyte 2 % (0-10); Myelocyte 3 % (0-0); Neutrophil-Band 24 % (0-5); Neutrophil-Segmented 68 % (47-70); Total Cells Counted 100 (MANUAL DIFF)
[2023-09-09 05:57] LABS: Absolute Lymphocyte Count 2.53 X10^3/uL (0.83-4.51); Absolute Neutrophil Count 37.2 X10^3/uL (2.0-7.7)
[2023-09-09 05:58] LABS: Differential Comment SCANNED
[2023-09-09] MEDS: TITRATION PARAMETER CHANGE 1 EACH IV (06:19)
[2023-09-09] MEDS: Dextrose 5%-Water (1000mL Bag) 1,000 ML 100 ML IV ×2 (06:24→16:22)
[2023-09-09 06:34] LABS: Bedside Glucose 115 mg/dL (74-106)
[2023-09-09] MEDS: Ipratropium/Albuterol Sulfate 3 ML AMPUL.NEB INHALATION ×2 (07:11→16:57)
[2023-09-09] MEDS: Pantoprazole Sodium 40 MG in 0.9% Normal Saline (100mL MB+) 100 ML 330 MG IV (07:52)
[2023-09-09] MEDS: Folic Acid 1 MG Tablet PO (07:54)
[2023-09-09] MEDS: Thiamine Hydrochloride 100 MG Tablet PO (07:54)
[2023-09-09] MEDS: Chlorhexidine 15 ML PO ×2 (07:56→19:56)
[2023-09-09] MEDS: CHLORHEXIDINE GLUC 2% CLOTH 1 EACH TOWELETTE TOPICAL (07:57)
--- NOTE | 2023-09-09 08:01 | PCM.PN.HOSP ---
Reason for Visit Reason for Visit: Diagnoses Anemia, unspecified (09/02/23) Other disorders of phosphorus metabolism (09/02/23) Hypomagnesemia (09/02/23) Hypo-osmolality and hyponatremia (09/02/23) Hypokalemia (09/02/23) Alcohol abuse, uncomplicated (09/02/23) Acute respiratory failure with hypoxia (09/02/23) Alcoholic hepatitis without ascites (09/02/23) Alcoholic hepatic failure without coma (09/02/23) Alcohol induced acute pancreatitis without necrosis or infection (09/02/23) Acute pancreatitis without necrosis or infection, unspecified (09/02/23) Objective Data Objective Data Vital Signs: Vital Signs Temp Pulse Resp BP Pulse Ox O2 Del Method O2 Flow Rate 98.6 F 90 30 H 101/79 94 Mechanical Ventilator 6 09/09/23 07:00 09/09/23 07:11 09/09/23 07:11 09/09/23 07:00 09/09/23 07:11 09/09/23 07:11 09/05/23 12:55 FiO2 30 09/09/23 07:11 Oxygen Flow Rate (L/min) 6 Oxygen Delivery Method Mechanical Ventilator Weight: 158 lb 11.725 oz Body Mass Index (BMI) 27.2 Intake & Output: Intake and Output for Last 24 Hours 09/07/23 09/08/23 09/09/23 23:59 23:59 23:59 Intake Total 3721.49 / 3767.61 5215.45 / 5566.92 1774.15 / 1774.15 Output Total 1525 / 1725 2050 / 2250 515 / 515 Balance 2196.49 / 2042.61 3165.45 / 3316.92 1259.15 / 1259.15 Lab / Micro Data 09/09/23 05:05 09/09/23 05:05 Labs: Laboratory Results - last 24 hr 09/08/23 05:35: Absolute Neuts (auto) 38.4 H, Absolute Lymphs (auto) 3.02, Total Counted 100, Neutrophils % (Manual) 84 H, Band Neutrophils % 5, Lymphocytes % (Manual) 7 L, Metamyelocytes % 3 H, Myelocytes % 1 H, Nucleated RBCs/100 WBC 1, Diff Path Review Reviewed, Anisocytosis 2+, Macrocytosis 2+ 09/08/23 09:47: POC Glucose 128 H 09/08/23 11:32: POC Glucose 131 H 09/08/23 17:14: POC Glucose 172 H 09/09/23 00:03: POC Glucose 119 H 09/09/23 05:05: WBC 42.3 H*, RBC 2.61 L, Hgb 8.7 L, Hct 29.1 L, MCV 111.5 H, MCH 33.3 H, MCHC 29.9 L, RDW Std Deviation 64.2 H, RDW Coeff of Rebel 16.1 H, Plt Count 336, MPV 11.8, Neut % (Auto) Not Reportable, Absolute Neuts (auto) 37.2 H, Absolute Lymphs (auto) 2.53, Total Counted 100, Neutrophils % (Manual) 68, Band Neutrophils % 24 H, Lymphocytes % (Manual) 6 L, Monocytes % (Manual) 2, Metamyelocytes % 1, Myelocytes % 3 H, Differential Comment SCANNED, Diff Path Review May foll, Toxic Granulation 2+, Basophilic Stippling RARE, Stomatocytes 1+, Sodium 143, Potassium 4.3, Chloride 110 H, Carbon Dioxide 25.0, Anion Gap 8, BUN 20 H, Creatinine 0.37 L, Estim Creat Clear Calc 184.09, Est GFR (MDRD) Af Amer 246, Est GFR (MDRD) Non-Af 203, BUN/Creatinine Ratio 54.5 H, Glucose 126 H, Calcium 6.7 L, Phosphorus 1.7 L, Magnesium 1.6, Total Bilirubin 6.00 H, AST 89 H, ALT 31, Alkaline Phosphatase 112, Total Protein 5.1 L, Albumin 1.5 L, Globulin 3.6, Albumin/Globulin Ratio 0.4 L 09/09/23 06:17: POC Glucose 115 H Micro: Microbiology 09/07/23 19:30 Sputum, Induced/Lukens Gram Stain - Final 09/07/23 19:30 Sputum, Induced/Lukens Respiratory Culture - Preliminary Culture exhibits no growth. 09/07/23 06:45 Urine Catheter - Rojas Urine Culture - Preliminary Culture exhibits no growth. 09/06/23 08:03 Sputum, Induced/Lukens Gram Stain - Final 09/06/23 08:03 Sputum, Induced/Lukens Respiratory Culture - Final Presumptive C albicans 09/03/23 04:25 Blood Culture (Wb) - Anticubital Right Blood Culture - Final No growth in 5 days. 09/03/23 04:20 Blood Culture (Wb) - Left Forearm Blood Culture - Final No growth in 5 days. 09/04/23 09:45 Urine Catheter - Rojas Urine Culture - Final Culture exhibits no growth. 09/05/23 09:15 Mucosa - Nasopharyngeal Respiratory Panel (PCR) - Final 09/05/23 09:15 Mucosa - Nasopharyngeal SARS-CoV-2, Influenza & RSV (PCR) - Final 09/03/23 17:10 Sputum, Expectorated/Coughed Gram Stain - Final 09/03/23 17:10 Sputum, Expectorated/Coughed Respiratory Culture - Final Streptococcus group C 09/05/23 07:35 Stool C. difficile GDH Antigen & Toxins - Final 09/05/23 07:35 Stool Clostridioides difficile (PCR) - Final 09/05/23 09:20 Urine Catheter - Catheter Legionella Antigen - Final 09/05/23 09:20 Urine Catheter - Catheter Streptococcus pneumoniae Antigen (M - Final 09/05/23 07:35 Stool Stool Occult Blood (JOSE) - Final Occult Blood Positive Physical Exam Narrative Seen and examined. Patient is intubated on ventilator. Responds to verbal stimuli. Abdomen is distended. Had some bowel movement Physical exam General: Awake. Responds to verbal stimuli. HEENT: Jaundice/icterus. Atraumatic, PERRLA, EOMI, Normocephalic Oral: ET and OG tube. Neck: Supple, No JVD, Negative Carotid Bruits Chest wall/Lungs: Air entry diminished in bilateral lung bases. No crepitation/rhonchi Cardiovascular: Regular rate, Regular Rhythm, Normal S1, Normal S2, No M/G/R Abdomen: Soft, Non Tender, distended.Gaseous distention in the middle of the abdomen/umbilical region. Bowel sounds very sluggish : No dysuria. No renal angle tenderness. No suprapubic tenderness. Extremities: Mild edema, Capillary Refill Less than 3 Seconds Skin: No rashes, No breakdown Musculoskeletal: No Tenderness to Palpation of Joints or Extremities Neurological: Cranial nerves II-XII grossly intact, DTR 2+/4. No acute focal neurological deficit. Psych/Mental Status: Flat affect. Assessment & Plan Assessment/Plan (1) Acute hypoxic respiratory failure: (2) Alcoholic hepatitis: (3) Acute pancreatitis: QUALIFIERS: Acute pancreatitis complication: unspecified Pancreatitis type: alcohol induced Qualified Code(s): K85.20 - Alcohol induced acute pancreatitis without necrosis or infection (4) Anemia: (5) Acute hyponatremia: (6) Hypokalemia: (7) Hypophosphatemia: (8) Desire for detoxification: PLAN: Plan Patient is a 43-year-old female who presented [facility] ED on 09/02/2023 with worsening abdominal pain and distention. 1. Acute hypoxic respiratory failure ? [employer] following. Initially suspected primarily due to volume overload from initial IV fluid resuscitation along with trial breathing from abdominal pain/distention. However, now seems more consistent with some volume overload but also with pneumonia. Had concern for PE on 09/03 as noted below; CTA chest showed no PE but did show multifocal pulmonary traits more severe and left lung suspicious for inflammatory disease along with bilateral pleural effusions larger on the left with consolidation of left lower lobe. Was being treated with IV vancomycin and Zosyn but continued to have worsening leukocytosis as noted below. Infectious workup negative to this point as noted below. Treatment as below. Started on IV Solu-Medrol 40 mg daily on 09/04 given no improvement in respiratory function, will continue this for now. Continue to have respiratory decline and was intubated on morning of 09/05. Currently intubated and sedated. Further vent management per collector of aquarium specimens. 09/06: Patient is intubated. Responding to verbal stimuli. On 40% FiO2. On propofol. Precedex discontinued. 09/07: On propofol and fentanyl for light sedation 09/08: Light sedation. On 30% FiO2 2. Multifactorial shock with severe leukocytosis ? 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 Highest concern is for septic versus hypovolemic shock in setting of pancreatitis versus pneumonia. CTA chest on 09/03 with findings as noted above; unclear if more consistent with pneumonia versus inflammatory disease of unclear etiology. Urine antigens negative. Sputum culture negative. Blood cultures with no growth to date. WBC count only 16K on admit, has worsened significantly since admission. Most recent WBC count 44 K on 09/05; notably was started on IV steroids on 625, could be contributing.. Treated with IV vancomycin and Zosyn through 09/03 with no significant improvement. Transitioned to IV cefepime on 09/04, will continue IV vancomycin. Continue to monitor closely. Okay to treat with Levophed as needed to maintain MAP greater than 65. 09/07: CT abdomen reviewed. It showed severe and diffuse pancreatitis, marked of hepatomegaly with diffuse fatty infiltration. Thickening of GB small amount of pericholecystic fluid ascites. Abnormal appearance of right hemicolon from cecum to hepatic flexure. Patient on IV vancomycin and meropenem as recommended by ID. Serum calcium 6.7. Magnesium low normal 1.6. Serum phosphorus low. Potassium normal. IV potassium phosphate ordered. 3. Severe acute alcoholic hepatitis ? GI following. MELD score of 20 and Madrey score of 31 on admit. Labs on admit of T. bili 7.90, direct bili 6.14, AST 190, ALT 31, alk phos 89, INR 1.2. CT abdomen pelvis without contrast on admit showed fatty liver with hepatomegaly and suspected pancreatitis. Suspected alcoholic hepatitis without underlying cirrhosis at this time. Large lab workup sent per GI, will follow-up on results. INR worsened to 1.4 on hospital day 2, given dose of IV vitamin K 5 mg x 1, has now remained stable. Ammonia level normal but with encephalopathy as noted below, started on Xifaxan and lactulose on admission, will continue these for now. Monitor daily labs. 09/06: ALT normal. AST 171, AST/ALT more than 3:1 ratio. 09/07: CRP improved to 134. Abdomen is still very distended. Ascites. Leukocytosis, no significant improvement. INR 1.2. Phosphorus low at 1.7. Magnesium normal. Hypocalcemia 6.4. Total bilirubin improving 7.6 bili direct due to atypical severe presentation of severe alcoholic hepatitis. AST and ALT improving. Alkaline phosphatase normal. [facility]'s dismission factor is gradually improving. Most recent 21.4. As mentioned above not candidate for astride because of multifactorial shock on Levophed. 09/08: RUQ/liver ultrasound with spleen ordered. Liver chemistry shows improvement in total bilirubin/direct bilirubin, AST. ALT normal. Alkaline phosphatase normal. 4. Acute encephalopathy, multifactorial ? Patient became more confused and combative on evening of 09/02, was placed in restraints and started on Precedex with improvement. Precedex discontinued on morning of 09/03. Suspect multifactorial in setting of shock, respiratory failure, acute hepatitis, alcohol withdrawal and medications. Treatment as noted above. Patient was intubated on 09/05 as noted above. Currently intubated and sedated and not following commands. 09/06: Patient mental status could not be assessed effectively but she is responding to verbal stimuli. 08/31: Follows verbal cues and commands. 5. New onset HFrEF, concern for PE ? Echo 09/03 showed EF 40%, mild to moderate LV global hypokinesis, interventricular septal flattening during systole consistent with RV pressure overload. CTA chest on 09/03 with no PE but with signs of pneumonia versus inflammatory disease as noted above. Continue treatment as noted above for now. 6. Acute pancreatitis ? GI following as above. Lipase [address] abdomen pelvis with findings consistent with pancreatitis as noted above. Was given IV fluids on admission but developed volume overload as noted above so was given IV Lasix. Appeared volume depleted on hospital day 3, given IV fluids again. Pain control with IV morphine every 4 hours as needed. Patient notably with abdominal distention and mild abdominal pain but does not have severe pain or active nausea/vomiting at this time. Holding on further IV fluids for now but can consider if needed. 7. Severe anemia ? Hemoglobin 10.6 on admit, decreased to 6.6 on hospital day 2 after heavy IV fluid resuscitation. S/p 1 unit of blood on 09/02 with hemoglobin recheck 8.4. Iron studies with ferritin 3101. Suspected that patient has acute on chronic anemia due to severe acute liver disease as noted above. Hemoglobin trended down to 6.9 on 09/04, given another 1 unit of blood, recheck 9.3. Stool occult blood positive on 09/04. GI following as above. 8. Severe hyponatremia, improved ? Sodium 118 on admit. Patient with mild cognitive slowing but was not acutely encephalopathic so she was not given hypertonic saline. Suspected to be more chronic hyponatremia possibly due to beer potomania and poor solute intake. Sodium with steady rise on frequent lab checks on hospital day 2. Sodium 133 on 09/04, stable. Continue to monitor daily labs. 9. Severe hypophosphatemia, hypokalemia and hypomagnesemia ? Phosphorus 0.1, potassium 1.8, magnesium 1.2 on admit. Presumed secondary to alcohol abuse with poor solute intake. All electrolytes aggressively repleted on admission with significant improvement. Continue to monitor daily labs. Suspect patient will be at high risk for refeeding syndrome once she is able to start a diet again, will need to check labs more frequently at that point. 10. Alcohol abuse with concern for alcohol withdrawal ? Reported drinking about 12 white claws per day recently. Has 20-year history of heavy alcohol use without cessation. No history of alcohol withdrawal. Given high concern for impending alcohol drawl, patient was started on phenobarbital taper admission with adequate symptom control. Continue phenobarbital taper and other as needed medications per alcohol withdrawal order set. Continue folate and thiamine. Monitor closely. 11. Tobacco abuse ? Current smoker. Nicotine patch ordered on admission. Encouraged cessation. 12. Suspected protein calorie malnutrition with hypoalbuminemia ? Nutrition following. Albumin 2.2 on admit, prealbumin also low. Suspect malnutrition secondary to poor food intake as noted above. Patient currently n.p.o. given acute encephalopathy as noted above. Intubated on 09/05. Will likely need to start tube feeds in the next few days. 13. Mild hypercalcemia ? Calcium 11.2 on admit. Improved back to normal range after IV fluid resuscitation. PTH low at 3.5, vitamin D level pending. Continue to monitor calcium level. 14. History of lichen sclerosis ? Previously required treatment, not currently active. DVT prophylaxis: SCDs CODE STATUS: Full code, verified Expected disposition: TBD Total time of the visit including total time spent in counseling or coordination of care, (more than 50% of the total time, spent in obtaining medical information from nurses and other ancillary care providers,explaining to the patient about labs, imaging, diagnosis and management of active complex medical conditions), discussion with nursing as, review of labs and imaging is 50 minutes. Charges/Coding Visit Charges Inpatient E&M: 08569 Subs Hosp L3
[2023-09-09] MEDS: Propofol 10MG/Ml 1,000 MG/100 ML Bottle 13 MG CONT INF ×3 (08:05→22:32)
--- NOTE | 2023-09-09 08:11 | US_ITS ---
STUDY: ABDOMINAL ULTRASOUND - RIGHT UPPER QUADRANT REASON FOR VISIT: Female, 43 years old abdominal pain, elevated LFTs TECHNIQUE: Ultrasound evaluation of the right upper quadrant was performed with real-time and static santiago-scale imaging. TECHNICAL QUALITY: Limited. Examination limited due to the patient?s condition. COMPARISON: None. FINDINGS: Liver: The liver measures 23.4 cm. There is increased echogenicity consistent with fatty infiltration. The bile ducts are within normal limits. There is hepatic color flow. The direction of portal flow is hepatopetal. There is no demonstrated mass lesion. Gallbladder: Normal distended gallbladder. The gallbladder wall measures 5 mm. There is a negative sonographic Singleton''s sign. There is pericholecystic fluid. There are no gallstones. Common Bile Duct (C.B.D.): The common bile duct measures 8 mm. Pancreas: Visualized pancreas is heterogeneous Right Kidney: Normal size of the right kidney. The right kidney measures 12.4 x 6.8 x 4.9 cm. Normal renal cortex. Cortex measures 1.9 cm . There is no demonstrated renal mass or cyst. There is no right hydronephrosis. Spleen: Spleen measures 11.8 cm, no discrete lesion there is fluid around the spleen US/Abdomen Limited IMPRESSION: Hepatomegaly with diffuse fatty infiltration of the liver, no discrete lesion Gallbladder wall thickening at 5 mm with pericholecystic fluid and the common bile duct dilatation. However, there is no sonographic evidence of gallstones, and a air traffic instructor notes a negative Singleton sign. Please correlate with lab and physical findings, if they are equivocal, consider HIDA scan for further evaluation Left upper quadrant ascites Electronically Signed: Perry Rodriguez MD at 17:28 EDT ,
[2023-09-09] MEDS: Magnesium Sulfate 2 GM in Dextrose 5%-Water (100mL Bag) 100 ML IV (11:20)
[2023-09-09] MEDS: Potassium Phosphate 21 MM in 0.9% Normal Saline (250mL Bag) 250 ML 84 MM IV (11:21)
[2023-09-09 11:29] LABS: Bedside Glucose 146 mg/dL (74-106)
--- NOTE | 2023-09-09 13:35 | PCM.PN.TICU ---
Objective Data Objective Data Vital Signs: Vital Signs Last response Temperature 38.0 C H 09/09/23 13:00 Temperature Source Core 09/09/23 13:00 Pulse Rate 100 09/09/23 13:00 Pulse Strength Normal (2+) 09/09/23 10:00 Respiratory Rate 18 09/09/23 13:00 Respiratory Effort Mechanically Ventilated 09/09/23 12:00 Respiratory Depth Normal 09/09/23 04:00 Respiratory Pattern Normal 09/09/23 07:11 Blood Pressure 101/70 09/09/23 13:00 Blood Pressure Mean 80 09/09/23 13:00 Blood Pressure Source Manual 09/09/23 12:00 Blood Pressure Position Semi-Fowlers 09/09/23 13:00 Blood Pressure Location Right Arm 09/09/23 13:00 Pulse Ox 94 09/09/23 13:00 Oxygen Delivery Method Mechanical Ventilator 09/09/23 13:00 Oxygen Flow Rate (L/min) 6 09/05/23 12:55 Fraction of Inspired Oxygen (FIO2) 30 09/09/23 13:00 I&O: I&O Last 24 Hours 09/08/23 09/09/23 09/09/23 23:59 11:59 23:59 Intake Total 2963.69 / 5566.92 2158.07 / 2247.07 89 / 2247.07 Output Total 1350 / 2250 865 / 1165 300 / 1165 Balance 1613.69 / 3316.92 1293.07 / 1082.07 -211 / 1082.07 I&O: Total Stay 09/02/23 16:19 thru 09/09/23 13:00 Intake Total 60976.9466 Output Total 19659 Balance 39072.9466 Current Meds Ordered / Administered: Current meds ordered / Administered Generic Name Dose Route Start Last Admin Trade Name Freq PRN Reason Stop Dose Admin Acetaminophen 650 mg 09/07/23 04:32 09/07/23 04:40 Acetaminophen 650 Mg/20 Ml Udc GT 650 mg Q6H PRN PRN Administration FEVER Albuterol Sulfate 2.5 mg 09/02/23 20:58 09/08/23 20:07 Albuterol 2.5 Mg/3 Ml Vial.Neb. INHALATION 2.5 mg Q2H PRN PRN Administration SOB &/OR WHEEZING Albuterol/Ipratropium 3 ml 09/03/23 15:00 09/09/23 07:11 Ipratropium/Albuterol Sulfate 3 Ml Ampul.Neb INHALATION 3 ml Q6H PRN Administration SHORTNESS OF BREATH Chlorhexidine Gluconate 1 each 09/04/23 10:00 09/09/23 07:57 Chlorhexidine Gluc 2% Cloth 1 Each [place] TOPICAL 1 each DAILY SHELIA Administration Chlorhexidine Gluconate 15 ml 09/06/23 22:00 09/09/23 07:56 Chlorhexidine 15 Ml PO 15 ml BID SHELIA Administration Dicyclomine HCl 20 mg 09/03/23 08:28 Dicyclomine 10 Mg Capsule PO Q6H PRN PRN abdominal discomfort Folic Acid 1 mg 09/04/23 08:00 09/09/23 07:54 Folic Acid 1 Mg Tablet PO 1 mg DAILY@0800 SHELIA Administration Sodium Chloride 250 mls @ 15 mls/hr 09/02/23 21:05 IV .[id number] PRN Additional IVPB Infusion Sodium Chloride 250 mls @ 15 mls/hr 09/02/23 21:05 IV .[id number] PRN Saline Flush Pantoprazole Sodium 40 mg/ 110 mls @ 330 mls/hr 09/04/23 10:00 09/09/23 08:20 Sodium Chloride IV Infused DAILY SHELIA Infusion Norepinephrine Bitartrate 8 mg 250 mls @ 9.375 mls/hr 09/04/23 04:25 09/09/23 08:00 / Sodium Chloride CONT INF 5 mcg/min .[id number] SHELIA 9.4 mls/hr Titration Protocol 5 MCG/MIN Vancomycin IV-PHARMACY TO DOSE 500 mls @ 250 mls/hr 09/04/23 13:19 1 each/ Sodium Chloride IV X1 PRN Rx to Dose Protocol Fentanyl 100 mls @ 5 mls/hr 09/06/23 07:30 09/09/23 10:49 CONT INF 175 mcg/hr UD SHELIA 17.5 mls/hr Administration Protocol 50 MCG/HR Propofol 1,000 mg in 100 mls @ 4.32 mls/hr 09/07/23 04:35 09/09/23 13:00 Diprivan CONT INF 30 mcg/kg/min .Q12H SHELIA 13 mls/hr Titration Protocol 10 MCG/KG/MIN Dextrose 1,000 mls @ 100 mls/hr 09/07/23 07:00 09/09/23 07:00 IV 100 mls/hr .Q10H SHELIA Infusion Enteral Nutritional Formula 1,000 mls @ 55 mls/hr 09/07/23 10:00 09/07/23 12:29 Vital Af 1.2 Darwin Liquid GT Not Given .[id number] SHELIA Meropenem 1 gm/ Sodium 120 mls @ 33 mls/hr 09/07/23 14:00 09/09/23 09:50 Chloride IV Infused Q8 SHELIA Infusion Vancomycin HCl 750 mg/ Sodium 265 mls @ 250 mls/hr 09/08/23 03:00 09/09/23 03:50 Chloride IV Infused Q12H SHELIA Infusion Potassium Phosphate 21 mm/ 257 mls @ 84 mls/hr 09/09/23 11:00 09/09/23 11:21 Sodium Chloride IV 09/09/23 14:03 84 mls/hr X1 ONE Administration Insulin Human Lispro 0 unit 09/07/23 18:00 09/09/23 11:10 Insulin Lispro 100 Unit/Ml Insuln.Pen SC Not Given Q6 [facility] Protocol Loperamide HCl 2 mg 09/03/23 08:28 Loperamide 2 Mg Capsule PO Q4H PRN PRN Loose Stools Methylprednisolone 40 mg 09/06/23 10:00 09/09/23 08:20 Methylprednisolone 40 Mg/Ml Vial IV 40 mg DAILY SHELIA Administration Nicotine 14 mg 09/02/23 20:58 09/09/23 07:54 Nicotine 14 Mg Patch TD 14 mg DAILY SHELIA Administration Ondansetron HCl 4 mg 09/02/23 20:58 Ondansetron 4 Mg/2 Ml Vial IV Q8H PRN PRN NAUSEA/VOMITING Sodium Chloride 10 - 40 ml 09/02/23 21:05 09/08/23 21:27 0.9% Saline Lock 10 Ml Syringe IV 40 ml UD PRN Administration SALINE FLUSH Thiamine HCl 100 mg 09/04/23 08:00 09/09/23 07:54 Thiamine Hydrochloride 100 Mg Tablet PO 100 mg DAILYCM SHELIA Administration Vancomycin Protocol 1 lab 09/09/23 12:30 Vancomycin Trough/Random Due MC 09/09/23 16:30 DAILY [facility] Lab / Micro Data 09/09/23 05:05 09/09/23 05:05 Labs: Laboratory Results - last 24 hr 09/08/23 17:14: POC Glucose 172 H 09/09/23 00:03: POC Glucose 119 H 09/09/23 05:05: WBC 42.3 H*, RBC 2.61 L, Hgb 8.7 L, Hct 29.1 L, MCV 111.5 H, MCH 33.3 H, MCHC 29.9 L, RDW Std Deviation 64.2 H, RDW Coeff of Rebel 16.1 H, Plt Count 336, MPV 11.8, Neut % (Auto) Not Reportable, Absolute Neuts (auto) 37.2 H, Absolute Lymphs (auto) 2.53, Total Counted 100, Neutrophils % (Manual) 68, Band Neutrophils % 24 H, Lymphocytes % (Manual) 6 L, Monocytes % (Manual) 2, Metamyelocytes % 1, Myelocytes % 3 H, Differential Comment SCANNED, Diff Path Review May foll, Toxic Granulation 2+, Basophilic Stippling RARE, Stomatocytes 1+, Sodium 143, Potassium 4.3, Chloride 110 H, Carbon Dioxide 25.0, Anion Gap 8, BUN 20 H, Creatinine 0.37 L, Estim Creat Clear Calc 184.09, Est GFR (MDRD) Af Amer 246, Est GFR (MDRD) Non-Af 203, BUN/Creatinine Ratio 54.5 H, Glucose 126 H, Calcium 6.7 L, Phosphorus 1.7 L, Magnesium 1.6, Total Bilirubin 6.00 H, AST 89 H, ALT 31, Alkaline Phosphatase 112, Total Protein 5.1 L, Albumin 1.5 L, Globulin 3.6, Albumin/Globulin Ratio 0.4 L 09/09/23 06:17: POC Glucose 115 H 09/09/23 11:03: POC Glucose 146 H Micro: Microbiology 09/07/23 19:30 Sputum, Induced/Lukens Gram Stain - Final 09/07/23 19:30 Sputum, Induced/Lukens Respiratory Culture - Final Presumptive C albicans 09/07/23 06:45 Urine Catheter - Lott Urine Culture - Final Culture exhibits no growth. Assessment and Plan . Assessment and plan: 1. Multifactorial shock Clinical concern for septic and hypovolemic etiologies in the setting of pancreatitis and progressive infiltrates noted on chest imaging. The patient remains on broad-spectrum antimicrobials per ID recommendations. Plan to continue vasopressor support to maintain a mean arterial pressure at or above 65 mmHg. 2. Acute alcohol withdrawal Continue current medication regimen along with thiamine and folic acid. 3. Acute hypoxemic respiratory failure Clinical concern for third spacing of fluids in the setting of acute pancreatitis coupled with probable underlying pneumonia. The patient's respiratory status worsened and she was ultimately intubated on September 05. Plan to continue assist-control mode mechanical ventilation. Wean FiO2 and PEEP to maintain saturations at or above 90%. The patient will remain on broad-spectrum antimicrobials. 4. Severe alcoholic hepatitis/acute alcoholic pancreatitis Liver function parameters appear to be slowly improving. Gastroenterology is currently following to assist with medical management. Continue supportive measures. 5. Anemia Continue to monitor blood counts daily. Transfuse if hemoglobin drops below 7 g/dL. Continue PPI therapy. Again, gastroenterology is following to assist with medical management. - Will continue to manage and replete critical electrolytes. Will keep Mg >2.0, >;4.0, and Phos greater than 3.0. - Will actively target with vasopressors , if needed, to keep MAP > 65. - Appropriately maintain saturations above 92%. - Continue to monitor UOP carefully to ensure at least 0.5ml/kg/h. - Maintain appropriate sleep/wake cycles to avoid ICU delirium. DVT ppx: SCDs GI ppx : Protonix Critical Care Time: 60 min The entirety of this encounter was done via Telemedicine Physical Exam Const Constitutional Narrative: intubated and sedated HEENT normocephalic Eyes PERRL Resp Effort and Inspection: abnormal respiratory pattern Auscultation: bronchial breath sounds Cardio Rate: tachycardic GI Inspection: abdominal distention Subjective Subjective Patient had no acute events overnight. Patient vents was weaned to 30 %. She was started on merrem and vanc. She has k phos going. Pending abd US. Lines - PIVS , PICC Tubes - ETT, lott , OG Gtts- propfol 30 fent 175 levo 6 UOP - 600 ml Vent - Peep % , FiO2 30 % TV 400 R 16
[2023-09-09] MEDS: Vancomycin Trough/Random Due 1 LAB MC (14:45)
[2023-09-09 15:09] LABS: Vancomycin, Trough Level 13.6 ug/mL (5.0-15.0)
[2023-09-09] MEDS: Vancomycin IV 1,000 MG/200 ML BAG 200 MG IV (15:40)
--- NOTE | 2023-09-09 16:18 | PCM.RX.CS ---
Consult Antibiotic Management Pharmacy has been consulted to manage selected antibiotic: Vancomycin Type of Intervention Type of Consult: Follow-up Suspected Infection Suspected Infection: Pneumonia Prior Doses of Antibiotics Prior Doses of Antibiotics Received/Current Regimen: Presently on 750mg iv q12h. Labs Labs: Sodium 143 mmol/L (136-145) 09/09/23 05:05 Potassium 4.3 mmol/L (3.5-5.1) 09/09/23 05:05 Chloride 110 mmol/L (98-107) H 09/09/23 05:05 Carbon Dioxide 25.0 mmol/L (21.0-32.0) 09/09/23 05:05 Anion Gap 8 (5-15) 09/09/23 05:05 BUN 20 mg/dL (7-18) H 09/09/23 05:05 Creatinine 0.37 mg/dL (0.55-1.02) L 09/09/23 05:05 Est GFR (MDRD) Af Amer 246 mL/min (>60) 09/09/23 05:05 Est GFR (MDRD) Non-Af 203 mL/min (>60) 09/09/23 05:05 BUN/Creatinine Ratio 54.5 RATIO (10-20) H 09/09/23 05:05 Glucose 126 mg/dL (74-106) H 09/09/23 05:05 Vancomycin Trough 13.6 ug/mL (5.0-15.0) 09/09/23 14:45 Random Vancomycin 14.2 ug/mL (0.0-15.0) 09/06/23 14:33 Microbiology Microbiology: Microbiology 09/07/23 19:30 Sputum, Induced/Lukens Gram Stain - Final 09/07/23 19:30 Sputum, Induced/Lukens Respiratory Culture - Final Presumptive C albicans 09/07/23 06:45 Urine Catheter - Rojas Urine Culture - Final Culture exhibits no growth. 09/06/23 08:03 Sputum, Induced/Lukens Gram Stain - Final 09/06/23 08:03 Sputum, Induced/Lukens Respiratory Culture - Final Presumptive C albicans 09/03/23 04:25 Blood Culture (Wb) - Anticubital Right Blood Culture - Final No growth in 5 days. 09/03/23 04:20 Blood Culture (Wb) - Left Forearm Blood Culture - Final No growth in 5 days. 09/04/23 09:45 Urine Catheter - Rojas Urine Culture - Final Culture exhibits no growth. 09/05/23 09:15 Mucosa - Nasopharyngeal Respiratory Panel (PCR) - Final 09/05/23 09:15 Mucosa - Nasopharyngeal SARS-CoV-2, Influenza & RSV (PCR) - Final 09/03/23 17:10 Sputum, Expectorated/Coughed Gram Stain - Final 09/03/23 17:10 Sputum, Expectorated/Coughed Respiratory Culture - Final Streptococcus group C 09/05/23 07:35 Stool C. difficile GDH Antigen & Toxins - Final 09/05/23 07:35 Stool Clostridioides difficile (PCR) - Final 09/05/23 09:20 Urine Catheter - Catheter Legionella Antigen - Final 09/05/23 09:20 Urine Catheter - Catheter Streptococcus pneumoniae Antigen (M - Final 09/05/23 07:35 Stool Stool Occult Blood (JOSE) - Final Occult Blood Positive Dosing Weight Weight used for dosin kg Estimated Creatinine Clearance Estimated Creatinine Clearance: >100ml/min Goal Trough Goal Trough: 15-20 mcg/mL Pharmacy Plan for Drug Dosing Pharmacy Plan for Drug Dosing: Trough today 12 hrs post dose 13.6. Slightly below desired range of 15-20. Recommend increasing dose to 1gm iv q12h with trough before 4th dose. Pharmacy Service will continue to monitor and adjust dosing as required. Follow-Up Labs Follow-Up Labs: Trough: Vancomycin (7.1.24 @0330)
[2023-09-09] MEDS: Insulin Lispro 100 UNIT/ML INSULN.PEN SC (18:08)
[2023-09-09 18:18] LABS: Bedside Glucose 154 mg/dL (74-106)
[2023-09-09] MEDS: 0.9% Saline Lock 10 ML Syringe IV (19:56)
[2023-09-09] MEDS: Albuterol 2.5 MG/3 ML VIAL.NEB. INHALATION (22:25)
[2023-09-09 22:50] LABS: Bedside Glucose 118 mg/dL (74-106)
[2023-09-10] VITALS (38 sets, daily range): BP systolic 86–120; BP diastolic 50–82; PULSE 74–113; RESP 15–25; TEMP 36.6–38.5; O2SAT 89–100; BMI 27.8
[2023-09-10] MEDS: Albuterol 2.5 MG/3 ML VIAL.NEB. INHALATION (02:29)
[2023-09-10] MEDS: Vancomycin IV 1,000 MG/200 ML BAG 200 MG IV ×2 (04:22→16:58)
[2023-09-10] MEDS: 0.9% Normal Saline (250mL Bag) 250 ML 15 ML IV (04:22)
[2023-09-10] MEDS: Propofol 10MG/Ml 1,000 MG/100 ML Bottle 21.6 MG CONT INF ×5 (04:28→22:36)
[2023-09-10] MEDS: CHLORHEXIDINE GLUC 2% CLOTH 1 EACH TOWELETTE TOPICAL ×2 (04:28→22:36)
[2023-09-10] MEDS: fentaNYL drip 100 ML 17.5 MCG CONT INF ×4 (04:28→22:36)
[2023-09-10] MEDS: 0.9% Saline Lock 10 ML Syringe IV (04:29)
[2023-09-10 04:36] LABS: Absolute Lymphocyte Count 1.92 X10^3/uL (0.83-4.51); Absolute Neutrophil Count 36.4 X10^3/uL (2.0-7.7); Basophil# 0.06 X10^3/uL; Basophil% 0.1 % (0-1); Eosinophil# 0.08 X10^3/uL; Eosinophils% 0.2 % (0-5); Hematocrit 25.3 % (37-47); Hemoglobin 8.2 g/dL (12.0-15.0); Lymphocyte # 1.92 X10^3/ul (0.83-4.51); Lymphocyte % 4.7 % (19-41); Mean Corp Hgb Conc 32.4 g/dL (32-36); Mean Platelet Vol. 11.6 fl (6.2-12.0); Monocyte# 0.52 X10^3/uL; Monocyte% 1.3 % (0-10); NRBC Flagged by Analyzer 1.8 % (0-5); Neutrophil # 36.44 X10^3/uL (2.7-7.7); Neutrophil % 89.2 % (47-70); POSITIVE COUNT YES; POSITIVE DIFFERENTIAL YES; POSITIVE MORPHOLOGY YES; Platelet Count 341 K/mm3 (150-450); RBC Distribution Width CV 15.8 % (11.6-14.6); RBC Distribution Width SD 62.6 fl (35.1-43.9); Red Blood Count 2.28 M/mm3 (4.2-5.4)
[2023-09-10 04:50] LABS: White Blood Count 40.9 K/mm3 (4.4-11.0)
[2023-09-10 04:51] LABS: Differential Indicated SCAN CRITERIA MET
[2023-09-10 05:02] LABS: ALB/GLOB Ratio 0.4 RATIO (0.9-2.4); AST(SGOT) 123 U/L (15-37); Alanine Aminotransfer ALT/SGPT 35 U/L (13-56); Albumin, Serum 1.3 g/dL (3.2-5.0); Alkaline Phosphatase 122 U/L (45-117); Anion Gap 12 (5-15); BUN 15 mg/dL (7-18); BUN/Creat Ratio 39.4 RATIO (10-20); Calcium,Total 5.6 mg/dL (8.5-10.1); Chloride 104 mmol/L (98-107); Creatinine, Serum 0.38 mg/dL (0.55-1.02); EST Glomerular Filtration Rate 194 mL/min (>60); Est Glom Filt Rate - Afr Amer 235 mL/min (>60); Estimated Creatinine Clearance 183.78 ml/min; Globulin 3.3 g/dL (2.2-4.2); Glucose 122 mg/dL (74-106); Magnesium 1.5 mg/dL (1.6-2.6); Phosphorus 1.4 mg/dL (2.5-4.9); Potassium 4.6 mmol/L (3.5-5.1); Protein, Total 4.6 g/dL (6.4-8.2); Sodium Level 136 mmol/L (136-145)
[2023-09-10] MEDS: Dextrose 5%-Water (1000mL Bag) 1,000 ML 100 ML IV ×2 (05:55→14:35)
[2023-09-10] MEDS: Meropenem 1 GM in 0.9% Normal Saline (100mL MB+) 100 ML IV ×3 (06:20→20:34)
[2023-09-10] MEDS: Norepinephrine 8 MG in 0.9% Normal Saline (250mL Bag) 242 ML 7.5 MG CONT INF (06:20)
--- NOTE | 2023-09-10 07:43 | PN.HOSP_ITS ---
Reason for Visit Reason for Visit: Diagnoses Anemia, unspecified (09/02/23) Other disorders of phosphorus metabolism (09/02/23) Hypomagnesemia (09/02/23) Hypo-osmolality and hyponatremia (09/02/23) Hypokalemia (09/02/23) Alcohol abuse, uncomplicated (09/02/23) Acute respiratory failure with hypoxia (09/02/23) Alcoholic hepatitis without ascites (09/02/23) Alcoholic hepatic failure without coma (09/02/23) Alcohol induced acute pancreatitis without necrosis or infection (09/02/23) Acute pancreatitis without necrosis or infection, unspecified (09/02/23) Objective Data Objective Data Vital Signs: Vital Signs Temp Pulse Resp BP Pulse Ox O2 Del Method O2 Flow Rate 101 F H 98 16 86/52 L 97 Mechanical Ventilator 6 09/10/23 04:00 09/10/23 07:18 09/10/23 07:18 09/10/23 06:00 09/10/23 07:18 09/10/23 06:00 09/05/23 12:55 FiO2 30 09/10/23 07:18 Oxygen Flow Rate (L/min) 6 Oxygen Delivery Method Mechanical Ventilator Weight: 163 lb 5.8 oz Body Mass Index (BMI) 27.8 Intake & Output: Intake and Output for Last 24 Hours 09/08/23 09/09/23 09/10/23 23:59 23:59 23:59 Intake Total 5215.45 / 5566.92 4431.61 / 4519.61 1743.88 / 1743.88 Output Total 2050 / 2250 1765 / 1765 450 / 450 Balance 3165.45 / 3316.92 2666.61 / 2754.61 1293.88 / 1293.88 Lab / Micro Data 09/10/23 04:22 09/10/23 04:22 Labs: Laboratory Results - last 24 hr 09/09/23 11:03: POC Glucose 146 H 09/09/23 14:45: Vancomycin Trough 13.6 09/09/23 18:00: POC Glucose 154 H 09/09/23 22:31: POC Glucose 118 H 09/10/23 04:22: WBC 40.9 H*, RBC 2.28 L, Hgb 8.2 L, Hct 25.3 L, MCV 111.0 H, MCH 36.0 H, MCHC 32.4 D, RDW Std Deviation 62.6 H, RDW Coeff of Rebel 15.8 H, Plt Count 341, MPV 11.6, Immature Gran % (Auto) 4.500 H, Neut % (Auto) 89.2 H, Lymph % (Auto) 4.7 L, [place] % (Auto) 1.3, Eos % (Auto) 0.2, Baso % (Auto) 0.1, Absolute Neuts (auto) 36.4 H, Absolute Lymphs (auto) 1.92, Nucleated RBC % 1.8, Diff Path Review July, Sodium 136, Potassium 4.6, Chloride 104, Carbon Dioxide 20.0 L, Anion Gap 12, BUN 15, Creatinine 0.38 L, Estim Creat Clear Calc 183.78, Est GFR (MDRD) Af Amer 235, Est GFR (MDRD) Non-Af 194, BUN/Creatinine Ratio 39.4 H, G lucose 122 H, Calcium 5.6 L*, Phosphorus 1.4 L, Magnesium 1.5 L, Total Bilirubin 6.30 H, AST 123 H, ALT 35, Alkaline Phosphatase 122 H, Total Protein 4.6 L, A lbumin 1.3 L, Globulin 3.3, Albumin/Globulin Ratio 0.4 L Micro: Microbiology 09/07/23 06:45 Blood Culture (Wb) - Pic Blood Culture - Preliminary No growth in 48 hours. 09/07/23 06:51 Blood Culture (Wb) - Anticubital Right Blood Culture - Preliminary No growth in 48 hours. 09/07/23 19:30 Sputum, Induced/Lukens Gram Stain - Final 09/07/23 19:30 Sputum, Induced/Lukens Respiratory Culture - Final Presumptive C albicans 09/07/23 06:45 Urine Catheter - Rojas Urine Culture - Final Culture exhibits no growth. 09/06/23 08:03 Sputum, Induced/Lukens Gram Stain - Final 09/06/23 08:03 Sputum, Induced/Lukens Respiratory Culture - Final Presumptive C albicans 09/03/23 04:25 Blood Culture (Wb) - Anticubital Right Blood Culture - Final No growth in 5 days. 09/03/23 04:20 Blood Culture (Wb) - Left Forearm Blood Culture - Final No growth in 5 days. 09/04/23 09:45 Urine Catheter - Rojas Urine Culture - Final Culture exhibits no growth. 09/05/23 09:15 Mucosa - Nasopharyngeal Respiratory Panel (PCR) - Final 09/05/23 09:15 Mucosa - Nasopharyngeal SARS-CoV-2, Influenza & RSV (PCR) - Final 09/03/23 17:10 Sputum, Expectorated/Coughed Gram Stain - Final 09/03/23 17:10 Sputum, Expectorated/Coughed Respiratory Culture - Final Streptococcus group C 09/05/23 07:35 Stool C. difficile GDH Antigen & Toxins - Final 09/05/23 07:35 Stool Clostridioides difficile (PCR) - Final 09/05/23 09:20 Urine Catheter - Catheter Legionella Antigen - Final 09/05/23 09:20 Urine Catheter - Catheter Streptococcus pneumoniae Antigen (M - Final 09/05/23 07:35 Stool Stool Occult Blood (JOSE) - Final Occult Blood Positive Radiography Diagnostic Testing: Radiology Impression Abdomen Ultrasound 09/09/23 08:11 IMPRESSION: Hepatomegaly with diffuse fatty infiltration of the liver, no discrete lesion Gallbladder wall thickening at 5 mm with pericholecystic fluid and the common bile duct dilatation. However, there is no sonographic evidence of gallstones, and a roller die cutting machine operator notes a negative Singleton sign. Please correlate with lab and physical findings, if they are equivocal, consider HIDA scan for further evaluation Left upper quadrant ascites Electronically Signed: Perry Rodriguez MD at 17:28 EDT Reading Location ID and State: [address] [place] [address] , Service support , Physical Exam Narrative Seen and examined. Patient is intubated on ventilator. Responds to verbal stimuli. Abdomen is distended. Had some bowel movement not adequate Physical exam General: Awake. Responds to verbal stimuli. HEENT: Jaundice/icterus. Atraumatic, PERRLA, EOMI, Normocephalic Oral: ET and OG tube. Neck: Supple, No JVD, Negative Carotid Bruits Chest wall/Lungs: Air entry diminished in bilateral lung bases. No crepitation/rhonchi Cardiovascular: Regular rate, Regular Rhythm, Normal S1, Normal S2, No M/G/R Abdomen: Soft, Non Tender, distended.Gaseous distention/tympanic note in the middle of the abdomen/umbilical region. Bowel sounds very sluggish : No dysuria. No renal angle tenderness. No suprapubic tenderness. Extremities: Mild edema, Capillary Refill Less than 3 Seconds Skin: No rashes, No breakdown Musculoskeletal: No Tenderness to Palpation of Joints or Extremities Neurological: Cranial nerves II-XII grossly intact, DTR 2+/4. No acute focal neurological deficit. Psych/Mental Status: Flat affect. Assessment & Plan Assessment/Plan (1) Acute hypoxic respiratory failure: (2) Alcoholic hepatitis: (3) Acute pancreatitis: QUALIFIERS: Acute pancreatitis complication: unspecified P ancreatitis type: alcohol induced Qualified Code(s): K85.20 - Alcohol induced acute pancreatitis without necrosis or infection (4) Anemia: (5) Acute hyponatremia: (6) Hypokalemia: (7) Hypophosphatemia: (8) Desire for detoxification: PLAN: Plan Patient is a 43-year-old female who presented [facility] ED on 09/02/2023 with worsening abdominal pain and distention. 1. Acute hypoxic respiratory failure ? Customer Resource Specialist following. Initially suspected primarily due to volume overload from initial IV fluid resuscitation along with trial breathing from abdominal pain/distention. However, now seems more consistent with some volume overload but also with pneumonia. Had concern for PE on 09/03 as noted below; CTA chest showed no PE but did show multifocal pulmonary traits more severe and left lung suspicious for inflammatory disease along with bilateral pleural effusions larger on the left with consolidation of left lower lobe. Was being treated with IV vancomycin and Zosyn but continued to have worsening leukocytosis as noted below. Infectious workup negative to this point as noted below. Treatment as below. Started on IV Solu-Medrol 40 mg daily on 09/04 given no improvement in respiratory function, will continue this for now. Continue to have respiratory decline and was intubated on morning of 09/05. Currently intubated and sedated. Further vent management per supervisor lime. 09/06: Patient is intubated. Responding to verbal stimuli. On 40% FiO2. On propofol. Precedex discontinued. 09/07: On propofol and fentanyl for light sedation 09/08: Light sedation. On 30% FiO2 09/09: No significant change. On low FiO2. 2. Multifactorial shock with severe leukocytosis ? Customer Resource Specialist following as above. Highest concern is for septic versus hypovolemic shock in setting of pancreatitis versus pneumonia. CTA chest on 09/03 with findings as noted above; unclear if more consistent with pneumonia versus inflammatory disease of unclear etiology. Urine antigens negative. Sputum culture negative. Blood cultures with no growth to date. WBC count only 16K on admit, has worsened significantly since admission. Most recent WBC count 44 K on 09/05; notably was started on IV steroids on , could be contributing.. Treated with IV vancomycin and Zosyn through 09/03 with no significant improvement. Transitioned to IV cefepime on 09/04, will continue IV vancomycin. Continue to monitor closely. Okay to treat with Levophed as needed to maintain MAP greater than 65. 09/07: CT abdomen reviewed. It showed severe and diffuse pancreatitis, marked of hepatomegaly with diffuse fatty infiltration. Thickening of GB small amount of pericholecystic fluid ascites. Abnormal appearance of right hemicolon from cecum to hepatic flexure. Patient on IV vancomycin and meropenem as recommended by ID. Serum calcium 6.7. Magnesium low normal 1.6. Serum phosphorus low. Potassium normal. IV potassium phosphate ordered. 09/08: Still on Levophed drip 5 mics per minute. Electrolytes, serum magnesium, phosphorus and calcium are low. Serum potassium and sodium 136. 3. Severe acute alcoholic hepatitis ? GI following. MELD score of 20 and Madrey score of 31 on admit. Labs on admit of T. bili 7.90, direct bili 6.14, AST 190, ALT 31, alk phos 89, INR 1.2. CT abdomen pelvis without contrast on admit showed fatty liver with hepatomegaly and suspected pancreatitis. Suspected alcoholic hepatitis without underlying cirrhosis at this time. Large lab workup sent per GI, will follow-up on results. INR worsened to 1.4 on hospital day 2, given dose of IV vitamin K 5 mg x 1, has now remained stable. Ammonia level normal but with encephalopathy as noted below, started on Xifaxan and lactulose on admission, will continue these for now. Monitor daily labs. 09/06: ALT normal. AST 171, AST/ALT more than 3:1 ratio. 09/07: CRP improved to 134. Abdomen is still very distended. Ascites. Leukocytosis, no significant improvement. INR 1.2. Phosphorus low at 1.7. Magnesium normal. Hypocalcemia 6.4. Total bilirubin improving 7.6 bili direct due to atypical severe presentation of severe alcoholic hepatitis. AST and ALT improving. Alkaline phosphatase normal. Migel's dismission factor is gradually improving. Most recent .4. As mentioned above not candidate for astride because of multifactorial shock on Levophed. 09/08: RUQ/liver ultrasound with spleen ordered. Liver chemistry shows improvement in total bilirubin/direct bilirubin, AST. ALT normal. Alkaline phosphatase normal. 09/09: Liver ultrasound shows hepatomegaly no discrete mass. GB wall thickening 5 mm with pericholecystic fluid. CBD 8 mm. No clinical or sonographic Singleton sign. Pancreatic heterogeneous. Spleen 11.8 cm . spleen 1.8 cm with left upper quadrant ascites, perisplenic ascites. Liver ultrasound shows improvement in total bilirubin, ALT, AST. Alkaline phosphatase similar. Severe hypoalbuminemia 4. Acute encephalopathy, multifactorial ? Patient became more confused and combative on evening of 09/02, was placed in restraints and started on Precedex with improvement. Precedex discontinued on morning of 09/03. Suspect multifactorial in setting of shock, respiratory failure, acute hepatitis, alcohol withdrawal and medications. Treatment as noted above. Patient was intubated on 09/05 as noted above. Currently intubated and sedated and not following commands. 09/06: Patient mental status could not be assessed effectively but she is responding to verbal stimuli. 08/31: Follows verbal cues and commands. 5. New onset HFrEF, concern for PE ? Echo 09/03 showed EF 40%, mild to moderate LV global hypokinesis, interventricular septal flattening during systole consistent with RV pressure overload. CTA chest on 09/03 with no PE but with signs of pneumonia versus inflammatory disease as noted above. Continue treatment as noted above for now. 6. Acute pancreatitis ? GI following as above. Lipase [address] abdomen pelvis with findings consistent with pancreatitis as noted above. Was given IV fluids on admission but developed volume overload as noted above so was given IV Lasix. Appeared volume depleted on hospital day 3, given IV fluids again. Pain control with IV morphine every 4 hours as needed. Patient notably with abdominal distention and mild abdominal pain but does not have severe pain or active nausea/vomiting at this time. Holding on further IV fluids for now but can consider if needed. 09/09: Patient has mild abdominal distention. Had small bowel movement. Lactulose 30 mL and Dulcolax suppository ordered as bowel movement was not adequate. Will monitor 7. Severe anemia ? Hemoglobin 10.6 on admit, decreased to 6.6 on hospital day 2 after heavy IV fluid resuscitation. S/p 1 unit of blood on 09/02 with hemoglobin recheck 8.4. Iron studies with ferritin 3101. Suspected that patient has acute on chronic anemia due to severe acute liver disease as noted above. Hemoglobin trended down to 6.9 on 09/04, given another 1 unit of blood, recheck 9.3. Stool occult blood positive on 09/04. GI following as above. 8. Severe hyponatremia, improved ? Sodium 118 on admit. Patient with mild cognitive slowing but was not acutely encephalopathic so she was not given hypertonic saline. Suspected to be more chronic hyponatremia possibly due to beer potomania and poor solute intake. Sodium with steady rise on frequent lab checks on hospital day 2. Sodium 133 on 09/04, stable. Continue to monitor daily labs. 9. Severe hypophosphatemia, hypokalemia and hypomagnesemia ? Phosphorus 0.1, potassium 1.8, magnesium 1.2 on admit. Presumed secondary to alcohol abuse with poor solute intake. All electrolytes aggressively repleted on admission with significant improvement. Continue to monitor daily labs. Suspect patient will be at high risk for refeeding syndrome once she is able to start a diet again, will need to check labs more frequently at that point. 10. Alcohol abuse with concern for alcohol withdrawal ? Reported drinking about 12 white claws per day recently. Has 20-year history of heavy alcohol use without cessation. No history of alcohol withdrawal. Given high concern for impending alcohol drawl, patient was started on phenobarbital taper admission with adequate symptom control. Continue phenobarbital taper and other as needed medications per alcohol withdrawal order set. Continue folate and thiamine. Monitor closely. 11. Tobacco abuse ? Current smoker. Nicotine patch ordered on admission. Encouraged cessation. 12. Suspected protein calorie malnutrition with hypoalbuminemia ? Nutrition following. Albumin 2.2 on admit, prealbumin also low. Suspect malnutrition secondary to poor food intake as noted above. Patient currently n.p.o. given acute encephalopathy as noted above. Intubated on 09/05. Will likely need to start tube feeds in the next few days. 13. Mild hypercalcemia ? Calcium 11.2 on admit. Improved back to normal range after IV fluid resuscitation. PTH low at 3.5, vitamin D level pending. Continue to monitor calcium level. 14. History of lichen sclerosis ? Previously required treatment, not currently active. DVT prophylaxis: SCDs CODE STATUS: Full code, verified Expected disposition: TBD Total time of the visit including total time spent in counseling or coordination of care, (more than 50% of the total time, spent in obtaining medical information from nurses and other ancillary care providers,explaining to the patient about labs, imaging, diagnosis and management of active complex medical conditions), discussion with nursing as, review of labs and imaging is 50 minutes. Right upper quadrant sonogram with spleen Hepatomegaly with diffuse fatty infiltration of the liver, no discrete lesion Gallbladder wall thickening at 5 mm with pericholecystic fluid and the common bile duct dilatation. However, there is no sonographic evidence of gallstones, and a roller die cutting machine operator notes a negative Singleton sign. Please correlate with lab and physical findings, if they are equivocal, consider HIDA scan for further evaluation Left upper quadrant ascites Charges/Coding Visit Charges Inpatient E&M: 03553 Subs Hosp L3
[2023-09-10] MEDS: Thiamine Hydrochloride 100 MG Tablet PO (07:45)
[2023-09-10] MEDS: Folic Acid 1 MG Tablet PO (07:45)
[2023-09-10] MEDS: Acetaminophen 650 MG/20 ML UDC GT ×2 (08:01→22:38)
[2023-09-10] MEDS: Chlorhexidine 15 ML PO ×2 (09:35→20:35)
[2023-09-10] MEDS: Bisacodyl 10 MG Suppository RC (09:36)
[2023-09-10] MEDS: Lactulose 20 GM/30 ML UDC GT (09:36)
[2023-09-10] MEDS: Pantoprazole Sodium 40 MG in 0.9% Normal Saline (100mL MB+) 100 ML 330 MG IV (10:15)
[2023-09-10] MEDS: Insulin Lispro 100 UNIT/ML INSULN.PEN SC ×2 (11:12→17:41)
--- NOTE | 2023-09-10 11:15 | PN.CC_ITS ---
Objective Data Objective Data Vital Signs: Vital Signs Last response 3 Temperature 38.3 C H 09/10/23 10:00 Temperature Source Core 09/10/23 10:00 Pulse Rate 95 09/10/23 10:00 Pulse Strength Normal (2+) 09/10/23 10:00 Respiratory Rate 17 09/10/23 10:00 Respiratory Effort Mechanically Ventilated 09/10/23 08:00 Respiratory Depth Normal 09/09/23 04:00 Respiratory Pattern Tachypnea 09/10/23 02:29 Blood Pressure 98/64 09/10/23 10:00 Blood Pressure Mean 75 09/10/23 10:00 Blood Pressure Source Monitor 09/10/23 08:00 Blood Pressure Position Semi-Fowlers 09/10/23 00:00 Blood Pressure Location Right Arm 09/10/23 00:00 Pulse Ox 94 09/10/23 10:00 Oxygen Delivery Method Mechanical Ventilator 09/10/23 10:00 Oxygen Flow Rate (L/min) 6 09/05/23 12:55 Fraction of Inspired Oxygen (FIO2) 30 09/10/23 10:00 I&O: I&O Last 24 Hours 3 09/09/23 09/09/23 09/10/23 11:59 23:59 11:59 Intake Total 2158.07 / 4519.61 2273.54 / 4519.61 2169.87 / 2169.87 Output Total 865 / 1765 900 / 1765 450 / 450 Balance 1293.07 / 2754.61 1373.54 / 2754.61 1719.87 / 1719.87 I&O: Total Stay 3 09/02/23 16:19 thru 09/10/23 10:45 Intake Total 21593.3566 Output Total 30386 Balance 65898.3566 Current Meds Ordered / Administered: Current meds ordered / Administered 3 Generic Name Dose Route Start Last Admin Trade Name Freq PRN Reason Stop Dose Admin Acetaminophen 650 mg 09/07/23 04:32 09/10/23 08:01 Acetaminophen 650 Mg/20 Ml Udc GT 650 mg Q6H PRN PRN Administration FEVER Albuterol Sulfate 2.5 mg 09/02/23 20:58 09/10/23 02:29 Albuterol 2.5 Mg/3 Ml Vial.Neb. INHALATION 2.5 mg Q2H PRN PRN Administration SOB &/OR WHEEZING Albuterol/Ipratropium 3 ml 09/03/23 15:00 09/09/23 16:57 Ipratropium/Albuterol Sulfate 3 Ml Ampul.Neb INHALATION 3 ml Q6H PRN Administration SHORTNESS OF BREATH Chlorhexidine Gluconate 1 each 09/04/23 10:00 09/10/23 04:28 Chlorhexidine Gluc 2% Cloth 1 Each [place] TOPICAL 1 each DAILY SHELIA Administration Chlorhexidine Gluconate 15 ml 09/06/23 22:00 09/10/23 09:35 Chlorhexidine 15 Ml PO 15 ml BID SHELIA Administration Dicyclomine HCl 20 mg 09/03/23 08:28 Dicyclomine 10 Mg Capsule PO Q6H PRN PRN abdominal discomfort Folic Acid 1 mg 09/04/23 08:00 09/10/23 07:45 Folic Acid 1 Mg Tablet PO 1 mg DAILY@0800 SHELIA Administration Sodium Chloride 250 mls @ 15 mls/hr 09/02/23 21:05 09/10/23 06:10 IV 0 mls/hr .[id number] PRN Infusion Additional IVPB Infusion Sodium Chloride 250 mls @ 15 mls/hr 09/02/23 21:05 IV .[id number] PRN Saline Flush Pantoprazole Sodium 40 mg/ 110 mls @ 330 mls/hr 09/04/23 10:00 09/10/23 10:44 Sodium Chloride IV Infused DAILY SHELIA Infusion Norepinephrine Bitartrate 8 mg 250 mls @ 9.375 mls/hr 09/04/23 04:25 09/10/23 10:00 / Sodium Chloride CONT INF 5 mcg/min .[id number] SHELIA 9.4 mls/hr Titration Protocol 5 MCG/MIN Vancomycin IV-PHARMACY TO DOSE 500 mls @ 250 mls/hr 09/04/23 13:19 1 each/ Sodium Chloride IV X1 PRN Rx to Dose Protocol Fentanyl 100 mls @ 5 mls/hr 09/06/23 07:30 09/10/23 10:15 CONT INF 175 mcg/hr UD SHELIA 17.5 mls/hr Administration Protocol 50 MCG/HR Propofol 1,000 mg in 100 mls @ 4.32 mls/hr 09/07/23 04:35 09/10/23 10:45 Diprivan CONT INF 50 mcg/kg/min .Q12H SHELIA 21.6 mls/hr Titration Protocol 10 MCG/KG/MIN Dextrose 1,000 mls @ 100 mls/hr 09/07/23 07:00 09/10/23 05:55 IV 100 mls/hr .Q10H SHELIA Administration Enteral Nutritional Formula 1,000 mls @ 55 mls/hr 09/07/23 10:00 09/07/23 12:29 Vital Af 1.2 Darwin Liquid GT Not Given .[id number] SHELIA Meropenem 1 gm/ Sodium 120 mls @ 33 mls/hr 09/07/23 14:00 09/10/23 10:42 Chloride IV Infused Q8 SHELIA Infusion Vancomycin HCl 1,000 mg in 200 mls @ 200 mls/hr 09/09/23 16:00 09/10/23 06:09 Vancomycin IV Infused Q12H SHELIA Infusion Potassium Phosphate 21 mm/ 257 mls @ 84 mls/hr 09/10/23 12:00 Sodium Chloride IV 09/10/23 15:03 X1 ONE Magnesium Sulfate 2 gm/ 104 mls @ 52 mls/hr 09/10/23 11:15 Dextrose IV 09/10/23 13:14 X1 ONE Calcium Gluconate 2 gm/ Sodium 120 mls @ 60 mls/hr 09/10/23 11:30 Chloride IV 09/10/23 13:29 X1 ONE Insulin Human Lispro 0 unit 09/07/23 18:00 09/10/23 11:12 Insulin Lispro 100 Unit/Ml Insuln.Pen SC 1 u Q6 SHELIA Administration Protocol Loperamide HCl 2 mg 09/03/23 08:28 Loperamide 2 Mg Capsule PO Q4H PRN PRN Loose Stools Methylprednisolone 40 mg 09/06/23 10:00 09/10/23 07:46 Methylprednisolone 40 Mg/Ml Vial IV 40 mg DAILY SHELIA Administration Nicotine 14 mg 09/02/23 20:58 09/10/23 07:46 Nicotine 14 Mg Patch TD 14 mg DAILY SHELIA Administration Ondansetron HCl 4 mg 09/02/23 20:58 Ondansetron 4 Mg/2 Ml Vial IV Q8H PRN PRN NAUSEA/VOMITING Sodium Chloride 10 - 40 ml 09/02/23 21:05 09/10/23 04:29 0.9% Saline Lock 10 Ml Syringe IV 40 ml UD PRN Administration SALINE FLUSH Thiamine HCl 100 mg 09/04/23 08:00 09/10/23 07:45 Thiamine Hydrochloride 100 Mg Tablet PO 100 mg DAILYCM SHELIA Administration Vancomycin Protocol 1 lab 09/11/23 01:30 Vancomycin Trough/Random Due 09/11/23 05:30 DAILY [facility] Medical Records Data Attestation: I reviewed the patient's medical records Lab / Micro Data 09/10/23 04:22 09/10/23 04:22 Labs: Laboratory Results - last 24 hr 09/09/23 11:03: POC Glucose 146 H 09/09/23 14:45: Vancomycin Trough 13.6 09/09/23 18:00: POC Glucose 154 H 09/09/23 22:31: POC Glucose 118 H 09/10/23 04:22: WBC 40.9 H*, RBC 2.28 L, Hgb 8.2 L, Hct 25.3 L, MCV 111.0 H, MCH 36.0 H, MCHC 32.4 D, RDW Std Deviation 62.6 H, RDW Coeff of Rebel 15.8 H, Plt Count 341, MPV 11.6, Immature Gran % (Auto) 4.500 H, Neut % (Auto) 89.2 H, Lymph % (Auto) 4.7 L, [place] % (Auto) 1.3, Eos % (Auto) 0.2, Baso % (Auto) 0.1, Absolute Neuts (auto) 36.4 H, Absolute Lymphs (auto) 1.92, Nucleated RBC % 1.8, Diff Path Review July, Sodium 136, Potassium 4.6, Chloride 104, Carbon Dioxide 20.0 L, Anion Gap 12, BUN 15, Creatinine 0.38 L, Estim Creat Clear Calc 183.78, Est GFR (MDRD) Af Amer 235, Est GFR (MDRD) Non-Af 194, BUN/Creatinine Ratio 39.4 H, G lucose 122 H, Calcium 5.6 L*, Phosphorus 1.4 L, Magnesium 1.5 L, Total Bilirubin 6.30 H, AST 123 H, ALT 35, Alkaline Phosphatase 122 H, Total Protein 4.6 L, A lbumin 1.3 L, Globulin 3.3, Albumin/Globulin Ratio 0.4 L Micro: Microbiology 09/07/23 06:45 Blood Culture (Wb) - Pic Blood Culture - Preliminary No growth in 48 hours. 09/07/23 06:51 Blood Culture (Wb) - Anticubital Right Blood Culture - Preliminary No growth in 48 hours. 09/07/23 19:30 Sputum, Induced/Lukens Gram Stain - Final 09/07/23 19:30 Sputum, Induced/Lukens Respiratory Culture - Final Presumptive C albicans 09/07/23 06:45 Urine Catheter - Rojas Urine Culture - Final Culture exhibits no growth. Imaging Radiology Impression Abdomen Ultrasound 09/09/23 08:11 IMPRESSION: Hepatomegaly with diffuse fatty infiltration of the liver, no discrete lesion Gallbladder wall thickening at 5 mm with pericholecystic fluid and the common bile duct dilatation. However, there is no sonographic evidence of gallstones, and a business unit controller notes a negative Singleton sign. Please correlate with lab and physical findings, if they are equivocal, consider HIDA scan for further evaluation Left upper quadrant ascites Electronically Signed: Perry Rodriguez MD at 17:28 EDT , Assessment and Plan . Assessment and plan: Multifactorial shock Clinical concern for septic and hypovolemic etiologies in the setting of pancreatitis and progressive infiltrates noted on chest imaging. Patient is improving on currently therapy. The patient remains on broad-spectrum antimicrobials per ID recommendations. Plan to continue vasopressor support to maintain a mean arterial pressure at or above 65 mmHg. 2. Acute alcohol withdrawal Continue current medication regimen along with thiamine and folic acid. Patient appears to not be withdrawing. She has good mental status 3. Acute hypoxemic respiratory failure Clinical concern for third spacing of fluids in the setting of acute pancreatitis coupled with probable underlying pneumonia. The patient's respiratory status worsened and she was ultimately intubated on September 05. Patient will undergo SAT/SBT on monday 4. Severe alcoholic hepatitis/acute alcoholic pancreatitis Liver function parameters appear to be slowly improving. Gastroenterology is currently following to assist with medical management. Continue supportive measures. 5. Anemia Continue to monitor blood counts daily. Transfuse if hemoglobin drops below 7 g/dL. Continue PPI therapy. Again, gastroenterology is following to assist with medical management. - Will continue to manage and replete critical electrolytes. Will keep Mg >2.0, >;4.0, and Phos greater than 3.0. - Will actively target with vasopressors , if needed, to keep MAP > 65. - Appropriately maintain saturations above 92%. - Continue to monitor UOP carefully to ensure at least 0.5ml/kg/h. - Maintain appropriate sleep/wake cycles to avoid ICU delirium. DVT ppx: SCDs GI ppx : Protonix Critical Care Time: 45 min The entirety of this encounter was done via Telemedicine Physical Exam Const alert and oriented x3 General Appearance: cooperative HEENT normocephalic Neck full ROM Resp normal respiratory effort Auscultation: rhonchi Cardio Rate: tachycardic GI Inspection: abdominal distention Extremity General Extremity: edema Neuro oriented x3 Subjective Subjective Patient had fever of 102.3 . Patietn was placed on tylenol and cooling blanket . Getting electrolytes replacement Patietn was give lactulose and dulcolax . Has good output Lines - PICC PIVS Tubes- OG , Rojas, ETT Gtts - propofol 50 mcg, fentanyl 175 mcg , levophed 4 mcg DW5 100 ml
[2023-09-10 11:23] LABS: Bedside Glucose 162 mg/dL (74-106)
[2023-09-10] MEDS: Magnesium Sulfate 2 GM in Dextrose 5%-Water (100mL Bag) 100 ML IV (11:30)
[2023-09-10] MEDS: Calcium Gluconate IV 2 GM in 0.9% Normal Saline (100mL Bag) 100 ML IV (11:45)
[2023-09-10] MEDS: Potassium Phosphate 21 MM in 0.9% Normal Saline (250mL Bag) 250 ML 84 MM IV (13:41)
[2023-09-10 17:56] LABS: Bedside Glucose 180 mg/dL (74-106)
[2023-09-10] MEDS: rifAXIMin 550 MG Tablet GT (20:34)
[2023-09-10] MEDS: Ipratropium/Albuterol Sulfate 3 ML AMPUL.NEB INHALATION (22:54)
[2023-09-11] VITALS (52 sets, daily range): BP systolic 79–118; BP diastolic 45–81; PULSE 86–121; RESP 15–26; TEMP 36.6–38.4; O2SAT 88–100; BMI 28.5
[2023-09-11] MEDS: Dextrose 5%-Water (1000mL Bag) 1,000 ML 100 ML IV (00:19)
[2023-09-11 00:20] LABS: Bedside Glucose 133 mg/dL (74-106)
[2023-09-11] MEDS: Propofol 10MG/Ml 1,000 MG/100 ML Bottle 21.6 MG CONT INF (02:15)
[2023-09-11 03:50] LABS: Absolute Lymphocyte Count 1.42 X10^3/uL (0.83-4.51); Absolute Neutrophil Count 42.3 X10^3/uL (2.0-7.7); Basophil# 0.05 X10^3/uL; Basophil% 0.1 % (0-1); Eosinophil# 0.16 X10^3/uL; Eosinophils% 0.3 % (0-5); Hematocrit 25.2 % (37-47); Hemoglobin 7.7 g/dL (12.0-15.0); Lymphocyte # 1.42 X10^3/ul (0.83-4.51); Lymphocyte % 3.1 % (19-41); Mean Corp Hgb Conc 30.6 g/dL (32-36); Mean Corpuscular Hgb 34.1 pg (27.0-32.0); Mean Corpuscular Volume 111.5 fL (81-99); Mean Platelet Vol. 11.4 fl (6.2-12.0); Monocyte# 0.63 X10^3/uL; Monocyte% 1.4 % (0-10); NRBC Flagged by Analyzer 0.4 % (0-5); Neutrophil # 42.26 X10^3/uL (2.7-7.7); Neutrophil % 91.8 % (47-70); POSITIVE COUNT YES; POSITIVE DIFFERENTIAL YES; POSITIVE MORPHOLOGY YES; Platelet Count 355 K/mm3 (150-450); RBC Distribution Width CV 16.3 % (11.6-14.6); RBC Distribution Width SD 63.6 fl (35.1-43.9); Red Blood Count 2.26 M/mm3 (4.2-5.4)
[2023-09-11 04:16] LABS: Vancomycin, Trough Level 30.9 ug/mL (5.0-15.0)
[2023-09-11 04:30] LABS: ALB/GLOB Ratio 0.4 RATIO (0.9-2.4); AST(SGOT) 134 U/L (15-37); Alanine Aminotransfer ALT/SGPT 34 U/L (13-56); Albumin, Serum 1.3 g/dL (3.2-5.0); Alkaline Phosphatase 131 U/L (45-117); Anion Gap 11 (5-15); BUN 20 mg/dL (7-18); BUN/Creat Ratio 21.8 RATIO (10-20); Calcium,Total 6.5 mg/dL (8.5-10.1); Chloride 103 mmol/L (98-107); Creatinine, Serum 0.92 mg/dL (0.55-1.02); EST Glomerular Filtration Rate 70 mL/min (>60); Est Glom Filt Rate - Afr Amer 85 mL/min (>60); Estimated Creatinine Clearance 76.94 ml/min; Globulin 3.3 g/dL (2.2-4.2); Glucose 117 mg/dL (74-106); Magnesium 1.9 mg/dL (1.6-2.6); Phosphorus 3.3 mg/dL (2.5-4.9); Protein, Total 4.6 g/dL (6.4-8.2); Sodium Level 135 mmol/L (136-145)
--- NOTE | 2023-09-11 04:30 | PCM.HOSP.N ---
Hospitalist Note Patient with planned extubation per discussion with staff. Onset crackles/rales, concern overload. Will obtain CXR this AM and dose with lasix 40 mg IV x 1.
[2023-09-11] MEDS: Furosemide 40 MG/4 ML Vial IV (04:31)
[2023-09-11] MEDS: 0.9% Saline Lock 10 ML Syringe IV ×3 (04:31→10:01)
[2023-09-11 04:37] LABS: Differential Indicated SCAN CRITERIA MET
[2023-09-11 04:38] LABS: Differential Comment SCANNED; White Blood Count 46.1 K/mm3 (4.4-11.0)
[2023-09-11] MEDS: Meropenem 1 GM in 0.9% Normal Saline (100mL MB+) 100 ML IV ×2 (04:53→13:46)
[2023-09-11] MEDS: Acetaminophen 650 MG/20 ML UDC GT (04:53)
[2023-09-11 05:29] LABS: Bedside Glucose 88 mg/dL (74-106)
--- NOTE | 2023-09-11 05:32 | PCM.RX.CS ---
Consult Antibiotic Management Pharmacy has been consulted to manage selected antibiotic: Vancomycin Type of Intervention Type of Consult: Follow-up Suspected Infection Suspected Infection: Pneumonia Labs Labs: Sodium 135 mmol/L (136-145) L 09/11/23 03:35 Potassium 4.0 mmol/L (3.5-5.1) 09/11/23 03:35 Chloride 103 mmol/L (98-107) 09/11/23 03:35 Carbon Dioxide 21.0 mmol/L (21.0-32.0) 09/11/23 03:35 Anion Gap 11 (5-15) 09/11/23 03:35 BUN 20 mg/dL (7-18) H 09/11/23 03:35 Creatinine 0.92 mg/dL (0.55-1.02) 09/11/23 03:35 Est GFR (MDRD) Af Amer 85 mL/min (>60) 09/11/23 03:35 Est GFR (MDRD) Non-Af 70 mL/min (>60) 09/11/23 03:35 BUN/Creatinine Ratio 21.8 RATIO (10-20) H 09/11/23 03:35 Glucose 117 mg/dL (74-106) H 09/11/23 03:35 Vancomycin Trough 30.9 ug/mL (5.0-15.0) H 09/11/23 03:35 Random Vancomycin 14.2 ug/mL (0.0-15.0) 09/06/23 14:33 Microbiology Microbiology: Microbiology 09/07/23 06:45 Blood Culture (Wb) - Pic Blood Culture - Preliminary No growth in 48 hours. 09/07/23 06:51 Blood Culture (Wb) - Anticubital Right Blood Culture - Preliminary No growth in 48 hours. 09/07/23 19:30 Sputum, Induced/Lukens Gram Stain - Final 09/07/23 19:30 Sputum, Induced/Lukens Respiratory Culture - Final Presumptive C albicans 09/07/23 06:45 Urine Catheter - Rojas Urine Culture - Final Culture exhibits no growth. 09/06/23 08:03 Sputum, Induced/Lukens Gram Stain - Final 09/06/23 08:03 Sputum, Induced/Lukens Respiratory Culture - Final Presumptive C albicans 09/03/23 04:25 Blood Culture (Wb) - Anticubital Right Blood Culture - Final No growth in 5 days. 09/03/23 04:20 Blood Culture (Wb) - Left Forearm Blood Culture - Final No growth in 5 days. 09/04/23 09:45 Urine Catheter - Rojas Urine Culture - Final Culture exhibits no growth. 09/05/23 09:15 Mucosa - Nasopharyngeal Respiratory Panel (PCR) - Final 09/05/23 09:15 Mucosa - Nasopharyngeal SARS-CoV-2, Influenza & RSV (PCR) - Final 09/03/23 17:10 Sputum, Expectorated/Coughed Gram Stain - Final 09/03/23 17:10 Sputum, Expectorated/Coughed Respiratory Culture - Final Streptococcus group C 09/05/23 07:35 Stool C. difficile GDH Antigen & Toxins - Final 09/05/23 07:35 Stool Clostridioides difficile (PCR) - Final 09/05/23 09:20 Urine Catheter - Catheter Legionella Antigen - Final 09/05/23 09:20 Urine Catheter - Catheter Streptococcus pneumoniae Antigen (M - Final 09/05/23 07:35 Stool Stool Occult Blood (JOSE) - Final Occult Blood Positive Goal Trough Goal Trough: 15-20 mcg/mL Pharmacy Plan for Drug Dosing Pharmacy Plan for Drug Dosing: VANCOMYCIN LEVEL RECEIVED Current Vancomycin Dose: 1000mg Q12H Number of Doses Received: 1000mg x3 Vancomycin Level: 30.9 Hours Since Last Dose: 10.5 Renal Function: sCr 0.92 Renal Function Trend: worsened Vancomycin Plan/Comments: HOLD Vancomycin due to SUPRAtherapeutic level Pending Level: Random Vancomycin level @ 0600 09/12/23 Pharmacy Service will continue to monitor and adjust dosing as required. Follow-Up Labs Follow-Up Labs: Trough: Vancomycin (06:00 09/12/23)
--- NOTE | 2023-09-11 05:55 | RAD_ITS ---
INDICATION: Dyspnea EXAMINATION/TECHNIQUE: X-RAY - XR Chest 1 View COMPARISON: 09/07/2023. FINDINGS: LINES/DEVICES: Endotracheal tube tip 3.2 cm from the darren. Enteric tube side-port and distal tip are distal to the GE junction within the proximal stomach. LUNGS: Pulmonary vascular congestion. Possible bilateral perihilar infiltrates. No evidence of a pleural effusion or a pneumothorax. Right upper lobe infiltrate. MEDIASTINUM AND CARDIOVASCULAR STRUCTURES: Cardiac silhouette is normal in size and contour. Mediastinum is unremarkable. BONES AND SOFT TISSUES: No acute abnormality. RAD/Chest 1 View (Portable) IMPRESSION: 1. Pulmonary vascular congestion and possible bilateral perihilar infiltrates. 2. Right upper lobe infiltrate. Electronically Signed: Eliseo Moreno DO at 5:27 EDT ,
[2023-09-11] MEDS: rifAXIMin 550 MG Tablet GT (07:17)
[2023-09-11] MEDS: Thiamine Hydrochloride 100 MG Tablet PO (07:17)
[2023-09-11] MEDS: Folic Acid 1 MG Tablet PO (07:17)
--- NOTE | 2023-09-11 07:18 | PCM.PN.INT ---
Assessment & Plan Assessment/Plan (1) Acute hypoxic respiratory failure: (2) Alcoholic hepatitis: (3) Acute pancreatitis: QUALIFIERS: Pancreatitis type: alcohol induced Acute pancreatitis complication: unspecified Qualified Code(s): K85.20 - Alcohol induced acute pancreatitis without necrosis or infection PLAN: Plan RECOMMENDATIONS: 1. Proceed with a trial of extubation this morning. 2. Once extubated, wean supplemental oxygen to maintain saturations at or above 90%. 3. Formal swallow evaluation prior to advancement of diet. 4. Antimicrobials per ID recommendations. 5. Okay to discontinue D5W. 6. Continue to monitor blood counts and transfuse if hemoglobin drops below 7 g/dL. 7. Continue PPI therapy. 8. Encourage incentive spirometer use and mobilize patient as tolerated. IMPRESSIONS: 1. Multifactorial shock Clinical concern for septic and hypovolemic etiologies in the setting of pancreatitis and progressive infiltrates noted on chest imaging. The patient remains on broad-spectrum antimicrobials per ID recommendations. She has been weaned from vasopressor support and remains hemodynamically stable at the present time. 2. Acute alcohol withdrawal Continue current medication regimen along with thiamine and folic acid. 3. Acute hypoxemic respiratory failure Improving. Clinical concern for third spacing of fluids in the setting of acute pancreatitis coupled with probable underlying pneumonia. The patient's respiratory status worsened and she was ultimately intubated on September 05. With invasive mechanical ventilatory support and antimicrobial therapy, the patient was able to be extubated on the morning of September 10. Plan to continue supplemental oxygen to maintain saturations at or above 90%. Encourage incentive spirometer use and mobilize patient as tolerated. 4. Severe alcoholic hepatitis/acute alcoholic pancreatitis Liver function parameters appear to be slowly improving. Gastroenterology is currently following to assist with medical management. Continue supportive measures. 5. Anemia Continue to monitor blood counts daily. Transfuse if hemoglobin drops below 7 g/dL. Continue PPI therapy. Again, gastroenterology is following to assist with medical management. TIME: 33 minutes of critical care time, inclusive of procedures, was spent addressing the patient's multifactorial shock, acute alcohol withdrawal, acute hypoxemic respiratory failure, severe alcoholic hepatitis, anemia, review of all data and collaboration with care team. Subjective Subjective The patient was seen and examined at the bedside this morning. Events from the last 24 hours have been reviewed. The patient is currently off of Levophed at the present time. She is doing well this morning on her spontaneous breathing trial. The patient is alert and able to follow commands without complication. Her white blood cell count remains significantly elevated at 46,000. Hemoglobin is down to 7.7 g/dL. Total bilirubin has decreased to 6.4. Objective Data Objective Data The patient's most recent lab work, culture data and imaging studies have all been personally reviewed. Surface echocardiogram demonstrated normal LV size and thickness with mild to moderate global hypokinesis of the LV. Ejection fraction was noted to be 40%. Right ventricular systolic pressure was estimated to be 43 mmHg. Sputum culture dated September 02 was positive for group C streptococcus. Respiratory viral panel along with COVID PCR was negative. Strep and urine Legionella antigens were negative. Vital Signs: Vital Signs Temp Pulse Resp BP Pulse Ox O2 Del Method O2 Flow Rate 100.6 F H 115 H 24 H 107/64 97 Mechanical Ventilator 09/11/23 07:00 09/11/23 07:00 09/11/23 07:00 09/11/23 07:00 09/11/23 07:00 09/11/23 07:00 09/05/23 12:55 FiO2 09/11/23 07:00 Oxygen Flow Rate (L/min) 6 Oxygen Delivery Method Mechanical Ventilator Weight: 167 lb 1.766 oz Body Mass Index (BMI) 28.5 Intake & Output: Intake and Output for Last 24 Hours 09/09/23 09/10/23 09/11/23 23:59 23:59 23:59 Intake Total 4431.61 / 4519.61 4814.33 / 4937.23 1029.09 / 1029.09 Output Total 1765 / 1765 820 / 880 375 / 375 Balance 2666.61 / 2754.61 3994.33 / 4057.23 654.09 / 654.09 Lab / Micro Data Attestation: I reviewed the patient's lab results. 09/11/23 03:35 09/11/23 03:35 Labs: Laboratory Results - last 24 hr 09/10/23 11:05: POC Glucose 162 H 09/10/23 17:37: POC Glucose 180 H 09/10/23 23:40: POC Glucose 133 H 09/11/23 03:35: WBC 46.1 H*, RBC 2.26 L, Hgb 7.7 L, Hct 25.2 L, MCV 111.5 H, MCH 34.1 H, MCHC 30.6 L D, RDW Std Deviation 63.6 H, RDW Coeff of Rebel 16.3 H, Plt Count 355, MPV 11.4, Immature Gran % (Auto) 3.300 H, Neut % (Auto) 91.8 H, Lymph % (Auto) 3.1 L, [place] % (Auto) 1.4, Eos % (Auto) 0.3, Baso % (Auto) 0.1, Absolute Neuts (auto) 42.3 H, Absolute Lymphs (auto) 1.42, Nucleated RBC % 0.4, Differential Comment SCANNED, Diff Path Review July, Sodium 135 L, Potassium 4.0, Chloride 103, Carbon Dioxide 21.0, Anion Gap 11, BUN 20 H, Creatinine 0.92, Estim Creat Clear Calc 76.94, Est GFR (MDRD) Af Amer 85, Est GFR (MDRD) Non-Af 70, BUN/Creatinine Ratio 21.8 H, Glucose 117 H, Calcium 6.5 L*, Phosphorus 3.3, Magnesium 1.9, Total Bilirubin 6.40 H, AST 134 H, ALT 34, Alkaline Phosphatase 131 H, Total Protein 4.6 L, Albumin 1.3 L, Globulin 3.3, Albumin/Globulin Ratio 0.4 L, Vancomycin Trough 30.9 H 09/11/23 04:52: POC Glucose 88 Micro: Microbiology 09/07/23 06:45 Blood Culture (Wb) - Pic Blood Culture - Preliminary No growth in 48 hours. 09/07/23 06:51 Blood Culture (Wb) - Anticubital Right Blood Culture - Preliminary No growth in 48 hours. 09/07/23 19:30 Sputum, Induced/Lukens Gram Stain - Final 09/07/23 19:30 Sputum, Induced/Lukens Respiratory Culture - Final Presumptive C albicans 09/07/23 06:45 Urine Catheter - Rojas Urine Culture - Final Culture exhibits no growth. 09/06/23 08:03 Sputum, Induced/Lukens Gram Stain - Final 09/06/23 08:03 Sputum, Induced/Lukens Respiratory Culture - Final Presumptive C albicans 09/03/23 04:25 Blood Culture (Wb) - Anticubital Right Blood Culture - Final No growth in 5 days. 09/03/23 04:20 Blood Culture (Wb) - Left Forearm Blood Culture - Final No growth in 5 days. 09/04/23 09:45 Urine Catheter - Rojas Urine Culture - Final Culture exhibits no growth. 09/05/23 09:15 Mucosa - Nasopharyngeal Respiratory Panel (PCR) - Final 09/05/23 09:15 Mucosa - Nasopharyngeal SARS-CoV-2, Influenza & RSV (PCR) - Final 09/03/23 17:10 Sputum, Expectorated/Coughed Gram Stain - Final 09/03/23 17:10 Sputum, Expectorated/Coughed Respiratory Culture - Final Streptococcus group C 09/05/23 07:35 Stool C. difficile GDH Antigen & Toxins - Final 09/05/23 07:35 Stool Clostridioides difficile (PCR) - Final 09/05/23 09:20 Urine Catheter - Catheter Legionella Antigen - Final 09/05/23 09:20 Urine Catheter - Catheter Streptococcus pneumoniae Antigen (M - Final 09/05/23 07:35 Stool Stool Occult Blood (JOSE) - Final Occult Blood Positive ABG Data ABG results: ABG 09/06/23 09:19 Specimen Type ART Sample Site R Brach pH 7.41 Bicarbonate Actual 29.6 H Total CO2 31 Base Excess 5 H O2 Saturation 94 L O2 % 80.0 ABG pCO2 47.1 H ABG pO2 72 L Respiration Rate 16 O2 Delivery Device Adult Vent Vent Mode AC Tidal Volume 400.0 POC PEEP 5 Radiography Diagnostic Testing: Radiology Impression Chest X-Ray 09/07/23 08:11 IMPRESSION: Essentially stable examination. The tip of the endotracheal tube is at 1.2 cm proximal to the darren. It should be withdrawn approximately 2 cm. Electronically Signed: Bong Krishnamurthy MD at 8:29 EDT , Abdomen/Pelvis CT 09/07/23 11:40 IMPRESSION: Diffuse pancreatitis. Marked degree of hepatomegaly with diffuse fatty infiltration of the liver. Thickening of the gallbladder wall with small amount of pericholecystic fluid. Ascites. Abnormal appearance of the right hemicolon. Dense infiltration in the lungs as described. Electronically Signed: Bong Krishnamurthy MD at 12:00 EDT , Physical Exam Const alert Constitutional Narrative: Remains intubated and mechanically ventilated. Tolerating spontaneous mode of mechanical ventilation. General Appearance: cooperative HEENT normocephalic and head/scalp atraumatic Mouth: endotracheal tube in place and OG tube in place Eyes PERRL Sclera: sclera abnormal Neck supple General: trachea midline Chest inspection of chest normal Resp Auscultation: rhonchi and diminished lung sounds Cardio regular rate, regular rhythm, S1 normal heart sound and S2 normal heart sound GI normal to inspection, nondistended, normoactive bowel sounds Extremity General Extremity: edema Skin no rashes or lesions noted Neuro Neuro Narrative: Alert and able to follow simple commands. Charges/Coding Procedures Hospitalists Procedures: 42008 Critical Care 1st Hr
--- NOTE | 2023-09-11 07:26 | PCM.PN.HOSP ---
Reason for Visit Reason for Visit: Diagnoses Anemia, unspecified (09/02/23) Other disorders of phosphorus metabolism (09/02/23) Hypomagnesemia (09/02/23) Hypo-osmolality and hyponatremia (09/02/23) Hypokalemia (09/02/23) Alcohol abuse, uncomplicated (09/02/23) Acute respiratory failure with hypoxia (09/02/23) Alcoholic hepatitis without ascites (09/02/23) Alcoholic hepatic failure without coma (09/02/23) Alcohol induced acute pancreatitis without necrosis or infection (09/02/23) Acute pancreatitis without necrosis or infection, unspecified (09/02/23) Subjective Subjective Patient is a 43-year-old lady admitted with desire for detoxification.. Patient was found to have elevated lipase level as well as LFTs. Admitted to the intensive care unit. Patient became hypotensive resuscitated with IV fluid went into respiratory failure resulting in patient being intubated Objective Data Objective Data Vital Signs: Vital Signs Temp Pulse Resp BP Pulse Ox O2 Del Method O2 Flow Rate 100.6 F H 115 H 24 H 107/64 97 Mechanical Ventilator 6 09/11/23 07:00 09/11/23 07:00 09/11/23 07:00 09/11/23 07:00 09/11/23 07:00 09/11/23 07:00 09/05/23 12:55 FiO2 25 09/11/23 07:00 Oxygen Flow Rate (L/min) 6 Oxygen Delivery Method Mechanical Ventilator Weight: 75.8 kg Body Mass Index (BMI) 28.5 Intake & Output: Intake and Output for Last 24 Hours 09/09/23 09/10/23 09/11/23 23:59 23:59 23:59 Intake Total 4431.61 / 4519.61 4814.33 / 4937.23 1029.09 / 1029.09 Output Total 1765 / 1765 820 / 880 375 / 375 Balance 2666.61 / 2754.61 3994.33 / 4057.23 654.09 / 654.09 Lab / Micro Data 09/11/23 03:35 09/11/23 03:35 Labs: Laboratory Results - last 24 hr 09/10/23 11:05: POC Glucose 162 H 09/10/23 17:37: POC Glucose 180 H 09/10/23 23:40: POC Glucose 133 H 09/11/23 03:35: WBC 46.1 H*, RBC 2.26 L, Hgb 7.7 L, Hct 25.2 L, MCV 111.5 H, MCH 34.1 H, MCHC 30.6 L D, RDW Std Deviation 63.6 H, RDW Coeff of Rebel 16.3 H, Plt Count 355, MPV 11.4, Immature Gran % (Auto) 3.300 H, Neut % (Auto) 91.8 H, Lymph % (Auto) 3.1 L, Alfalfa % (Auto) 1.4, Eos % (Auto) 0.3, Baso % (Auto) 0.1, Absolute Neuts (auto) 42.3 H, Absolute Lymphs (auto) 1.42, Nucleated RBC % 0.4, Differential Comment SCANNED, Diff Path Review July, Sodium 135 L, Potassium 4.0, Chloride 103, Carbon Dioxide 21.0, Anion Gap 11, BUN 20 H, Creatinine 0.92, Estim Creat Clear Calc 76.94, Est GFR (MDRD) Af Amer 85, Est GFR (MDRD) Non-Af 70, BUN/Creatinine Ratio 21.8 H, Glucose 117 H, Calcium 6.5 L*, Phosphorus 3.3, Magnesium 1.9, Total Bilirubin 6.40 H, AST 134 H, ALT 34, Alkaline Phosphatase 131 H, Total Protein 4.6 L, Albumin 1.3 L, Globulin 3.3, Albumin/Globulin Ratio 0.4 L, Vancomycin Trough 30.9 H 09/11/23 04:52: POC Glucose 88 Micro: Microbiology 09/07/23 06:45 Blood Culture (Wb) - Pic Blood Culture - Preliminary No growth in 48 hours. 09/07/23 06:51 Blood Culture (Wb) - Anticubital Right Blood Culture - Preliminary No growth in 48 hours. 09/07/23 19:30 Sputum, Induced/Lukens Gram Stain - Final 09/07/23 19:30 Sputum, Induced/Lukens Respiratory Culture - Final Presumptive C albicans 09/07/23 06:45 Urine Catheter - Rojas Urine Culture - Final Culture exhibits no growth. 09/06/23 08:03 Sputum, Induced/Lukens Gram Stain - Final 09/06/23 08:03 Sputum, Induced/Lukens Respiratory Culture - Final Presumptive C albicans 09/03/23 04:25 Blood Culture (Wb) - Anticubital Right Blood Culture - Final No growth in 5 days. 09/03/23 04:20 Blood Culture (Wb) - Left Forearm Blood Culture - Final No growth in 5 days. 09/04/23 09:45 Urine Catheter - Rojas Urine Culture - Final Culture exhibits no growth. 09/05/23 09:15 Mucosa - Nasopharyngeal Respiratory Panel (PCR) - Final 09/05/23 09:15 Mucosa - Nasopharyngeal SARS-CoV-2, Influenza & RSV (PCR) - Final 09/03/23 17:10 Sputum, Expectorated/Coughed Gram Stain - Final 09/03/23 17:10 Sputum, Expectorated/Coughed Respiratory Culture - Final Streptococcus group C 09/05/23 07:35 Stool C. difficile GDH Antigen & Toxins - Final 09/05/23 07:35 Stool Clostridioides difficile (PCR) - Final 09/05/23 09:20 Urine Catheter - Catheter Legionella Antigen - Final 09/05/23 09:20 Urine Catheter - Catheter Streptococcus pneumoniae Antigen (M - Final 09/05/23 07:35 Stool Stool Occult Blood (JOSE) - Final Occult Blood Positive Physical Exam Narrative GENERAL: cooperative, flat affect HEENT: Atraumatic; normocephalic EYES; icteric, Normal Conjunctiva NECK; supple, normal thyroid, RESPIRATORY: Diminished to auscultation, bilateral wheezes CARDIOVASCULAR: Regular S1 S2, GI: soft, normoactive bowel sounds, : No Renal angle tenderness; EXTREMITIES: No edema, no clubbing, MUSCULOSKELETAL: no muscle wasting NEURO: Awake; no lateralizing signs. SKIN: No Rash PSYCH; Flat affect Assessment & Plan Assessment/Plan (1) Acute hypoxic respiratory failure: PLAN: Plan Patient is a 43-year-old lady admitted with desire for detoxification.. Patient was found to have elevated lipase level as well as LFTs. Admitted to the intensive care unit. Patient became hypotensive resuscitated with IV fluid went into respiratory failure resulting in patient being intubated 1. Acute hypoxic respiratory failure ? Secondary to fluid overload patient intubated while in the ICU. Pulmonary medicine on board. Decision regarding weaning deferred to pulmonary medicine 2. Hypovolemic shock ? Secondary to pancreatitis in addition to suspected pneumonia. Patient was found to have mild leukocytosis. CTA did show Multifocal pulmonary infiltrates more severe in the left lung suspicious for inflammatory disease. Bilateral pleural effusions larger on the left with consolidation of left lower lobe. Patient was resuscitated with IV fluids per protocol in addition to broad-spectrum antibiotic therapy with vancomycin as well as meropenem 3. Severe alcoholic pancreatitis - MELD score of 20 and Madrey score of [address] of the abdomen and pelvis demonstrated fatty liver with hepatomegaly in addition to suspected pancreatitis acute hepatitis without underlying cirrhosis. Patient managed with vitamin K in view of elevated INR and subsequently started on Xifaxan with consultation placed to GI. Patient is on systemic steroid 4. Acute pancreatitis ? Secondary to chronic alcohol use. Manage conservatively 5. Acute metabolic encephalopathy ? Multifactorial including alcoholic hepatitis, withdrawal from alcohol, as well as pancreatitis and severe hyponatremia. Patient became combative resulting in patient being intubated 6. Severe hyponatremia ? Secondary to beer potomania resuscitated with IV fluid. Patient sodium levels trending up 7. Anemia -Patient has been transfused total of 2 unit PRBC following admission. Patient will probably need to undergo endoscopic evaluation prior to being discharged. Subsequently s monitoring H&H and transfuse if patient becomes symptomatic or hemoglobin falls below 7 8. Hypokalemia ? Corrected per protocol 9. Hypophosphatemia ? Secondary to chronic alcohol use corrected per protocol 10. Hypomagnesemia ? Corrected per protocol 11. New onset acute congestive heart failure with reduced ejection fraction ? Echo 09/03 showed EF 40%, mild to moderate LV global hypokinesis, interventricular septal flattening during systole consistent with RV pressure overload. CTA chest on 09/03 with no PE but with signs of pneumonia versus inflammatory disease as noted above. Continue treatment as noted above for now. 12. Alcohol abuse with concern for alcohol withdrawal ? Reported drinking about 12 white claws per day recently. Has 20-year history of heavy alcohol use without cessation. No history of alcohol withdrawal. Given high concern for impending alcohol drawl, patient was started on phenobarbital taper admission with adequate symptom control. Continue phenobarbital taper and other as needed medications per alcohol withdrawal order set. Continue folate and thiamine. Monitor closely. 13. Suspected protein calorie malnutrition with hypoalbuminemia ? Nutrition following. Albumin 2.2 on admit, prealbumin also low. Suspect malnutrition secondary to poor food intake as noted above. Patient currently n.p.o. given acute encephalopathy as noted above. Intubated on 09/05. Will likely need to start tube feeds in the next few days. 14. History of lichen sclerosis ? Previously required treatment, not currently active. 15. Tobacco dependence - Counseled on cessation, offered nicotine patch for tobacco cravings 16. DVT prophylaxis - SCDs for now given patient's low hemoglobin level Time spent in the patient's overall evaluation,decision-making process, review of diagnostic data, adjustment of management, discussion with other providers, nursing nursing and ancillary staff involved in patient's care documentation, 52 Minutes Charges/Coding Visit Charges Inpatient E&M: 00351 Subs Hosp L3
--- NOTE | 2023-09-11 07:32 | NURSING ---
Extubated. Tolerated well. Transition to 4L NC.
[2023-09-11] MEDS: Pantoprazole Sodium 40 MG in 0.9% Normal Saline (100mL MB+) 100 ML 330 MG IV (10:00)
[2023-09-11] MEDS: Loperamide 2 MG Capsule PO ×3 (11:46→20:29)
[2023-09-11 12:00] LABS: Bedside Glucose 96 mg/dL (74-106)
[2023-09-11] MEDS: Acetaminophen 325 MG Tablet 650 MG PO ×2 (13:45→20:29)
--- NOTE | 2023-09-11 14:12 | PCM.PN.ID ---
Physical Exam Narrative Patient is alert and responsive out of bed to a chair. Extubated. Currently on nasal cannula 2. Of note stool was positive for C. difficile by PCR. Blood cultures remain sterile. On exam she is responsive sclera is markedly icteric lungs are clear heart exam S1-S2 abdomen firm but nontender ID ID: Route of nutrition/ use of supplements: [] Nutritional Intake: [] IV Site: [] Rojas Catheter: [] Assessment & Plan Assessment/Plan (1) Acute pancreatitis: QUALIFIERS: Pancreatitis type: alcohol induced Acute pancreatitis complication: unspecified Qualified Code(s): K85.20 - Alcohol induced acute pancreatitis without necrosis or infection PLAN: Of note is the positive stool for C. difficile. At this point we will start oral vancomycin 125 mg 4 times a day. Will discontinue meropenem and parenteral vancomycin.
[2023-09-11] MEDS: Vancomycin 125 MG/5 ML Susp PO.SYRINGE PO ×3 (14:35→23:09)
[2023-09-11 15:26] LABS: Pathologist Review Reviewed
[2023-09-11 15:27] LABS: Pathologist Review Reviewed
[2023-09-11 15:28] LABS: Pathologist Review Reviewed
[2023-09-11] MEDS: Albuterol 2.5 MG/3 ML VIAL.NEB. INHALATION (15:49)
[2023-09-11 18:14] LABS: Bedside Glucose 105 mg/dL (74-106)
[2023-09-11] MEDS: Norepinephrine 8 MG in 0.9% Normal Saline (250mL Bag) 242 ML 3.8 MG CONT INF (23:21)
[2023-09-11 23:29] LABS: Bedside Glucose 72 mg/dL (74-106)
[2023-09-12] VITALS (27 sets, daily range): BP systolic 93–112; BP diastolic 52–83; PULSE 85–110; RESP 18–25; TEMP 37.1–38; O2SAT 93–99; BMI 28.5
[2023-09-12 03:43] LABS: Absolute Lymphocyte Count 1.03 X10^3/uL (0.83-4.51); Absolute Neutrophil Count 38.3 X10^3/uL (2.0-7.7); Basophil# 0.15 X10^3/uL; Basophil% 0.4 % (0-1); Eosinophil# 0.14 X10^3/uL; Eosinophils% 0.3 % (0-5); Hematocrit 25.2 % (37-47); Hemoglobin 7.9 g/dL (12.0-15.0); Lymphocyte # 1.03 X10^3/ul (0.83-4.51); Lymphocyte % 2.4 % (19-41); Mean Corp Hgb Conc 31.3 g/dL (32-36); Mean Corpuscular Hgb 33.5 pg (27.0-32.0); Mean Corpuscular Volume 106.8 fL (81-99); Mean Platelet Vol. 11.3 fl (6.2-12.0); Monocyte# 0.96 X10^3/uL; Monocyte% 2.3 % (0-10); NRBC Flagged by Analyzer 0.1 % (0-5); Neutrophil # 38.33 X10^3/uL (2.7-7.7); Neutrophil % 90.8 % (47-70); POSITIVE COUNT YES; POSITIVE DIFFERENTIAL YES; Platelet Count 385 K/mm3 (150-450); RBC Distribution Width CV 16.3 % (11.6-14.6); RBC Distribution Width SD 60.3 fl (35.1-43.9); Red Blood Count 2.36 M/mm3 (4.2-5.4)
[2023-09-12 03:46] LABS: Differential Indicated SCAN CRITERIA MET; White Blood Count 42.2 K/mm3 (4.4-11.0)
[2023-09-12 04:01] LABS: ALB/GLOB Ratio 0.4 RATIO (0.9-2.4); AST(SGOT) 159 U/L (15-37); Alanine Aminotransfer ALT/SGPT 31 U/L (13-56); Albumin, Serum 1.3 g/dL (3.2-5.0); Alkaline Phosphatase 157 U/L (45-117); Anion Gap 12 (5-15); BUN 30 mg/dL (7-18); Calcium,Total 6.7 mg/dL (8.5-10.1); Chloride 102 mmol/L (98-107); Creatinine, Serum 1.25 mg/dL (0.55-1.02); EST Glomerular Filtration Rate 49 mL/min (>60); Est Glom Filt Rate - Afr Amer 60 mL/min (>60); Estimated Creatinine Clearance 57.25 ml/min; Globulin 3.4 g/dL (2.2-4.2); Glucose 80 mg/dL (74-106); Magnesium 1.9 mg/dL (1.6-2.6); Phosphorus 4.1 mg/dL (2.5-4.9); Potassium 3.5 mmol/L (3.5-5.1); Protein, Total 4.7 g/dL (6.4-8.2); Sodium Level 135 mmol/L (136-145)
[2023-09-12 04:45] LABS: Differential Comment SCANNED
[2023-09-12] MEDS: 0.9% Saline Lock 10 ML Syringe IV (05:11)
[2023-09-12] MEDS: Furosemide 20 MG/2 ML VIAL IV (05:11)
[2023-09-12] MEDS: Vancomycin 125 MG/5 ML Susp PO.SYRINGE PO ×4 (05:12→23:10)
[2023-09-12 05:39] LABS: Bedside Glucose 74 mg/dL (74-106)
--- NOTE | 2023-09-12 06:34 | PCM.PN.INT ---
Assessment & Plan Assessment/Plan (1) Acute hypoxic respiratory failure: (2) Alcoholic hepatitis: (3) Acute pancreatitis: QUALIFIERS: Acute pancreatitis complication: unspecified Pancreatitis type: alcohol induced Qualified Code(s): K85.20 - Alcohol induced acute pancreatitis without necrosis or infection PLAN: Plan RECOMMENDATIONS: 1. Titrate Levophed to maintain a systolic blood pressure at or above 90 mmHg. Start scheduled midodrine today. 2. Antimicrobials per ID recommendations. 3. Dietary advancement per speech therapy. 4. Supplemental oxygen to maintain saturations at or above 90%. 5. Encourage incentive spirometer use and mobilize patient as tolerated. 6. Continue to monitor blood counts and transfuse if hemoglobin drops below 7 g/dL. 7. Continue PPI therapy. IMPRESSIONS: 1. Multifactorial shock Clinical concern for septic and hypovolemic etiologies in the setting of pancreatitis and progressive infiltrates noted on chest imaging, along with C. difficile colitis. The patient will be continued on antimicrobials per ID recommendations. Vasopressor support can be weaned to maintain a systolic blood pressure at or above 90 mmHg. Scheduled midodrine will be initiated today. 2. Acute hypoxemic respiratory failure Resolved. Clinical concern for third spacing of fluids in the setting of acute pancreatitis coupled with probable underlying pneumonia. The patient's respiratory status worsened and she was ultimately intubated on September 05. With invasive mechanical ventilatory support and antimicrobial therapy, the patient was able to be extubated on the morning of September 10. Plan to continue supplemental oxygen to maintain saturations at or above 90%. Encourage incentive spirometer use and mobilize patient as tolerated. 3. Severe alcoholic hepatitis/acute alcoholic pancreatitis Liver function parameters appear to be slowly improving. Gastroenterology is currently following to assist with medical management. Continue supportive measures. 4. Anemia Continue to monitor blood counts daily. Transfuse if hemoglobin drops below 7 g/dL. Continue PPI therapy. Again, gastroenterology is following to assist with medical management. This note was generated with [employer] dictation software. It may contain incorrect words, spelling, and punctuation that were not noted in checking the note before signing. Subjective Subjective The patient was seen and examined at the bedside this morning. Events from the last 24 hours have been reviewed. The patient was restarted on low-dose Levophed to maintain hemodynamic stability. She is currently requiring Levophed at 1 mcg/min. There are tentative plans for FEES today by speech therapy to determine most appropriate diet. The patient is maintaining appropriate oxygen saturations on 1 L/min via nasal cannula. White count remains elevated at 42,000 with a hemoglobin of 7.9 g/dL. Creatinine has increased slightly to 1.25. The patient continues to have an intermittently productive cough. Objective Data Objective Data The patient's most recent lab work, culture data and imaging studies have all been personally reviewed. Surface echocardiogram demonstrated normal LV size and thickness with mild to moderate global hypokinesis of the LV. Ejection fraction was noted to be 40%. Right ventricular systolic pressure was estimated to be 43 mmHg. Sputum culture dated September 02 was positive for group C streptococcus. Respiratory viral panel along with COVID PCR was negative. Strep and urine Legionella antigens were negative. Vital Signs: Vital Signs Temp Pulse Resp BP Pulse Ox O2 Del Method O2 Flow Rate 98.8 F 102 H 22 H 112/64 96 Nasal Cannula 1 09/12/23 04:00 09/12/23 06:00 09/12/23 06:00 09/12/23 06:15 09/12/23 06:00 09/12/23 06:00 09/12/23 06:00 FiO2 25 09/11/23 07:00 Oxygen Flow Rate (L/min) 1 Oxygen Delivery Method Nasal Cannula Weight: 166 lb 14.239 oz Body Mass Index (BMI) 28.5 Intake & Output: Intake and Output for Last 24 Hours 09/10/23 09/11/23 09/12/23 23:59 23:59 23:59 Intake Total 4814.33 / 4937.23 2307.28 / 2308.23 24.23 .23 Output Total 820 / 880 730 / 730 110 / 110 Balance 3994.33 / 4057.23 1577.28 / 1578.23 -85.77 / -85.77 Lab / Micro Data Attestation: I reviewed the patient's lab results. 09/12/23 03:30 09/12/23 03:30 Labs: Laboratory Results - last 24 hr 09/09/23 05:05: Diff Path Review Reviewed 09/10/23 04:22: Diff Path Review Reviewed 09/11/23 03:35: Diff Path Review Reviewed 09/11/23 11:40: POC Glucose 96 09/11/23 17:54: POC Glucose 105 09/11/23 23:08: POC Glucose 72 L 09/12/23 03:30: WBC 42.2 H*, RBC 2.36 L, Hgb 7.9 L, Hct 25.2 L, MCV 106.8 H, MCH 33.5 H, MCHC 31.3 L, RDW Std Deviation 60.3 H, RDW Coeff of Rebel 16.3 H, Plt Count 385, MPV 11.3, Immature Gran % (Auto) 3.800 H, Neut % (Auto) 90.8 H, Lymph % (Auto) 2.4 L, Alexander % (Auto) 2.3, Eos % (Auto) 0.3, Baso % (Auto) 0.4, Absolute Neuts (auto) 38.3 H, Absolute Lymphs (auto) 1.03, Nucleated RBC % 0.1, Differential Comment SCANNED, Diff Path Review July, Sodium 135 L, Potassium 3.5, Chloride 102, Carbon Dioxide 21.0, Anion Gap 12, BUN 30 H, Creatinine 1.25 H, Estim Creat Clear Calc 57.25, Est GFR (MDRD) Af Amer 60, Est GFR (MDRD) Non-Af 49 L, BUN/Creatinine Ratio 24.0 H, Glucose 80, Calcium 6.7 L, Phosphorus 4.1, Magnesium 1.9, Total Bilirubin 7.90 H, AST 159 H, ALT 31, Alkaline Phosphatase 157 H, Total Protein 4.7 L, Albumin 1.3 L, Globulin 3.4, Albumin/Globulin Ratio 0.4 L 09/12/23 05:13: POC Glucose 74 Micro: Microbiology 09/07/23 06:45 Blood Culture (Wb) - Pic Blood Culture - Preliminary No growth in 48 hours. 09/07/23 06:51 Blood Culture (Wb) - Anticubital Right Blood Culture - Preliminary No growth in 48 hours. 09/07/23 19:30 Sputum, Induced/Lukens Gram Stain - Final 09/07/23 19:30 Sputum, Induced/Lukens Respiratory Culture - Final Presumptive C albicans 09/07/23 06:45 Urine Catheter - Rojas Urine Culture - Final Culture exhibits no growth. 09/06/23 08:03 Sputum, Induced/Lukens Gram Stain - Final 09/06/23 08:03 Sputum, Induced/Lukens Respiratory Culture - Final Presumptive C albicans 09/03/23 04:25 Blood Culture (Wb) - Anticubital Right Blood Culture - Final No growth in 5 days. 09/03/23 04:20 Blood Culture (Wb) - Left Forearm Blood Culture - Final No growth in 5 days. 09/04/23 09:45 Urine Catheter - Rojas Urine Culture - Final Culture exhibits no growth. 09/05/23 09:15 Mucosa - Nasopharyngeal Respiratory Panel (PCR) - Final 09/05/23 09:15 Mucosa - Nasopharyngeal SARS-CoV-2, Influenza & RSV (PCR) - Final 09/03/23 17:10 Sputum, Expectorated/Coughed Gram Stain - Final 09/03/23 17:10 Sputum, Expectorated/Coughed Respiratory Culture - Final Streptococcus group C 09/05/23 07:35 Stool C. difficile GDH Antigen & Toxins - Final 09/05/23 07:35 Stool Clostridioides difficile (PCR) - Final 09/05/23 09:20 Urine Catheter - Catheter Legionella Antigen - Final 09/05/23 09:20 Urine Catheter - Catheter Streptococcus pneumoniae Antigen (M - Final 09/05/23 07:35 Stool Stool Occult Blood (JOSE) - Final Occult Blood Positive ABG Data ABG results: ABG 09/06/23 09:19 Specimen Type ART Sample Site R Brach pH 7.41 Bicarbonate Actual 29.6 H Total CO2 31 Base Excess 5 H O2 Saturation 94 L O2 % 80.0 ABG pCO2 47.1 H ABG pO2 72 L Respiration Rate 16 O2 Delivery Device Adult Vent Vent Mode AC Tidal Volume 400.0 POC PEEP 5 Radiography Diagnostic Testing: Radiology Impression Chest X-Ray 09/11/23 05:55 IMPRESSION: 1. Pulmonary vascular congestion and possible bilateral perihilar infiltrates. 2. Right upper lobe infiltrate. Electronically Signed: Eliseo Moreno DO at 5:27 EDT , Physical Exam Const alert and no apparent distress Constitutional Narrative: Resting comfortably in bed. Remains jaundiced in appearance. General Appearance: cooperative HEENT normocephalic and head/scalp atraumatic Eyes PERRL and EOMs intact bilaterally Sclera: sclera abnormal Neck supple General: trachea midline Chest inspection of chest normal Resp Auscultation: rhonchi and diminished lung sounds Cardio regular rate, regular rhythm, S1 normal heart sound and S2 normal heart sound GI normal to inspection, nondistended, normoactive bowel sounds Extremity General Extremity: edema Skin no rashes or lesions noted Neuro CN's II-XII intact bilaterally and no focal motor deficits Psych Mood & Affect: flat affect Charges/Coding Visit Charges Inpatient E&M: 84546 Subs Hosp L3
--- NOTE | 2023-09-12 07:19 | PCM.PN.HOSP ---
Reason for Visit Reason for Visit: Diagnoses Anemia, unspecified (09/02/23) Other disorders of phosphorus metabolism (09/02/23) Hypomagnesemia (09/02/23) Hypo-osmolality and hyponatremia (09/02/23) Hypokalemia (09/02/23) Alcohol abuse, uncomplicated (09/02/23) Acute respiratory failure with hypoxia (09/02/23) Alcoholic hepatitis without ascites (09/02/23) Alcoholic hepatic failure without coma (09/02/23) Alcohol induced acute pancreatitis without necrosis or infection (09/02/23) Acute pancreatitis without necrosis or infection, unspecified (09/02/23) Subjective Subjective Patient seen WBC count still remains elevated hemoglobin remains low at 7.9. Plan is for patient to undergo speech eval prior to resumption of oral diet Objective Data Objective Data Vital Signs: Vital Signs Temp Pulse Resp BP Pulse Ox O2 Del Method O2 Flow Rate 98.8 F 97 24 H 100/59 L 94 Nasal Cannula 1 09/12/23 04:00 09/12/23 07:00 09/12/23 07:00 09/12/23 07:00 09/12/23 07:00 09/12/23 07:00 09/12/23 07:00 FiO2 25 09/11/23 07:00 Oxygen Flow Rate (L/min) 1 Oxygen Delivery Method Nasal Cannula Weight: 75.7 kg Body Mass Index (BMI) 28.5 Intake & Output: Intake and Output for Last 24 Hours 09/10/23 09/11/23 09/12/23 23:59 23:59 23:59 Intake Total 4814.33 / 4937.23 2307.28 / 2308.23 25.67 / 25.67 Output Total 820 / 880 730 / 730 110 / 110 Balance 3994.33 / 4057.23 1577.28 / 1578.23 -84.33 / -84.33 Lab / Micro Data 09/12/23 03:30 09/12/23 03:30 Labs: Laboratory Results - last 24 hr 09/09/23 05:05: Diff Path Review Reviewed 09/10/23 04:22: Diff Path Review Reviewed 09/11/23 03:35: Diff Path Review Reviewed 09/11/23 11:40: POC Glucose 96 09/11/23 17:54: POC Glucose 105 09/11/23 23:08: POC Glucose 72 L 09/12/23 03:30: WBC 42.2 H*, RBC 2.36 L, Hgb 7.9 L, Hct 25.2 L, MCV 106.8 H, MCH 33.5 H, MCHC 31.3 L, RDW Std Deviation 60.3 H, RDW Coeff of Rebel 16.3 H, Plt Count 385, MPV 11.3, Immature Gran % (Auto) 3.800 H, Neut % (Auto) 90.8 H, Lymph % (Auto) 2.4 L, Wheeler % (Auto) 2.3, Eos % (Auto) 0.3, Baso % (Auto) 0.4, Absolute Neuts (auto) 38.3 H, Absolute Lymphs (auto) 1.03, Nucleated RBC % 0.1, Differential Comment SCANNED, Diff Path Review July, Sodium 135 L, Potassium 3.5, Chloride 102, Carbon Dioxide 21.0, Anion Gap 12, BUN 30 H, Creatinine 1.25 H, Estim Creat Clear Calc 57.25, Est GFR (MDRD) Af Amer 60, Est GFR (MDRD) Non-Af 49 L, BUN/Creatinine Ratio 24.0 H, Glucose 80, Calcium 6.7 L, Phosphorus 4.1, Magnesium 1.9, Total Bilirubin 7.90 H, AST 159 H, ALT 31, Alkaline Phosphatase 157 H, Total Protein 4.7 L, Albumin 1.3 L, Globulin 3.4, Albumin/Globulin Ratio 0.4 L 09/12/23 05:13: POC Glucose 74 Micro: Microbiology 09/07/23 06:45 Blood Culture (Wb) - Pic Blood Culture - Preliminary No growth in 48 hours. 09/07/23 06:51 Blood Culture (Wb) - Anticubital Right Blood Culture - Preliminary No growth in 48 hours. 09/07/23 19:30 Sputum, Induced/Lukens Gram Stain - Final 09/07/23 19:30 Sputum, Induced/Lukens Respiratory Culture - Final Presumptive C albicans 09/07/23 06:45 Urine Catheter - Rojas Urine Culture - Final Culture exhibits no growth. 09/06/23 08:03 Sputum, Induced/Lukens Gram Stain - Final 09/06/23 08:03 Sputum, Induced/Lukens Respiratory Culture - Final Presumptive C albicans 09/03/23 04:25 Blood Culture (Wb) - Anticubital Right Blood Culture - Final No growth in 5 days. 09/03/23 04:20 Blood Culture (Wb) - Left Forearm Blood Culture - Final No growth in 5 days. 09/04/23 09:45 Urine Catheter - Rojas Urine Culture - Final Culture exhibits no growth. 09/05/23 09:15 Mucosa - Nasopharyngeal Respiratory Panel (PCR) - Final 09/05/23 09:15 Mucosa - Nasopharyngeal SARS-CoV-2, Influenza & RSV (PCR) - Final 09/03/23 17:10 Sputum, Expectorated/Coughed Gram Stain - Final 09/03/23 17:10 Sputum, Expectorated/Coughed Respiratory Culture - Final Streptococcus group C 09/05/23 07:35 Stool C. difficile GDH Antigen & Toxins - Final 09/05/23 07:35 Stool Clostridioides difficile (PCR) - Final 09/05/23 09:20 Urine Catheter - Catheter Legionella Antigen - Final 09/05/23 09:20 Urine Catheter - Catheter Streptococcus pneumoniae Antigen (M - Final 09/05/23 07:35 Stool Stool Occult Blood (JOSE) - Final Occult Blood Positive Radiography Diagnostic Testing: Radiology Impression Chest X-Ray 09/11/23 05:55 IMPRESSION: 1. Pulmonary vascular congestion and possible bilateral perihilar infiltrates. 2. Right upper lobe infiltrate. Electronically Signed: Eliseo Moreno DO at 5:27 EDT Reading Location ID and State: [facility] / [place] Tel , Service support , Physical Exam Narrative GENERAL: cooperative, flat affect HEENT: Atraumatic; normocephalic EYES; icteric, Normal Conjunctiva NECK; supple, normal thyroid, RESPIRATORY: Diminished to auscultation, bilateral wheezes CARDIOVASCULAR: Regular S1 S2, GI: soft, normoactive bowel sounds, : No Renal angle tenderness; EXTREMITIES: No edema, no clubbing, MUSCULOSKELETAL: no muscle wasting NEURO: Awake; no lateralizing signs. SKIN: No Rash PSYCH; Flat affect Assessment & Plan Assessment/Plan (1) Acute hypoxic respiratory failure: PLAN: Plan Patient is a 43-year-old lady admitted with desire for detoxification.. Patient was found to have elevated lipase level as well as LFTs. Admitted to the intensive care unit. Patient became hypotensive resuscitated with IV fluid went into respiratory failure resulting in patient being intubated 1. Acute hypoxic respiratory failure ? Secondary to fluid overload patient intubated while in the ICU. Pulmonary medicine on board. Decision regarding weaning deferred to pulmonary medicine ? 09/12/2023; patient was weaned off the vent on 09/11/2023. 2. Hypovolemic shock ? Secondary to pancreatitis in addition to suspected pneumonia. Patient was found to have mild leukocytosis. CTA did show Multifocal pulmonary infiltrates more severe in the left lung suspicious for inflammatory disease. Bilateral pleural effusions larger on the left with consolidation of left lower lobe. Patient was resuscitated with IV fluids per protocol in addition to broad-spectrum antibiotic therapy with vancomycin as well as meropenem 3. Severe alcoholic pancreatitis - MELD score of 20 and Madrey score of [address] of the abdomen and pelvis demonstrated fatty liver with hepatomegaly in addition to suspected pancreatitis acute hepatitis without underlying cirrhosis. Patient managed with vitamin K in view of elevated INR and subsequently started on Xifaxan with consultation placed to GI. Patient is on systemic steroid 4. Acute pancreatitis ? Secondary to chronic alcohol use. Manage conservatively 5. Acute metabolic encephalopathy ? Multifactorial including alcoholic hepatitis, withdrawal from alcohol, as well as pancreatitis and severe hyponatremia. Patient became combative resulting in patient being intubated 6. Severe hyponatremia ? Secondary to beer potomania resuscitated with IV fluid. Patient sodium levels trending up 7. Anemia -Patient has been transfused total of 2 unit PRBC following admission. Patient will probably need to undergo endoscopic evaluation prior to being discharged. Subsequently s monitoring H&H and transfuse if patient becomes symptomatic or hemoglobin falls below 7 8. Hypokalemia ? Corrected per protocol 9. Hypophosphatemia ? Secondary to chronic alcohol use corrected per protocol 10. Hypomagnesemia ? Corrected per protocol 11. New onset acute congestive heart failure with reduced ejection fraction ? Echo 09/03 showed EF 40%, mild to moderate LV global hypokinesis, interventricular septal flattening during systole consistent with RV pressure overload. CTA chest on 09/03 with no PE but with signs of pneumonia versus inflammatory disease as noted above. Continue treatment as noted above for now. 12. Alcohol abuse with concern for alcohol withdrawal ? Reported drinking about 12 white claws per day recently. Has 20-year history of heavy alcohol use without cessation. No history of alcohol withdrawal. Given high concern for impending alcohol drawl, patient was started on phenobarbital taper admission with adequate symptom control. Continue phenobarbital taper and other as needed medications per alcohol withdrawal order set. Continue folate and thiamine. Monitor closely. 13. Malnutrition ruled out -09/12/2023;Plan is for patient to undergo speech eval prior to resumption of oral diet 14. History of lichen sclerosis ? Previously required treatment, not currently active. 15. Tobacco dependence - Counseled on cessation, offered nicotine patch for tobacco cravings 16. DVT prophylaxis - SCDs for now given patient's low hemoglobin level 17. Physical deconditioning - Requested for PT OT eval and social media analyst to assist with discharge planning Time spent in the patient's overall evaluation,decision-making process, review of diagnostic data, adjustment of management, discussion with other providers, nursing nursing and ancillary staff involved in patient's care documentation, 50 Minutes Charges/Coding Visit Charges Inpatient E&M: 90363 Subs Hosp L3
[2023-09-12] MEDS: Ipratropium/Albuterol Sulfate 3 ML AMPUL.NEB INHALATION (07:48)
--- NOTE | 2023-09-12 09:43 | CASEMGMT ---
Discharge Planning A list of?[facility] providers including quality and resource use data and consistent with the patient's preferred geographic region, medical needs, and insurance network was created in [employer] Guide.? This list was provided to the SW. Coral Ruano Discharge Planning Asst.
[2023-09-12] MEDS: Folic Acid 1 MG Tablet PO (10:01)
[2023-09-12] MEDS: Menthol/Lanolin/Calamine/Znox 113 GM Tube 1 APPLIC TOPICAL ×2 (10:02→20:10)
[2023-09-12] MEDS: rifAXIMin 550 MG Tablet PO ×2 (10:02→20:10)
[2023-09-12] MEDS: CHLORHEXIDINE GLUC 2% CLOTH 1 EACH TOWELETTE TOPICAL (10:02)
[2023-09-12] MEDS: Thiamine Hydrochloride 100 MG Tablet PO (10:02)
[2023-09-12] MEDS: Midodrine HCl 5 MG Tablet 10 MG PO ×2 (10:05→17:17)
[2023-09-12] MEDS: Pantoprazole Sodium 40 MG in 0.9% Normal Saline (100mL MB+) 100 ML 330 MG IV (10:05)
--- NOTE | 2023-09-12 11:02 | ADDICTION ---
clinician met with client to discuss her hx of alcohol addiction and treatment options. client was cooperative; at times difficulty in talking due to recent intubation. client reported a significant hx of alcohol abuse and medical concerns associated with. client presented contemplative regarding tx options; client acknowledged a need to be sober and feels much better. clinician discussed LOC's; individual counseling, IOP and residential tx. clinician left client business cards for follow up.
--- NOTE | 2023-09-12 11:25 | CASEMGMT ---
Social Work SW met w/pt in room in regard to discharge planning. Pt is slow to respond but able to answer SW questions. We spoke about options at discharge. Pt states has a flight of stairs into her home and would have difficulty getting up these steps. SW provided to pt a list of snf facilities from [facility]. Pt reviewed the list and is agreeable to a referral to [facility]. Pt is not certain about other choices. SW explained we will make a referral when appropriate, will speak w/her about more choices if needed. Pt states understanding. SW also spoke w/pt about POA for healthcare. Pt may be willing to complete the documents while here, would want her mother to be her healthcare POA. SW explained without the documents it would be her parents, pt states understanding. SW will continue to follow, referral to [facility], likely tomorrow, and will follow up regarding LW/POA. ALLEY Hall
[2023-09-12] MEDS: Dextrose 10%-Water 250 ML 999 ML IV (11:27)
[2023-09-12 11:32] LABS: Bedside Glucose 64 mg/dL (74-106)
[2023-09-12 11:49] LABS: Pathologist Review Reviewed
[2023-09-12 12:23] LABS: Bedside Glucose 105 mg/dL (74-106)
--- NOTE | 2023-09-12 15:53 | HP.SPFEES ---
FEES Patient Information Date of Evaluation: 09/12/23 Time of Evaluation: 12:00 DIAGNOSIS:: Acute respiratory failure J96.01 Referring Physician: Jimbo Reyes Staff Providing this Care/Treatment:: PO Direct Billable Minutes: 112 Subjective: Subjective:: Pt is a 43-year-old female with no known PMH in EMR. She presented to [facility] ED 09/02/23 wanting alcohol detox. Pt admitted to [facility] ICU on 09/03/23 for acute alcoholic hepatitis with several other significant medical concerns including acute pancreatitis and shock. During stay, she developed respiratory failure and required intubation 09/06/23. She was extubated 09/11/23 and BSE recommended NPO with plans for FEES prior to diet advancement due to concerns for aspiration. Current Diet: NPO:: Yes Medication Administration:: crushed in puree Comment:: Sips and chips Respiratory Status: Observation:: 1L via nasal cannula Dentation/Oral Hygiene: Observations:: Natural teeth Vocal Quality: Observations:: Hoarse, Raspy and Breathy Cognition: Observations:: WFL and Did not impact exam Fiberoptic Endoscope: Size: 3.4 mm Nare:: Left Position During FEES: Position During FEES:: Upright Location: In Chair Anatomy: + Velopharyngeal Port Observations +Nasopharynx Observations +Oropharynx Observations: +Hypopharynx Observation: Comments:: The patient presented with pink, moist oral mucosa throughout. Minimal oral secretions on tongue base likely from crushed medications administered in applesauce earlier today. Mild edema on arytenoids and ventricular folds. White, granulomatous tissue on posterior portion of R vocal fold, as well as redness on posterior portion of L vocal fold likely secondary to recent intubation/extubation. Incomplete vocal fold adduction w/ phonation. Decreased pharyngeal contraction evident with pitch glides. Cobblestoning on posterior pharyngeal wall. Secretions: Description:: Thin and Clear Comment:: Minimal throughout oropharynx and hypopharynx Penetration-Aspiration Scale Penetration-Aspiration Scale Penetration-Aspiration Scale Score Thin Liquid via single sip: straw: Liquid/Food tested:: Water w/ green food coloring Result: 7= enters airways/below vocal folds/not ejected despite effort (Residue: 20% bilateral pyriforms, 10% epiglottis, 10% aryepiglottic folds, <10% ventricular folds, and <10% vocal folds.) Thin Liquid via single sip: straw Trial 2: Result: 3= enters airways/above vocal folds/not ejected (Residue: 10% bilateral pyriforms, 10% vallecula and medial edge of aryepiglottic folds, <5% aryepiglottic folds.) [place] Thick Liquid via single sip: straw: Result: 2= enter airway/above vocal folds/ejected (Residue: 20% R vallecula and aryepiglottic fold, 20% bilateral pyriforms, 10% l vallecula and aryepiglottic fold, 10% posterior pharyngeal wall.) Applesauce via tsp: Result: 3= enters airways/above vocal folds/not ejected (Residue: 40% vallecula, 20% posterior surface of the epiglottis, 10% posterior pharyngeal wall, 15% R pyriform, 10% L pyriform) [place] Thick Liquid via single sip: straw Trial 2: Result: 2= enter airway/above vocal folds/ejected (Residue: 20% aryepiglottic fold, 20% vallecula, 10% interarytenoid space, 10% pyriforms) Swallowing Trials: Swallowing Trials Results Below: Strategies Comments:: Diagnosis: Moderate oropharyngeal dysphagia R13.13 Impressions: The oral phase is primarily marked by... -Delayed initiation of tongue movement for A-P transport. -Unable to assess mastication due to patient appearing unwell after limited trials. The pharyngeal phase is primarily marked by... -Tongue base, epiglottis, aryepiglottic folds, and arytenoids appeared tremulous prior to swallow onset after boluses were presented to oral cavity. -Swallow onset of thin liquids at the aryepiglottic folds; otherwise, timely swallow onset. -Decreased pharyngeal contraction with resulting mild-moderate pharyngeal residues with post prandial penetration of mildly thick liquids. Pt is at increased risk for post prandial aspiration of pharyngeal residues, especially with thicker viscosities. Multiple swallows were somewhat effective in clearing pharyngeal residues; however, she requires 3-4 swallows each bite and sip to reduce residues to trace-mild. -Decreased airway closure most evident with thin liquid via straw resulting in aspiration. Cough reflex did not appear fully eject aspirated contrast. Did not assess cookie or strategies with thin or mildly thickened liquids due to patient repeatedly rolling her head backwards between trials, HR increasing to ~115 (baseline high 90s). SpO2 maintained 96-98%. However, pt had minimal verbal responses to LETTUCE TRIMMER asking her if she was feeling ok so LETTUCE TRIMMER decided to end FEES after these limited trials. Recommendations: Recommended Diet Grade & Liquid Drinks/Liquids:: Mildly Thick Foods:: Pureed Medication Administration:: crushed in puree Supervision/Cues: 1 on 1 Recommended Compensatory Strategies: Small bites/sips, Slow rate, 3-4 swallow on each bite/sip, Sitting upright during and 30 min after each meal Prognosis: Prognosis: Good Education: :: Speech therapy recommendations: Would recommend repeat instrumental swallow assessment in upcoming sessions to assess appropriateness for diet advancement. Would not recommend advancement without MBSS or repeat FEES. Ok to consider ice chips after oral care between meals for pt comfort if patient demonstrates good diet tolerance of puree textures / nectar (mildly) thick liquids. Will implement oropharyngeal strengthening in upcoming sessions (Kezia, Effortful, Raoul, CTAR). Education Completed: 1. Described result of evaluation., 2. Pt understands evaluation & agrees with goals and treatment plan. and 7. Pt requires further education on strategies & risks.
[2023-09-12 17:16] LABS: Bedside Glucose 84 mg/dL (74-106)
[2023-09-12] MEDS: Loperamide 2 MG Capsule PO (20:09)
[2023-09-12] MEDS: Albuterol 2.5 MG/3 ML VIAL.NEB. INHALATION (20:55)
[2023-09-12 23:31] LABS: Bedside Glucose 80 mg/dL (74-106)
[2023-09-13] VITALS (16 sets, daily range): BP systolic 96–106; BP diastolic 51–68; PULSE 82–106; RESP 16–27; TEMP 36.7–37.9; O2SAT 93–98; BMI 28.3
[2023-09-13 03:36] LABS: Absolute Lymphocyte Count 0.72 X10^3/uL (0.83-4.51); Absolute Neutrophil Count 30.2 X10^3/uL (2.0-7.7); Basophil# 0.07 X10^3/uL; Basophil% 0.2 % (0-1); Eosinophil# 0.15 X10^3/uL; Eosinophils% 0.5 % (0-5); Hemoglobin 7.5 g/dL (12.0-15.0); Lymphocyte # 0.72 X10^3/ul (0.83-4.51); Lymphocyte % 2.2 % (19-41); Mean Corp Hgb Conc 32.6 g/dL (32-36); Mean Corpuscular Hgb 34.4 pg (27.0-32.0); Mean Corpuscular Volume 105.5 fL (81-99); Mean Platelet Vol. 10.8 fl (6.2-12.0); Monocyte# 1.04 X10^3/uL; Monocyte% 3.2 % (0-10); NRBC Flagged by Analyzer 0 % (0-5); Neutrophil # 30.23 X10^3/uL (2.7-7.7); Neutrophil % 92.9 % (47-70); POSITIVE COUNT YES; POSITIVE DIFFERENTIAL YES; Platelet Count 420 K/mm3 (150-450); RBC Distribution Width CV 16.2 % (11.6-14.6); RBC Distribution Width SD 59.5 fl (35.1-43.9); Red Blood Count 2.18 M/mm3 (4.2-5.4)
[2023-09-13 03:41] LABS: Differential Indicated SCAN CRITERIA MET; White Blood Count 32.6 K/mm3 (4.4-11.0)
[2023-09-13] MEDS: Acetaminophen 325 MG Tablet 650 MG PO (03:44)
[2023-09-13] MEDS: 0.9% Saline Lock 10 ML Syringe IV (03:44)
[2023-09-13 03:54] LABS: ALB/GLOB Ratio 0.3 RATIO (0.9-2.4); AST(SGOT) 151 U/L (15-37); Alanine Aminotransfer ALT/SGPT 31 U/L (13-56); Albumin, Serum 1.2 g/dL (3.2-5.0); Alkaline Phosphatase 174 U/L (45-117); Anion Gap 12 (5-15); BUN 37 mg/dL (7-18); BUN/Creat Ratio 27.4 RATIO (10-20); Calcium,Total 6.7 mg/dL (8.5-10.1); Chloride 104 mmol/L (98-107); Creatinine, Serum 1.35 mg/dL (0.55-1.02); EST Glomerular Filtration Rate 45 mL/min (>60); Est Glom Filt Rate - Afr Amer 55 mL/min (>60); Estimated Creatinine Clearance 52.97 ml/min; Globulin 3.5 g/dL (2.2-4.2); Glucose 83 mg/dL (74-106); Magnesium 2.1 mg/dL (1.6-2.6); Phosphorus 4.3 mg/dL (2.5-4.9); Potassium 3.3 mmol/L (3.5-5.1); Protein, Total 4.7 g/dL (6.4-8.2); Sodium Level 136 mmol/L (136-145)
[2023-09-13 04:44] LABS: Differential Comment SCANNED; Stomatocyte 2+; Vacuolated Cells 1+
[2023-09-13] MEDS: Potassium Chloride Oral Tablet 20 MEQ 60 MEQ PO (05:26)
[2023-09-13] MEDS: Vancomycin 125 MG/5 ML Susp PO.SYRINGE PO ×3 (05:26→17:16)
[2023-09-13 05:52] LABS: Bedside Glucose 70 mg/dL (74-106)
--- NOTE | 2023-09-13 06:12 | PN.HOSP_ITS ---
Reason for Visit Reason for Visit: Diagnoses Anemia, unspecified (09/02/23) Other disorders of phosphorus metabolism (09/02/23) Hypomagnesemia (09/02/23) Hypo-osmolality and hyponatremia (09/02/23) Hypokalemia (09/02/23) Alcohol abuse, uncomplicated (09/02/23) Acute respiratory failure with hypoxia (09/02/23) Alcoholic hepatitis without ascites (09/02/23) Alcoholic hepatic failure without coma (09/02/23) Alcohol induced acute pancreatitis without necrosis or infection (09/02/23) Acute pancreatitis without necrosis or infection, unspecified (09/02/23) Subjective Subjective Patient WBC count trending down down to 32.6. Hemoglobin remains fairly stable at 7.5. Patient had to be restarted on Levophed and subsequently weaned off. Patient has been started on midodrine. Blood pressure remains fairly stable. Plan is for patient to be transferred out of the ICU Objective Data Objective Data Vital Signs: Vital Signs Temp Pulse Resp BP Pulse Ox O2 Del Method O2 Flow Rate 100.2 F H 92 18 98/61 96 Nasal Cannula 1 09/13/23 04:00 09/13/23 06:00 09/13/23 06:00 09/13/23 06:00 09/13/23 06:00 09/13/23 06:00 09/13/23 06:00 FiO2 94 09/12/23 08:00 Oxygen Flow Rate (L/min) 1 Oxygen Delivery Method Nasal Cannula Weight: 74.7 kg Body Mass Index (BMI) 28.3 Intake & Output: Intake and Output for Last 24 Hours 09/11/23 09/12/23 09/13/23 23:59 23:59 23:59 Intake Total 2307.28 / 2308.23 701.37 / 701.37 Output Total 730 / 730 1500 / 1500 140 / 140 Balance 1577.28 / 1578.23 -798.63 / -798.63 -140 / -140 Lab / Micro Data 09/13/23 03:23 09/13/23 03:23 Labs: Laboratory Results - last 24 hr 09/12/23 03:30: Diff Path Review Reviewed 09/12/23 11:15: POC Glucose 64 L 09/12/23 12:05: POC Glucose 105 09/12/23 16:59: POC Glucose 84 09/12/23 23:09: POC Glucose 80 09/13/23 03:23: WBC 32.6 H*, RBC 2.18 L, Hgb 7.5 L, Hct 23.0 L, MCV 105.5 H, MCH 34.4 H, MCHC 32.6, RDW Std Deviation 59.5 H, RDW Coeff of Rebel 16.2 H, Plt Count 420, MPV 10.8, Immature Gran % (Auto) 1.000 H, Neut % (Auto) 92.9 H, Lymph % (Auto) 2.2 L, [place] % (Auto) 3.2, Eos % (Auto) 0.5, Baso % (Auto) 0.2, Absolute Neuts (auto) 30.2 H, Absolute Lymphs (auto) 0.72 L, Nucleated RBC % 0, Differential Comment SCANNED, Diff Path Review July foll, Toxic Vacuolation 1+, Stomatocytes 2+, Sodium 136, Potassium 3.3 L, Chloride 104, Carbon Dioxide 20.0 L, Anion Gap 12, BUN 37 H, Creatinine 1.35 H, Estim Creat Clear Calc 52.97, Est GFR (MDRD) Af Amer 55 L, Est GFR (MDRD) Non-Af 45 L, BUN/Creatinine Ratio 27.4 H , Glucose 83, Calcium 6.7 L, Phosphorus 4.3, Magnesium 2.1, Total Bilirubin 7.00 H, AST 151 H, ALT 31, Alkaline Phosphatase 174 H, Total Protein 4.7 L, Albumin 1.2 L, Globulin 3.5, Albumin/Globulin Ratio 0.3 L 09/13/23 05:20: POC Glucose 70 L Micro: Microbiology 09/07/23 06:45 Blood Culture (Wb) - Pic Blood Culture - Final No growth in 5 days. 09/07/23 06:51 Blood Culture (Wb) - Anticubital Right Blood Culture - Final No growth in 5 days. 09/07/23 19:30 Sputum, Induced/Lukens Gram Stain - Final 09/07/23 19:30 Sputum, Induced/Lukens Respiratory Culture - Final Presumptive C albicans 09/07/23 06:45 Urine Catheter - Rojas Urine Culture - Final Culture exhibits no growth. 09/06/23 08:03 Sputum, Induced/Lukens Gram Stain - Final 09/06/23 08:03 Sputum, Induced/Lukens Respiratory Culture - Final Presumptive C albicans 09/03/23 04:25 Blood Culture (Wb) - Anticubital Right Blood Culture - Final No growth in 5 days. 09/03/23 04:20 Blood Culture (Wb) - Left Forearm Blood Culture - Final No growth in 5 days. 09/04/23 09:45 Urine Catheter - Rojas Urine Culture - Final Culture exhibits no growth. 09/05/23 09:15 Mucosa - Nasopharyngeal Respiratory Panel (PCR) - Final 09/05/23 09:15 Mucosa - Nasopharyngeal SARS-CoV-2, Influenza & RSV (PCR) - Final 09/03/23 17:10 Sputum, Expectorated/Coughed Gram Stain - Final 09/03/23 17:10 Sputum, Expectorated/Coughed Respiratory Culture - Final Streptococcus group C 09/05/23 07:35 Stool C. difficile GDH Antigen & Toxins - Final 09/05/23 07:35 Stool Clostridioides difficile (PCR) - Final 09/05/23 09:20 Urine Catheter - Catheter Legionella Antigen - Final 09/05/23 09:20 Urine Catheter - Catheter Streptococcus pneumoniae Antigen (M - Final 09/05/23 07:35 Stool Stool Occult Blood (JOSE) - Final Occult Blood Positive Physical Exam Narrative GENERAL: cooperative, flat affect HEENT: Atraumatic; normocephalic EYES; icteric, Normal Conjunctiva NECK; supple, normal thyroid, RESPIRATORY: Diminished to auscultation, bilateral wheezes CARDIOVASCULAR: Regular S1 S2, GI: soft, normoactive bowel sounds, : No Renal angle tenderness; EXTREMITIES: No edema, no clubbing, MUSCULOSKELETAL: no muscle wasting NEURO: Awake; no lateralizing signs. SKIN: No Rash PSYCH; Flat affect Assessment & Plan Assessment/Plan (1) Acute hypoxic respiratory failure: PLAN: Plan Patient is a 43-year-old lady admitted with desire for detoxification.. Patient was found to have elevated lipase level as well as LFTs. Admitted to the intensive care unit. Patient became hypotensive resuscitated with IV fluid went into respiratory failure resulting in patient being intubated 1. Acute hypoxic respiratory failure ? Secondary to fluid overload patient intubated while in the ICU. Pulmonary medicine on board. Decision regarding weaning deferred to pulmonary medicine ? 09/12/2023; patient was weaned off the vent on 09/11/2023. 2. Hypovolemic shock ? Secondary to pancreatitis in addition to suspected pneumonia. Patient was found to have mild leukocytosis. CTA did show Multifocal pulmonary infiltrates more severe in the left lung suspicious for inflammatory disease. Bilateral pleural effusions larger on the left with consolidation of left lower lobe. Patient was resuscitated with IV fluids per protocol in addition to broad- spectrum antibiotic therapy with vancomycin as well as meropenem ? 09/13/2023; Patient had to be restarted on Levophed and subsequently weaned off. Patient has been started on midodrine. Blood pressure remains fairly stable. Plan is for patient to be transferred out of the ICU 3. Severe alcoholic pancreatitis - MELD score of 20 and Madrey score of [address] of the abdomen and pelvis demonstrated fatty liver with hepatomegaly in addition to suspected pancreatitis acute hepatitis without underlying cirrhosis. Patient managed with vitamin K in view of elevated INR and subsequently started on Xifaxan with consultation placed to GI. Patient is on systemic steroid 4. Acute pancreatitis ? Secondary to chronic alcohol use. Manage conservatively 5. Acute metabolic encephalopathy ? Multifactorial including alcoholic hepatitis, withdrawal from alcohol, as well as pancreatitis and severe hyponatremia. Patient became combative resulting in patient being intubated 6. Severe hyponatremia ? Secondary to beer potomania resuscitated with IV fluid. Patient sodium levels trending up 7. Anemia -Patient has been transfused total of 2 unit PRBC following admission. Patient will probably need to undergo endoscopic evaluation prior to being discharged. Subsequently s monitoring H&H and transfuse if patient becomes symptomatic or hemoglobin falls below 7 8. Hypokalemia ? Corrected per protocol 9. Hypophosphatemia ? Secondary to chronic alcohol use corrected per protocol 10. Hypomagnesemia ? Corrected per protocol 11. New onset acute congestive heart failure with reduced ejection fraction ? Echo 09/03 showed EF 40%, mild to moderate LV global hypokinesis, interventricular septal flattening during systole consistent with RV pressure overload. CTA chest on 09/03 with no PE but with signs of pneumonia versus inflammatory disease as noted above. Continue treatment as noted above for now. 12. Alcohol abuse with concern for alcohol withdrawal ? Reported drinking about 12 white claws per day recently. Has 20-year history of heavy alcohol use without cessation. No history of alcohol withdrawal. Given high concern for impending alcohol drawl, patient was started on phenobarbital taper admission with adequate symptom control. Continue phenobarbital taper and other as needed medications per alcohol withdrawal order set. Continue folate and thiamine. Monitor closely. 13. Malnutrition ruled out -09/12/2023;Plan is for patient to undergo speech eval prior to resumption of oral diet 14. History of lichen sclerosis ? Previously required treatment, not currently active. 15. Tobacco dependence - Counseled on cessation, offered nicotine patch for tobacco cravings 16. DVT prophylaxis - SCDs for now given patient's low hemoglobin level 17. Physical deconditioning - Requested for PT OT eval and social media specialist to assist with discharge planning Time spent in the patient's overall evaluation,decision-making process, review of diagnostic data, adjustment of management, discussion with other providers, nursing nursing and ancillary staff involved in patient's care documentation, 36 Minutes Charges/Coding Visit Charges Inpatient E&M: 45505 Subs Hosp L2
[2023-09-13 07:03] LABS: Bedside Glucose 101 mg/dL (74-106)
--- NOTE | 2023-09-13 07:12 | PN.CC_ITS ---
Assessment & Plan Assessment/Plan (1) Acute hypoxic respiratory failure: (2) Alcoholic hepatitis: (3) Acute pancreatitis: QUALIFIERS: Pancreatitis type: alcohol induced Acute pancreatitis complication: unspecified Qualified Code(s): K85.20 - Alcohol induced acute pancreatitis without necrosis or infection PLAN: Plan RECOMMENDATIONS: 1. Supplemental oxygen to maintain saturations at or above 90%. 2. Antimicrobials per ID recommendations. 3. Continue scheduled midodrine. 4. Start scheduled aerosol treatments. 5. Encourage incentive spirometer use and mobilize patient as tolerated. 6. Continue to monitor blood counts and transfuse if hemoglobin drops below 7 g/dL. 7. Continue PPI therapy. 8. The patient is medically stable for transfer out of the intensive care unit. IMPRESSIONS: 1. Multifactorial shock Improved. Clinical concern for septic and hypovolemic etiologies in the setting of pancreatitis and progressive infiltrates noted on chest imaging, along with C. difficile colitis. The patient will be continued on antimicrobials per ID recommendations. The patient has been weaned from vasopressor support and remains hemodynamically stable. Continue scheduled midodrine. 2. Acute hypoxemic respiratory failure Resolved. Clinical concern for third spacing of fluids in the setting of acute pancreatitis coupled with probable underlying pneumonia. The patient's respiratory status worsened and she was ultimately intubated on September 05. With invasive mechanical ventilatory support and antimicrobial therapy, the patient was able to be extubated on the morning of September 10. Plan to continue supplemental oxygen to maintain saturations at or above 90%. Encourage incentive spirometer use and mobilize patient as tolerated. Start scheduled aerosol treatments. 3. Severe alcoholic hepatitis/acute alcoholic pancreatitis Liver function parameters appear to be slowly improving. Gastroenterology is currently following to assist with medical management. Continue supportive measures. 4. Anemia Continue to monitor blood counts daily. Transfuse if hemoglobin drops below 7 g/dL. Continue PPI therapy. Again, gastroenterology is following to assist with medical management. This note was generated with [employer] dictation software. It may contain incorrect words, spelling, and punctuation that were not noted in checking the note before signing. Subjective Subjective The patient was seen and examined at the bedside this morning. Events from the last 24 hours have been reviewed. The patient is currently afebrile, hemodynamically stable and maintaining appropriate oxygen saturations on 1 L/min via nasal cannula. The patient has no specific complaints this morning. She does report that her cough and sputum production are improving. Her white blood cell count has improved to 32,000. Hemoglobin is stable at 7.5 g/dL. Creatinine remains elevated at 1.35. Diet has been advanced. Objective Data Objective Data The patient's most recent lab work, culture data and imaging studies have all been personally reviewed. Surface echocardiogram demonstrated normal LV size and thickness with mild to moderate global hypokinesis of the LV. Ejection fraction was noted to be 40%. Right ventricular systolic pressure was estimated to be 43 mmHg. Sputum culture dated September 02 was positive for group C streptococcus. Respiratory viral panel along with COVID PCR was negative. Strep and urine Legionella antigens were negative. Vital Signs: Vital Signs Temp Pulse Resp BP Pulse Ox O2 Del Method O2 Flow Rate 100.2 F H 94 22 H 96/61 97 Nasal Cannula 1 09/13/23 04:00 09/13/23 07:00 09/13/23 07:00 09/13/23 07:00 09/13/23 07:00 09/13/23 07:00 09/13/23 07:00 FiO2 94 09/12/23 08:00 Oxygen Flow Rate (L/min) 1 Oxygen Delivery Method Nasal Cannula Weight: 164 lb 10.965 oz Body Mass Index (BMI) 28.3 Intake & Output: Intake and Output for Last 24 Hours 09/11/23 09/12/23 09/13/23 23:59 23:59 23:59 Intake Total 2307.28 / 2308.23 701.37 / 701.37 Output Total 730 / 730 1500 / 1500 140 / 140 Balance 1577.28 / 1578.23 -798.63 / -798.63 -140 / -140 Lab / Micro Data Attestation: I reviewed the patient's lab results. 09/13/23 03:23 09/13/23 03:23 Labs: Laboratory Results - last 24 hr 09/12/23 03:30: Diff Path Review Reviewed 09/12/23 11:15: POC Glucose 64 L 09/12/23 12:05: POC Glucose 105 09/12/23 16:59: POC Glucose 84 09/12/23 23:09: POC Glucose 80 09/13/23 03:23: WBC 32.6 H*, RBC 2.18 L, Hgb 7.5 L, Hct 23.0 L, MCV 105.5 H, MCH 34.4 H, MCHC 32.6, RDW Std Deviation 59.5 H, RDW Coeff of Rebel 16.2 H, Plt Count 420, MPV 10.8, Immature Gran % (Auto) 1.000 H, Neut % (Auto) 92.9 H, Lymph % (Auto) 2.2 L, [place] % (Auto) 3.2, Eos % (Auto) 0.5, Baso % (Auto) 0.2, Absolute Neuts (auto) 30.2 H, Absolute Lymphs (auto) 0.72 L, Nucleated RBC % 0, Differential Comment SCANNED, Diff Path Review May foll, Toxic Vacuolation 1+, Stomatocytes 2+, Sodium 136, Potassium 3.3 L, Chloride 104, Carbon Dioxide 20.0 L, Anion Gap 12, BUN 37 H, Creatinine 1.35 H, Estim Creat Clear Calc 52.97, Est GFR (MDRD) Af Amer 55 L, Est GFR (MDRD) Non-Af 45 L, BUN/Creatinine Ratio 27.4 H , Glucose 83, Calcium 6.7 L, Phosphorus 4.3, Magnesium 2.1, Total Bilirubin 7.00 H, AST 151 H, ALT 31, Alkaline Phosphatase 174 H, Total Protein 4.7 L, Albumin 1.2 L, Globulin 3.5, Albumin/Globulin Ratio 0.3 L 09/13/23 05:20: POC Glucose 70 L 09/13/23 06:20: POC Glucose 101 Micro: Microbiology 09/07/23 06:45 Blood Culture (Wb) - Pic Blood Culture - Final No growth in 5 days. 09/07/23 06:51 Blood Culture (Wb) - Anticubital Right Blood Culture - Final No growth in 5 days. 09/07/23 19:30 Sputum, Induced/Lukens Gram Stain - Final 09/07/23 19:30 Sputum, Induced/Lukens Respiratory Culture - Final Presumptive C albicans 09/07/23 06:45 Urine Catheter - Rojas Urine Culture - Final Culture exhibits no growth. 09/06/23 08:03 Sputum, Induced/Lukens Gram Stain - Final 09/06/23 08:03 Sputum, Induced/Lukens Respiratory Culture - Final Presumptive C albicans 09/03/23 04:25 Blood Culture (Wb) - Anticubital Right Blood Culture - Final No growth in 5 days. 09/03/23 04:20 Blood Culture (Wb) - Left Forearm Blood Culture - Final No growth in 5 days. 09/04/23 09:45 Urine Catheter - Rojas Urine Culture - Final Culture exhibits no growth. 09/05/23 09:15 Mucosa - Nasopharyngeal Respiratory Panel (PCR) - Final 09/05/23 09:15 Mucosa - Nasopharyngeal SARS-CoV-2, Influenza & RSV (PCR) - Final 09/03/23 17:10 Sputum, Expectorated/Coughed Gram Stain - Final 09/03/23 17:10 Sputum, Expectorated/Coughed Respiratory Culture - Final Streptococcus group C 09/05/23 07:35 Stool C. difficile GDH Antigen & Toxins - Final 09/05/23 07:35 Stool Clostridioides difficile (PCR) - Final 09/05/23 09:20 Urine Catheter - Catheter Legionella Antigen - Final 09/05/23 09:20 Urine Catheter - Catheter Streptococcus pneumoniae Antigen (M - Final 09/05/23 07:35 Stool Stool Occult Blood (JOSE) - Final Occult Blood Positive ABG Data ABG results: ABG 09/06/23 09:19 Specimen Type ART Sample Site R Brach pH 7.41 Bicarbonate Actual 29.6 H Total CO2 31 Base Excess 5 H O2 Saturation 94 L O2 % 80.0 ABG pCO2 47.1 H ABG pO2 72 L Respiration Rate 16 O2 Delivery Device Adult Vent Vent Mode AC Tidal Volume 400.0 POC PEEP 5 Radiography Diagnostic Testing: Radiology Impression Chest X-Ray 09/11/23 05:55 IMPRESSION: 1. Pulmonary vascular congestion and possible bilateral perihilar infiltrates. 2. Right upper lobe infiltrate. Electronically Signed: Eliseo Moreno DO at 5:27 EDT , Physical Exam Const alert and no apparent distress Constitutional Narrative: Resting comfortably in bed. Remains jaundiced in appearance. General Appearance: cooperative HEENT normocephalic and head/scalp atraumatic Eyes PERRL and EOMs intact bilaterally Sclera: sclera abnormal Neck supple General: trachea midline Chest inspection of chest normal Resp Auscultation: wheezes throughout and diminished lung sounds Cardio regular rate, regular rhythm, S1 normal heart sound and S2 normal heart sound GI normal to inspection, nondistended, normoactive bowel sounds Extremity General Extremity: edema Skin no rashes or lesions noted Neuro CN's II-XII intact bilaterally and no focal motor deficits Psych Mood & Affect: flat affect Charges/Coding Visit Charges Inpatient E&M: 03308 Subs Hosp L2
[2023-09-13] MEDS: Thiamine Hydrochloride 100 MG Tablet PO (07:45)
[2023-09-13] MEDS: Folic Acid 1 MG Tablet PO (07:46)
[2023-09-13] MEDS: rifAXIMin 550 MG Tablet PO ×2 (07:46→21:35)
[2023-09-13] MEDS: Midodrine HCl 5 MG Tablet 10 MG PO ×3 (07:46→16:29)
[2023-09-13] MEDS: Menthol/Lanolin/Calamine/Znox 113 GM Tube 1 APPLIC TOPICAL ×2 (07:47→21:35)
[2023-09-13] MEDS: CHLORHEXIDINE GLUC 2% CLOTH 1 EACH TOWELETTE TOPICAL (07:47)
--- NOTE | 2023-09-13 08:48 | CASEMGMT ---
Addendum entered by Coral Ruano 09/13/23 10:15: [facility] has accepted and will start precert. SW updated. Coral Ruano DC Planning Asst. Original Note: Discharge Planning Referral sent to [facility] via [facility]. Coral Ruano DC Planning Asst.
[2023-09-13] MEDS: Pantoprazole Sodium 40 MG in 0.9% Normal Saline (100mL MB+) 100 ML 330 MG IV (09:22)
[2023-09-13] MEDS: Loperamide 2 MG Capsule PO ×2 (09:24→17:21)
--- NOTE | 2023-09-13 09:38 | ADDICTION ---
clinician met with client to follow up regarding tx options. client presented cooperative and pleasant. she noticeably has difficulty breathing. client will most likely be attending custodial to stabilize medical conditions. client reported a need to remain sober this was an eye corporate paralegal for me. client stated her goal after custodial is to attend IOP at [facility]. client has business cards of peer support hotline and this clinician's card to contact further about IOP.
--- NOTE | 2023-09-13 11:16 | CASEMGMT ---
Social Work- SW met with pt to notify of [facility] acceptance. Pt is agreeable to discharge plans and will be updated as insurance authorization is received. YUDY Wade
[2023-09-13 12:50] LABS: Bedside Glucose 90 mg/dL (74-106)
[2023-09-13] MEDS: Albuterol 2.5 MG/3 ML VIAL.NEB. INHALATION ×2 (13:00→16:40)
[2023-09-13 16:14] LABS: Pathologist Review Reviewed
[2023-09-13 17:40] LABS: Bedside Glucose 76 mg/dL (74-106)
[2023-09-13] MEDS: Ipratropium/Albuterol Sulfate 3 ML AMPUL.NEB INHALATION (19:35)
[2023-09-14] MEDS: Vancomycin 125 MG/5 ML Susp PO.SYRINGE PO ×5 (00:38→23:20)
[2023-09-14 00:48] LABS: Bedside Glucose 74 mg/dL (74-106)
[2023-09-14 03:05] VITALS: BMI 27.9
[2023-09-14 03:30] VITALS: BP 104/60; PULSE 87; RESP 18; TEMP 36.9; O2SAT 92
[2023-09-14 05:30] VITALS: BP 114/65; PULSE 89; RESP 18; TEMP 37.3; O2SAT 92
[2023-09-14] MEDS: Loperamide 2 MG Capsule PO ×2 (06:06→21:18)
[2023-09-14] MEDS: Acetaminophen 325 MG Tablet 650 MG PO ×2 (06:13→21:18)
[2023-09-14 06:21] LABS: Absolute Lymphocyte Count 0.87 X10^3/uL (0.83-4.51); Absolute Neutrophil Count 27.7 X10^3/uL (2.0-7.7); Basophil# 0.09 X10^3/uL; Basophil% 0.3 % (0-1); Eosinophil# 0.19 X10^3/uL; Eosinophils% 0.6 % (0-5); Hematocrit 26.6 % (37-47); Hemoglobin 8.3 g/dL (12.0-15.0); Lymphocyte # 0.87 X10^3/ul (0.83-4.51); Lymphocyte % 2.9 % (19-41); Mean Corp Hgb Conc 31.2 g/dL (32-36); Mean Corpuscular Hgb 33.1 pg (27.0-32.0); Mean Platelet Vol. 10.7 fl (6.2-12.0); Monocyte% 3.3 % (0-10); NRBC Flagged by Analyzer 0 % (0-5); Neutrophil # 27.72 X10^3/uL (2.7-7.7); Neutrophil % 91.6 % (47-70); POSITIVE COUNT YES; POSITIVE DIFFERENTIAL YES; Platelet Count 487 K/mm3 (150-450); RBC Distribution Width CV 16.1 % (11.6-14.6); Red Blood Count 2.51 M/mm3 (4.2-5.4)
[2023-09-14 06:31] LABS: Differential Indicated SCAN CRITERIA MET; White Blood Count 30.3 K/mm3 (4.4-11.0)
[2023-09-14 06:35] LABS: Bedside Glucose 88 mg/dL (74-106)
[2023-09-14 06:48] VITALS: PULSE 99; RESP 18; O2SAT 98
[2023-09-14] MEDS: Ipratropium/Albuterol Sulfate 3 ML AMPUL.NEB INHALATION ×3 (06:48→14:10)
[2023-09-14 07:00] LABS: ALB/GLOB Ratio 0.3 RATIO (0.9-2.4); AST(SGOT) 123 U/L (15-37); Alanine Aminotransfer ALT/SGPT 20 U/L (13-56); Albumin, Serum 1.3 g/dL (3.2-5.0); Alkaline Phosphatase 183 U/L (45-117); Anion Gap 13 (5-15); BUN 39 mg/dL (7-18); BUN/Creat Ratio 25.7 RATIO (10-20); Calcium,Total 7.5 mg/dL (8.5-10.1); Chloride 101 mmol/L (98-107); Creatinine, Serum 1.52 mg/dL (0.55-1.02); EST Glomerular Filtration Rate 39 mL/min (>60); Est Glom Filt Rate - Afr Amer 48 mL/min (>60); Estimated Creatinine Clearance 46.48 ml/min; Globulin 3.9 g/dL (2.2-4.2); Glucose 87 mg/dL (74-106); Potassium 3.1 mmol/L (3.5-5.1); Protein, Total 5.2 g/dL (6.4-8.2); Sodium Level 133 mmol/L (136-145)
[2023-09-14 08:37] LABS: Differential Comment SCANNED
--- NOTE | 2023-09-14 09:07 | PN.HOSP_ITS ---
Reason for Visit Reason for Visit: Diagnoses Anemia, unspecified (09/02/23) Other disorders of phosphorus metabolism (09/02/23) Hypomagnesemia (09/02/23) Hypo-osmolality and hyponatremia (09/02/23) Hypokalemia (09/02/23) Alcohol abuse, uncomplicated (09/02/23) Acute respiratory failure with hypoxia (09/02/23) Alcoholic hepatitis without ascites (09/02/23) Alcoholic hepatic failure without coma (09/02/23) Alcohol induced acute pancreatitis without necrosis or infection (09/02/23) Acute pancreatitis without necrosis or infection, unspecified (09/02/23) Subjective Subjective Patient was transferred out from the ICU to stepdown unit. Her hemoglobin is stable and WBC is downtrending. She notes ongoing diarrhea for the past few days, feels much better within FMS in place. Blood pressure is stable. Objective Data Objective Data Vital Signs: Vital Signs Temp Pulse Resp BP Pulse Ox O2 Del Method O2 Flow Rate 99.2 F H 99 18 114/65 98 Nasal Cannula 1 09/14/23 05:30 09/14/23 06:48 09/14/23 06:48 09/14/23 05:30 09/14/23 06:48 09/14/23 08:28 09/14/23 08:28 FiO2 94 09/12/23 08:00 Oxygen Flow Rate (L/min) 1 Oxygen Delivery Method Nasal Cannula Weight: 162 lb 11.218 oz Body Mass Index (BMI) 27.9 Intake & Output: Intake and Output for Last 24 Hours 09/12/23 09/13/23 09/14/23 23:59 23:59 23:59 Intake Total 701.37 / 701.37 470 / 1420 1330 / 1330 Output Total 1500 / 1500 365 / 865 700 / 700 Balance -798.63 / -798.63 105 / 555 630 / 630 Lab / Micro Data 09/14/23 05:12 09/14/23 05:12 Labs: Laboratory Results - last 24 hr 09/13/23 03:23: Diff Path Review Reviewed 09/13/23 12:23: POC Glucose 90 09/13/23 17:16: POC Glucose 76 09/14/23 00:21: POC Glucose 74 09/14/23 05:12: WBC 30.3 H*, RBC 2.51 L, Hgb 8.3 L, Hct 26.6 L, MCV 106.0 H, MCH 33.1 H, MCHC 31.2 L, RDW Std Deviation 60.0 H, RDW Coeff of Rebel 16.1 H, Plt Count 487 H, MPV 10.7, Immature Gran % (Auto) 1.300 H, Neut % (Auto) 91.6 H, L ymph % (Auto) 2.9 L, Mccracken % (Auto) 3.3, Eos % (Auto) 0.6, Baso % (Auto) 0.3, A bsolute Neuts (auto) 27.7 H, Absolute Lymphs (auto) 0.87, Nucleated RBC % 0, Differential Comment SCANNED, Diff Path Review July, Sodium 133 L, Potassium 3.1 L, Chloride 101, Carbon Dioxide 19.0 L, Anion Gap 13, BUN 39 H, Creatinine 1.52 H, Estim Creat Clear Calc 46.48, Est GFR (MDRD) Af Amer 48 L, Est GFR (MDRD) Non-Af 39 L, BUN/Creatinine Ratio 25.7 H, Glucose 87, Calcium 7.5 L, T otal Bilirubin 7.30 H, AST 123 H, ALT 20, Alkaline Phosphatase 183 H, Total Protein 5.2 L, Albumin 1.3 L, Globulin 3.9, Albumin/Globulin Ratio 0.3 L 09/14/23 06:09: POC Glucose 88 Micro: Microbiology 09/07/23 06:45 Blood Culture (Wb) - Pic Blood Culture - Final No growth in 5 days. 09/07/23 06:51 Blood Culture (Wb) - Anticubital Right Blood Culture - Final No growth in 5 days. 09/07/23 19:30 Sputum, Induced/Lukens Gram Stain - Final 09/07/23 19:30 Sputum, Induced/Lukens Respiratory Culture - Final Presumptive C albicans 09/07/23 06:45 Urine Catheter - Rojas Urine Culture - Final Culture exhibits no growth. 09/06/23 08:03 Sputum, Induced/Lukens Gram Stain - Final 09/06/23 08:03 Sputum, Induced/Lukens Respiratory Culture - Final Presumptive C albicans 09/03/23 04:25 Blood Culture (Wb) - Anticubital Right Blood Culture - Final No growth in 5 days. 09/03/23 04:20 Blood Culture (Wb) - Left Forearm Blood Culture - Final No growth in 5 days. 09/04/23 09:45 Urine Catheter - Rojas Urine Culture - Final Culture exhibits no growth. 09/05/23 09:15 Mucosa - Nasopharyngeal Respiratory Panel (PCR) - Final 09/05/23 09:15 Mucosa - Nasopharyngeal SARS-CoV-2, Influenza & RSV (PCR) - Final 09/03/23 17:10 Sputum, Expectorated/Coughed Gram Stain - Final 09/03/23 17:10 Sputum, Expectorated/Coughed Respiratory Culture - Final Streptococcus group C 09/05/23 07:35 Stool C. difficile GDH Antigen & Toxins - Final 09/05/23 07:35 Stool Clostridioides difficile (PCR) - Final 09/05/23 09:20 Urine Catheter - Catheter Legionella Antigen - Final 09/05/23 09:20 Urine Catheter - Catheter Streptococcus pneumoniae Antigen (M - Final 09/05/23 07:35 Stool Stool Occult Blood (JOSE) - Final Occult Blood Positive Assessment & Plan Assessment/Plan (1) Alcoholic hepatitis: (2) Acute hypoxic respiratory failure: (3) Acute pancreatitis: QUALIFIERS: Pancreatitis type: alcohol induced Acute pancreatitis complication: unspecified Qualified Code(s): K85.20 - Alcohol induced acute pancreatitis without necrosis or infection (4) Hypomagnesemia: PLAN: Plan 43-year-old female was admitted initially for desires for alcohol detoxification but was found to have elevated lipase and LFTs at the time. Hospital course was complicated by acute on chronic respiratory failure requiring mechanical ventilation. The reason for the mechanical ventilation was suspected to be volume overload. # Acute hypoxic respiratory failure ? Secondary to fluid overload patient intubated while in the ICU. Pulmonary medicine on board. Decision regarding weaning deferred to pulmonary medicine ? 09/12/2023; patient was weaned off the vent on 09/11/2023. -Saturating well at this time on minimal oxygen requirement using nasal cannula # Hypovolemic shock ? Secondary to pancreatitis in addition to suspected pneumonia. Patient was found to have mild leukocytosis. CTA did show Multifocal pulmonary infiltrates more severe in the left lung suspicious for inflammatory disease. Bilateral pleural effusions larger on the left with consolidation of left lower lobe. Patient was resuscitated with IV fluids per protocol in addition to broad- spectrum antibiotic therapy with vancomycin as well as meropenem ? 09/13/2023; Patient had to be restarted on Levophed and subsequently weaned off. Patient has been started on midodrine. Blood pressure remains fairly stable. Plan is for patient to be transferred out of the ICU -09/14/2023: Blood pressure is better, last measured 110/52, ongoing therapy with midodrine 10 mg 3 times daily # Alcoholic hepatitis - MELD score of 20 and Madrey score of [address] of the abdomen and pelvis demonstrated fatty liver with hepatomegaly in addition to suspected pancreatitis acute hepatitis without underlying cirrhosis. Patient managed with vitamin K in view of elevated INR and subsequently started on Xifaxan with consultation placed to GI. -Abdominal pain is better, tolerating p.o. intake well # Acute metabolic encephalopathy [resolved] # Severe hyponatremia ? Secondary to beer potomania resuscitated with IV fluid. Patient sodium levels trending up # Anemia -Patient has been transfused total of 2 unit PRBC following admission. Patient will probably need to undergo endoscopic evaluation prior to being discharged. Subsequently s monitoring H&H and transfuse if patient becomes symptomatic or hemoglobin falls below 7 # Acute diarrhea - Reevaluate for C.diff given the new onset diarrhea and leucocytosis # Hypokalemia ? Corrected per protocol # Hypophosphatemia ? Secondary to chronic alcohol use corrected per protocol # Hypomagnesemia ? Corrected per protocol # New onset acute congestive heart failure with reduced ejection fraction ? Echo 09/03 showed EF 40%, mild to moderate LV global hypokinesis, interventricular septal flattening during systole consistent with RV pressure overload. CTA chest on 09/03 with no PE but with signs of pneumonia versus inflammatory disease as noted above. Continue treatment as noted above for now. # Alcohol abuse with prior concern for alcohol withdrawal ? Reported drinking about 12 white claws per day recently. Has 20-year history of heavy alcohol use without cessation. No history of alcohol withdrawal. - Given high concern for impending alcohol drawl, patient was started on phenobarbital taper admission with adequate symptom control. Continue phenobarbital taper and other as needed medications per alcohol withdrawal order set. Continue folate and thiamine. -Being admitted for 12 days, out of withdrawal time period # Malnutrition ruled out -09/12/2023;Plan is for patient to undergo speech eval prior to resumption of oral diet # History of lichen sclerosis ? Previously required treatment, not currently active. # Tobacco dependence - Counseled on cessation, offered nicotine patch for tobacco cravings # DVT prophylaxis - SCDs for now given patient's low hemoglobin level # Physical deconditioning - Requested for PT OT eval and case management social worker to assist with discharge planning Charges/Coding Visit Charges Inpatient E&M: 65657 Subs Hosp L3
[2023-09-14 10:30] VITALS: BP 110/52; PULSE 80; RESP 18; TEMP 36.7; O2SAT 94
[2023-09-14] MEDS: Midodrine HCl 5 MG Tablet 10 MG PO ×3 (10:33→16:37)
[2023-09-14] MEDS: rifAXIMin 550 MG Tablet PO ×2 (10:34→21:19)
[2023-09-14] MEDS: Menthol/Lanolin/Calamine/Znox 113 GM Tube 1 APPLIC TOPICAL ×2 (10:34→21:17)
[2023-09-14] MEDS: Thiamine Hydrochloride 100 MG Tablet PO (10:34)
[2023-09-14] MEDS: Folic Acid 1 MG Tablet PO (10:34)
[2023-09-14] MEDS: Pantoprazole Sodium 40 MG in 0.9% Normal Saline (100mL MB+) 100 ML 330 MG IV (10:35)
[2023-09-14 12:42] LABS: Bedside Glucose 78 mg/dL (74-106)
[2023-09-14 16:30] VITALS: BP 99/55; PULSE 86; RESP 18; TEMP 36.3; O2SAT 96
[2023-09-14 17:38] LABS: Bedside Glucose 76 mg/dL (74-106)
[2023-09-14 21:30] VITALS: BP 116/64; PULSE 89; RESP 18; TEMP 36.6; O2SAT 96
[2023-09-15] VITALS (10 sets, daily range): BP systolic 102–116; BP diastolic 60–68; PULSE 73–98; RESP 16–20; TEMP 35.7–36.9; O2SAT 95–98; BMI 28.1
[2023-09-15 00:08] LABS: Bedside Glucose 64 mg/dL (74-106)
[2023-09-15 00:43] LABS: Bedside Glucose 79 mg/dL (74-106)
[2023-09-15] MEDS: Acetaminophen 325 MG Tablet 650 MG PO ×3 (04:27→22:08)
[2023-09-15] MEDS: Loperamide 2 MG Capsule PO ×4 (04:27→22:08)
[2023-09-15] MEDS: Vancomycin 125 MG/5 ML Susp PO.SYRINGE PO ×3 (06:32→17:36)
[2023-09-15] MEDS: Ipratropium/Albuterol Sulfate 3 ML AMPUL.NEB INHALATION ×4 (06:43→18:55)
[2023-09-15 06:51] LABS: Bedside Glucose 96 mg/dL (74-106)
[2023-09-15] MEDS: Folic Acid 1 MG Tablet PO (08:36)
[2023-09-15] MEDS: Thiamine Hydrochloride 100 MG Tablet PO (08:36)
[2023-09-15] MEDS: Midodrine HCl 5 MG Tablet 10 MG PO ×3 (08:36→17:36)
[2023-09-15 09:34] LABS: Pathologist Review Reviewed
[2023-09-15] MEDS: Menthol/Lanolin/Calamine/Znox 113 GM Tube 1 APPLIC TOPICAL ×2 (09:59→22:07)
[2023-09-15] MEDS: Pantoprazole Sodium 40 MG in 0.9% Normal Saline (100mL MB+) 100 ML 330 MG IV (10:01)
[2023-09-15] MEDS: rifAXIMin 550 MG Tablet PO ×2 (10:03→22:07)
--- NOTE | 2023-09-15 10:22 | CASEMGMT ---
Social Work- SW met with pt to discuss mental health diagnosis/treatment for PASSR, as [facility] requested for precert. Pt denies any mental health diagnosis, treatment, or hospitalizations. PASSR completed. YUDY Wade
--- NOTE | 2023-09-15 10:31 | CASEMGMT ---
Addendum entered by Rula Abad 09/15/23 13:41: Social Work SW just received message back from [facility] that they started precert a short time ago. D/C financial planning adviser had asked them to start precert on 09/12. ALLEY Hall Original Note: Social Work All updates, including PAS/RR w/results, sent to [facility] via [employer], let them know pt is ready today for d/c. SW will continue to follow. ALLEY Hall
[2023-09-15 12:09] LABS: Bedside Glucose 89 mg/dL (74-106)
--- NOTE | 2023-09-15 13:25 | PN.HOSP_ITS ---
Reason for Visit Reason for Visit: Diagnoses Anemia, unspecified (09/02/23) Other disorders of phosphorus metabolism (09/02/23) Hypomagnesemia (09/02/23) Hypo-osmolality and hyponatremia (09/02/23) Hypokalemia (09/02/23) Alcohol abuse, uncomplicated (09/02/23) Acute respiratory failure with hypoxia (09/02/23) Alcoholic hepatitis without ascites (09/02/23) Alcoholic hepatic failure without coma (09/02/23) Alcohol induced acute pancreatitis without necrosis or infection (09/02/23) Acute pancreatitis without necrosis or infection, unspecified (09/02/23) Subjective Subjective Ongoing diarrhea, no other major concerns. Objective Data Objective Data Vital Signs: Vital Signs Temp Pulse Resp BP Pulse Ox O2 Del Method O2 Flow Rate 97.4 F L 92 18 107/62 98 Room Air 1 09/15/23 09:40 09/15/23 11:01 09/15/23 11:01 09/15/23 09:40 09/15/23 09:40 09/15/23 09:40 09/14/23 22:30 FiO2 94 09/12/23 08:00 Oxygen Flow Rate (L/min) 1 Oxygen Delivery Method Room Air Weight: 164 lb 0.383 oz Body Mass Index (BMI) 28.1 Intake & Output: Intake and Output for Last 24 Hours 09/13/23 09/14/23 09/15/23 23:59 23:59 23:59 Intake Total 470 / 1420 1920 / 2320 950 / 950 Output Total 365 / 865 1450 / 2100 1400 / 1400 Balance 105 / 555 470 / 220 -450 / -450 Lab / Micro Data Attestation: I reviewed the patient's lab results. 09/14/23 05:12 09/14/23 05:12 Labs: Laboratory Results - last 24 hr 09/14/23 05:12: Diff Path Review Reviewed 09/14/23 17:17: POC Glucose 76 09/14/23 23:17: POC Glucose 64 L 09/15/23 00:24: POC Glucose 79 09/15/23 06:31: POC Glucose 96 09/15/23 11:46: POC Glucose 89 Micro: Microbiology 09/14/23 16:45 Stool Enteric Bacteriology - Final 09/14/23 16:45 Stool Clostridioides difficile (PCR) - Final 09/07/23 06:45 Blood Culture (Wb) - Pic Blood Culture - Final No growth in 5 days. 09/07/23 06:51 Blood Culture (Wb) - Anticubital Right Blood Culture - Final No growth in 5 days. 09/07/23 19:30 Sputum, Induced/Lukens Gram Stain - Final 09/07/23 19:30 Sputum, Induced/Lukens Respiratory Culture - Final Presumptive C albicans 09/07/23 06:45 Urine Catheter - Rojas Urine Culture - Final Culture exhibits no growth. 09/06/23 08:03 Sputum, Induced/Lukens Gram Stain - Final 09/06/23 08:03 Sputum, Induced/Lukens Respiratory Culture - Final Presumptive C albicans 09/03/23 04:25 Blood Culture (Wb) - Anticubital Right Blood Culture - Final No growth in 5 days. 09/03/23 04:20 Blood Culture (Wb) - Left Forearm Blood Culture - Final No growth in 5 days. 09/04/23 09:45 Urine Catheter - Rojas Urine Culture - Final Culture exhibits no growth. 09/05/23 09:15 Mucosa - Nasopharyngeal Respiratory Panel (PCR) - Final 09/05/23 09:15 Mucosa - Nasopharyngeal SARS-CoV-2, Influenza & RSV (PCR) - Final 09/03/23 17:10 Sputum, Expectorated/Coughed Gram Stain - Final 09/03/23 17:10 Sputum, Expectorated/Coughed Respiratory Culture - Final Streptococcus group C 09/05/23 07:35 Stool C. difficile GDH Antigen & Toxins - Final 09/05/23 07:35 Stool Clostridioides difficile (PCR) - Final 09/05/23 09:20 Urine Catheter - Catheter Legionella Antigen - Final 09/05/23 09:20 Urine Catheter - Catheter Streptococcus pneumoniae Antigen (M - Final 09/05/23 07:35 Stool Stool Occult Blood (JOSE) - Final Occult Blood Positive Physical Exam Const alert and oriented x3 HEENT head/scalp atraumatic Eyes PERRL Neck no lymphadenopathy Resp normal respiratory effort Cardio regular rate GI normal to inspection, nondistended, normoactive bowel sounds Extremity normal to inspection Neuro oriented x3 and CN's II-XII intact bilaterally Assessment & Plan Assessment/Plan (1) Alcoholic hepatitis: PLAN: Plan 43-year-old female was admitted initially for desires for alcohol detoxification but was found to have elevated lipase and LFTs at the time. Hospital course was complicated by acute on chronic respiratory failure requiring mechanical ventilation. The reason for the mechanical ventilation was suspected to be volume overload. Overall there has been improvement in her symptoms she has had a prolonged hospitalization. Her stool C. difficile was positive for infection but negative for toxin. This is likely related to C. difficile diarrhea. # Acute hypoxic respiratory failure ? Secondary to fluid overload patient intubated while in the ICU. Pulmonary medicine on board. Decision regarding weaning deferred to pulmonary medicine ? 09/12/2023; patient was weaned off the vent on 09/11/2023. -09/13/2023: Moved to PCU -Saturating well at this time on minimal oxygen requirement using nasal cannula # Hypovolemic shock ? Secondary to pancreatitis in addition to suspected pneumonia. Patient was found to have mild leukocytosis. CTA did show Multifocal pulmonary infiltrates more severe in the left lung suspicious for inflammatory disease. Bilateral pleural effusions larger on the left with consolidation of left lower lobe. Patient was resuscitated with IV fluids per protocol in addition to broad- spectrum antibiotic therapy with vancomycin as well as meropenem ? 09/13/2023; Patient had to be restarted on Levophed and subsequently weaned off. Patient has been started on midodrine. Blood pressure remains fairly stable. Plan is for patient to be transferred out of the ICU -09/14/2023: Blood pressure is better, last measured 110/52, ongoing therapy with midodrine 10 mg 3 times daily -S/p 08/03: Hemodynamically stable, persistent diarrhea leading to volume losses # Acute diarrhea -C. difficile was initially positive, she is on vancomycin for the same -Repeat stool test has become negative -Continue tab vancomycin 125 mg every 6 hours -Increase Imodium every 4 hours as needed -Appreciate ID input regarding duration of therapy # Alcoholic hepatitis - MELD score of 20 and Madrey score of [address] of the abdomen and pelvis demonstrated fatty liver with hepatomegaly in addition to suspected pancreatitis acute hepatitis without underlying cirrhosis. Patient managed with vitamin K in view of elevated INR and subsequently started on Xifaxan with consultation placed to GI. -Abdominal pain is better, tolerating p.o. intake well # Acute metabolic encephalopathy [resolved] # Severe hyponatremia ? Secondary to beer potomania resuscitated with IV fluid. Patient sodium levels trending up # Anemia -Patient has been transfused total of 2 unit PRBC following admission. Patient will probably need to undergo endoscopic evaluation prior to being discharged. Subsequently s monitoring H&H and transfuse if patient becomes symptomatic or hemoglobin falls below 7 # Hypokalemia ? Corrected per protocol # Hypophosphatemia ? Secondary to chronic alcohol use corrected per protocol # Hypomagnesemia ? Corrected per protocol # New onset acute congestive heart failure with reduced ejection fraction ? Echo 09/03 showed EF 40%, mild to moderate LV global hypokinesis, interventricular septal flattening during systole consistent with RV pressure overload. CTA chest on 09/03 with no PE but with signs of pneumonia versus inflammatory disease as noted above. Continue treatment as noted above for now. # Alcohol abuse with prior concern for alcohol withdrawal ? Reported drinking about 12 white claws per day recently. Has 20-year history of heavy alcohol use without cessation. No history of alcohol withdrawal. - Given high concern for impending alcohol withdrawal, patient was started on phenobarbital taper admission with adequate symptom control. Continue phenobarbital taper and other as needed medications per alcohol withdrawal order set. Continue folate and thiamine. -Being admitted for 12 days, out of withdrawal time period # Malnutrition ruled out -09/12/2023;Plan is for patient to undergo speech eval prior to resumption of oral diet # History of lichen sclerosis ? Previously required treatment, not currently active. # Tobacco dependence - Counseled on cessation, offered nicotine patch for tobacco cravings # DVT prophylaxis - SCDs for now given patient's low hemoglobin level # Physical deconditioning - Requested for PT OT eval and social media campaign manager to assist with discharge planning Charges/Coding Visit Charges Inpatient E&M: 33758 Subs Hosp L3
[2023-09-15 14:21] LABS: Absolute Lymphocyte Count 1.04 X10^3/uL (0.83-4.51); Absolute Neutrophil Count 27.9 X10^3/uL (2.0-7.7); Basophil# 0.14 X10^3/uL; Basophil% 0.5 % (0-1); Eosinophil# 0.28 X10^3/uL; Eosinophils% 0.9 % (0-5); Hematocrit 25.7 % (37-47); Hemoglobin 8.2 g/dL (12.0-15.0); Lymphocyte # 1.04 X10^3/ul (0.83-4.51); Lymphocyte % 3.4 % (19-41); Mean Corp Hgb Conc 31.9 g/dL (32-36); Mean Corpuscular Hgb 33.6 pg (27.0-32.0); Mean Corpuscular Volume 105.3 fL (81-99); Mean Platelet Vol. 10.7 fl (6.2-12.0); Monocyte% 2.9 % (0-10); NRBC Flagged by Analyzer 0 % (0-5); Neutrophil % 90.9 % (47-70); POSITIVE COUNT YES; POSITIVE DIFFERENTIAL YES; Platelet Count 537 K/mm3 (150-450); RBC Distribution Width SD 59.4 fl (35.1-43.9); Red Blood Count 2.44 M/mm3 (4.2-5.4)
[2023-09-15 14:33] LABS: Differential Indicated SCAN CRITERIA MET
[2023-09-15 14:37] LABS: White Blood Count 30.7 K/mm3 (4.4-11.0)
[2023-09-15 14:42] LABS: ALB/GLOB Ratio 0.3 RATIO (0.9-2.4); AST(SGOT) 99 U/L (15-37); Alanine Aminotransfer ALT/SGPT 21 U/L (13-56); Albumin, Serum 1.2 g/dL (3.2-5.0); Alkaline Phosphatase 158 U/L (45-117); Anion Gap 11 (5-15); BUN 40 mg/dL (7-18); BUN/Creat Ratio 25.6 RATIO (10-20); Calcium,Total 7.7 mg/dL (8.5-10.1); Chloride 101 mmol/L (98-107); Creatinine, Serum 1.56 mg/dL (0.55-1.02); EST Glomerular Filtration Rate 38 mL/min (>60); Est Glom Filt Rate - Afr Amer 46 mL/min (>60); Estimated Creatinine Clearance 45.46 ml/min; Glucose 75 mg/dL (74-106); Potassium 3.5 mmol/L (3.5-5.1); Protein, Total 5.2 g/dL (6.4-8.2); Sodium Level 131 mmol/L (136-145)
--- NOTE | 2023-09-15 16:25 | CASEMGMT ---
Social Work Green sheet is on the chart in event we do get precert on the weekend. SW let pt know that we do not yet have precert, but if we get it on the weekend she could potentially go to [facility] on the weekend. Otherwise, SW will follow up w/pt on Monday. Pt states understanding. ALLEY Hall
[2023-09-15 18:15] LABS: Bedside Glucose 68 mg/dL (74-106)
[2023-09-15 19:04] LABS: Bedside Glucose 79 mg/dL (74-106)
[2023-09-16] VITALS (9 sets, daily range): BP systolic 99–112; BP diastolic 60–65; PULSE 98–108; RESP 16–22; TEMP 36.4–36.7; O2SAT 94–100; BMI 27.4
[2023-09-16] MEDS: Vancomycin 125 MG/5 ML Susp PO.SYRINGE PO ×5 (00:04→23:53)
[2023-09-16 00:45] LABS: Bedside Glucose 88 mg/dL (74-106)
[2023-09-16] MEDS: Loperamide 2 MG Capsule PO ×2 (02:18→21:53)
--- NOTE | 2023-09-16 04:39 | NURSING ---
rectal tube removed around approx. 2300 per pt.'s request d/t pain/ discomfort. Pt. states later in the shift that she feels so much better, i can finally relax. Pt. was able to transfer to [facility] and have BM after rectal tube was removed.
[2023-09-16 06:32] LABS: Bedside Glucose 78 mg/dL (74-106)
[2023-09-16] MEDS: Ipratropium/Albuterol Sulfate 3 ML AMPUL.NEB INHALATION ×4 (07:11→19:05)
--- NOTE | 2023-09-16 07:58 | PN.HOSP_ITS ---
Reason for Visit Reason for Visit: Diagnoses Anemia, unspecified (09/02/23) Other disorders of phosphorus metabolism (09/02/23) Hypomagnesemia (09/02/23) Hypo-osmolality and hyponatremia (09/02/23) Hypokalemia (09/02/23) Alcohol abuse, uncomplicated (09/02/23) Acute respiratory failure with hypoxia (09/02/23) Alcoholic hepatitis without ascites (09/02/23) Alcoholic hepatic failure without coma (09/02/23) Alcohol induced acute pancreatitis without necrosis or infection (09/02/23) Acute pancreatitis without necrosis or infection, unspecified (09/02/23) Objective Data Objective Data Vital Signs: Vital Signs Temp Pulse Resp BP Pulse Ox O2 Del Method O2 Flow Rate 98.0 F 98 16 99/65 100 Room Air 1 09/16/23 06:10 09/16/23 07:11 09/16/23 07:11 09/16/23 06:10 09/16/23 07:11 09/16/23 07:11 09/14/23 22:30 FiO2 94 09/12/23 08:00 Oxygen Flow Rate (L/min) 1 Oxygen Delivery Method Room Air Weight: 159 lb 13.362 oz Body Mass Index (BMI) 27.4 Intake & Output: Intake and Output for Last 24 Hours 09/14/23 09/15/23 09/16/23 23:59 23:59 23:59 Intake Total 1920 / 2320 1190 / 1440 530 / 530 Output Total 1450 / 2100 1650 / 1950 550 / 550 Balance 470 / 220 -460 / -510 -20 / -20 Lab / Micro Data 09/15/23 13:45 09/15/23 13:45 Labs: Laboratory Results - last 24 hr 09/14/23 05:12: Diff Path Review Reviewed 09/15/23 11:46: POC Glucose 89 09/15/23 13:45: WBC 30.7 H*, RBC 2.44 L, Hgb 8.2 L, Hct 25.7 L, MCV 105.3 H, MCH 33.6 H, MCHC 31.9 L, RDW Std Deviation 59.4 H, RDW Coeff of Rebel 16.0 H, Plt Count 537 H, MPV 10.7, Immature Gran % (Auto) 1.400 H, Neut % (Auto) 90.9 H, L ymph % (Auto) 3.4 L, [place] % (Auto) 2.9, Eos % (Auto) 0.9, Baso % (Auto) 0.5, A bsolute Neuts (auto) 27.9 H, Absolute Lymphs (auto) 1.04, Nucleated RBC % 0, Differential Comment COMMENT, Diff Path Review July, Sodium 131 L, Potassium 3.5, Chloride 101, Carbon Dioxide 19.0 L, Anion Gap 11, BUN 40 H, Creatinine 1.56 H, Estim Creat Clear Calc 45.46, Est GFR (MDRD) Af Amer 46 L, Est GFR (MDRD) Non-Af 38 L, BUN/Creatinine Ratio 25.6 H, Glucose 75, Calcium 7.7 L, T otal Bilirubin 7.10 H, AST 99 H, ALT 21, Alkaline Phosphatase 158 H, Total Protein 5.2 L, Albumin 1.2 L, Globulin 4.0, Albumin/Globulin Ratio 0.3 L 09/15/23 17:50: POC Glucose 68 L 09/15/23 18:32: POC Glucose 79 09/15/23 23:50: POC Glucose 88 09/16/23 06:10: POC Glucose 78 Micro: Microbiology 09/14/23 16:45 Stool Enteric Bacteriology - Final 09/14/23 16:45 Stool Clostridioides difficile (PCR) - Final 09/07/23 06:45 Blood Culture (Wb) - Pic Blood Culture - Final No growth in 5 days. 09/07/23 06:51 Blood Culture (Wb) - Anticubital Right Blood Culture - Final No growth in 5 days. 09/07/23 19:30 Sputum, Induced/Lukens Gram Stain - Final 09/07/23 19:30 Sputum, Induced/Lukens Respiratory Culture - Final Presumptive C albicans 09/07/23 06:45 Urine Catheter - Rojas Urine Culture - Final Culture exhibits no growth. 09/06/23 08:03 Sputum, Induced/Lukens Gram Stain - Final 09/06/23 08:03 Sputum, Induced/Lukens Respiratory Culture - Final Presumptive C albicans 09/03/23 04:25 Blood Culture (Wb) - Anticubital Right Blood Culture - Final No growth in 5 days. 09/03/23 04:20 Blood Culture (Wb) - Left Forearm Blood Culture - Final No growth in 5 days. 09/04/23 09:45 Urine Catheter - Rojas Urine Culture - Final Culture exhibits no growth. 09/05/23 09:15 Mucosa - Nasopharyngeal Respiratory Panel (PCR) - Final 09/05/23 09:15 Mucosa - Nasopharyngeal SARS-CoV-2, Influenza & RSV (PCR) - Final 09/03/23 17:10 Sputum, Expectorated/Coughed Gram Stain - Final 09/03/23 17:10 Sputum, Expectorated/Coughed Respiratory Culture - Final Streptococcus group C 09/05/23 07:35 Stool C. difficile GDH Antigen & Toxins - Final 09/05/23 07:35 Stool Clostridioides difficile (PCR) - Final 09/05/23 09:20 Urine Catheter - Catheter Legionella Antigen - Final 09/05/23 09:20 Urine Catheter - Catheter Streptococcus pneumoniae Antigen (M - Final 09/05/23 07:35 Stool Stool Occult Blood (JOSE) - Final Occult Blood Positive Physical Exam Narrative Seen and examined. Patient is still short of breath fatigue and very weak. Moving her bowel. Abdominal distention is better. No fever General: Alert, Oriented x3, Cooperative. BMI 27.4 kg/m?. Fatigue HEENT: Atraumatic, PERRLA, EOMI, Normocephalic Oral: No Gingival or Mucosal Lesions/ Ulcerations Neck: Supple, No JVD, Negative Carotid Bruits Chest wall/Lungs: Air entry diminished in bilateral lung bases. No crepitation/rhonchi. Dyspnea on exertion on room air Cardiovascular: Regular rate, Regular Rhythm, Normal S1, Normal S2, No M/G/R Abdomen: Bowel Sounds Present, Soft, Non Tender, Non-Distended : No dysuria. No renal angle tenderness. No suprapubic tenderness. Extremities: Mild bilateral pitting edema, Capillary Refill Less than 3 Seconds Skin: No rashes, No breakdown Musculoskeletal: No Tenderness to Palpation of Joints or Extremities. ROM reduced. Neurological: Cranial nerves II-XII grossly intact, DTR 2+/4. No acute focal neurological deficit. Psych/Mental Status: flat affect Assessment & Plan Assessment/Plan (1) Alcoholic hepatitis: PLAN: Plan 43-year-old female was admitted initially for desires for alcohol detoxification but was found to have elevated lipase and LFTs at the time. Hospital course was complicated by acute on chronic respiratory failure requiring mechanical ventilation. The reason for the mechanical ventilation was suspected to be volume overload. Overall there has been improvement in her symptoms she has had a prolonged hospitalization. Her stool C. difficile was positive for infection but negative for toxin. This is likely related to C. difficile diarrhea. # Acute hypoxic respiratory failure ? Secondary to fluid overload patient intubated while in the ICU. Pulmonary medicine on board. Decision regarding weaning deferred to pulmonary medicine ? 09/12/2023; patient was weaned off the vent on 09/11/2023. -09/13/2023: Moved to PCU -Saturating well at this time on minimal oxygen requirement using nasal cannula 09/15: Patient maintaining her oxygenation on room air. PT and OT. # Hypovolemic shock ? Secondary to pancreatitis in addition to suspected pneumonia. Patient was found to have mild leukocytosis. CTA did show Multifocal pulmonary infiltrates more severe in the left lung suspicious for inflammatory disease. Bilateral pleural effusions larger on the left with consolidation of left lower lobe. Patient was resuscitated with IV fluids per protocol in addition to broad- spectrum antibiotic therapy with vancomycin as well as meropenem ? 09/13/2023; Patient had to be restarted on Levophed and subsequently weaned off. Patient has been started on midodrine. Blood pressure remains fairly stable. Plan is for patient to be transferred out of the ICU -09/14/2023: Blood pressure is better, last measured 110/52, ongoing therapy with midodrine 10 mg 3 times daily -S/p 08/03: Hemodynamically stable, persistent diarrhea leading to volume losses 09/15: BP is 160s/68. 99/65 in the morning. ANDRÉS: Creatinine was 0.91 on September 10. It has increased to 1.56. Medication reviewed. Patient not on any nephrotoxic medications. UA with urine electrolyte indices ordered. IV fluid Ringer lactate 125 mill per hour for 2 L. Nephrology consult requested. # Acute diarrhea -C. difficile was initially positive, she is on vancomycin for the same -Repeat stool test has become negative -Continue tab vancomycin 125 mg every 6 hours -Increase Imodium every 4 hours as needed -Appreciate ID input regarding duration of therapy # Alcoholic hepatitis - MELD score of 20 and Madrey score of [address] of the abdomen and pelvis demonstrated fatty liver with hepatomegaly in addition to suspected pancreatitis acute hepatitis without underlying cirrhosis. Patient managed with vitamin K in view of elevated INR and subsequently started on Xifaxan with consultation placed to GI. -Abdominal pain is better, tolerating p.o. intake well # Acute metabolic encephalopathy [resolved] # Severe hyponatremia ? Secondary to beer potomania resuscitated with IV fluid. Patient sodium levels trending up # Anemia -Patient has been transfused total of 2 unit PRBC following admission. Patient will probably need to undergo endoscopic evaluation prior to being discharged. Subsequently s monitoring H&H and transfuse if patient becomes symptomatic or hemoglobin falls below 7 # Hypokalemia ? Corrected per protocol # Hypophosphatemia ? Secondary to chronic alcohol use corrected per protocol # Hypomagnesemia ? Corrected per protocol # New onset acute congestive heart failure with reduced ejection fraction ? Echo 09/03 showed EF 40%, mild to moderate LV global hypokinesis, interventricular septal flattening during systole consistent with RV pressure overload. CTA chest on 09/03 with no PE but with signs of pneumonia versus inflammatory disease as noted above. Continue treatment as noted above for now. # Alcohol abuse with prior concern for alcohol withdrawal ? Reported drinking about 12 white claws per day recently. Has 20-year history of heavy alcohol use without cessation. No history of alcohol withdrawal. - Given high concern for impending alcohol withdrawal, patient was started on phenobarbital taper admission with adequate symptom control. Continue phenobarbital taper and other as needed medications per alcohol withdrawal order set. Continue folate and thiamine. -Being admitted for 12 days, out of withdrawal time period # Malnutrition ruled out -09/12/2023;Plan is for patient to undergo speech eval prior to resumption of oral diet # History of lichen sclerosis ? Previously required treatment, not currently active. # Tobacco dependence - Counseled on cessation, offered nicotine patch for tobacco cravings # DVT prophylaxis - SCDs for now given patient's low hemoglobin level # Physical deconditioning - Requested for PT OT eval and community mental health social worker to assist with discharge planning Charges/Coding Visit Charges Inpatient E&M: 11546 Subs Hosp L2
[2023-09-16] MEDS: Midodrine HCl 5 MG Tablet 10 MG PO ×3 (09:29→17:21)
[2023-09-16] MEDS: Thiamine Hydrochloride 100 MG Tablet PO (09:29)
[2023-09-16] MEDS: rifAXIMin 550 MG Tablet PO ×2 (09:29→21:53)
[2023-09-16] MEDS: Folic Acid 1 MG Tablet PO (09:29)
[2023-09-16] MEDS: Menthol/Lanolin/Calamine/Znox 113 GM Tube 1 APPLIC TOPICAL ×2 (09:30→21:54)
[2023-09-16] MEDS: Pantoprazole Sodium 40 MG in 0.9% Normal Saline (100mL MB+) 100 ML 330 MG IV (09:30)
[2023-09-16] MEDS: Lactated Ringers 1,000 ML 125 ML IV ×2 (11:34→20:04)
[2023-09-16 13:03] LABS: Osmolality, Urine 286 mOsm/KG
[2023-09-16 13:03] LABS: Bedside Glucose 95 mg/dL (74-106)
[2023-09-16 13:17] LABS: Protein, Urine (Random) 117.8 mg/dL (<11.9); Protein:Creat Ratio 2154 mg/g CRE (0-200); Urine Chloride < 10 mmol/L (Not Establ.); Urine Sodium 6 mmol/L (Not Establ.)
--- NOTE | 2023-09-16 15:22 | CPS ---
Pt refused to do SMI and Pep at this time.
[2023-09-16] MEDS: Acetaminophen 325 MG Tablet 650 MG PO (15:39)
[2023-09-16 21:49] LABS: Bedside Glucose 88 mg/dL (74-106)
[2023-09-16] MEDS: 0.9% Saline Lock 10 ML Syringe IV (21:59)
[2023-09-16 22:16] LABS: Mucous, Urine 0 SEEN /hpf (<or=2+); Red Blood Cells-Urine 0 SEEN /hpf (0-5); Squamous Epithelial Cells - UA 0 SEEN /hpf (5-10)
[2023-09-16 22:20] LABS: Color, Urine Yellow (Yellow); Glucose, Dipstick Normal (Normal); Ketone-Dipstick Negative (Negative); Leukocyte Esterase-Dipstick 25 /ul (Negative); Nitrite-Dipstick Positive (Negative); Occult Blood-Urine 250 /ul (Negative); Protein-Dipstick 30 mg/dl (Negative); Specific Gravity, Urine 1.015 (1.002-1.030); Urine Clarity Sl. Cloudy (Clear); Urine Urobilinogen 1 mg/dl (Normal)
[2023-09-16 22:30] LABS: Urine Bilirubin Dipstick 3 mg/dL (Negative)
[2023-09-16 22:31] LABS: Bacteria 1+ /hpf (None Seen); White Blood Cells 0-5 SEEN /hpf (0-5); Yeast-Urine 1+ /hpf (None Seen)
[2023-09-17] VITALS (9 sets, daily range): BP systolic 99–109; BP diastolic 64–70; PULSE 99–110; RESP 16–26; TEMP 36.4–36.9; O2SAT 94–100; BMI 27.4
[2023-09-17 00:28] LABS: Bedside Glucose 83 mg/dL (74-106)
[2023-09-17] MEDS: Loperamide 2 MG Capsule PO ×2 (03:42→18:09)
[2023-09-17] MEDS: 0.9% Saline Lock 10 ML Syringe IV (04:33)
[2023-09-17 05:49] LABS: Absolute Lymphocyte Count 1.01 X10^3/uL (0.83-4.51); Absolute Neutrophil Count 27.4 X10^3/uL (2.0-7.7); Basophil# 0.16 X10^3/uL; Basophil% 0.5 % (0-1); Eosinophil# 0.24 X10^3/uL; Eosinophils% 0.8 % (0-5); Hematocrit 24.4 % (37-47); Hemoglobin 7.6 g/dL (12.0-15.0); Lymphocyte # 1.01 X10^3/ul (0.83-4.51); Lymphocyte % 3.3 % (19-41); Mean Corp Hgb Conc 31.1 g/dL (32-36); Mean Corpuscular Hgb 32.6 pg (27.0-32.0); Mean Corpuscular Volume 104.7 fL (81-99); Mean Platelet Vol. 10.4 fl (6.2-12.0); Monocyte# 1.22 X10^3/uL; NRBC Flagged by Analyzer 0 % (0-5); Neutrophil # 27.36 X10^3/uL (2.7-7.7); Neutrophil % 89.7 % (47-70); POSITIVE COUNT YES; POSITIVE DIFFERENTIAL YES; POSITIVE MORPHOLOGY YES; Platelet Count 551 K/mm3 (150-450); RBC Distribution Width CV 16.5 % (11.6-14.6); RBC Distribution Width SD 60.3 fl (35.1-43.9); Red Blood Count 2.33 M/mm3 (4.2-5.4)
[2023-09-17 06:00] LABS: Differential Indicated SCAN CRITERIA MET; White Blood Count 30.5 K/mm3 (4.4-11.0)
[2023-09-17] MEDS: Vancomycin 125 MG/5 ML Susp PO.SYRINGE PO ×3 (06:10→16:08)
[2023-09-17 06:25] LABS: Anion Gap 11 (5-15); BUN 41 mg/dL (7-18); BUN/Creat Ratio 28.5 RATIO (10-20); Calcium,Total 7.9 mg/dL (8.5-10.1); Chloride 103 mmol/L (98-107); Creatinine, Serum 1.44 mg/dL (0.55-1.02); EST Glomerular Filtration Rate 42 mL/min (>60); Est Glom Filt Rate - Afr Amer 51 mL/min (>60); Estimated Creatinine Clearance 48.69 ml/min; Glucose 65 mg/dL (74-106); Potassium 3.6 mmol/L (3.5-5.1); Sodium Level 132 mmol/L (136-145)
[2023-09-17 06:32] LABS: Bedside Glucose 70 mg/dL (74-106)
[2023-09-17] MEDS: Ipratropium/Albuterol Sulfate 3 ML AMPUL.NEB INHALATION ×4 (07:01→19:34)
[2023-09-17 07:04] LABS: Bedside Glucose 86 mg/dL (74-106)
--- NOTE | 2023-09-17 07:33 | PCM.PN.HOSP ---
Reason for Visit Reason for Visit: Diagnoses Anemia, unspecified (09/02/23) Other disorders of phosphorus metabolism (09/02/23) Hypomagnesemia (09/02/23) Hypo-osmolality and hyponatremia (09/02/23) Hypokalemia (09/02/23) Alcohol abuse, uncomplicated (09/02/23) Acute respiratory failure with hypoxia (09/02/23) Alcoholic hepatitis without ascites (09/02/23) Alcoholic hepatic failure without coma (09/02/23) Alcohol induced acute pancreatitis without necrosis or infection (09/02/23) Acute pancreatitis without necrosis or infection, unspecified (09/02/23) Objective Data Objective Data Vital Signs: Vital Signs Temp Pulse Resp BP Pulse Ox O2 Del Method O2 Flow Rate 97.7 F L 99 16 104/68 100 Room Air 1 09/17/23 03:35 09/17/23 07:01 09/17/23 07:01 09/17/23 03:35 09/17/23 07:01 09/17/23 07:01 09/14/23 22:30 FiO2 94 09/12/23 08:00 Oxygen Flow Rate (L/min) 1 Oxygen Delivery Method Room Air Weight: 160 lb 0.889 oz Body Mass Index (BMI) 27.4 Intake & Output: Intake and Output for Last 24 Hours 09/15/23 09/16/23 09/17/23 23:59 23:59 23:59 Intake Total 1190 / 1440 1640 / 1640 1000 / 1000 Output Total 1650 / 1950 1275 / 1275 250 / 250 Balance -460 / -510 365 / 365 750 / 750 Lab / Micro Data 09/17/23 05:00 09/17/23 05:00 Labs: Laboratory Results - last 24 hr 09/16/23 12:30: Urine Color Yellow, Urine Clarity Sl. Cloudy, Urine pH 6.0, Ur Specific [place] 1.015, Urine Protein 30 H, Urine Glucose (UA) Normal, Urine Ketones Negative, Urine Occult Blood 250 H, Urine Nitrite Positive H, Urine Bilirubin 3 H, Urine Urobilinogen 1 H, Ur Leukocyte Esterase 25 H, Urine RBC 0 SEEN, Urine WBC 0-5 SEEN, Ur Squamous Epith Cells 0 SEEN, Urine Bacteria 1+, Urine Mucus 0 SEEN, Urine Yeast 1+, Urine Osmolality 286, U Random Total Protein 117.8 H, Ur Random Sodium 6, Urine Creatinine 54.70, Protein/Creatinin Ratio 2154 H, Urine Potassium 10.0, Urine Chloride < 10 09/16/23 12:36: POC Glucose 95 09/16/23 17:20: POC Glucose 88 09/16/23 23:47: POC Glucose 83 09/17/23 05:00: WBC 30.5 H*, RBC 2.33 L, Hgb 7.6 L, Hct 24.4 L, MCV 104.7 H, MCH 32.6 H, MCHC 31.1 L, RDW Std Deviation 60.3 H, RDW Coeff of Rebel 16.5 H, Plt Count 551 H, MPV 10.4, Immature Gran % (Auto) 1.700 H, Neut % (Auto) 89.7 H, Lymph % (Auto) 3.3 L, [place] % (Auto) 4.0, Eos % (Auto) 0.8, Baso % (Auto) 0.5, Absolute Neuts (auto) 27.4 H, Absolute Lymphs (auto) 1.01, Nucleated RBC % 0, Sodium 132 L, Potassium 3.6, Chloride 103, Carbon Dioxide 18.0 L, Anion Gap 11, BUN 41 H, Creatinine 1.44 H, Estim Creat Clear Calc 48.69, Est GFR (MDRD) Af Amer 51 L, Est GFR (MDRD) Non-Af 42 L, BUN/Creatinine Ratio 28.5 H, Glucose 65 L, Calcium 7.9 L 09/17/23 06:01: POC Glucose 70 L 09/17/23 06:41: POC Glucose 86 Micro: Microbiology 09/14/23 16:45 Stool Enteric Bacteriology - Final 09/14/23 16:45 Stool Clostridioides difficile (PCR) - Final 09/07/23 06:45 Blood Culture (Wb) - Pic Blood Culture - Final No growth in 5 days. 09/07/23 06:51 Blood Culture (Wb) - Anticubital Right Blood Culture - Final No growth in 5 days. 09/07/23 19:30 Sputum, Induced/Lukens Gram Stain - Final 09/07/23 19:30 Sputum, Induced/Lukens Respiratory Culture - Final Presumptive C albicans 09/07/23 06:45 Urine Catheter - Rojas Urine Culture - Final Culture exhibits no growth. 09/06/23 08:03 Sputum, Induced/Lukens Gram Stain - Final 09/06/23 08:03 Sputum, Induced/Lukens Respiratory Culture - Final Presumptive C albicans 09/03/23 04:25 Blood Culture (Wb) - Anticubital Right Blood Culture - Final No growth in 5 days. 09/03/23 04:20 Blood Culture (Wb) - Left Forearm Blood Culture - Final No growth in 5 days. 09/04/23 09:45 Urine Catheter - Rojas Urine Culture - Final Culture exhibits no growth. 09/05/23 09:15 Mucosa - Nasopharyngeal Respiratory Panel (PCR) - Final 09/05/23 09:15 Mucosa - Nasopharyngeal SARS-CoV-2, Influenza & RSV (PCR) - Final 09/03/23 17:10 Sputum, Expectorated/Coughed Gram Stain - Final 09/03/23 17:10 Sputum, Expectorated/Coughed Respiratory Culture - Final Streptococcus group C 09/05/23 07:35 Stool C. difficile GDH Antigen & Toxins - Final 09/05/23 07:35 Stool Clostridioides difficile (PCR) - Final 09/05/23 09:20 Urine Catheter - Catheter Legionella Antigen - Final 09/05/23 09:20 Urine Catheter - Catheter Streptococcus pneumoniae Antigen (M - Final 09/05/23 07:35 Stool Stool Occult Blood (JOSE) - Final Occult Blood Positive Physical Exam Narrative Seen and examined. Patient has fatigue but shortness of breath has improved. Pulse ox 95 to 100% on room air. Not tachypneic. Moving her bowel. Abdominal distention is better. No fever Physical exam General: Alert, Oriented x3, Cooperative. BMI 27.4 kg/m?. Fatigue HEENT: Atraumatic, PERRLA, EOMI, Normocephalic Oral: No Gingival or Mucosal Lesions/ Ulcerations Neck: Supple, No JVD, Negative Carotid Bruits Chest wall/Lungs: Air entry diminished in bilateral lung bases. No crepitation/rhonchi. Dyspnea on exertion on room air Cardiovascular: Regular rate, Regular Rhythm, Normal S1, Normal S2, No M/G/R Abdomen: Bowel Sounds Present, Soft, Non Tender, Non-Distended. Mild redness around perianal region probably from diarrhea. : No dysuria. No renal angle tenderness. No suprapubic tenderness. Extremities: Mild bilateral pitting edema, Capillary Refill Less than 3 Seconds Skin: Redness around perianal area as per nursing staff during diaper change Musculoskeletal: No Tenderness to Palpation of Joints or Extremities. ROM reduced. Neurological: Cranial nerves II-XII grossly intact, DTR 2+/4. No acute focal neurological deficit. Psych/Mental Status: flat affect Assessment & Plan Assessment/Plan (1) Alcoholic hepatitis: PLAN: Plan 43-year-old female was admitted initially for desires for alcohol detoxification but was found to have elevated lipase and LFTs at the time. Hospital course was complicated by acute on chronic respiratory failure requiring mechanical ventilation. The reason for the mechanical ventilation was suspected to be volume overload. Overall there has been improvement in her symptoms she has had a prolonged hospitalization. Her stool C. difficile was positive for infection but negative for toxin. This is likely related to C. difficile diarrhea. # Acute hypoxic respiratory failure ? Secondary to fluid overload patient intubated while in the ICU. Pulmonary medicine on board. Decision regarding weaning deferred to pulmonary medicine ? 09/12/2023; patient was weaned off the vent on 09/11/2023. -09/13/2023: Moved to PCU -Saturating well at this time on minimal oxygen requirement using nasal cannula 09/15: Patient maintaining her oxygenation on room air. PT and OT. 09/16: PT OT and discharge planning with case monitor. Will possible need SNF # Hypovolemic shock ? Secondary to pancreatitis in addition to suspected pneumonia. Patient was found to have mild leukocytosis. CTA did show Multifocal pulmonary infiltrates more severe in the left lung suspicious for inflammatory disease. Bilateral pleural effusions larger on the left with consolidation of left lower lobe. Patient was resuscitated with IV fluids per protocol in addition to broad-spectrum antibiotic therapy with vancomycin as well as meropenem ? 09/13/2023; Patient had to be restarted on Levophed and subsequently weaned off. Patient has been started on midodrine. Blood pressure remains fairly stable. Plan is for patient to be transferred out of the ICU -09/14/2023: Blood pressure is better, last measured 110/52, ongoing therapy with midodrine 10 mg 3 times daily -S/p 08/03: Hemodynamically stable, persistent diarrhea leading to volume losses 09/15: BP is 160s/68. 99/65 in the morning. 09/16: Patient maintaining her blood pressure 103/67, 112/68. ANDRÉS: Creatinine was 0.91 on September 10. It has increased to 1.56. Medication reviewed. Patient not on any nephrotoxic medications. UA with urine electrolyte indices ordered. IV fluid Ringer lactate 125 mill per hour for 2 L. Nephrology consult requested. 09/10: Creatinine better 1.44 today. # Acute diarrhea -C. difficile was initially positive, she is on vancomycin for the same -Repeat stool test has become negative -Continue tab vancomycin 125 mg every 6 hours -Increase Imodium every 4 hours as needed -Appreciate ID input regarding duration of therapy 09/16: Redness around perianal region from diarrhea. Calamine lotion. # Alcoholic hepatitis - MELD score of 20 and Madrey score of [address] of the abdomen and pelvis demonstrated fatty liver with hepatomegaly in addition to suspected pancreatitis acute hepatitis without underlying cirrhosis. Patient managed with vitamin K in view of elevated INR and subsequently started on Xifaxan with consultation placed to GI. -Abdominal pain is better, tolerating p.o. intake well # Acute metabolic encephalopathy [resolved] # Severe hyponatremia ? Secondary to beer potomania resuscitated with IV fluid. Patient sodium levels trending up # Anemia -Patient has been transfused total of 2 unit PRBC following admission. Patient will probably need to undergo endoscopic evaluation prior to being discharged. Subsequently s monitoring H&H and transfuse if patient becomes symptomatic or hemoglobin falls below 7 09/10: Hemoglobin is 7.6. Once in 2 days blood work. # Hypokalemia ? Corrected per protocol # Hypophosphatemia ? Secondary to chronic alcohol use corrected per protocol # Hypomagnesemia ? Corrected per protocol # New onset acute congestive heart failure with reduced ejection fraction ? Echo 09/03 showed EF 40%, mild to moderate LV global hypokinesis, interventricular septal flattening during systole consistent with RV pressure overload. CTA chest on 09/03 with no PE but with signs of pneumonia versus inflammatory disease as noted above. Continue treatment as noted above for now. # Alcohol abuse with prior concern for alcohol withdrawal ? Reported drinking about 12 white claws per day recently. Has 20-year history of heavy alcohol use without cessation. No history of alcohol withdrawal. - Given high concern for impending alcohol withdrawal, patient was started on phenobarbital taper admission with adequate symptom control. Continue phenobarbital taper and other as needed medications per alcohol withdrawal order set. Continue folate and thiamine. -Being admitted for 12 days, out of withdrawal time period # Malnutrition ruled out -09/12/2023;Plan is for patient to undergo speech eval prior to resumption of oral diet # History of lichen sclerosis ? Previously required treatment, not currently active. # Tobacco dependence - Counseled on cessation, offered nicotine patch for tobacco cravings # DVT prophylaxis - SCDs for now given patient's low hemoglobin level # Physical deconditioning - Requested for PT OT eval and older adult social work specialist to assist with discharge planning Charges/Coding Visit Charges Inpatient E&M: 51126 Subs Hosp L2
[2023-09-17] MEDS: Folic Acid 1 MG Tablet PO (09:03)
[2023-09-17] MEDS: Midodrine HCl 5 MG Tablet 10 MG PO ×3 (09:03→16:07)
[2023-09-17] MEDS: Thiamine Hydrochloride 100 MG Tablet PO (09:04)
[2023-09-17] MEDS: Menthol/Lanolin/Calamine/Znox 113 GM Tube 1 APPLIC TOPICAL ×2 (09:04→21:28)
[2023-09-17] MEDS: rifAXIMin 550 MG Tablet PO ×2 (09:05→21:28)
[2023-09-17 09:54] LABS: Differential Comment SCANNED
[2023-09-17 11:27] LABS: Bedside Glucose 78 mg/dL (74-106)
--- NOTE | 2023-09-17 15:58 | PCM.CONS.R ---
Assessment & Plan Assessment/Plan (1) Acute kidney injury: PLAN: Acute kidney injury in the setting of liver cirrhosis, low fractional excretion of sodium. Differential diagnosis is usually between hepatorenal syndrome and prerenal azotemia, hepatorenal syndrome being more likely PLAN: Plan Plan Observe trend of creatinine for 1 more day, if worse, may consider albumin, midodrine, possibly octreotide HPI Consult Data Date of Consult: 09/17/23 HPI Narrative Reason for Consultation: Acute kidney injury HPI Narrative: FIONA ZAFAR, is a 43 F who presents to emergency room on 09/02/2023 with a chief complaint of shortness of breath and epigastric pain. She was found to have pancreatitis, liver failure, hyponatremia with sodium of 117, sepsis and respiratory failure resembling ARDS. She has got normal underlying kidney function with baseline creatinine around 0.4-0.6. She initially was treated in ICU, but later on was able to be transferred to the floor. The creatinine started to go up on 10 September, it went up to 0.94 and has been on the rise up until yesterday when it peaked at 1.5. It is a little bit better today. She makes some urine. Her blood pressure is soft, her albumin is low, he urinary sodium is low. Last time she received IV contrast was 627. I am not aware of her being on nonsteroidals. She does have proteinuria PFSH Home Medications ?Medication ?Instructions ?Recorded ?Last Taken ?Type levocetirizine 5 mg tablet (Xyzal) 5 mg PO DAILY 09/02/23 Unknown History Allergy/AdvReac Type Severity Reaction Status Date / Time No Known Allergies Allergy Verified 09/02/23 16:23 Family History Brother Diabetes Mother H/O: hysterectomy Social History number of children: 0 current occupational status: employed current occupation: [employer] Smoking Status: Current every day smoker tobacco type: cigarettes alcohol intake: current alcohol intake frequency: 0-2 drinks per day substance use type: does not use seatbelt use: always do you feel safe at home: Yes additional social history: [employer] [place] ROS Constitutional Constitutional: Reports malaise and weakness Eyes Eyes: Denies blindness, blurry vision, change in vision, discongugate gaze, double vision, dry eyes or loss of vision ENT HEENT: Reports dry mouth Cardiovascular Cardiovascular: Reports edema; Denies chest pain, claudication, diaphoresis, dyspnea on exertion, irregular heart rhythm, leg edema, orthopnea, palpitations or syncope Respiratory/Chest Respiratory/Chest: Reports dyspnea on exertion and shortness of breath at rest Gastrointestinal Gastrointestinal: Reports anorexia Genitourinary Genitourinary: Denies change in urinary stream, difficulty urinating, dribbling, dysuria, flank pain, hematuria, nocturia, oliguria, post void dribbling, urinary frequency, urinary hesitancy, urinary incontinence or urinary urgency Musculoskeletal Musculoskeletal: Denies abnormal gait, arthralgias, joint stiffness, joint swelling, muscle cramps or myalgias Integumentary Integumentary: Denies dry skin, erythema, jaundice, lesions, pruritus, rash or skin ulcer Psychiatric Psychiatric: Reports depression Physical Exam Narrative Has 2-3+ pitting edema both lower extremities Const alert, oriented x3 and no apparent distress General Appearance: frail Orientation / Consciousness: oriented to person, oriented to place and oriented to time Nutritional Appearance: cachectic HEENT normocephalic Head and Scalp: atraumatic External Ear: external ears normal Neck no lymphadenopathy Resp no use of accessory muscles and clear to auscultation bilaterally Cardio regular rate GI Auscultation: normoactive bowel sounds Palpation: ascites Bladder / Kidney Exam: catheter in place Skin Skin Narrative: Deep jaundice Neuro Sensorium / Orientation: awake and alert Psych cooperative Lab / Micro Data Attestation: I reviewed the patient's lab results. 09/17/23 05:00 09/17/23 05:00 Labs: Laboratory Results - last 24 hr 09/16/23 12:30: Urine Color Yellow, Urine Clarity Sl. Cloudy, Urine pH 6.0, Ur Specific [place] 1.015, Urine Protein 30 H, Urine Glucose (UA) Normal, Urine Ketones Negative, Urine Occult Blood 250 H, Urine Nitrite Positive H, Urine Bilirubin 3 H, Urine Urobilinogen 1 H, Ur Leukocyte Esterase 25 H, Urine RBC 0 SEEN, Urine WBC 0-5 SEEN, Ur Squamous Epith Cells 0 SEEN, Urine Bacteria 1+, Urine Mucus 0 SEEN, Urine Yeast 1+ 09/16/23 17:20: POC Glucose 88 09/16/23 23:47: POC Glucose 83 09/17/23 05:00: WBC 30.5 H*, RBC 2.33 L, Hgb 7.6 L, Hct 24.4 L, MCV 104.7 H, MCH 32.6 H, MCHC 31.1 L, RDW Std Deviation 60.3 H, RDW Coeff of Rebel 16.5 H, Plt Count 551 H, MPV 10.4, Immature Gran % (Auto) 1.700 H, Neut % (Auto) 89.7 H, Lymph % (Auto) 3.3 L, [place] % (Auto) 4.0, Eos % (Auto) 0.8, Baso % (Auto) 0.5, Absolute Neuts (auto) 27.4 H, Absolute Lymphs (auto) 1.01, Nucleated RBC % 0, Differential Comment SCANNED, Diff Path Review July, Sodium 132 L, Potassium 3.6, Chloride 103, Carbon Dioxide 18.0 L, Anion Gap 11, BUN 41 H, Creatinine 1.44 H, Estim Creat Clear Calc 48.69, Est GFR (MDRD) Af Amer 51 L, Est GFR (MDRD) Non-Af 42 L, BUN/Creatinine Ratio 28.5 H, Glucose 65 L, Calcium 7.9 L 09/17/23 06:01: POC Glucose 70 L 09/17/23 06:41: POC Glucose 86 09/17/23 11:07: POC Glucose 78
[2023-09-17 16:28] LABS: Bedside Glucose 89 mg/dL (74-106)
[2023-09-17] MEDS: Acetaminophen 325 MG Tablet 650 MG PO (18:09)
[2023-09-18] VITALS (8 sets, daily range): BP systolic 97–120; BP diastolic 63–71; PULSE 100–120; RESP 16–24; TEMP 36.6–37.1; O2SAT 95–96; BMI 27.3
[2023-09-18 00:29] LABS: Bedside Glucose 80 mg/dL (74-106)
[2023-09-18] MEDS: Vancomycin 125 MG/5 ML Susp PO.SYRINGE PO ×5 (00:50→23:55)
[2023-09-18 06:56] LABS: Bedside Glucose 73 mg/dL (74-106)
[2023-09-18] MEDS: Ipratropium/Albuterol Sulfate 3 ML AMPUL.NEB INHALATION ×4 (07:22→19:08)
[2023-09-18 09:00] LABS: Hemoglobin 8.4 g/dL (12.0-15.0); Mean Corp Hgb Conc 31.1 g/dL (32-36); Mean Corpuscular Hgb 33.1 pg (27.0-32.0); Mean Corpuscular Volume 106.3 fL (81-99); Mean Platelet Vol. 10.1 fl (6.2-12.0); POSITIVE COUNT YES; Platelet Count 564 K/mm3 (150-450); RBC Distribution Width CV 16.6 % (11.6-14.6); RBC Distribution Width SD 62.9 fl (35.1-43.9); Red Blood Count 2.54 M/mm3 (4.2-5.4)
[2023-09-18] MEDS: 0.9% Saline Lock 10 ML Syringe IV (09:02)
[2023-09-18 09:03] LABS: Scan Indicated on CBC? Y/N YES- FLAGS NOTED; White Blood Count 31.2 K/mm3 (4.4-11.0)
--- NOTE | 2023-09-18 09:18 | CASEMGMT ---
Discharge Planning Updates sent to Morgan Diaz via [facility]. Coral Ruano DC Planning Asst.
[2023-09-18 09:25] LABS: Anion Gap 12 (5-15); BUN 41 mg/dL (7-18); BUN/Creat Ratio 28.3 RATIO (10-20); Chloride 102 mmol/L (98-107); Creatinine, Serum 1.45 mg/dL (0.55-1.02); EST Glomerular Filtration Rate 42 mL/min (>60); Est Glom Filt Rate - Afr Amer 50 mL/min (>60); Estimated Creatinine Clearance 48.23 ml/min; Glucose 76 mg/dL (74-106); Potassium 3.9 mmol/L (3.5-5.1); Sodium Level 132 mmol/L (136-145)
--- NOTE | 2023-09-18 10:46 | SP.MBSS_ITS ---
Modified Barium Swallow Patient Information Study Date: 09/18/23 Study Time: 09:00 Direct Billable Minutes: 120 Total Minutes procedure & reportin Diagnosis: Acute hypoxic respiratory failure J96.01; ANDRÉS N17.9 Referring Physician: Doron Thao Reason for Referral: Objectively assess swallow function, assess risk for aspiration, and determine recommendations for least restrictive diet textures and compensatory strategies to improve safety of swallow. Medical History: Pt is a 43-year-old female with no known PMH in EMR. She presented to [facility] ED 09/02/23 wanting alcohol detox. Pt admitted to [facility] ICU on 09/03/23 for acute alcoholic hepatitis with several other significant medical concerns including acute pancreatitis and shock. During stay, she developed respiratory failure and required intubation 09/06/23. She was extubated 09/11/23 and BSE recommended NPO with plans for FEES prior to diet advancement due to concerns for aspiration. FEES 09/12/23 revealed poor pharyngeal contraction and decreased airway closure during the swallow with recommendation for puree textures / mildly thick liquids. She was recommended for additional instrumental assessment of swallow function prior to diet advancement. Pt has tolerated puree textures / mildly thick liquids the past week; however, her oral intake has been poor. IRON WORKER is recommending MBSS to re-assess aspiration risk and consider her for diet advancement. Current Diet Ordered: Puree textures / Mildly thick liquids Dentition: Natural Teeth Mental Status: WNL Respiratory Status: Oxygenating on Room Air Penetration-Aspiration Scale Penetration-Aspiration Scale: OBJECTIVE ASSESSMENT OF SWALLOW FUNCTION (QUANTITATIVE ? PER TRIAL): PENETRATION / ASPIRATION SCALE (THOMAS): 1 = does not enter airway 2 = enters airway/above vocal folds/ejected 3 = enters airway/above vocal folds/not ejected 4 = enters airway/contacts vocal folds/ejected 5 = enters airway/contacts vocal folds/not ejected 6 = enters airway/below vocal folds/ejected 7 = enters airway/below vocal folds/not ejected despite effort 8 = enters airway/below vocal folds/no effort VIDEOFLOROSCOPIC SCALE SCORE (THOMAS): Grade I = aspiration of material that has penetrated into the laryngeal vestibule, intact cough reflex Grade II = aspiration < 10 % of the bolus, intact cough reflex Grade III = aspiration of < 10 % of the bolus, reduced cough reflex or aspiration of > 10 % of the bolus, intact cough reflex Grade IV = aspiration of > 10 % of the bolus, reduced cough reflex Penetration-Aspiration Scale Score Thin Liquid via teaspoon: Result: 1= does not enter airway Thin Liquid via teaspoon Trial 2: Result: 1= does not enter airway Thin Liquid via large single sip: cup: Result: 2= enter airway/above vocal folds/ejected [place] Thick Liquid via large single sip: cup: Result: 1= does not enter airway Pudding via teaspoon: Result: 1= does not enter airway Comment: Esophageal screen - Retention with retrograde flow of pudding. Thin Liquid via single sip: straw: Result: 3= enters airways/above vocal folds/not ejected Comment: Esophageal screen - Pudding residue fully cleared with thin liquid wash. 1/2 Cookie: Result: 1= does not enter airway Comment: Esophageal screen - Retention of cookie. Thin Liquid via sequential sips:straw: Result: 8= enters airway/below vocal folds/no effort Comment: Cued cough and re-swallow following the swallow effectively cleared residues remaining in the laryngeal vestibule. Esophageal screen - cookie residue mostly cleared with thin liquid wash. Thin Liquid via small single sip: cup Effortful swallow: Result: 2= enter airway/above vocal folds/ejected Oral Phase Labial Seal: Interlabial escape, no progression to anterior lip Tongue Control During Bolus Hold: Posterior escape of less than half of bolus Bolus Preparation/Mastication: Slow prolonged chewing/mashing with complete recollection Bolus Transport/Lingual Motion: Delayed initiation of tongue motion Oral Residue: Residue collection on oral structures Pharyngeal Phase Initiation of Pharyngeal Swallow: Bolus head in pyriforms Soft Palate Elevation: No bolus between soft palate and pharyngeal wall Laryngeal Elevation: Partial superior movement thyroid cart/partial apprx aryt- epig petiole Anterior Hyoid Excursion: Partial anterior movement Epiglottic Movement: Partial inversion Laryngeal Vestibule Closure at Height of Swallow: Incomplete; narrow column of air/contrast in laryngeal vestibule Pharyngeal Stripping Wave: Present - diminished Pharyngoesophageal Segment Opening: Parital distension and partial duration; parital obstruction of flow Tongue Base Retraction: Wide column of contrast between tongue base & post. pharyngeal wall Pharyngeal Residue: Collection of residue within or on pharyngeal structures Esophageal Phase Esophageal Clearance: Esophageal retention w/ retrograde flow below pharyngoesophageal seg. Diagnosis/Impression Diagnosis: Mild-moderate oropharyngeal dysphagia R13.12 Impression: The oral phase is primarily marked by... -Delayed initiation of tongue motion for A-P transport. -Decreased bolus control with posterior loss of <1/2 the bolus to the pyriforms prior to swallow onset. -Piecemeal deglutition with large sips, pudding, and cookie. -Prolonged, but complete mastication of cookie. The pharyngeal phase is primarily marked by... -Decreased airway closure due to decreased anterior hyoid excursion, laryngeal elevation, and epiglottic inversion with trace, SILENT aspiration of thin liquids via sequential straw. Trace laryngeal penetration without full ejection of thin liquids via sequential straw. Cued cough and re-swallow was effective in clearing residue in the laryngeal vestibule after the swallow. -Mild-moderate pharyngeal residues after the swallow due to decreased tongue base retraction, UES opening/duration, and pharyngeal stripping wave. The esophageal phase is primarily marked by... -Retention with retrograde flow of pudding, which fully cleared when provided thin liquid wash. -Retention of cookie, which mostly cleared when provided thin liquid wash. Recommendations Diet: Regular Textures (Easy to Chew textures - IDDSI Level 7) and Thin Liquids Comment: Intermittent cough and re-swallow Compensatory Strategies: Small Bites, Small Sips (Effortful Swallows w/ Sips), No Straws, Slow Rate, Alternate bites/solids and sips/liquids, Sitting upright and Remain sitting upright for 30 minutes after PO intake Recommend Repeat Modified Barium Swallow: No Need for Skilled Speech Therapy Services: Yes Comment: -Train the patient in use of strategies to decrease risk for aspiration and reflux aspiration. -Ongoing assessment of diet tolerance of recommended textures. -Train the patient in oropharyngeal exercise program to improve airway closure, swallow onset, tongue base retraction, and pharyngeal contraction (Effortful breath hold and swallow, vocal adduction, Raoul, and Kezia). Education Completed: 1. Described result of evaluation. and 2. Pt understands evaluation & agrees with goals and treatment plan. Status Active ST Patient: Active Contact Information [facility] Speech Therapy:: Mahogany Middleton M.A. CCC-IRON WORKER? Speech-Language Pathologist?? [facility] [address] [place] [address]? [email or web address]?? [phone]
[2023-09-18] MEDS: Folic Acid 1 MG Tablet PO (11:21)
[2023-09-18] MEDS: Thiamine Hydrochloride 100 MG Tablet PO (11:21)
[2023-09-18] MEDS: rifAXIMin 550 MG Tablet PO ×2 (11:21→21:22)
[2023-09-18] MEDS: Menthol/Lanolin/Calamine/Znox 113 GM Tube 1 APPLIC TOPICAL ×2 (11:22→21:21)
[2023-09-18] MEDS: Midodrine HCl 5 MG Tablet 10 MG PO ×2 (11:25→17:14)
[2023-09-18 11:52] LABS: Bedside Glucose 81 mg/dL (74-106)
--- NOTE | 2023-09-18 12:04 | PCM.PN.REN ---
Documented by User: BEN Joseph 09/18/23 12:18 Subjective Subjective Resting in bed. States still having diarrhea. States appetite fair. Objective Data Objective Data Vital Signs: Vital Signs Temp Pulse Resp BP Pulse Ox O2 Del Method O2 Flow Rate 98.4 F 100 18 120/66 95 Room Air 1 09/18/23 08:55 09/18/23 08:55 09/18/23 08:55 09/18/23 08:55 09/18/23 08:55 09/18/23 08:55 09/14/23 22:30 FiO2 94 09/12/23 08:00 Oxygen Flow Rate (L/min) 1 Oxygen Delivery Method Room Air Weight: 72.2 kg Body Mass Index (BMI) 27.3 Intake & Output: Intake and Output for Last 24 Hours 09/16/23 09/17/23 09/18/23 23:59 23:59 23:59 Intake Total 1640 / 1640 1725 / 1850 125 / 125 Output Total 1275 / 1275 1110 / 1460 800 / 800 Balance 365 / 365 615 / 390 -675 / -675 Lab / Micro Data 09/18/23 08:47 09/18/23 08:47 Labs: Laboratory Results - last 24 hr 09/17/23 16:04: POC Glucose 89 09/18/23 00:11: POC Glucose 80 09/18/23 06:35: POC Glucose 73 L 09/18/23 08:47: WBC 31.2 H*, RBC 2.54 L, Hgb 8.4 L, Hct 27.0 L, MCV 106.3 H, MCH 33.1 H, MCHC 31.1 L, RDW Std Deviation 62.9 H, RDW Coeff of Rebel 16.6 H, Plt Count 564 H, MPV 10.1, Differential Comment COMMENT, Diff Path Review May foll, Sodium 132 L, Potassium 3.9, Chloride 102, Carbon Dioxide 18.0 L, Anion Gap 12, BUN 41 H, Creatinine 1.45 H, Estim Creat Clear Calc 48.23, Est GFR (MDRD) Af Amer 50 L, Est GFR (MDRD) Non-Af 42 L, BUN/Creatinine Ratio 28.3 H, Glucose 76, Calcium 8.0 L 09/18/23 11:23: POC Glucose 81 Micro: Microbiology 09/14/23 16:45 Stool Enteric Bacteriology - Final 09/14/23 16:45 Stool Clostridioides difficile (PCR) - Final 09/07/23 06:45 Blood Culture (Wb) - Pic Blood Culture - Final No growth in 5 days. 09/07/23 06:51 Blood Culture (Wb) - Anticubital Right Blood Culture - Final No growth in 5 days. 09/07/23 19:30 Sputum, Induced/Lukens Gram Stain - Final 09/07/23 19:30 Sputum, Induced/Lukens Respiratory Culture - Final Presumptive C albicans 09/07/23 06:45 Urine Catheter - Rojas Urine Culture - Final Culture exhibits no growth. 09/06/23 08:03 Sputum, Induced/Lukens Gram Stain - Final 09/06/23 08:03 Sputum, Induced/Lukens Respiratory Culture - Final Presumptive C albicans 09/03/23 04:25 Blood Culture (Wb) - Anticubital Right Blood Culture - Final No growth in 5 days. 09/03/23 04:20 Blood Culture (Wb) - Left Forearm Blood Culture - Final No growth in 5 days. 09/04/23 09:45 Urine Catheter - Rojas Urine Culture - Final Culture exhibits no growth. 09/05/23 09:15 Mucosa - Nasopharyngeal Respiratory Panel (PCR) - Final 09/05/23 09:15 Mucosa - Nasopharyngeal SARS-CoV-2, Influenza & RSV (PCR) - Final 09/03/23 17:10 Sputum, Expectorated/Coughed Gram Stain - Final 09/03/23 17:10 Sputum, Expectorated/Coughed Respiratory Culture - Final Streptococcus group C 09/05/23 07:35 Stool C. difficile GDH Antigen & Toxins - Final 09/05/23 07:35 Stool Clostridioides difficile (PCR) - Final 09/05/23 09:20 Urine Catheter - Catheter Legionella Antigen - Final 09/05/23 09:20 Urine Catheter - Catheter Streptococcus pneumoniae Antigen (M - Final 09/05/23 07:35 Stool Stool Occult Blood (JOSE) - Final Occult Blood Positive Physical Exam Narrative alert and oriented, NAD S1 S2 RRR Lung sounds clear Abdomen soft Edema bilateral legs Assessment & Plan Assessment/Plan (1) Acute kidney injury: PLAN: - Nonoliguric Acute kidney injury in the setting of liver cirrhosis, low fractional excretion of sodium. Differential diagnosis is usually between hepatorenal syndrome and prerenal azotemia. Patient did have CT of abdomen and pelvis with IV contrast on 09/06, normal right and left kidney, no hydro. Patient has normal baseline serum creatinine. Creatinine began to rise on September 11. Creatinine peaked to 1.56 on 09/14 and today creatinine 1.45. Patient has good urine output. Patient is having diarrhea and poor oral intake. She passed swallow eval therefore starting diet today. Encourage increase protein intake. Blood pressures acceptable on midodrine -Hyponatremia; baseline sodium unknown. Sodium was 118 on admission. Sodium slowly corrected, sodium is now up to 132. -C. difficile infection on oral Vanco Documented by User: Dr. Nain Jones MD 09/18/23 19:27 Objective Data Lab / Micro Data 09/18/23 08:47 09/18/23 08:47 Assessment & Plan Assessment/Plan (1) Acute kidney injury: PLAN: - Nonoliguric Acute kidney injury in the setting of liver cirrhosis, low fractional excretion of sodium. Differential diagnosis is usually between hepatorenal syndrome and prerenal azotemia. Patient did have CT of abdomen and pelvis with IV contrast on 09/06, normal right and left kidney, no hydro. Patient has normal baseline serum creatinine. Creatinine began to rise on September 11. Creatinine peaked to 1.56 on 09/14 and today creatinine 1.45. Patient has good urine output. Patient is having diarrhea and poor oral intake. She passed swallow eval therefore starting diet today. Encourage increase protein intake. Blood pressures acceptable on midodrine -Hyponatremia; baseline sodium unknown. Sodium was 118 on admission. Sodium slowly corrected, sodium is now up to 132. -C. difficile infection on oral Vanco Seen and examined independently. ANDRÉS. Baseline creatinine around 0.6. Currently around 1.4. Urine sodium less than 20. Prerenal versus hepatorenal. Ongoing diarrhea and poor oral intake. Likely prerenal at this point.
--- NOTE | 2023-09-18 12:37 | PCM.PN.HOSP ---
Reason for Visit Reason for Visit: Diagnoses Anemia, unspecified (09/02/23) Other disorders of phosphorus metabolism (09/02/23) Hypomagnesemia (09/02/23) Hypo-osmolality and hyponatremia (09/02/23) Hypokalemia (09/02/23) Alcohol abuse, uncomplicated (09/02/23) Acute respiratory failure with hypoxia (09/02/23) Alcoholic hepatitis without ascites (09/02/23) Alcoholic hepatic failure without coma (09/02/23) Alcohol induced acute pancreatitis without necrosis or infection (09/02/23) Acute pancreatitis without necrosis or infection, unspecified (09/02/23) Acute kidney failure, unspecified (09/02/23) Subjective Subjective Saw patient bedside this morning. Patient appeared fatigued and somewhat chronically ill-appearing but was otherwise sitting up comfortably in bed, conversing normally and in no acute distress. She reported ongoing diarrhea especially after eating her pur?ed diet. She worked with speech therapy this morning and was cleared for solids, and she was looking forward to eating solids and seeing how she did. She had no other acute concerns this morning. Objective Data Objective Data Vital Signs: Vital Signs Temp Pulse Resp BP Pulse Ox O2 Del Method O2 Flow Rate 98.4 F 112 H 24 H 120/66 95 Room Air 1 09/18/23 08:55 09/18/23 11:36 09/18/23 11:36 09/18/23 08:55 09/18/23 08:55 09/18/23 08:55 09/14/23 22:30 FiO2 94 09/12/23 08:00 Oxygen Flow Rate (L/min) 1 Oxygen Delivery Method Room Air Weight: 72.2 kg Body Mass Index (BMI) 27.3 Intake & Output: Intake and Output for Last 24 Hours 09/16/23 09/17/23 09/18/23 23:59 23:59 23:59 Intake Total 1640 / 1640 1725 / 1850 125 / 125 Output Total 1275 / 1275 1110 / 1460 800 / 800 Balance 365 / 365 615 / 390 -675 / -675 Lab / Micro Data 09/18/23 08:47 09/18/23 08:47 Labs: Laboratory Results - last 24 hr 09/17/23 16:04: POC Glucose 89 09/18/23 00:11: POC Glucose 80 09/18/23 06:35: POC Glucose 73 L 09/18/23 08:47: WBC 31.2 H*, RBC 2.54 L, Hgb 8.4 L, Hct 27.0 L, MCV 106.3 H, MCH 33.1 H, MCHC 31.1 L, RDW Std Deviation 62.9 H, RDW Coeff of Rebel 16.6 H, Plt Count 564 H, MPV 10.1, Differential Comment COMMENT, Diff Path Review July, Sodium 132 L, Potassium 3.9, Chloride 102, Carbon Dioxide 18.0 L, Anion Gap 12, BUN 41 H, Creatinine 1.45 H, Estim Creat Clear Calc 48.23, Est GFR (MDRD) Af Amer 50 L, Est GFR (MDRD) Non-Af 42 L, BUN/Creatinine Ratio 28.3 H, Glucose 76, Calcium 8.0 L 09/18/23 11:23: POC Glucose 81 Micro: Microbiology 09/14/23 16:45 Stool Enteric Bacteriology - Final 09/14/23 16:45 Stool Clostridioides difficile (PCR) - Final 09/07/23 06:45 Blood Culture (Wb) - Pic Blood Culture - Final No growth in 5 days. 09/07/23 06:51 Blood Culture (Wb) - Anticubital Right Blood Culture - Final No growth in 5 days. 09/07/23 19:30 Sputum, Induced/Lukens Gram Stain - Final 09/07/23 19:30 Sputum, Induced/Lukens Respiratory Culture - Final Presumptive C albicans 09/07/23 06:45 Urine Catheter - Rojas Urine Culture - Final Culture exhibits no growth. 09/06/23 08:03 Sputum, Induced/Lukens Gram Stain - Final 09/06/23 08:03 Sputum, Induced/Lukens Respiratory Culture - Final Presumptive C albicans 09/03/23 04:25 Blood Culture (Wb) - Anticubital Right Blood Culture - Final No growth in 5 days. 09/03/23 04:20 Blood Culture (Wb) - Left Forearm Blood Culture - Final No growth in 5 days. 09/04/23 09:45 Urine Catheter - Rojas Urine Culture - Final Culture exhibits no growth. 09/05/23 09:15 Mucosa - Nasopharyngeal Respiratory Panel (PCR) - Final 09/05/23 09:15 Mucosa - Nasopharyngeal SARS-CoV-2, Influenza & RSV (PCR) - Final 09/03/23 17:10 Sputum, Expectorated/Coughed Gram Stain - Final 09/03/23 17:10 Sputum, Expectorated/Coughed Respiratory Culture - Final Streptococcus group C 09/05/23 07:35 Stool C. difficile GDH Antigen & Toxins - Final 09/05/23 07:35 Stool Clostridioides difficile (PCR) - Final 09/05/23 09:20 Urine Catheter - Catheter Legionella Antigen - Final 09/05/23 09:20 Urine Catheter - Catheter Streptococcus pneumoniae Antigen (M - Final 09/05/23 07:35 Stool Stool Occult Blood (JOSE) - Final Occult Blood Positive Physical Exam Const alert, oriented x3 and no apparent distress Constitutional Narrative: Middle-age female, fatigued and chronically ill appearing, jaundiced, otherwise sitting up comfortably in bed, conversing normally, in no acute distress. General Appearance: cooperative and comfortable HEENT normocephalic, head/scalp atraumatic, hearing grossly normal bilaterally, nasal mucous membranes and turbinates normal and moist oral mucous membranes Eyes PERRL, EOMs intact bilaterally and conjunctivae normal Neck full ROM Chest inspection of chest normal Resp normal respiratory effort and no use of accessory muscles Resp Narrative: Mildly decreased breath sounds bilaterally throughout. No wheezing or crackles noted. Breathing comfortably on room air at rest. Cardio no murmurs and peripheral pulses 2+ throughout Cardio Narrative: Tachycardic, regular rhythm. GI normal to inspection, nondistended, normoactive bowel sounds, soft to palpation, non-tender and non-distended Back/Spine normal ROM Extremity normal to inspection, full ROM and no pedal edema Neuro moves all extremities and no focal motor deficits Speech: speech normal Psych mental status grossly normal Mood & Affect: anxious Assessment & Plan Assessment/Plan (1) Acute hypoxic respiratory failure: (2) Alcoholic hepatitis: (3) Acute kidney injury: (4) Anemia: PLAN: Plan Patient is a 43-year-old female who presented [facility] ED on 09/02/2023 with worsening abdominal pain and distention. 1. Acute hypoxic respiratory failure, resolved ? Yarn Sorter followed. Required intubation from 09/05-09/11. Respiratory failure was likely multifactorial from third spacing of fluids from pancreatitis with probable underlying pneumonia. Improved with volume removal and antimicrobial therapy. Transferred out of the ICU on 09/12. Now weaned off supplemental oxygen. Continue aerosol treatments as needed. 2. Hypovolemic shock, resolved ? Yarn Sorter followed as above. Suspected multifactorial shock with sepsis and hypovolemic etiologies in setting of pancreatitis, probable pneumonia and C. difficile colitis. Improved with treatment, weaned off vasopressor support and transferred out of the ICU on 09/12. Continue scheduled midodrine. 3. Severe alcoholic hepatitis with acute pancreatitis ? GI followed. LFTs very elevated on admit but platelet count and INR normal and imaging suggestive of alcoholic hepatitis without underlying cirrhosis. Liver enzymes slowly improving during hospitalization. No need to monitor further LFTs at this time. Plan for outpatient GI follow-up post discharge. 4. C. difficile colitis ? Infectious disease following. Continue 10-day course of p.o. vancomycin, stop date 09/20. Has had improvement in diarrhea on p.o. vancomycin. Can utilize loperamide sparingly as needed for diarrhea. 5. ANDRÉS, stable ? Nephrology following. Suspected due to mild hepatorenal syndrome versus prerenal azotemia. Creatinine has now remained stable around 1.4-1.5 for the past several days. Has had good urine output. No need for further IV fluids for now, encourage p.o. intake. Monitor BMP and urine output daily. 6. Acute metabolic encephalopathy, resolved ? Presumed multifactorial from respiratory failure, shock and possible alcohol withdrawal. Resolved. 7. Hyponatremia, stable ? Nephrology following as above. Sodium 118 on admission, baseline unknown. Slowly corrected early in hospitalization and has remained stable in the low 130s. 8. Anemia, stable ? GI followed as above. Has been transfused a total of 2 units packed red blood cells during the hospitalization. Hemoglobin has now remained stable around 7-8 for several days. Anemia studies consistent with anemia of chronic disease but there is concern for possible intermittent GI bleed. Will follow-up with GI in outpatient setting and can consider outpatient endoscopy as needed. 9. New onset acute HFrEF ? Echo 09/03 showed EF 40%, mild to moderate LV global hypokinesis and interventricular septal flattening consistent with RV pressure overload. CTA chest 09/03 showed no PE. Unclear etiology, may be due to alcohol abuse as noted below. Very low concern for ischemic etiology, no need for cardiology evaluation while inpatient. Recommend establishing with cardiology in the outpatient setting postdischarge. 10. Alcohol abuse with prior concern for alcohol withdrawal ? Addiction medicine following. Reported drinking about 12 white claws per day leading up to this hospitalization. Has 20-year history of heavy alcohol use without cessation. Was intubated for several days during hospitalization and this took her through the alcohol withdrawal period. Continue folate and thiamine. Plan is for intensive outpatient therapy at 180 post discharge. 11. Hypokalemia, hypophosphatemia, hypomagnesemia, all resolved ? All presumed secondary to alcohol abuse with poor food intake. Resolved with aggressive repletion. 12. Physical deconditioning ? PT/OT/case management following. Lives at home prior to hospitalization, now significantly debilitated after prolonged hospitalization. Planning for SNF on discharge, will likely be medically ready for discharge in the next 1 to 2 days. 13. Tobacco dependence ? Nicotine patch ordered per patient request. Encouraged cessation on discharge. 14. Mild dysphagia, improving ? Speech therapy following. Was requiring pur?ed diet post extubation, passed bedside cookie swallow study on 09/17 and advanced to regular diet. Monitor. 15. Malnutrition ruled out ? Nutrition evaluated, malnutrition ruled out. 16. History of lichen sclerosus ? Not active, not on any treatment. DVT prophylaxis: SCDs CODE STATUS: Full code, verified Expected disposition: SNF, 1 to 2 days Total clinical time spent by myself addressing the patient's medical issues, reviewing all the data, and collaborating with patient's care team: 35 minutes. Charges/Coding Visit Charges Inpatient E&M: 02808 Subs Hosp L2
--- NOTE | 2023-09-18 12:44 | CASEMGMT ---
Social Work Pt completed POA for Healthcare, put her mother as POA for healthcare, put her father as the alternate. Pt does not know her father's address, SW called pt's father, message left to call SW back w/address so that the document can be completed. Pt declined to complete LW at this time. [facility]
--- NOTE | 2023-09-18 13:55 | PCM.PN.ID ---
Physical Exam Narrative Feeling better, eating some solid food today, still some loose stool. No abd pain, no fever Const alert and no apparent distress General Appearance: cooperative Resp normal air movement and clear to auscultation bilaterally Cardio regular rate and regular rhythm GI soft to palpation, non-tender and non-distended Skin no rashes or lesions noted Skin Narrative: jaundiced ID ID: Route of nutrition/ use of supplements: [] Nutritional Intake: [] IV Site: [] Rojas Catheter: [] Assessment & Plan Assessment/Plan (1) Acute pancreatitis: QUALIFIERS: Pancreatitis type: alcohol induced Acute pancreatitis complication: unspecified Qualified Code(s): K85.20 - Alcohol induced acute pancreatitis without necrosis or infection PLAN: Improving, on po vanc for (+) cdiff. Plan on 10 days total from when the other abx were stopped; planned stop date is 09/21/23. will follow as needed, thank you
[2023-09-18 14:17] LABS: Pathologist Review Reviewed
[2023-09-18 14:19] LABS: Pathologist Review Reviewed
[2023-09-18 14:27] LABS: Pathologist Review Reviewed
--- NOTE | 2023-09-18 15:36 | CHAPLAIN ---
Type of Pastoral Visit ___ Initial Visit ___ Follow-up Visit ___ On-call Visit ___ General Patient Visit ___ Spiritual Assessment ___ Family Conference ___ Bereavement ___ Rapid Response ___ Code Blue ___ Other (describe below) Pastoral Care Referral From ___ Patient ___ Family ___ Nurse ___ Physician ___ [employer] Fire Control Man ___ Photo Producer ___ Other (describe below) Sacrament/Intervention ___ Active listening ___ Anointing ___ Mormonism ___ Bereavement ___ Communion ___ Anahi exploration ___ ___ Life review ___ Prayer ___ Reconciliation ___ Sacrament of Sick ___ Supportive presence ___ Wedding ___ Other (describe below) Pastoral Comments two attempts and patient is unavailable
[2023-09-18] MEDS: Calcium Carbonate 500 MG Tablet PO ×2 (17:13→21:21)
[2023-09-18 17:39] LABS: Bedside Glucose 81 mg/dL (74-106)
[2023-09-19] VITALS (10 sets, daily range): BP systolic 98–110; BP diastolic 65–69; PULSE 89–109; RESP 18–24; TEMP 36.4–36.8; O2SAT 94–99; BMI 27.3
[2023-09-19] MEDS: Albuterol 2.5 MG/3 ML VIAL.NEB. INHALATION (00:13)
[2023-09-19 00:15] LABS: Bedside Glucose 78 mg/dL (74-106)
[2023-09-19] MEDS: Vancomycin 125 MG/5 ML Susp PO.SYRINGE PO ×3 (06:01→18:16)
[2023-09-19 06:04] LABS: Mean Corp Hgb Conc 30.8 g/dL (32-36); Mean Corpuscular Hgb 32.7 pg (27.0-32.0); Mean Corpuscular Volume 106.1 fL (81-99); Mean Platelet Vol. 10.4 fl (6.2-12.0); POSITIVE COUNT YES; POSITIVE MORPHOLOGY YES; Platelet Count 541 K/mm3 (150-450); RBC Distribution Width CV 17.1 % (11.6-14.6); RBC Distribution Width SD 65.3 fl (35.1-43.9); Red Blood Count 2.45 M/mm3 (4.2-5.4)
[2023-09-19 06:22] LABS: Anion Gap 11 (5-15); BUN 42 mg/dL (7-18); BUN/Creat Ratio 30.4 RATIO (10-20); Calcium,Total 8.3 mg/dL (8.5-10.1); Chloride 104 mmol/L (98-107); Creatinine, Serum 1.38 mg/dL (0.55-1.02); EST Glomerular Filtration Rate 44 mL/min (>60); Est Glom Filt Rate - Afr Amer 53 mL/min (>60); Estimated Creatinine Clearance 50.64 ml/min; Glucose 86 mg/dL (74-106); Potassium 3.5 mmol/L (3.5-5.1); Sodium Level 132 mmol/L (136-145)
[2023-09-19 06:26] LABS: Bedside Glucose 81 mg/dL (74-106)
[2023-09-19 06:32] LABS: Scan Indicated on CBC? Y/N YES- FLAGS NOTED; White Blood Count 34.5 K/mm3 (4.4-11.0)
[2023-09-19] MEDS: Ipratropium/Albuterol Sulfate 3 ML AMPUL.NEB INHALATION ×4 (07:33→21:41)
[2023-09-19] MEDS: Sodium Bicarbonate 50 MEQ in Dextrose 5%-Water (1000mL Bag) 1,000 ML 150 MEQ IV (10:33)
[2023-09-19] MEDS: Thiamine Hydrochloride 100 MG Tablet PO (10:34)
[2023-09-19] MEDS: Menthol/Lanolin/Calamine/Znox 113 GM Tube 1 APPLIC TOPICAL ×2 (10:34→22:41)
[2023-09-19] MEDS: Midodrine HCl 5 MG Tablet 10 MG PO ×3 (10:34→17:06)
[2023-09-19] MEDS: Folic Acid 1 MG Tablet PO (10:34)
[2023-09-19] MEDS: rifAXIMin 550 MG Tablet PO ×2 (10:34→22:39)
--- NOTE | 2023-09-19 10:50 | PN.RENAL_ITS ---
Subjective Subjective Resting in bed, denies any complaints today. States less loose bms. States some improvement in appetite. Objective Data Objective Data Vital Signs: Vital Signs Temp Pulse Resp BP Pulse Ox O2 Del Method O2 Flow Rate 97.6 F L 104 H 20 H 104/65 99 Room Air 1 09/19/23 10:12 09/19/23 10:12 09/19/23 10:12 09/19/23 10:12 09/19/23 10:12 09/19/23 10:12 09/14/23 22:30 FiO2 94 09/12/23 08:00 Oxygen Flow Rate (L/min) 1 Oxygen Delivery Method Room Air Weight: 72.1 kg Body Mass Index (BMI) 27.3 Intake & Output: Intake and Output for Last 24 Hours 09/17/23 09/18/23 09/19/23 23:59 23:59 23:59 Intake Total 1725 / 1850 925 / 925 Output Total 1110 / 1460 1400 / 1400 250 / 250 Balance 615 / 390 -475 / -475 -250 / -250 Medical Nutrition Assessment Dietitian: Malnutrition Criteria Met Start: 09/18/23 13:50 Freq: Status: Active Protocol: Document 09/18/23 13:50 SLA (Rec: 09/18/23 13:50 SLA [id number]) Nutrition Malnutrition Evidence of Malnutrition Exists Yes Malnutrition (severe): Acute Illness/Injury Evidenced By Suboptimal Energy Intake ( Severe),Weight Loss (Severe) Intake Problem Inadequate Oral Intake Status Inactive Problem Clinical Problem Acute Disease or Injury Related Malnutrition Etiology related to acute illness, need for modified consistency diet and inadequate energy intake Signs/Symptoms as evidenced by 3% unintended wt loss x < 1 wk and po intake meeting <50% of est nutritional needs x >1 wk Status Active Problem Biting/Chewing Difficulty Etiology related to issues w/ dysphgia Signs/Symptoms as evidenced by need for therapeutic diet Status Active Problem Recommendation Dietitian Recommendations/Changes Continue liberal Regular diet with texture/consistency as per SENIOR BUDGET ANALYST. Continue ensure plus high protein w/ meals for increased nutrition if consumed. Continue magic cup w/ lunch and dinner for increased nutrition if consumed. Lab / Micro Data 09/19/23 05:23 09/19/23 05:23 Labs: Laboratory Results - last 24 hr 09/15/23 13:45: Diff Path Review Reviewed 09/17/23 05:00: Diff Path Review Reviewed 09/18/23 08:47: Diff Path Review Reviewed 09/18/23 11:23: POC Glucose 81 09/18/23 17:12: POC Glucose 81 09/18/23 23:54: POC Glucose 78 09/19/23 05:23: WBC 34.5 H*, RBC 2.45 L, Hgb 8.0 L, Hct 26.0 L, MCV 106.1 H, MCH 32.7 H, MCHC 30.8 L, RDW Std Deviation 65.3 H, RDW Coeff of Rebel 17.1 H, Plt Count 541 H, MPV 10.4, Diff Path Review July, Sodium 132 L, Potassium 3.5, Chloride 104, Carbon Dioxide 17.0 L, Anion Gap 11, BUN 42 H, Creatinine 1.38 H, Estim Creat Clear Calc 50.64, Est GFR (MDRD) Af Amer 53 L, Est GFR (MDRD) Non-Af 44 L, BUN/Creatinine Ratio 30.4 H, Glucose 86, Calcium 8.3 L 09/19/23 06:00: POC Glucose 81 Micro: Microbiology 09/14/23 16:45 Stool Enteric Bacteriology - Final 09/14/23 16:45 Stool Clostridioides difficile (PCR) - Final 09/07/23 06:45 Blood Culture (Wb) - Pic Blood Culture - Final No growth in 5 days. 09/07/23 06:51 Blood Culture (Wb) - Anticubital Right Blood Culture - Final No growth in 5 days. 09/07/23 19:30 Sputum, Induced/Lukens Gram Stain - Final 09/07/23 19:30 Sputum, Induced/Lukens Respiratory Culture - Final Presumptive C albicans 09/07/23 06:45 Urine Catheter - Rojas Urine Culture - Final Culture exhibits no growth. 09/06/23 08:03 Sputum, Induced/Lukens Gram Stain - Final 09/06/23 08:03 Sputum, Induced/Lukens Respiratory Culture - Final Presumptive C albicans 09/03/23 04:25 Blood Culture (Wb) - Anticubital Right Blood Culture - Final No growth in 5 days. 09/03/23 04:20 Blood Culture (Wb) - Left Forearm Blood Culture - Final No growth in 5 days. 09/04/23 09:45 Urine Catheter - Rojas Urine Culture - Final Culture exhibits no growth. 09/05/23 09:15 Mucosa - Nasopharyngeal Respiratory Panel (PCR) - Final 09/05/23 09:15 Mucosa - Nasopharyngeal SARS-CoV-2, Influenza & RSV (PCR) - Final 09/03/23 17:10 Sputum, Expectorated/Coughed Gram Stain - Final 09/03/23 17:10 Sputum, Expectorated/Coughed Respiratory Culture - Final Streptococcus group C 09/05/23 07:35 Stool C. difficile GDH Antigen & Toxins - Final 09/05/23 07:35 Stool Clostridioides difficile (PCR) - Final 09/05/23 09:20 Urine Catheter - Catheter Legionella Antigen - Final 09/05/23 09:20 Urine Catheter - Catheter Streptococcus pneumoniae Antigen (M - Final 09/05/23 07:35 Stool Stool Occult Blood (JOSE) - Final Occult Blood Positive Physical Exam Narrative alert and oriented, NAD S1 S2 RRR Lung sounds clear Abdomen soft trace edema bilateral legs Assessment & Plan Assessment/Plan (1) Acute kidney injury: PLAN: - Nonoliguric Acute kidney injury in the setting of liver cirrhosis, ANDRÉS likely prerenal. Patient did have CT of abdomen and pelvis with IV contrast on 09/06, normal right and left kidney, no hydro. Patient has normal baseline serum creatinine. Creatinine began to rise on September 11. Creatinine peaked to 1.56 on 09/14 and today creatinine improved 1.38. Patient has good urine output. Potassium normal. Bicarb slightly low, likely from ANDRÉS and GI losses. Patient is having diarrhea and poor oral intake. Encourage increase protein intake. Blood pressures acceptable on midodrine TID -Hyponatremia; baseline sodium unknown. Sodium was 118 on admission. Sodium slowly corrected, sodium 132. -C. difficile infection on oral Vanco -Severe alcoholic hepatitis with acute pancreatitis without underlying cirrhosis; GI following. On Xifaxan.
[2023-09-19 12:15] LABS: Bedside Glucose 97 mg/dL (74-106)
--- NOTE | 2023-09-19 12:24 | PCM.PN.HOSP ---
Reason for Visit Reason for Visit: Diagnoses Anemia, unspecified (09/02/23) Other disorders of phosphorus metabolism (09/02/23) Hypomagnesemia (09/02/23) Hypo-osmolality and hyponatremia (09/02/23) Hypokalemia (09/02/23) Alcohol abuse, uncomplicated (09/02/23) Acute respiratory failure with hypoxia (09/02/23) Alcoholic hepatitis without ascites (09/02/23) Alcoholic hepatic failure without coma (09/02/23) Alcohol induced acute pancreatitis without necrosis or infection (09/02/23) Acute pancreatitis without necrosis or infection, unspecified (09/02/23) Acute kidney failure, unspecified (09/02/23) Subjective Subjective Saw patient bedside this morning. Patient was laying comfortably in bed, conversing normally, no acute distress. She has been tolerating a regular diet well since yesterday and her diarrhea has significantly slowed down. She continues to feel somewhat fatigued but otherwise feels like she is slowly continuing to improve on a daily basis. No other new concerns today. Objective Data Objective Data Vital Signs: Vital Signs Temp Pulse Resp BP Pulse Ox O2 Del Method O2 Flow Rate 97.6 F L 104 H 20 H 104/65 99 Room Air 1 09/19/23 10:12 09/19/23 10:12 09/19/23 10:12 09/19/23 10:12 09/19/23 10:12 09/19/23 10:51 09/14/23 22:30 FiO2 94 09/12/23 08:00 Oxygen Flow Rate (L/min) 1 Oxygen Delivery Method Room Air Weight: 72.1 kg Body Mass Index (BMI) 27.3 Intake & Output: Intake and Output for Last 24 Hours 09/17/23 09/18/23 09/19/23 23:59 23:59 23:59 Intake Total 1725 / 1850 925 / 925 Output Total 1110 / 1460 1400 / 1400 250 / 250 Balance 615 / 390 -475 / -475 -250 / -250 Medical Nutrition Assessment Dietitian: Malnutrition Criteria Met Start: 09/18/23 13:50 Freq: Status: Active Protocol: Document 09/18/23 13:50 SLA (Rec: 09/18/23 13:50 SLA [email or web address]) Nutrition Malnutrition Evidence of Malnutrition Exists Yes Malnutrition (severe): Acute Illness/Injury Evidenced By Suboptimal Energy Intake ( Severe),Weight Loss (Severe) Intake Problem Inadequate Oral Intake Status Inactive Problem Clinical Problem Acute Disease or Injury Related Malnutrition Etiology related to acute illness, need for modified consistency diet and inadequate energy intake Signs/Symptoms as evidenced by 3% unintended wt loss x < 1 wk and po intake meeting <50% of est nutritional needs x >1 wk Status Active Problem Biting/Chewing Difficulty Etiology related to issues w/ dysphgia Signs/Symptoms as evidenced by need for therapeutic diet Status Active Problem Recommendation Dietitian Recommendations/Changes Continue liberal Regular diet with texture/consistency as per CONCRETE JOURNEYMAN. Continue ensure plus high protein w/ meals for increased nutrition if consumed. Continue magic cup w/ lunch and dinner for increased nutrition if consumed. Lab / Micro Data 09/19/23 05:23 09/19/23 05:23 Labs: Laboratory Results - last 24 hr 09/15/23 13:45: Diff Path Review Reviewed 09/17/23 05:00: Diff Path Review Reviewed 09/18/23 08:47: Diff Path Review Reviewed 09/18/23 17:12: POC Glucose 81 09/18/23 23:54: POC Glucose 78 09/19/23 05:23: WBC 34.5 H*, RBC 2.45 L, Hgb 8.0 L, Hct 26.0 L, MCV 106.1 H, MCH 32.7 H, MCHC 30.8 L, RDW Std Deviation 65.3 H, RDW Coeff of Rebel 17.1 H, Plt Count 541 H, MPV 10.4, Diff Path Review July, Sodium 132 L, Potassium 3.5, Chloride 104, Carbon Dioxide 17.0 L, Anion Gap 11, BUN 42 H, Creatinine 1.38 H, Estim Creat Clear Calc 50.64, Est GFR (MDRD) Af Amer 53 L, Est GFR (MDRD) Non-Af 44 L, BUN/Creatinine Ratio 30.4 H, Glucose 86, Calcium 8.3 L 09/19/23 06:00: POC Glucose 81 09/19/23 11:37: POC Glucose 97 Micro: Microbiology 09/14/23 16:45 Stool Enteric Bacteriology - Final 09/14/23 16:45 Stool Clostridioides difficile (PCR) - Final 09/07/23 06:45 Blood Culture (Wb) - Pic Blood Culture - Final No growth in 5 days. 09/07/23 06:51 Blood Culture (Wb) - Anticubital Right Blood Culture - Final No growth in 5 days. 09/07/23 19:30 Sputum, Induced/Lukens Gram Stain - Final 09/07/23 19:30 Sputum, Induced/Lukens Respiratory Culture - Final Presumptive C albicans 09/07/23 06:45 Urine Catheter - Rojas Urine Culture - Final Culture exhibits no growth. 09/06/23 08:03 Sputum, Induced/Lukens Gram Stain - Final 09/06/23 08:03 Sputum, Induced/Lukens Respiratory Culture - Final Presumptive C albicans 09/03/23 04:25 Blood Culture (Wb) - Anticubital Right Blood Culture - Final No growth in 5 days. 09/03/23 04:20 Blood Culture (Wb) - Left Forearm Blood Culture - Final No growth in 5 days. 09/04/23 09:45 Urine Catheter - Rojas Urine Culture - Final Culture exhibits no growth. 09/05/23 09:15 Mucosa - Nasopharyngeal Respiratory Panel (PCR) - Final 09/05/23 09:15 Mucosa - Nasopharyngeal SARS-CoV-2, Influenza & RSV (PCR) - Final 09/03/23 17:10 Sputum, Expectorated/Coughed Gram Stain - Final 09/03/23 17:10 Sputum, Expectorated/Coughed Respiratory Culture - Final Streptococcus group C 09/05/23 07:35 Stool C. difficile GDH Antigen & Toxins - Final 09/05/23 07:35 Stool Clostridioides difficile (PCR) - Final 09/05/23 09:20 Urine Catheter - Catheter Legionella Antigen - Final 09/05/23 09:20 Urine Catheter - Catheter Streptococcus pneumoniae Antigen (M - Final 09/05/23 07:35 Stool Stool Occult Blood (JOSE) - Final Occult Blood Positive Physical Exam Const alert, oriented x3 and no apparent distress Constitutional Narrative: Middle-age female, mildly fatigued and chronically ill appearing, mildly jaundiced, otherwise sitting up comfortably in bed, conversing normally, in no acute distress. General Appearance: cooperative and comfortable HEENT normocephalic, head/scalp atraumatic, hearing grossly normal bilaterally, nasal mucous membranes and turbinates normal and moist oral mucous membranes Eyes PERRL, EOMs intact bilaterally and conjunctivae normal Neck full ROM Chest inspection of chest normal Resp normal respiratory effort and no use of accessory muscles Resp Narrative: Mildly decreased breath sounds bilaterally throughout. No wheezing or crackles noted. Breathing comfortably on room air at rest. Stable. Cardio regular rate, regular rhythm, no murmurs and peripheral pulses 2+ throughout GI normal to inspection, nondistended, normoactive bowel sounds, soft to palpation, non-tender and non-distended Back/Spine normal ROM Extremity normal to inspection, full ROM and no pedal edema Neuro moves all extremities and no focal motor deficits Speech: speech normal Psych mental status grossly normal Assessment & Plan Assessment/Plan (1) Acute hypoxic respiratory failure: (2) Alcoholic hepatitis: (3) Acute kidney injury: (4) Anemia: PLAN: Plan Patient is a 43-year-old female who presented [facility] ED on 09/02/2023 with worsening abdominal pain and distention. 1. Acute hypoxic respiratory failure, resolved ? Complaint Investigations Officer followed. Required intubation from 09/05-09/11. Respiratory failure was likely multifactorial from third spacing of fluids from pancreatitis with probable underlying pneumonia. Improved with volume removal and antimicrobial therapy. Transferred out of the ICU on 09/12. Now weaned off supplemental oxygen. Continue aerosol treatments as needed. 2. Hypovolemic shock, resolved ? Complaint Investigations Officer followed as above. Suspected multifactorial shock with sepsis and hypovolemic etiologies in setting of pancreatitis, probable pneumonia and C. difficile colitis. Improved with treatment, weaned off vasopressor support and transferred out of the ICU on 09/12. Continue scheduled midodrine. 3. Severe alcoholic hepatitis with acute pancreatitis ? GI followed. LFTs very elevated on admit but platelet count and INR normal and imaging suggestive of alcoholic hepatitis without underlying cirrhosis. Liver enzymes slowly improving during hospitalization. No need to monitor further LFTs at this time. Plan for outpatient GI follow-up post discharge. 4. C. difficile colitis ? Infectious disease following. Continue 10-day course of p.o. vancomycin, stop date 09/20. Has had significant improvement in diarrhea on p.o. vancomycin. Can utilize loperamide sparingly as needed for diarrhea. 5. ANDRÉS, stable ? Nephrology following. Suspected due to mild hepatorenal syndrome versus prerenal azotemia. Creatinine has now remained stable around 1.4-1.5 for the past several days. Has had good urine output. No need for further IV fluids for now, encourage p.o. intake. Stable for discharge from nephrology standpoint, no further inpatient needs. 6. Acute metabolic encephalopathy, resolved ? Presumed multifactorial from respiratory failure, shock and possible alcohol withdrawal. Resolved. 7. Hyponatremia, stable ? Nephrology following as above. Sodium 118 on admission, baseline unknown. Slowly corrected early in hospitalization and has remained stable in the low 130s. 8. Anemia, stable ? GI followed as above. Has been transfused a total of 2 units packed red blood cells during the hospitalization. Hemoglobin has now remained stable around 7-8 for several days. Anemia studies consistent with anemia of chronic disease but there is concern for possible intermittent GI bleed. Will follow-up with GI in outpatient setting and can consider outpatient endoscopy as needed. 9. New onset acute HFrEF ? Echo 09/03 showed EF 40%, mild to moderate LV global hypokinesis and interventricular septal flattening consistent with RV pressure overload. CTA chest 09/03 showed no PE. Unclear etiology, may be due to alcohol abuse as noted below. Very low concern for ischemic etiology, no need for cardiology evaluation while inpatient. Recommend establishing with cardiology in the outpatient setting postdischarge. 10. Alcohol abuse with prior concern for alcohol withdrawal ? Addiction medicine following. Reported drinking about 12 white claws per day leading up to this hospitalization. Has 20-year history of heavy alcohol use without cessation. Was intubated for several days during hospitalization and this took her through the alcohol withdrawal period. Continue folate and thiamine. Plan is for intensive outpatient therapy at 180 post discharge. 11. Hypokalemia, hypophosphatemia, hypomagnesemia, all resolved ? All presumed secondary to alcohol abuse with poor food intake. Resolved with aggressive repletion. 12. Physical deconditioning ? PT/OT/case management following. Lives at home prior to hospitalization, now significantly debilitated after prolonged hospitalization. Planning for SNF on discharge, medically ready on 09/18, pre-CERT pending. 13. Tobacco dependence ? Nicotine patch provided per patient request. Encouraged cessation on discharge. 14. Mild dysphagia, resolved ? Speech therapy following. Was requiring pur?ed diet post extubation, passed bedside cookie swallow study on 09/17 and advanced to regular diet. Tolerating regular diet without issue. 15. Malnutrition ruled out ? Nutrition evaluated, malnutrition ruled out. 16. History of lichen sclerosus ? Not active, not on any treatment. DVT prophylaxis: SCDs CODE STATUS: Full code, verified Expected disposition: SNF, medically ready on 09/18, pre-CERT pending Total clinical time spent by myself addressing the patient's medical issues, reviewing all the data, and collaborating with patient's care team: 35 minutes. Charges/Coding Visit Charges Inpatient E&M: 29309 Subs Hosp L2
[2023-09-19 13:40] LABS: Pathologist Review Reviewed
--- NOTE | 2023-09-19 15:20 | CHAPLAIN ---
Type of Pastoral Visit _x__ Initial Visit ___ Follow-up Visit ___ On-call Visit ___ General Patient Visit ___ Spiritual Assessment ___ Family Conference ___ Bereavement ___ Rapid Response ___ Code Blue ___ Other (describe below) Pastoral Care Referral From _x__ Patient ___ Family ___ Nurse ___ Physician ___ House Fellow ___ Drop Hammer Set Up Operator ___ Other (describe below) Sacrament/Intervention ___ Active listening ___ Anointing ___ Temple ___ Bereavement ___ Communion ___ Anahi exploration ___ ___ Life review _x__ Prayer ___ Reconciliation ___ Sacrament of Sick _x__ Supportive presence ___ Wedding ___ Other (describe below) Pastoral Comments patient appeared to be sleeping but awoke easily to her name; pt did admit that she was tired and felt like sleeping but when offered presence now or a return visit later, the patient stated that she was to be leaving for SNF today and that this was the only opportunity; when asked what she would like at this time the patient responded that a prayer would be welcomed; prayer and supportive words of affirmation for her future given
[2023-09-19 17:31] LABS: Bedside Glucose 107 mg/dL (74-106)
[2023-09-19] MEDS: Calcium Carbonate 500 MG Tablet PO (22:39)
[2023-09-20] MEDS: Vancomycin 125 MG/5 ML Susp PO.SYRINGE PO ×3 (00:26→12:40)
[2023-09-20 00:55] LABS: Bedside Glucose 100 mg/dL (74-106)
[2023-09-20 04:35] VITALS: BP 98/60; PULSE 96; RESP 18; TEMP 36.4; O2SAT 95
[2023-09-20 05:23] VITALS: BMI 27.1
[2023-09-20 05:38] LABS: Bedside Glucose 90 mg/dL (74-106)
[2023-09-20 06:03] LABS: Hematocrit 24.9 % (37-47); Hemoglobin 7.8 g/dL (12.0-15.0); Mean Corp Hgb Conc 31.3 g/dL (32-36); Mean Corpuscular Hgb 33.1 pg (27.0-32.0); Mean Corpuscular Volume 105.5 fL (81-99); Mean Platelet Vol. 10.2 fl (6.2-12.0); POSITIVE COUNT YES; POSITIVE MORPHOLOGY YES; Platelet Count 511 K/mm3 (150-450); RBC Distribution Width CV 17.6 % (11.6-14.6); RBC Distribution Width SD 66.4 fl (35.1-43.9); Red Blood Count 2.36 M/mm3 (4.2-5.4)
[2023-09-20 06:22] LABS: Scan Indicated on CBC? Y/N YES- FLAGS NOTED; White Blood Count 36.7 K/mm3 (4.4-11.0)
[2023-09-20 06:26] LABS: Anion Gap 10 (5-15); BUN 41 mg/dL (7-18); BUN/Creat Ratio 29.3 RATIO (10-20); Calcium,Total 8.2 mg/dL (8.5-10.1); Chloride 103 mmol/L (98-107); EST Glomerular Filtration Rate 43 mL/min (>60); Est Glom Filt Rate - Afr Amer 52 mL/min (>60); Estimated Creatinine Clearance 49.82 ml/min; Glucose 97 mg/dL (74-106); Potassium 3.3 mmol/L (3.5-5.1); Sodium Level 130 mmol/L (136-145)
[2023-09-20 06:58] VITALS: PULSE 100; RESP 18
[2023-09-20] MEDS: Ipratropium/Albuterol Sulfate 3 ML AMPUL.NEB INHALATION ×3 (06:58→14:59)
--- NOTE | 2023-09-20 08:21 | CASEMGMT ---
Discharge Planning Updates sent to [facility]. Coral Ruano DC Planning Asst.
[2023-09-20] MEDS: Menthol/Lanolin/Calamine/Znox 113 GM Tube 1 APPLIC TOPICAL (08:58)
[2023-09-20] MEDS: Folic Acid 1 MG Tablet PO (08:58)
[2023-09-20] MEDS: Midodrine HCl 5 MG Tablet 10 MG PO ×2 (08:58→12:40)
[2023-09-20] MEDS: Thiamine Hydrochloride 100 MG Tablet PO (08:58)
[2023-09-20] MEDS: rifAXIMin 550 MG Tablet PO (08:59)
[2023-09-20] MEDS: Sodium Bicarbonate 50 MEQ in Dextrose 5%-Water (1000mL Bag) 1,000 ML 150 MEQ IV (09:03)
[2023-09-20] MEDS: Potassium Chloride Oral Tablet 20 MEQ 40 MEQ PO (09:03)
[2023-09-20 10:18] VITALS: BP 99/64; PULSE 95; RESP 20; TEMP 36.2; O2SAT 95
[2023-09-20 11:12] VITALS: PULSE 98; RESP 18
[2023-09-20 11:20] LABS: Bedside Glucose 103 mg/dL (74-106)
--- NOTE | 2023-09-20 11:53 | PCM.PN.HOSP ---
Reason for Visit Reason for Visit: Diagnoses Anemia, unspecified (09/02/23) Other disorders of phosphorus metabolism (09/02/23) Hypomagnesemia (09/02/23) Hypo-osmolality and hyponatremia (09/02/23) Hypokalemia (09/02/23) Alcohol abuse, uncomplicated (09/02/23) Acute respiratory failure with hypoxia (09/02/23) Alcoholic hepatitis without ascites (09/02/23) Alcoholic hepatic failure without coma (09/02/23) Alcohol induced acute pancreatitis without necrosis or infection (09/02/23) Acute pancreatitis without necrosis or infection, unspecified (09/02/23) Acute kidney failure, unspecified (09/02/23) Objective Data Objective Data Vital Signs: Vital Signs Temp Pulse Resp BP Pulse Ox O2 Del Method O2 Flow Rate 97.2 F L 98 18 99/64 95 Room Air 1 09/20/23 10:18 09/20/23 11:12 09/20/23 11:12 09/20/23 10:18 09/20/23 10:18 09/20/23 10:18 09/14/23 22:30 FiO2 94 09/12/23 08:00 Oxygen Flow Rate (L/min) 1 Oxygen Delivery Method Room Air Weight: 71.8 kg Body Mass Index (BMI) 27.1 Intake & Output: Intake and Output for Last 24 Hours 09/18/23 09/19/23 09/20/23 23:59 23:59 23:59 Intake Total 925 / 925 1755 / 1755 Output Total 1400 / 1400 550 / 550 Balance -475 / -475 1205 / 1205 Medical Nutrition Assessment Dietitian: Malnutrition Criteria Met Start: 09/18/23 13:50 Freq: Status: Active Protocol: Document 09/18/23 13:50 SLA (Rec: 09/18/23 13:50 SLA [email or web address]) Nutrition Malnutrition Evidence of Malnutrition Exists Yes Malnutrition (severe): Acute Illness/Injury Evidenced By Suboptimal Energy Intake ( Severe),Weight Loss (Severe) Intake Problem Inadequate Oral Intake Status Inactive Problem Clinical Problem Acute Disease or Injury Related Malnutrition Etiology related to acute illness, need for modified consistency diet and inadequate energy intake Signs/Symptoms as evidenced by 3% unintended wt loss x < 1 wk and po intake meeting <50% of est nutritional needs x >1 wk Status Active Problem Biting/Chewing Difficulty Etiology related to issues w/ dysphgia Signs/Symptoms as evidenced by need for therapeutic diet Status Active Problem Recommendation Dietitian Recommendations/Changes Continue liberal Regular diet with texture/consistency as per PROJECT COORDINATOR RN. Continue ensure plus high protein w/ meals for increased nutrition if consumed. Continue magic cup w/ lunch and dinner for increased nutrition if consumed. Lab / Micro Data 09/20/23 05:45 09/20/23 05:45 Labs: Laboratory Results - last 24 hr 09/19/23 05:23: Diff Path Review Reviewed 09/19/23 11:37: POC Glucose 97 09/19/23 17:10: POC Glucose 107 H 09/20/23 00:25: POC Glucose 100 09/20/23 05:01: POC Glucose 90 09/20/23 05:45: WBC 36.7 H*, RBC 2.36 L, Hgb 7.8 L, Hct 24.9 L, MCV 105.5 H, MCH 33.1 H, MCHC 31.3 L, RDW Std Deviation 66.4 H, RDW Coeff of Rebel 17.6 H, Plt Count 511 H, MPV 10.2, Differential Comment , Diff Path Review May foll, Sodium 130 L, Potassium 3.3 L, Chloride 103, Carbon Dioxide 17.0 L, Anion Gap 10, BUN 41 H, Creatinine 1.40 H, Estim Creat Clear Calc 49.82, Est GFR (MDRD) Af Amer 52 L, Est GFR (MDRD) Non-Af 43 L, BUN/Creatinine Ratio 29.3 H, Glucose 97, Calcium 8.2 L 09/20/23 11:02: POC Glucose 103 Micro: Microbiology 09/14/23 16:45 Stool Enteric Bacteriology - Final 09/14/23 16:45 Stool Clostridioides difficile (PCR) - Final 09/07/23 06:45 Blood Culture (Wb) - Pic Blood Culture - Final No growth in 5 days. 09/07/23 06:51 Blood Culture (Wb) - Anticubital Right Blood Culture - Final No growth in 5 days. 09/07/23 19:30 Sputum, Induced/Lukens Gram Stain - Final 09/07/23 19:30 Sputum, Induced/Lukens Respiratory Culture - Final Presumptive C albicans 09/07/23 06:45 Urine Catheter - Rojas Urine Culture - Final Culture exhibits no growth. 09/06/23 08:03 Sputum, Induced/Lukens Gram Stain - Final 09/06/23 08:03 Sputum, Induced/Lukens Respiratory Culture - Final Presumptive C albicans 09/03/23 04:25 Blood Culture (Wb) - Anticubital Right Blood Culture - Final No growth in 5 days. 09/03/23 04:20 Blood Culture (Wb) - Left Forearm Blood Culture - Final No growth in 5 days. 09/04/23 09:45 Urine Catheter - Rojas Urine Culture - Final Culture exhibits no growth. 09/05/23 09:15 Mucosa - Nasopharyngeal Respiratory Panel (PCR) - Final 09/05/23 09:15 Mucosa - Nasopharyngeal SARS-CoV-2, Influenza & RSV (PCR) - Final 09/03/23 17:10 Sputum, Expectorated/Coughed Gram Stain - Final 09/03/23 17:10 Sputum, Expectorated/Coughed Respiratory Culture - Final Streptococcus group C 09/05/23 07:35 Stool C. difficile GDH Antigen & Toxins - Final 09/05/23 07:35 Stool Clostridioides difficile (PCR) - Final 09/05/23 09:20 Urine Catheter - Catheter Legionella Antigen - Final 09/05/23 09:20 Urine Catheter - Catheter Streptococcus pneumoniae Antigen (M - Final 09/05/23 07:35 Stool Stool Occult Blood (JOSE) - Final Occult Blood Positive
--- NOTE | 2023-09-20 14:25 | CASEMGMT ---
Discharge Planning [facility] has obtained auth to admit. Coral Ruano DC Planning Asst.
--- NOTE | 2023-09-20 14:38 | CASEMGMT ---
Patient was approved to go to [facility]. SW notified patient. SW also told patient once paperwork is done and a time is set up someone will notify her and family can be notified as well if she prefers. HORACE Plan: d/c to [facility] under intermediate level of care on a PASRR. Physicians will transpor patient. Maren Mendoza TRANSFER STATION ATTENDANT IFRAH
--- NOTE | 2023-09-20 14:43 | PCM.TXEXTCAR ---
Diet Diet Order/Speech Therapy: 09/12/23 14:01 Diet: Regular - General Food consistency:: Easy to Chew Liquid Consistency:: Regular/Thin Type of Dietary Supplement:: MC w/ L&D, EPHP tid Is pt able to select menu?: Yes Diet Comments: No straws, distant sup, hard swallows, intermittent cough and reswallow Routine Orders/Code Status Routine Lab Work: CBC (repeat in 7 days) and BMP (repeat in 7 days) Code Status: Full Code Therapies Weight Bearing: Full weight bearing Physical Therapy: Eval and Treat Occupational Therapy: Eval and Treat Problem/Diagnosis (1) Acute hypoxic respiratory failure: Status: Acute Code(s): J96.01 - Acute respiratory failure with hypoxia (2) Alcoholic hepatitis: Status: Acute Code(s): K70.10 - Alcoholic hepatitis without ascites (3) Acute kidney injury: Status: Acute Code(s): N17.9 - Acute kidney failure, unspecified (4) Anemia: Status: Acute Code(s): D64.9 - Anemia, unspecified Plan Patient is a 43-year-old female who presented [facility] ED on 09/02/2023 with worsening abdominal pain and distention. Long hospital course as noted below. Patient discharged to SNF in stable condition on 09/19. 1. Acute hypoxic respiratory failure, resolved ? Geophysical Observer followed. Required intubation from 09/05-09/11. Respiratory failure was likely multifactorial from third spacing of fluids from pancreatitis with probable underlying pneumonia. Improved with volume removal and antimicrobial therapy. Transferred out of the ICU on 09/12. Weaned off supplemental oxygen several days prior to discharge. Continue aerosol treatments as needed on discharge. 2. Hypovolemic shock, resolved ? Geophysical Observer followed as above. Suspected multifactorial shock with sepsis and hypovolemic etiologies in setting of pancreatitis, probable pneumonia and C. difficile colitis. Improved with treatment, weaned off vasopressor support and transferred out of the ICU on 09/12. Continue scheduled midodrine. 3. Severe alcoholic hepatitis with acute pancreatitis ? GI followed. LFTs very elevated on admit but platelet count and INR normal and imaging suggestive of alcoholic hepatitis without underlying cirrhosis. Liver enzymes slowly improved during hospitalization. No need to monitor further LFTs at this time. Plan for outpatient GI follow-up post discharge. 4. C. difficile colitis ? Infectious disease followed. Continue 10-day course of p.o. vancomycin, stop date 09/20. Had significant improvement in diarrhea on p.o. vancomycin. Can utilize loperamide sparingly as needed for diarrhea. 5. ANDRÉS, stable ? Nephrology followed. Suspected due to mild hepatorenal syndrome versus prerenal azotemia. Creatinine remained stable around 1.3-1.5 for last several days of hospitalization with good urine output. Recommend repeat BMP in 7 days to follow-up kidney function. 6. Acute metabolic encephalopathy, resolved ? Presumed multifactorial from respiratory failure, shock and possible alcohol withdrawal. Resolved. 7. Hyponatremia, stable ? Nephrology followed as above. Sodium 118 on admission, baseline unknown. Slowly corrected early in hospitalization and then remained stable in the low 130s. 8. Anemia, stable ? GI followed as above. Transfused a total of 2 units packed red blood cells during the hospitalization. Hemoglobin remained stable around 7-8 for last several days of hospitalization. Anemia studies consistent with anemia of chronic disease but there is concern for possible intermittent GI bleed. Will follow-up with GI in outpatient setting and can consider outpatient endoscopy as needed. 9. New onset acute HFrEF ? Echo 09/03 showed EF 40%, mild to moderate LV global hypokinesis and interventricular septal flattening consistent with RV pressure overload. CTA chest 09/03 showed no PE. Unclear etiology, may be due to alcohol abuse as noted below. Very low concern for ischemic etiology, no need for cardiology evaluation while inpatient. Recommend establishing with cardiology in the outpatient setting postdischarge. 10. Alcohol abuse with prior concern for alcohol withdrawal ? Addiction medicine followed. Reported drinking about 12 white claws per day leading up to this hospitalization. Has 20-year history of heavy alcohol use without cessation. Was intubated for several days during hospitalization and this took her through the alcohol withdrawal period. Treated with folate and thiamine while inpatient. Plan is for intensive outpatient therapy at 180 post discharge. 11. Hypokalemia, hypophosphatemia, hypomagnesemia, all resolved ? All presumed secondary to alcohol abuse with poor food intake. Resolved with aggressive repletion. 12. Physical deconditioning ? PT/OT/case management followed. Lives at home prior to hospitalization, now significantly debilitated after prolonged hospitalization. Medically ready for discharge on 09/18, discharged to SNF on 09/19 in stable condition. 13. Tobacco dependence ? Nicotine patch provided while inpatient per patient request. Encouraged cessation on discharge. 14. Mild dysphagia, resolved ? Speech therapy following. Was requiring pur?ed diet post extubation, passed bedside cookie swallow study on 09/17 and advanced to regular diet. Tolerating regular diet without issue on discharge. 15. Malnutrition ruled out ? Nutrition evaluated, malnutrition ruled out. 16. History of lichen sclerosus ? Not active, not on any treatment. 17. Persistent leukocytosis ? WBC count notably remained stable around 30-35 K for last several days hospitalization. Noninfectious appearing, was being treated appropriately for C. difficile. Suspect WBC count will slowly downtrend over the next several days to weeks. No further management required. Total clinical time spent by myself addressing the patient's medical issues, reviewing all the data, and collaborating with patient's care team: 45 minutes. Allergies/Procedures Done in Hospital Allergies No Known Allergies Allergy (Verified 09/02/23 16:23) Procedures: EKG, Intubation, Transthoracic Echo and - (Chest x-ray x 6, CT abdomen pelvis x 2, abdominal ultrasound, CTA chest, modified barium swallow study) Type of Care/Length of Stay Estimated LOS: Convalescent Care Less Than 30 days Type of Care Needed: Skilled Rehab Potential: Fair Prognosis: Fair Additional Orders/Day of Discharge H&P will serve as current which was dated: 09/02/23 Day of Discharge: 09/20/23 Dietary and Speech Recommendations Dietitian Recommendations/Changes: Continue liberal Regular diet with texture/consistency as per NUCLEAR WEAPONS CUSTODIAN. Continue ensure plus high protein w/ meals for increased nutrition if consumed. Continue magic cup w/ lunch and dinner for increased nutrition if consumed. Discharge Plan Admission Admit Date/Time: 09/02/23 19:44 Primary Reason for Your Visit: Worsening abdominal pain and distention Attending Provider: Doron Thao Primary Care Provider: Care Physician,No Primary Consulting Providers: Jimbo Wniters; Doron Thao; Jesus Alberto Hull; Sam Kothari; Jimbo Reyes; Trinidad Muñiz; Nain Jones Discharge Orders/Prescriptions Prescriptions: New nicotine 14 mg/24 hr Patch 24 Hour 14 mg transdermal DAILY Qty: 0 0RF loperamide 2 mg Capsule 2 mg PO Q4H PRN PRN (Reason: Loose Stools) Qty: 0 0RF midodrine 5 mg Tablet 10 mg PO TIDCM Qty: 0 0RF Xifaxan 550 mg Tablet 550 mg PO BID Qty: 0 0RF vancomycin [Firvanq] 25 mg/mL Recon Soln 125 mg PO Q6 1 Days Qty: 0 0RF Continued levocetirizine [Xyzal] 5 mg tablet 5 mg PO DAILY Referrals / Follow Up: Care Physician,No Primary [Primary Care Provider] - Disposition Disposition (needs filled in before D/C Order can be placed): [facility]
--- NOTE | 2023-09-20 14:53 | DS.PCM_ITS ---
Providers Date of Admission: 09/02/23 Date of Discharge: 09/20/23 Primary Care Physician: Fadumo Primary Care Phys Consultations 09/03/23 03:41 Consult: Gastroenterology Routine Consulting Provider: Ralph Gastroenterology Reason for Consult: Liver Failure and EtOH Pancreatitis. EMERGENT Consult: No Notified: Yes Date Notified: 09/03/23 Time Notified: 08:30 Method of Notification: Text 09/03/23 14:37 Consult: Demand Planning Manager / Pulmonary Medicine Routine Consulting Provider: Intensivists/Pulmonary Med Reason for Consult: acute hypoxic resp failure EMERGENT Consult: No Notified: Yes Date Notified: 09/03/23 Time Notified: 15:10 Method of Notification: Text 09/07/23 07:00 Consult: Infectious Disease Routine Consulting Provider: Sam Kothari Reason for Consult: Septic Shock EMERGENT Consult: No Notified: Yes Date Notified: 09/07/23 Time Notified: 07:00 Method of Notification: Text 09/16/23 11:02 Consult: Nephrology Routine Consulting Provider: Nain Jones Reason for Consult: ANDRÉS EMERGENT Consult: No Notified: Yes Date Notified: 09/16/23 Time Notified: 11:02 Method of Notification: Verbal Reason For Visit: ACUTE SEVERE HYPONATREMIA OF 119, HYPOKALEMIA OF Diagnosis Discharge Diagnosis (1) Acute hypoxic respiratory failure: Status: Acute Code(s): J96.01 - Acute respiratory failure with hypoxia (2) Alcoholic hepatitis: Status: Acute Code(s): K70.10 - Alcoholic hepatitis without ascites (3) Acute kidney injury: Status: Acute Code(s): N17.9 - Acute kidney failure, unspecified (4) Anemia: Status: Acute Code(s): D64.9 - Anemia, unspecified Medications at Discharge Home Medications levocetirizine 5 mg tablet (Xyzal) 5 mg PO DAILY 09/02/23 loperamide 2 mg capsule 2 mg PO Q4H PRN PRN Loose Stools #0 caps 09/20/23 midodrine 5 mg tablet 10 mg (2 x 5 mg) PO TIDCM #0 tabs 09/20/23 nicotine 14 mg/24 hr daily transdermal patch 14 mg transdermal DAILY #0 ea 09/20/23 rifaximin 550 mg tablet (Xifaxan) 550 mg PO BID #0 tabs 09/20/23 vancomycin 25 mg/mL oral solution (Firvanq) 125 mg (5 mL) PO Q6 1 day #0 mL 09/20/23 Hospital Course Operations None Procedures EKG, Intubation, Modified Barium Swallow, Transthoracic echo and - (Chest x-ray x 6, CTA chest, CT abdomen pelvis x 2, abdominal ultrasound) Summary of Care Provided Minutes Spent on Discharge: 45 Hospital Course: Patient is a 43-year-old female who presented [facility] ED on 09/02/2023 with worsening abdominal pain and distention. Long hospital course as noted below. Patient discharged to SNF in stable condition on 09/19. 1. Acute hypoxic respiratory failure, resolved ? Demand Planning Manager followed. Required intubation from 09/05-09/11. Respiratory failure was likely multifactorial from third spacing of fluids from pancreatitis with probable underlying pneumonia. Improved with volume removal and antimicrobial therapy. Transferred out of the ICU on 09/12. Weaned off supplemental oxygen several days prior to discharge. Continue aerosol treatments as needed on discharge. 2. Hypovolemic shock, resolved ? Demand Planning Manager followed as above. Suspected multifactorial shock with sepsis and hypovolemic etiologies in setting of pancreatitis, probable pneumonia and C. difficile colitis. Improved with treatment, weaned off vasopressor support and transferred out of the ICU on 09/12. Continue scheduled midodrine. 3. Severe alcoholic hepatitis with acute pancreatitis ? GI followed. LFTs very elevated on admit but platelet count and INR normal and imaging suggestive of alcoholic hepatitis without underlying cirrhosis. Liver enzymes slowly improved during hospitalization. No need to monitor further LFTs at this time. Plan for outpatient GI follow-up post discharge. 4. C. difficile colitis ? Infectious disease followed. Continue 10-day course of p.o. vancomycin, stop date 09/20. Had significant improvement in diarrhea on p.o. vancomycin. Can utilize loperamide sparingly as needed for diarrhea. 5. ANDRÉS, stable ? Nephrology followed. Suspected due to mild hepatorenal syndrome versus prerenal azotemia. Creatinine remained stable around 1.3-1.5 for last several days of hospitalization with good urine output. Recommend repeat BMP in 7 days to follow-up kidney function. 6. Acute metabolic encephalopathy, resolved ? Presumed multifactorial from respiratory failure, shock and possible alcohol withdrawal. Resolved. 7. Hyponatremia, stable ? Nephrology followed as above. Sodium 118 on admission, baseline unknown. Slowly corrected early in hospitalization and then remained stable in the low 130s. 8. Anemia, stable ? GI followed as above. Transfused a total of 2 units packed red blood cells during the hospitalization. Hemoglobin remained stable around 7-8 for last several days of hospitalization. Anemia studies consistent with anemia of chronic disease but there is concern for possible intermittent GI bleed. Will follow-up with GI in outpatient setting and can consider outpatient endoscopy as needed. 9. New onset acute HFrEF ? Echo 09/03 showed EF 40%, mild to moderate LV global hypokinesis and interventricular septal flattening consistent with RV pressure overload. CTA chest 09/03 showed no PE. Unclear etiology, may be due to alcohol abuse as noted below. Very low concern for ischemic etiology, no need for cardiology evaluation while inpatient. Recommend establishing with cardiology in the outpatient setting postdischarge. 10. Alcohol abuse with prior concern for alcohol withdrawal ? Addiction medicine followed. Reported drinking about 12 white claws per day leading up to this hospitalization. Has 20-year history of heavy alcohol use without cessation. Was intubated for several days during hospitalization and this took her through the alcohol withdrawal period. Treated with folate and thiamine while inpatient. Plan is for intensive outpatient therapy at 180 post discharge. 11. Hypokalemia, hypophosphatemia, hypomagnesemia, all resolved ? All presumed secondary to alcohol abuse with poor food intake. Resolved with aggressive repletion. 12. Physical deconditioning ? PT/OT/case management followed. Lives at home prior to hospitalization, now significantly debilitated after prolonged hospitalization. Medically ready for discharge on 09/18, discharged to SNF on 09/19 in stable condition. 13. Tobacco dependence ? Nicotine patch provided while inpatient per patient request. Encouraged cessation on discharge. 14. Mild dysphagia, resolved ? Speech therapy following. Was requiring pur?ed diet post extubation, passed bedside cookie swallow study on 09/17 and advanced to regular diet. Tolerating regular diet without issue on discharge. 15. Malnutrition ruled out ? Nutrition evaluated, malnutrition ruled out. 16. History of lichen sclerosus ? Not active, not on any treatment. 17. Persistent leukocytosis ? WBC count notably remained stable around 30-35 K for last several days hospitalization. Noninfectious appearing, was being treated appropriately for C. difficile. Suspect WBC count will slowly downtrend over the next several days to weeks. No further management required. Total clinical time spent by myself addressing the patient's medical issues, reviewing all the data, and collaborating with patient's care team: 45 minutes. Physical Exam Const alert, oriented x3 and no apparent distress Constitutional Narrative: Middle-age female, mildly fatigued and chronically ill appearing, mildly jaundiced, otherwise sitting up comfortably in bed, conversing normally, in no acute distress. Stable. General Appearance: cooperative and comfortable HEENT normocephalic, head/scalp atraumatic, hearing grossly normal bilaterally, nasal mucous membranes and turbinates normal and moist oral mucous membranes Eyes PERRL, EOMs intact bilaterally and conjunctivae normal Neck full ROM Chest inspection of chest normal Resp normal respiratory effort and no use of accessory muscles Resp Narrative: Mildly decreased breath sounds bilaterally throughout. No wheezing or crackles noted. Breathing comfortably on room air at rest. Stable. Cardio regular rate, regular rhythm, no murmurs and peripheral pulses 2+ throughout GI normal to inspection, nondistended, normoactive bowel sounds, soft to palpation, non-tender and non-distended Back/Spine normal ROM Extremity normal to inspection, full ROM and no pedal edema Neuro moves all extremities and no focal motor deficits Speech: speech normal Psych mental status grossly normal Medical Records Data Medical Nutrition Assessment Dietitian: Malnutrition Criteria Met Start: 09/18/23 13:50 Freq: Status: Active Protocol: Document 09/18/23 13:50 SLA (Rec: 09/18/23 13:50 SLA [id number]) Nutrition Malnutrition Evidence of Malnutrition Exists Yes Malnutrition (severe): Acute Illness/Injury Evidenced By Suboptimal Energy Intake ( Severe),Weight Loss (Severe) Intake Problem Inadequate Oral Intake Status Inactive Problem Clinical Problem Acute Disease or Injury Related Malnutrition Etiology related to acute illness, need for modified consistency diet and inadequate energy intake Signs/Symptoms as evidenced by 3% unintended wt loss x < 1 wk and po intake meeting <50% of est nutritional needs x >1 wk Status Active Problem Biting/Chewing Difficulty Etiology related to issues w/ dysphgia Signs/Symptoms as evidenced by need for therapeutic diet Status Active Problem Recommendation Dietitian Recommendations/Changes Continue liberal Regular diet with texture/consistency as per PEDIATRIC ASSISTANT. Continue ensure plus high protein w/ meals for increased nutrition if consumed. Continue magic cup w/ lunch and dinner for increased nutrition if consumed. Weight / BMI Weight Weight: 71.8 kg Body Mass Index (BMI) 27.1 ABG / Lab / Microbiology Data 09/20/23 05:45 09/20/23 05:45 Laboratory: Laboratory Results - last 24 hr 09/19/23 17:10: POC Glucose 107 H 09/20/23 00:25: POC Glucose 100 09/20/23 05:01: POC Glucose 90 09/20/23 05:45: WBC 36.7 H*, RBC 2.36 L, Hgb 7.8 L, Hct 24.9 L, MCV 105.5 H, MCH 33.1 H, MCHC 31.3 L, RDW Std Deviation 66.4 H, RDW Coeff of Rebel 17.6 H, Plt Count 511 H, MPV 10.2, Differential Comment , Diff Path Review July, Sodium 130 L, Potassium 3.3 L, Chloride 103, Carbon Dioxide 17.0 L, Anion Gap 10, BUN 41 H, Creatinine 1.40 H, Estim Creat Clear Calc 49.82, Est GFR (MDRD) Af Amer 52 L, Est GFR (MDRD) Non-Af 43 L, BUN/Creatinine Ratio 29.3 H, Glucose 97, Calcium 8.2 L 09/20/23 11:02: POC Glucose 103 Microbiology: Microbiology 09/14/23 16:45 Stool Enteric Bacteriology - Final 09/14/23 16:45 Stool Clostridioides difficile (PCR) - Final 09/07/23 06:45 Blood Culture (Wb) - Pic Blood Culture - Final No growth in 5 days. 09/07/23 06:51 Blood Culture (Wb) - Anticubital Right Blood Culture - Final No growth in 5 days. 09/07/23 19:30 Sputum, Induced/Lukens Gram Stain - Final 09/07/23 19:30 Sputum, Induced/Lukens Respiratory Culture - Final Presumptive C albicans 09/07/23 06:45 Urine Catheter - Rojas Urine Culture - Final Culture exhibits no growth. 09/06/23 08:03 Sputum, Induced/Lukens Gram Stain - Final 09/06/23 08:03 Sputum, Induced/Lukens Respiratory Culture - Final Presumptive C albicans 09/03/23 04:25 Blood Culture (Wb) - Anticubital Right Blood Culture - Final No growth in 5 days. 09/03/23 04:20 Blood Culture (Wb) - Left Forearm Blood Culture - Final No growth in 5 days. 09/04/23 09:45 Urine Catheter - Rojas Urine Culture - Final Culture exhibits no growth. 09/05/23 09:15 Mucosa - Nasopharyngeal Respiratory Panel (PCR) - Final 09/05/23 09:15 Mucosa - Nasopharyngeal SARS-CoV-2, Influenza & RSV (PCR) - Final 09/03/23 17:10 Sputum, Expectorated/Coughed Gram Stain - Final 09/03/23 17:10 Sputum, Expectorated/Coughed Respiratory Culture - Final Streptococcus group C 09/05/23 07:35 Stool C. difficile GDH Antigen & Toxins - Final 09/05/23 07:35 Stool Clostridioides difficile (PCR) - Final 09/05/23 09:20 Urine Catheter - Catheter Legionella Antigen - Final 09/05/23 09:20 Urine Catheter - Catheter Streptococcus pneumoniae Antigen (M - Final 09/05/23 07:35 Stool Stool Occult Blood (JOSE) - Final Occult Blood Positive Meaningful Use Info Meaningful Use Meaningful Use Diagnoses (Choose all that apply): None applicable Ischemic Stroke Statin Dosing Therapy Reference: STATIN DOSE THERAPY REFERENCE: * Patients > 75 years receive moderate or high dose statin therapy. * Patients 75 years or YOUNGER should receive HIGH intensity statin dose unless contraindicated. You will be required to document reason for non-treatment if statin daily dose does not meet guidelines. HIGH DOSE STATIN THERAPY DAILY Atorvastatin > than or = to 40 mg Rosuvastatin > than or = to 20 mg Amlodipine + Atorvastatin > than or = to 2.5/40 mg Ezetimibe + Simvastatin 10/80 mg Simvastatin 80mg Discharge Plan Admission Admit Date/Time: 09/02/23 19:44 Primary Reason for Your Visit: Worsening abdominal pain and distention Attending Provider: Doron Thao Primary Care Provider: Care Physician,No Primary Consulting Providers: Jimbo Winters; Doron Thao; Jesus Alberto Hull; Sam Kothari; Jimbo Reyes; Trinidad Muñiz; Nain Jones Discharge Orders/Prescriptions Prescriptions: New nicotine 14 mg/24 hr Patch 24 Hour 14 mg transdermal DAILY Qty: 0 0RF loperamide 2 mg Capsule 2 mg PO Q4H PRN PRN (Reason: Loose Stools) Qty: 0 0RF midodrine 5 mg Tablet 10 mg PO TIDCM Qty: 0 0RF Xifaxan 550 mg Tablet 550 mg PO BID Qty: 0 0RF vancomycin [Firvanq] 25 mg/mL Recon Soln 125 mg PO Q6 1 Days Qty: 0 0RF Continued levocetirizine [Xyzal] 5 mg tablet 5 mg PO DAILY Referrals / Follow Up: Care Physician,No Primary [Primary Care Provider] - Disposition Disposition (needs filled in before D/C Order can be placed): [facility] Charges/Coding Visit Charges Inpatient E&M: 29150 Disch Hosp >30min
[2023-09-20 15:00] VITALS: PULSE 90; RESP 18; O2SAT 95
--- NOTE | 2023-09-20 15:13 | CASEMGMT ---
Discharge Planning Discharge orders, signed med list, and transport time sent to [facility] Diaz via [facility]. Physicians will transport patient by wheelchair at 4:30p. Nursing, SW, patient, and her mother (Hailey) updated. Unable to leave a msg for sig other d/t vm not being set up. Coral Ruano DC Planning Asst.
--- NOTE | 2023-09-20 15:26 | CASEMGMT ---
HORACE spoke with patient's dad on the phone and let him know that [facility]. Patient will get picked up at 430. Maren RG
--- NOTE | 2023-09-20 15:36 | PN.RENAL_ITS ---
Subjective Subjective no new complaints Objective Data Objective Data Vital Signs: Vital Signs Temp Pulse Resp BP Pulse Ox O2 Del Method O2 Flow Rate 97.2 F L 90 18 99/64 95 Room Air 1 09/20/23 10:18 09/20/23 15:00 09/20/23 15:00 09/20/23 10:18 09/20/23 15:00 09/20/23 15:00 09/14/23 22:30 FiO2 94 09/12/23 08:00 Oxygen Flow Rate (L/min) 1 Oxygen Delivery Method Room Air Weight: 71.8 kg Body Mass Index (BMI) 27.1 Intake & Output: Intake and Output for Last 24 Hours 09/18/23 09/19/23 09/20/23 23:59 23:59 23:59 Intake Total 925 / 925 1755 / 1755 120 / 120 Output Total 1400 / 1400 550 / 550 Balance -475 / -475 1205 / 1205 120 / 120 Medical Nutrition Assessment Dietitian: Malnutrition Criteria Met Start: 09/18/23 13:50 Freq: Status: Active Protocol: Document 09/20/23 14:58 SLA (Rec: 09/20/23 14:58 SLA [id number]) Nutrition Malnutrition Evidence of Malnutrition Exists Yes Malnutrition (severe): Acute Illness/Injury Evidenced By Suboptimal Energy Intake ( Severe),Weight Loss (Severe) Intake Problem Inadequate Oral Intake Status Inactive Problem Clinical Problem Acute Disease or Injury Related Malnutrition Etiology related to acute illness, need for modified consistency diet and inadequate energy intake Signs/Symptoms as evidenced by additional wt loss since 3% unintended wt loss x last 1 wk and po intake meeting <50% of est nutritional needs x >1 wk Status Active Problem Biting/Chewing Difficulty Etiology related to issues w/ dysphagia Signs/Symptoms as evidenced by need for therapeutic diet Status Active Problem Recommendation Dietitian Recommendations/Changes Continue liberal Regular diet with texture/consistency as per [employer]. Continue ensure plus high protein w/ meals for increased nutrition if consumed. Continue magic cup w/ lunch and dinner for increased nutrition if consumed. Lab / Micro Data 09/20/23 05:45 09/20/23 05:45 Labs: Laboratory Results - last 24 hr 09/19/23 17:10: POC Glucose 107 H 09/20/23 00:25: POC Glucose 100 09/20/23 05:01: POC Glucose 90 09/20/23 05:45: WBC 36.7 H*, RBC 2.36 L, Hgb 7.8 L, Hct 24.9 L, MCV 105.5 H, MCH 33.1 H, MCHC 31.3 L, RDW Std Deviation 66.4 H, RDW Coeff of Rebel 17.6 H, Plt Count 511 H, MPV 10.2, Differential Comment , Diff Path Review July, Sodium 130 L, Potassium 3.3 L, Chloride 103, Carbon Dioxide 17.0 L, Anion Gap 10, BUN 41 H, Creatinine 1.40 H, Estim Creat Clear Calc 49.82, Est GFR (MDRD) Af Amer 52 L, Est GFR (MDRD) Non-Af 43 L, BUN/Creatinine Ratio 29.3 H, Glucose 97, Calcium 8.2 L 09/20/23 11:02: POC Glucose 103 Micro: Microbiology 09/14/23 16:45 Stool Enteric Bacteriology - Final 09/14/23 16:45 Stool Clostridioides difficile (PCR) - Final 09/07/23 06:45 Blood Culture (Wb) - Pic Blood Culture - Final No growth in 5 days. 09/07/23 06:51 Blood Culture (Wb) - Anticubital Right Blood Culture - Final No growth in 5 days. 09/07/23 19:30 Sputum, Induced/Lukens Gram Stain - Final 09/07/23 19:30 Sputum, Induced/Lukens Respiratory Culture - Final Presumptive C albicans 09/07/23 06:45 Urine Catheter - Rojas Urine Culture - Final Culture exhibits no growth. 09/06/23 08:03 Sputum, Induced/Lukens Gram Stain - Final 09/06/23 08:03 Sputum, Induced/Lukens Respiratory Culture - Final Presumptive C albicans 09/03/23 04:25 Blood Culture (Wb) - Anticubital Right Blood Culture - Final No growth in 5 days. 09/03/23 04:20 Blood Culture (Wb) - Left Forearm Blood Culture - Final No growth in 5 days. 09/04/23 09:45 Urine Catheter - Rojas Urine Culture - Final Culture exhibits no growth. 09/05/23 09:15 Mucosa - Nasopharyngeal Respiratory Panel (PCR) - Final 09/05/23 09:15 Mucosa - Nasopharyngeal SARS-CoV-2, Influenza & RSV (PCR) - Final 09/03/23 17:10 Sputum, Expectorated/Coughed Gram Stain - Final 09/03/23 17:10 Sputum, Expectorated/Coughed Respiratory Culture - Final Streptococcus group C 09/05/23 07:35 Stool C. difficile GDH Antigen & Toxins - Final 09/05/23 07:35 Stool Clostridioides difficile (PCR) - Final 09/05/23 09:20 Urine Catheter - Catheter Legionella Antigen - Final 09/05/23 09:20 Urine Catheter - Catheter Streptococcus pneumoniae Antigen (M - Final 09/05/23 07:35 Stool Stool Occult Blood (JOSE) - Final Occult Blood Positive Physical Exam Narrative alert and oriented, NAD S1 S2 RRR Lung sounds clear Abdomen soft trace edema bilateral legs Const alert, oriented x3 and no apparent distress General Appearance: frail Orientation / Consciousness: oriented to person, oriented to place and oriented to time Nutritional Appearance: cachectic HEENT normocephalic Neck no lymphadenopathy Resp no use of accessory muscles and clear to auscultation bilaterally Cardio regular rate GI Auscultation: normoactive bowel sounds Palpation: ascites Bladder / Kidney Exam: catheter in place Skin Skin Narrative: Deep jaundice Neuro Sensorium / Orientation: awake and alert Psych cooperative Assessment & Plan Assessment/Plan (1) Acute kidney injury: PLAN: - Nonoliguric Acute kidney injury in the setting of liver cirrhosis, ANDRÉS likely prerenal. Patient did have CT of abdomen and pelvis with IV contrast on 09/06, normal right and left kidney, no hydro. Patient has normal baseline serum creatinine. Creatinine began to rise on September 11. Creatinine peaked to 1.56 on 09/14 and today creatinine improved 1.3. Patient has good urine output. Potassium normal. Blood pressures acceptable on midodrine TID -Hyponatremia; baseline sodium unknown. Sodium was 118 on admission. Sodium slowly corrected possible dc today will arrange follow up after dc
[2023-09-20] MEDS: Calcium Carbonate 500 MG Tablet PO (15:58)
[2023-09-21 14:47] LABS: Pathologist Review Reviewed
== END 2023-09-20 17:00 | disposition skilled nursing facility (03) | DRG 282 ==
LOC: ED 18:27 → ICU 20:20 → PCU 09-13 08:38
PROVIDERS: Family Medicine; Internal Medicine; Internal Medicine Critical Care Medicine; Internal Medicine Gastroenterology; Physician Assistant; Admitting Provider Internal Medicine; Emergency Provider Emergency Medicine; Visit Provider Hospitalist
DX: K85.20 Alcohol induced acute pancreatitis without necrosis or infection (principal); J96.01 Acute respiratory failure with hypoxia; R57.1 Hypovolemic shock; A41.9 Sepsis, unspecified organism; G93.41 Metabolic encephalopathy; I50.21 Acute systolic (congestive) heart failure; A04.72 Enterocolitis due to Clostridium difficile, not specified as recurrent; R65.21 Severe sepsis with septic shock; K70.40 Alcoholic hepatic failure without coma; J18.9 Pneumonia, unspecified organism; K70.10 Alcoholic hepatitis without ascites; K74.60 Unspecified cirrhosis of liver; F10.130 Alcohol abuse with withdrawal, uncomplicated; D63.8 Anemia in other chronic diseases classified elsewhere; E87.1 Hypo-osmolality and hyponatremia; E83.39 Other disorders of phosphorus metabolism; E88.09 Other disorders of plasma-protein metabolism, not elsewhere classified; E16.2 Hypoglycemia, unspecified; E83.119 Hemochromatosis, unspecified; E87.6 Hypokalemia; E83.52 Hypercalcemia; E83.42 Hypomagnesemia; N17.9 Acute kidney failure, unspecified; F17.210 Nicotine dependence, cigarettes, uncomplicated; Z79.2 Long term (current) use of antibiotics; Z78.1 Physical restraint status
CPT/HCPCS: 31500; 31720; 36415; 36569; 36600; 71045; 71275; 74176; 74177; 74230; 76705; 80048; 80053; 80069; 80074; 80076; 80202; 80307; 81001; 82085; 82140; 82248; 82274; 82390; 82436; 82525; 82550; 82570; 82652; 82728; 82803; 82962; 83036; 83516; 83540; 83550; 83690; 83735; 83874; 83880; 83930; 83935; 83970; 84100; 84133; 84134; 84156; 84300; 84443; 84478; 84703; 85025; 85027; 85610; 85652; 86140; 86225; 86235; 86256; 86480; 86664; 86665; 86703; 86850; 86900; 86901; 86920; 87040; 87070; 87077; 87086; 87205; 87449; 87493; 87506; 87631; 87633; 92526; 92610; 92611; 92612; 93005; 93306; 94002; 94003; 94640; 94660; 94668; 94762; 97116; 97162; 97166; 97530; 97535; 97802; 97803; 99252; 99285; J2185; J7030; J7040; J7050; J7120; P9016; P9047; Q9957; Q9967; A4216; C8929; G0463; J0612; J1940; J3490

== ENCOUNTER 2023-10-06 10:10 | Emergency (ER) | payer MEDICAID, SELFPAY ==
[2023-10-06] VITALS (22 sets, daily range): BP systolic 93–134; BP diastolic 52–85; PULSE 89–120; RESP 12–30; TEMP 36.5–36.8; O2SAT 84–100; BMI 25.8
--- NOTE | 2023-10-06 | FLU_PTH ---
PATIENT: FIONA ZAFAR LOC: ED U#:[id number] AGE/SX: 43/F ROOM: RE10/06/[address]: Dr. Dieter Allen DO : 1980 BED: DIS: 10/07/2023 SPEC #: [id number] RECD: 10/06/23 14:10 STATUS: NARAYAN MARISOL #: [id number] MELYSSA: 10/06/23 00:[address]: Dieter Allen DEPT: CYTOLOGY RECD BY: Serena Arellano ENTERED: 10/09/23 08:56 SP TYPE: Fluid OTHR DR: Dr. Reginald Cantu DO Tissues: PARACENTESIS FLUID Procedures: Special Stain Group II Surgery Specimen Level IV Cytospin Fluid HEADER OPERATION: Ultrasound guided paracentesis fluid PRE-OP DIAGNOSIS: Paracentesis fluid removal TISSUE SUBMITTED: Paracentesis fluid for cytology DIAGNOSIS CYTOLOGY Paracentesis fluid for cytology (cytospin and cellblock): Negative for malignant cells. See comment. SJ/mr 10/10/2023 COMMENT Immunohistochemistry ([id number]) supports the above diagnosis. Clinical correlation and appropriate follow up are necessary. This case has been reviewed in consultation with Dr. Bai who concurs with the above diagnosis. CYTOLOGY STUDY Slides are reviewed. CYTOLOGY GROSS Received is 80 ml of yellow-cloudy fluid labeled with the patient's name and and designated per the requisition as Paracentesis fluid. Submitted for cytology preparation including cell block. Mr 10/09/2023 TC:5 CPT: 16410
--- NOTE | 2023-10-06 | IMM_PTH ---
PATIENT: FIONA ZAFAR LOC: ED U#:[id number] AGE/SX: 43/F ROOM: RE10/06/[address]: Dr. Dieter Allen DO : 1980 BED: DIS: 10/07/2023 SPEC #: [id number] RECD: 10/10/23 10:41 STATUS: NARAYAN REQ #: [id number] MELYSSA: 10/06/23 00:[address]: Dieter Allen DEPT: IMMUNOHISTOCHEMISTRY RECD BY: Humphrey Motta ENTERED: 10/10/23 10:42 SP TYPE: IMMUNO OTHR DR: Dr. Reginald Cantu DO Tissues: PARACENTESIS FLUID Procedures: RCC (add) NAPSIN A (add) Darwin Ret (add) CK20 (add) CK5-6 (add) CK7 (add) CK8 (add) HEP PAR (add) LA (add) TTF1 (add) Vimentin (add) Pankeratin (add) P40 (add) CD68 (ADD) ER (initial) PHYSICIAN & [address] [address] SPECIMEN INFORMATION: Tissue Source: Paracentesis fluid Clinical Info: Paracentesis fluid Specimen Number: [id number] CPT code: [id number] METHODOLOGY: Deparaffinized sections of prefer/formalin-fixed tissue or PAP/DQ stained slides are incubated with monoclonal/polyclonal antibodies/oligonucleotide probes. Localization is made via biotin free immunoperoxidase method. Appropriate controls are performed and reacted as expected. Results on target cell population are indicated in the following table: RESULTS: ANTIBODY / CLONE RESULT ER (6F11) negative LA (1E2) negative AE1-3 (AE1/AE3/PCK26) negative * CK7 (OV-TL12/30) negative * CK8 (93smolL49) negative * CK20 (KS20.8) negative Vimentin (V9) negative * CD68 (KP-1) negative TTF-1 (8G7G3/1) negative Napsin A (Rabbit Polyclonal) negative HepPar (OCh1E5) negative RCC (PN-15) negative CALRET (polyclonal) negative * CK5-6 (D5 & 1684) negative * P40 (BC28) negative * Positive for mesothelial cells These tests were developed and their performance characteristics determined by [facility]. They may not have been cleared or approved by the [place]. Food and Drug Administration. The FDA has determined that such clearance or approval is not necessary. The above immunohistochemical/dualISH markers are ordered and reviewed by the Pathologist. INTERPRETATION: Paracentesis fluid for cytology (cytospin): Negative for malignant cells. SERGE/ 10/11/2023
--- NOTE | 2023-10-06 10:23 | EKG12_ITS ---
Test Reason : SOB Blood Pressure : / mmHG Vent. Rate : 093 BPM Atrial Rate : 093 BPM P-R Int : 160 ms QRS Dur : 096 ms QT Int : 412 ms P-R-T Axes : 054 020 075 degrees QTc Int : 512 ms Normal sinus rhythm Incomplete right bundle branch block Nonspecific T wave abnormality Prolonged QT Abnormal ECG Confirmed by TWAN GOODWIN, SEGUNDO ([id number]), writer editor JENNY WAN ([id number]) on 10/10/2023 1:49:11 PM Referred By: KYLER Confirmed By:BARBIE TRENT MD
--- NOTE | 2023-10-06 10:27 | ED.VIS.DYS ---
HPI History of Present Illness Chief Complaint: Shortness of Breath Informant: patient and EMS Narrative Narrative: 43-year-old female presenting to the emergency room with dyspnea. Patient was recently admitted to the hospital with acute alcoholic hepatitis acute hypoxemic respiratory failure colitis secondary to C. difficile infection hyponatremia renal failure heart failure with reduced ejection fraction (40%). She was discharged to senior care. She tells me that since last evening she has had a increased work of breathing. EMS states that her lungs sound wet. Family notes her legs have been swollen since hospitalization. They note an increased swelling of the abdomen. She has been jaundiced which was present during hospitalization. Patient was reportedly treated with vancomycin for the C. difficile infection reportedly to be treated to (09/21/23). It was noted during her hospitalization her MELD score was 20 PFSH PFSH Medical History Lichen sclerosus Former tobacco use CKD (chronic kidney disease), stage III Chronic anemia Alcohol induced acute pancreatitis HFrEF (heart failure with reduced ejection fraction) Alcoholic hepatitis with ascites Alcohol abuse Home Medications ?Medication ?Instructions ?Recorded ?Last Taken ?Type levocetirizine 5 mg tablet (Xyzal) 5 mg PO DAILY 09/02/23 Unknown History loperamide 2 mg capsule 2 mg PO Q4H PRN PRN Loose Stools 09/20/23 Unknown Rx #0 caps midodrine 5 mg tablet 10 mg (2 x 5 mg) PO TIDCM #0 tabs 09/20/23 Unknown Rx nicotine 14 mg/24 hr daily 14 mg transdermal DAILY #0 ea 09/20/23 Unknown Rx transdermal patch rifaximin 550 mg tablet (Xifaxan) 550 mg PO BID #0 tabs 09/20/23 Unknown Rx vancomycin 25 mg/mL oral solution 125 mg (5 mL) PO Q6 1 day #0 mL 09/20/23 Unknown Rx (Firvanq) albuterol sulfate 2.5 mg/3 mL mg inhalation 10/06/23 Unknown History (0.083 %) solution for nebulization budesonide-formoterol HFA 160 inhalation 10/06/23 Unknown History mcg-4.5 mcg/actuation aerosol inhaler (Symbicort) ceftriaxone 1 gram solution for 1 g IM DAILY 10/06/23 Unknown History injection Allergy/AdvReac Type Severity Reaction Status Date / Time No Known Allergies Allergy Verified 10/06/23 10:23 Family History Brother Diabetes Mother H/O: hysterectomy Surgical History No history of previous surgery Social History (Updated 10/06/23 @ 16:[address] Christie Vines MD) household members: spouse housing: senior care number of children: 0 current occupational status: employed current occupation: [employer] Smoking Status: Former smoker alcohol intake: former details: Sober since transition from [facility] to [facility]. substance use type: does not use seatbelt use: always do you feel safe at home: Yes additional social history: Nikolai Osman Pres. of [email or web address] [facility] ED Constitutional Constitutional ED: Denies chills, fever(s) or weight loss Eyes Eyes: Denies change in vision or diplopia ENT ENT ED: Denies ear pain, rhinorrhea or sore throat Cardiovascular Cardiovascular: Reports other Details: Lower extremity edema ; Denies chest pain, orthopnea, palpitations or racing heartbeat Respiratory/Chest Respiratory/Chest: Reports cough, dyspnea and dyspnea on exertion; Denies orthopnea Gastrointestinal Gastrointestinal: Reports diarrhea and other Details: Abdominal swelling ; Denies abdominal pain, nausea or vomiting Genitourinary Genitourinary ED: Denies dysuria, hematuria or urinary frequency Musculoskeletal Musculoskeletal: Denies arthralgias or myalgias Integumentary Reports other Details: Jaundice red spots on neck face ; Denies abscess or rash Neurologic Neurologic: Denies headache(s) or weakness Psychiatric Psychiatric: Denies anxiety, depression, suicidal ideation or suicidal thoughts Endocrine Endocrinology: Denies polydipsia, polyphagia or polyuria Allergic/Immunologic Allergic/Immunologic ED: Denies mouth swelling, tongue swelling or urticaria EXAM Physical Exam Const Vital Signs: 10/06/23 10:11 10/06/23 10:11 10/06/23 10:16 Temperature 97.7 F L 97.7 F L Temperature Source Temporal Temporal Pulse Rate 92 96 96 Respiratory Rate 20 H 21 H 16 Respiratory Effort Respiratory Depth Respiratory Pattern Blood Pressure 111/83 H 110/72 110/72 Blood Pressure Mean 92 84 84 Pulse Ox 98 98 99 Oxygen Delivery Method Nasal Cannula Nasal Cannula Nasal Cannula Oxygen Flow Rate (L/min) 2 2 2 Fraction of Inspired Oxygen (FIO2) 10/06/23 10:19 10/06/23 10:31 10/06/23 11:16 Temperature 97.7 F L Temperature Source Temporal Pulse Rate 89 Respiratory Rate 19 H Respiratory Effort Short of Breath Respiratory Depth Shallow Respiratory Pattern Normal Blood Pressure 102/69 Blood Pressure Mean 80 Pulse Ox 100 Oxygen Delivery Method Nasal Cannula Nasal Cannula Nasal Cannula Oxygen Flow Rate (L/min) 2 2 2 Fraction of Inspired Oxygen (FIO2) 10/06/23 12:00 10/06/23 13:00 10/06/23 13:37 Temperature 98.2 F 97.8 F Temperature Source Oral Temporal Pulse Rate 98 102 H 100 Respiratory Rate 21 H 22 H 18 Respiratory Effort Respiratory Depth Respiratory Pattern Blood Pressure 103/66 134/85 H 113/70 Blood Pressure Mean 78 101 Pulse Ox 100 98 Oxygen Delivery Method Nasal Cannula Nasal Cannula Nasal Cannula Oxygen Flow Rate (L/min) 2 2 Fraction of Inspired Oxygen (FIO2) 10/06/23 13:41 10/06/23 13:56 10/06/23 14:00 Temperature Temperature Source Pulse Rate 101 H 96 95 Respiratory Rate 21 H 20 H 19 H Respiratory Effort Respiratory Depth Respiratory Pattern Blood Pressure 116/66 113/61 111/63 Blood Pressure Mean Pulse Ox Oxygen Delivery Method Nasal Cannula Nasal Cannula Nasal Cannula Oxygen Flow Rate (L/min) Fraction of Inspired Oxygen (FIO2) 10/06/23 14:11 10/06/23 14:53 10/06/23 17:30 Temperature 97.7 F L Temperature Source Temporal Pulse Rate 96 99 Respiratory Rate 19 H 18 Respiratory Effort Respiratory Depth Respiratory Pattern Blood Pressure 112/59 L 99/57 L Blood Pressure Mean 71 Pulse Ox 97 84 Oxygen Delivery Method Nasal Cannula Room Air Nasal Cannula Oxygen Flow Rate (L/min) 5 Fraction of Inspired Oxygen (FIO2) 10/06/23 17:33 10/06/23 17:38 10/06/23 18:30 Temperature Temperature Source Pulse Rate 108 H Respiratory Rate 26 H Respiratory Effort Respiratory Depth Respiratory Pattern Tachypnea Blood Pressure Blood Pressure Mean Pulse Ox 86 Oxygen Delivery Method High Flow Nasal Cannula Oxygen Flow Rate (L/min) 6 5 Fraction of Inspired Oxygen (FIO2) 10/06/23 19:00 10/06/23 21:00 10/06/23 21:21 Temperature Temperature Source Pulse Rate 117 H 111 H 110 H Respiratory Rate 24 H 20 H 27 H Respiratory Effort Respiratory Depth Respiratory Pattern Tachypnea Blood Pressure 94/52 L 99/71 Blood Pressure Mean 66 80 Pulse Ox 96 93 94 Oxygen Delivery Method Bi-pap Oxygen Flow Rate (L/min) Fraction of Inspired Oxygen (FIO2) 50 // 22:05 Temperature Temperature Source Pulse Rate 112 H Respiratory Rate 23 H Respiratory Effort Respiratory Depth Respiratory Pattern Blood Pressure 93/70 Blood Pressure Mean 77 Pulse Ox 96 Oxygen Delivery Method Bi-pap Oxygen Flow Rate (L/min) Fraction of Inspired Oxygen (FIO2) Positive well nourished and well developed General Appearance ED: well developed HEENT Reports normocephalic, head/scalp atraumatic and moist mucous membranes Eyes PERRL and EOMs intact bilaterally General Eye ED: Yes scleral icterus Neck no lymphadenopathy, supple and no JVD Resp Resp Narrative: Mild tachypnea Auscultation: rales and rhonchi Cardio regular rate, regular rhythm and no murmurs GI non-tender; Negative for non-distended or no masses GI Narrative: Ascites Auscultation: normoactive bowel sounds Palpation: soft Back/Spine no CVA tenderness and normal ROM Extremity General Extremety ED: Yes edema General Extremity: edema bilateral lower extremity Details: moderate Neuro oriented x3 and CN's II-XII intact bilaterally Sensorium / Orientation: alert Motor Exam: strength 5/5 throughout Psych mental status grossly normal Mood & Affect: Negative for depressed or tearful Skin no wounds General Skin Exam: jaundice MDM MDM MDM Narrative Medical decision making narrative: Differential diagnosis includes but not limited to heart failure with reduced ejection fraction, third spacing, worsening abdominal ascites/alcoholic hepatitis, elevated ammonia levels, pH disturbance, electrolyte abnormalities including hyponatremia hyperkalemia hypokalemia hypomagnesemia, renal failure, Patient received supplemental oxygen. pH 7.283 pCO2 of 39.3 PaO2 of 8 2.2 HCO3 18.6 White count is elevated 37.4. She has had substantially elevated white blood cell count recently as well. Hemoglobin 11.4 with a platelet count of 393. INR 1.5 PTT 36.3. Lactic acid 1.2. Total bilirubin is 12.5 direct bilirubin 10.31 AST 175 ALT 57 alk phos 321. Normal ammonia level BNP elevated 458.6 troponin is 8. Urinalysis with no overt infection. My independent interpretation of the chest x-ray is vascular congestion no definitive consolidations CTA of the abdomen pelvis was obtained. Please see the radiologist read for full details. In short there is some evidence suggestive of portal vein thrombus and pseudocyst/phlegmonous changes of the pancreas. Radiology was able to perform a therapeutic/diagnostic paracentesis. They were able to remove about 5500cc Patient received Lasix as well as Zosyn. Albumin was administered. We gave her clotrimazole atrocious for the oral thrush. I spoke with Dr. Pedraza as well as her hospitalist. After reviewing the case it is felt the patient would be benefited from being transferred to tertiary care facility. Spoke with [facility] at 1530 hrs. while awaiting acceptance patient began to have increasing oxygen demands. Patient is very weak as very not on forceful cough. We attempted BiPAP but the patient stated that she was too claustrophobic. We gave some Ativan. Repeat pH is 7.20 with a PaCO2 of 52.8 PaO2 of 74.2 and a bicarbonate of 20.6. Repeat chest x-ray was obtained. My independent interpretation of this chest x-ray shows increased pulmonary edema. Patient received a breathing treatment we attempted BiPAP again. Patient has been tolerating the BiPAP well. Repeat ABG shows pH up to 7.265 pCO2 is down to 45.2 bicarb 20.5. She has been accepted [facility] we have a bed assignment and we have a squad and route to take her. History & Record Review Discussion w/independent historian: EMS personnel, Patient, Family and Other (SNF) Additional record(s) reviewed:: Prior inpatient record, Prior ED visit and Prior labs Lab Data Attestation: I reviewed the patient's lab results. Labs: Laboratory Results - last 24 hr 10/06/23 10/06/23 10/06/23 10:45 11:04 11:08 WBC 37.4 H* RBC 3.49 L Hgb 11.4 L Hct 37.5 MCV 107.4 H MCH 32.7 H MCHC 30.4 L RDW Std Deviation 68.8 H RDW Coeff of Rebel 17.2 H Plt Count 393 MPV 10.7 Immature Gran % (Auto) 1.700 H Neut % (Auto) 90.4 H Lymph % (Auto) 3.5 L Garrett % (Auto) 3.9 Eos % (Auto) 0.2 Baso % (Auto) 0.3 Absolute Neuts (auto) 33.8 H Absolute Lymphs (auto) 1.29 Nucleated RBC % 0 Differential Comment SCANNED Diff Path Review May foll PT 18.0 H INR 1.5 APTT 36.3 H Sodium 139 Potassium 3.6 Chloride 109 H Carbon Dioxide 20.0 L Anion Gap 10 BUN 62 H Creatinine 1.27 H Estim Creat Clear Calc 53.67 Est GFR (MDRD) Af Amer 59 L Est GFR (MDRD) Non-Af 48 L BUN/Creatinine Ratio 48.8 H Glucose 128 H Lactic Acid 1.2 Calcium 8.7 Magnesium 2.1 Total Bilirubin 12.50 H Direct Bilirubin 10.31 H AST 175 H ALT 57 H Alkaline Phosphatase 321 H Ammonia Troponin I High Sens 8 B-Natriuretic Peptide 458.6 H Total Protein 5.9 L Albumin 1.5 L Globulin 4.4 H Amylase 31 Lipase 39 Urine Color Yellow Urine Clarity Sl. Cloudy Urine pH 6.0 Ur Specific [place] 1.015 Urine Protein 30 H Urine Glucose (UA) Normal Urine Ketones Negative Urine Occult Blood 10 H Urine Nitrite Negative Urine Bilirubin 3 H Urine Urobilinogen 1 H Ur Leukocyte Esterase 25 H Urine RBC 0 SEEN Urine WBC 0-5 SEEN Ur Squamous Epith Cells 0-5 SEEN Urine Bacteria 2+ Urine Mucus 0 SEEN Urine Yeast 1+ Fluid Source Fluid Color Fluid Appearance Fluid WBC Fluid RBC Fluid Tot Cell Count Fld Polynuclear WBCs # Fld Polynuclear WBCs % Fluid Mononuclear WBCs Fld Mononuclear WBCs % Fluid Neutrophils Fluid Lymphocytes Fluid Monocytes Fluid Macrophages Fl Pathologist Comment Fluid LDH Fluid Comment 2 10/06/23 10/06/23 10/06/23 11:17 14:08 14:10 WBC RBC Hgb Hct MCV MCH MCHC RDW Std Deviation RDW Coeff of Rebel Plt Count MPV Immature Gran % (Auto) Neut % (Auto) Lymph % (Auto) Garrett % (Auto) Eos % (Auto) Baso % (Auto) Absolute Neuts (auto) Absolute Lymphs (auto) Nucleated RBC % Differential Comment Diff Path Review PT INR APTT Sodium Potassium Chloride Carbon Dioxide Anion Gap BUN Creatinine Estim Creat Clear Calc Est GFR (MDRD) Af Amer Est GFR (MDRD) Non-Af BUN/Creatinine Ratio Glucose Lactic Acid Calcium Magnesium Total Bilirubin Direct Bilirubin AST ALT Alkaline Phosphatase Ammonia 30.0 Troponin I High Sens B-Natriuretic Peptide Total Protein Albumin Globulin Amylase Lipase Urine Color Urine Clarity Urine pH Ur Specific [place] Urine Protein Urine Glucose (UA) Urine Ketones Urine Occult Blood Urine Nitrite Urine Bilirubin Urine Urobilinogen Ur Leukocyte Esterase Urine RBC Urine WBC Ur Squamous Epith Cells Urine Bacteria Urine Mucus Urine Yeast Fluid Source ASCITES FLUID Fluid Color YELLOW Fluid Appearance CLEAR Fluid WBC 0.213 Fluid RBC 18 Fluid Tot Cell Count 0.230 H Fld Polynuclear WBCs # 0.094 Fld Polynuclear WBCs % 44.1 Fluid Mononuclear WBCs 0.119 Fld Mononuclear WBCs % 55.9 Fluid Neutrophils 50 Fluid Lymphocytes 2 Fluid Monocytes 22 Fluid Macrophages 26 Fl Pathologist Comment May follow Fluid LDH 66 Fluid Comment 2 SEE COMMENT ABG Data ABG results: ABG 10/06/23 10/06/23 10/06/23 10:51 18:47 22:07 Specimen Type ART ART ART Sample Site L Radial L Radial L Radial pH 7.28 L 7.20 L 7.27 L Bicarbonate Actual 18.6 L 20.6 L 20.5 L Total CO2 20 22 22 Base Excess -8 L -7 L -7 L O2 Saturation 95 91 L 90 L O2 % 2.0 10.0 ABG pCO2 39.3 52.8 H 45.2 H ABG pO2 82 74 L 67 L Oswald Test Positive Positive Positive O2 Delivery Device Cannula HFNC BiPAP Vent Mode Not entered Not entered Not entered Crit Call To/Read Back Yes Blood Gas Notified Whom [place] Blood Gas Notified Time 18:48:52 Clinical Comments 24/08 12 50% Radiography Diagnostic Testing: Clinical Impression(s) from Imaging Studies Chest X-Ray 10/06/23 11:28 IMPRESSION: Mild degree of vascular congestion and patchy infiltrates in both lungs. Electronically Signed: Bong Krishnamurthy MD at 11:58 EDT , Abdomen/Pelvis CTA 10/06/23 12:09 IMPRESSION: Diffuse ascites. Findings suggestive of a pseudocyst and phlegmonous enlargement of the body and tail portions of the pancreas. Hepatomegaly and fatty infiltration of the liver. Limited visualization of the portal venous complex with thrombus within the portal vein. Electronically Signed: Bong Krishnamurthy MD at 13:16 EDT , Chest X-Ray 10/06/23 18:00 IMPRESSION: Stable bilateral patchy opacities may reflect multifocal pneumonia and/or edema. Electronically Signed: Analy Painter MD at 19:17 EDT , EKG Initial EKG: Attestation: I personally reviewed and interpreted this EKG as follows: Comments: Normal sinus rhythm ventricular rate of 93 bpm. Incomplete right bundle branch block noted. Management Discussion w/another healthcare provider: Hospitalist (Dr. Vines) and Vamp Stitcher (Calvin Pedraza) Critical Care Time Critical Care Time: Yes Critical care time (excluding procedures): 30-74 minutes (35 min), Including time spent:, Discussing w/Patient &/or Family/Professor Of Practice, Discussing w/Consultants, Arranging Admission or Transfer and Performing Direct Patient Care at Bedside Discharge Plan Triage Chief Complaint: Shortness of Breath ED Provider: Dieter Allen Dx/Rx/DC Orders Clinical Impression: Oral thrush, Alcoholic hepatitis, Anemia, Abdominal ascites, Heart failure, Leukocytosis, Metabolic acidosis, Coagulopathy, Acute hypoxemic respiratory failure Prescriptions: No Action levocetirizine [Xyzal] 5 mg tablet 5 mg PO DAILY nicotine 14 mg/24 hr Patch 24 Hour 14 mg transdermal DAILY Qty: 0 0RF loperamide 2 mg Capsule 2 mg PO Q4H PRN PRN (Reason: Loose Stools) Qty: 0 0RF midodrine 5 mg Tablet 10 mg PO TIDCM Qty: 0 0RF Xifaxan 550 mg Tablet 550 mg PO BID Qty: 0 0RF vancomycin [Firvanq] 25 mg/mL Recon Soln 125 mg PO Q6 1 Days Qty: 0 0RF albuterol sulfate 2.5 mg /3 mL (0.083 %) solution for nebulization inhalation ceftriaxone 1 gram recon soln 1 g IM DAILY budesonide-formoterol [Symbicort] 160-4.5 mcg/actuation HFA aerosol inhaler inhalation Primary Care Provider: Reginald Cantu Referrals: Care Physician,No Primary [Non-Staff] - Print Language: Beninese Disposition Disposition: Acute Care Hospital Discharge Location: [facility]
[2023-10-06 10:56] LABS: Allen Test Positive; Base Excess -8 mmol/L (-2 to +2); Bicarbonate 18.6 mmol/L (22-26); Blood Gas Specimen Type ART; Mode Not entered; O2 Delivery Device Cannula; PO2 82 mmHG (75-100); SITE L Radial; SO2 95 % (95-99); Total Carbon Dioxide 20 mmol/L; pCO2 39.3 mmHg (35-45); pH 7.28 (7.35-7.45)
[2023-10-06 11:11] LABS: Mucous, Urine 0 SEEN /hpf (<or=2+); Red Blood Cells-Urine 0 SEEN /hpf (0-5)
[2023-10-06 11:14] LABS: Absolute Lymphocyte Count 1.29 X10^3/uL (0.83-4.51); Absolute Neutrophil Count 33.8 X10^3/uL (2.0-7.7); Basophil# 0.13 X10^3/uL; Basophil% 0.3 % (0-1); Eosinophil# 0.09 X10^3/uL; Eosinophils% 0.2 % (0-5); Hematocrit 37.5 % (37-47); Hemoglobin 11.4 g/dL (12.0-15.0); Lymphocyte # 1.29 X10^3/ul (0.83-4.51); Lymphocyte % 3.5 % (19-41); Mean Corp Hgb Conc 30.4 g/dL (32-36); Mean Corpuscular Hgb 32.7 pg (27.0-32.0); Mean Corpuscular Volume 107.4 fL (81-99); Mean Platelet Vol. 10.7 fl (6.2-12.0); Monocyte# 1.44 X10^3/uL; Monocyte% 3.9 % (0-10); NRBC Flagged by Analyzer 0 % (0-5); Neutrophil # 33.78 X10^3/uL (2.7-7.7); Neutrophil % 90.4 % (47-70); POSITIVE COUNT YES; POSITIVE DIFFERENTIAL YES; POSITIVE MORPHOLOGY YES; Platelet Count 393 K/mm3 (150-450); RBC Distribution Width CV 17.2 % (11.6-14.6); RBC Distribution Width SD 68.8 fl (35.1-43.9); Red Blood Count 3.49 M/mm3 (4.2-5.4)
[2023-10-06 11:15] LABS: Color, Urine Yellow (Yellow); Glucose, Dipstick Normal (Normal); Ketone-Dipstick Negative (Negative); Leukocyte Esterase-Dipstick 25 /ul (Negative); Nitrite-Dipstick Negative (Negative); Occult Blood-Urine 10 /ul (Negative); Protein-Dipstick 30 mg/dl (Negative); Specific Gravity, Urine 1.015 (1.002-1.030); Urine Clarity Sl. Cloudy (Clear); Urine Urobilinogen 1 mg/dl (Normal)
[2023-10-06 11:17] LABS: Urine Bilirubin Dipstick 3 mg/dL (Negative)
[2023-10-06 11:20] LABS: Differential Indicated SCAN CRITERIA MET; White Blood Count 37.4 K/mm3 (4.4-11.0)
[2023-10-06 11:25] LABS: International Normalized Ratio 1.5
[2023-10-06 11:25] LABS: Bacteria 2+ /hpf (None Seen); Squamous Epithelial Cells - UA 0-5 SEEN /hpf (5-10); White Blood Cells 0-5 SEEN /hpf (0-5); Yeast-Urine 1+ /hpf (None Seen)
[2023-10-06 11:26] LABS: Partial Thromboplast Time 36.3 Seconds (24.1-36.2)
--- NOTE | 2023-10-06 11:28 | RAD_ITS ---
STUDY: X-RAY CHEST REASON FOR EXAM: Female, 43 years old. Dyspnea TECHNIQUE: Single AP portable view of the chest. COMPARISON: Comparison is made with prior study dated September 11, 2019 4P FINDINGS: EKG electrodes are seen. Limited inspiratory effort. Patchy infiltrates in both lungs although these have improved as compared to prior study. Mild vascular congestion. There is no demonstrated pleural abnormality. Normal size heart. Normal mediastinum and zenaida. Normal visualized pulmonary arteries. Normal visualized aortic arch and descending thoracic aorta. Normal visualized thoracic spine. Normal visualized ribs, clavicles, and shoulders. There is no demonstrated abnormality of the visualized soft tissue structures of the upper abdomen. RAD/Chest 1 View (Portable) IMPRESSION: Mild degree of vascular congestion and patchy infiltrates in both lungs. Electronically Signed: Bong Krishnamurthy MD at 11:58 EDT ,
[2023-10-06 11:33] LABS: AST(SGOT) 175 U/L (15-37); Alanine Aminotransfer ALT/SGPT 57 U/L (13-56); Albumin, Serum 1.5 g/dL (3.2-5.0); Alkaline Phosphatase 321 U/L (45-117); Amylase 31 U/L (25-115); Anion Gap 10 (5-15); BUN 62 mg/dL (7-18); BUN/Creat Ratio 48.8 RATIO (10-20); Bilirubin, Direct 10.31 mg/dL (0.00-0.30); Calcium,Total 8.7 mg/dL (8.5-10.1); Chloride 109 mmol/L (98-107); Creatinine, Serum 1.27 mg/dL (0.55-1.02); EST Glomerular Filtration Rate 48 mL/min (>60); Est Glom Filt Rate - Afr Amer 59 mL/min (>60); Estimated Creatinine Clearance 53.67 ml/min; Globulin 4.4 g/dL (2.2-4.2); Glucose 128 mg/dL (74-106); Lipase 39 U/L (13-75); Magnesium 2.1 mg/dL (1.6-2.6); Potassium 3.6 mmol/L (3.5-5.1); Protein, Total 5.9 g/dL (6.4-8.2); Sodium Level 139 mmol/L (136-145); Troponin-I HS 8 pg/mL (3.0-54.0)
[2023-10-06] MEDS: Furosemide 100 MG/10 ML Vial 60 MG IV (11:48)
[2023-10-06] MEDS: Clotrimazole 10 MG Troche MUCOUS MEM ×2 (11:49→16:15)
[2023-10-06 11:51] LABS: Differential Comment SCANNED
[2023-10-06 12:06] LABS: Lactic Acid 1.2 mmol/L (0.4-1.9)
--- NOTE | 2023-10-06 12:09 | CT_ITS ---
STUDY: CTA ABDOMEN AND PELVIS WITH CONTRAST REASON FOR EXAM: Female, 43 years old. liver failure ascites RADIATION DOSAGE (If Supplied By Facility): CTDIvol = ( 10.72 ) mGy, DLP = ( 752.65 ) mGycm TECHNIQUE: Transaxial images were obtained from the dome of the diaphragm to the symphysis pubis without oral contrast. IV 100mL Isovue-[id number] was administered. Sagittal and coronal images were reconstructed. Individualized dose optimization techniques were used for this CT. COMPARISON: Comparison is made with prior study dated September 07, 2023. FINDINGS: Patchy bibasilar infiltrates worse in the right middle lobe. The visualized portions of the heart are within normal limits. Diffuse ascites. There is decreased attenuation of the liver consistent with steatosis. Hepatomegaly. Poor opacification of the main portal vein. Filling defect is seen within it. Portal venous thrombosis should be ruled out. Gallbladder wall thickening. Pericholecystic fluid. Normal spleen. Complex 5.5 cm x 5.6 cm x 6.5 cm cystic masses in the body and tail of the pancreas suggestive of pseudocysts in phlegmonous enlargement of the pancreas. Pancreatic calcifications in keeping with chronic pancreatitis. Normal bilateral adrenal glands. Normal right kidney. Normal left kidney. Normal visualized stomach. Normal small intestine. Normal colon. The appendix is visualized and appears normal. Normal abdominal aorta. Normal inferior vena cava. Normal retroperitoneum. Normal urinary bladder. Normal abdominal wall. Normal osseous structures. CT/CTA Abd/Pelvis W/WO Contrast IMPRESSION: Diffuse ascites. Findings suggestive of a pseudocyst and phlegmonous enlargement of the body and tail portions of the pancreas. Hepatomegaly and fatty infiltration of the liver. Limited visualization of the portal venous complex with thrombus within the portal vein. Electronically Signed: Bong Krishnamurthy MD at 13:16 EDT ,
[2023-10-06 12:10] LABS: BNP,B-Type NATRIURETIC PEPTIDE 458.6 pg/mL (0-100)
[2023-10-06] MEDS: Lidocaine 2% (20 ml mdv) 20 ML Vial INFILT (13:45)
--- NOTE | 2023-10-06 14:21 | PCM.OP.PRO ---
Procedure Report Date of Procedure: 10/06/23 Assessment & Plan Assessment/Plan (1) Ascites due to alcoholic hepatitis: PLAN: PROCEDURE: Ultrasound guided paracentesis ORDERING PROVIDER: Dr. Allen INDICATION: Female, 43 years old. Ascites. PROVIDER: RADAMES Siddiqui TECHNIQUE: The risks, benefits, and alternatives to the procedure were explained to the patient. The specific risks of bleeding, infection, and damage to bowel were detailed and accepted. Witnessed informed consent was obtained. The abdomen was ultrasonographically surveyed. An appropriate pocket of fluid was identified in the right upper quadrant. The skin was prepped with chlorhexidine and sterile field established. 2% lidocaine was used for local anesthetic. Using ultrasound guidance, the peritoneal cavity was accessed with a 5-[place] paracentesis needle/catheter system. The trocar was removed. A total of 5450 ml of clear yellow colored fluid was removed from the peritoneal cavity. 100 mL of this fluid was collected and sent to laboratory for analysis. The catheter was removed and a sterile dressing was applied. The procedure was well tolerated. IMPRESSION: Successful ultrasound-guided paracentesis with right upper quadrant access site. Procedures Radiology Radiology US Procedures: 46775 Paracentesis
[2023-10-06] MEDS: Piperacil/Tazobactam 4.5 GM in 0.9% Normal Saline (100mL MB+) 100 ML IV (14:23)
--- NOTE | 2023-10-06 14:43 | HP.PCM.HOS_ITS ---
HPI - General General Date of Admission: 10/06/23 Date of Service: 10/06/23 Chief Complaint: Dyspnea, increased peripheral edema, jaundiced. HPI Narrative The patient is a 43 y/o F w/ PMHx: HFrEF, HTN, HLD, Alcohol abuse with Chronic alcoholic hepatitis in addition to Chronic alcoholic pancreatitis, Chronic macrocytic anemia, CKD stage III unclear subtype per GFR trending, Lichen Sclerosis, recent discharge 09/20/23 following evaluation and treatment for acute hypoxic respiratory failure requiring admission to the ICU with noted liver failure and alcoholic associated pancreatitis with septic shock and acute kidney injury with severe electrolyte disturbances including severe hyponatremia and hypokalemia requiring intubation for several days eventually extubated with shock felt multifactorial secondary to sepsis as well as hypovolemia in the setting of pancreatitis, suspected pneumonia and C. difficile colitis transiently needing vasopressor support who now represents to the [facility] ED on 10/06/2023 with onset of dyspnea at nursing facility where she was recently discharged to with increased work of breathing starting the evening prior progressively worsening with increasing swelling of her legs and crackles per EMS as well as swelling in the abdomen with ongoing jaundice prompting return to the ED for evaluation. Workup in the ED included T97.7, heart rate 92, BP 111/83, respiratory rate 20, 98% on 2 L nasal cannula with most recent repeat vitals heart rate 96, BP 112/59, respiratory rate 19, CBC with WC 37.4, hemoglobin 0.4, MCV 107.4, platelet 393 with left shift, coags with PT 18, INR 1.5, PTT 36.3, ABG with pH 7.26, bicarb 18.6, base excess -8, pCO2 39.3, pO2 82 on nasal cannula, CMP with chloride 109, carbon oxide 20, BUN/creatinine 62/1.27, GFR 48, glucose 128, lactic acid 1.2, magnesium 2.1, T. bili 12.50, D bili 10.31, AST/LT 175/57, alk phos 321, ammonia 30, troponin 8, BNP 456.6, amylase 31, lipase 39, urinalysis with cloudy urine, specific remedy 1.015, urine protein 30, urine occult blood 10, negative nitrite, leukocyte Estrace 25 with 2+ urine bacteria 1+ urine yeast, chest x-ray with mild degree of vascular congestion and patchy infiltrates in both lungs, CTA abdomen and pelvis with diffuse ascites, findings suggestive of pseudocyst and phlegmonous enlargement of the body and tail of portions of the pancreas, hepatomegaly and fatty infiltration of the liver, paracentesis performed in the ED with fluid assessment cultures pending, EKG was sinus rhythm with incomplete right bundle branch block with no acute evidence of ischemia. Upon evaluation of patient and review of imaging studies especially discussed directly case and reviewed imaging with gastroenterology Dr. Pedraza with comparison of most recent image prior to this 09/07/23 CT abdomen and pelvis and given significant changes and concern for worsening pseudocyst and phlegmonous enlargement of the body and tail of the pancreas as well as thickening of the gallbladder compared to previous notable concern and high risk certainly for necrotic pancreas. Discussed these concerns between gastroenterology and ED physician with plan for patient to be administered albumin given significant paracentesis of approximately 5500 cc ascitic fluid and for the safety of the patient initiate transfer to tertiary facility where patient could be evaluated by not only gastroenterology but surgery given concerns for possible necrotic pancreas. PFSH Medical History Lichen sclerosus Former tobacco use CKD (chronic kidney disease), stage III Chronic anemia Alcohol induced acute pancreatitis HFrEF (heart failure with reduced ejection fraction) Alcoholic hepatitis with ascites Alcohol abuse Home Medications ?Medication ?Instructions ?Recorded ?Last Taken ?Type levocetirizine 5 mg tablet (Xyzal) 5 mg PO DAILY 09/02/23 Unknown History loperamide 2 mg capsule 2 mg PO Q4H PRN PRN Loose Stools 09/20/23 Unknown Rx #0 caps midodrine 5 mg tablet 10 mg (2 x 5 mg) PO TIDCM #0 tabs 09/20/23 Unknown Rx nicotine 14 mg/24 hr daily 14 mg transdermal DAILY #0 ea 09/20/23 Unknown Rx transdermal patch rifaximin 550 mg tablet (Xifaxan) 550 mg PO BID #0 tabs 09/20/23 Unknown Rx vancomycin 25 mg/mL oral solution 125 mg (5 mL) PO Q6 1 day #0 mL 09/20/23 Unknown Rx (Firvanq) albuterol sulfate 2.5 mg/3 mL mg inhalation 10/06/23 Unknown History (0.083 %) solution for nebulization budesonide-formoterol HFA 160 inhalation 10/06/23 Unknown History mcg-4.5 mcg/actuation aerosol inhaler (Symbicort) ceftriaxone 1 gram solution for 1 g IM DAILY 10/06/23 Unknown History injection Allergy/AdvReac Type Severity Reaction Status Date / Time No Known Allergies Allergy Verified 10/06/23 10:23 Family History Brother Diabetes Mother H/O: hysterectomy Surgical History No history of previous surgery Social History (Updated 10/06/23 @ 16:[address] Christie Vines MD) household members: spouse housing: skilled nursing number of children: 0 current occupational status: employed current occupation: [employer] Smoking Status: Former smoker alcohol intake: former details: Sober since transition from [facility] to [facility]. substance use type: does not use seatbelt use: always do you feel safe at home: Yes additional social history: Nikolai Osman Pres. of [employer] of [place]ARR[place] Narrative Admission Review of Systems: CONSTITUTIONAL: No weight loss, fever, chills, + weakness or fatigue. HEENT: + Scleral icterus. Eyes: No visual loss, blurred vision, double vision. Ears, Nose, Throat: No hearing loss, sneezing, congestion, runny nose or sore throat. SKIN: No rash or itching, lesions, wounds except various staged ecchymoses, abrasions, significantly jaundiced appearance. CARDIOVASCULAR: + Orthopneic, increased peripheral edema. No chest pain, chest pressure or chest discomfort, palpitations, syncopal events. RESPIRATORY:+ Dyspnea. No marked cough or sputum, wheezing, hemoptysis. GASTROINTESTINAL: + Anorexia, significant increased abdominal distention with suspected ascites, abdominal discomfort, ongoing soft although formed stools. No nausea, vomiting, melena, BRBPR. GENITOURINARY: No dysuria, frequency, urgency or retention. NEUROLOGICAL: No headache, dizziness, syncope, paralysis, ataxia, numbness or tingling in the extremities, focal weakness, change in bowel or bladder control, seizure. MUSCULOSKELETAL: + muscle, back pain, joint pain or stiffness. HEMATOLOGIC: + Chronic anemia, easy bleeding/bruising. LYMPHATICS: No enlarged nodes. No history of splenectomy. PSYCHIATRIC: No history of depression or anxiety. ENDOCRINOLOGIC: No reports of sweating, cold or heat intolerance. No polyuria or polydipsia. ALLERGIES: No history of asthma, hives, eczema or rhinitis. Vital Signs Vital Signs Vital Signs: 10/06/23 10:11 10/06/23 10:11 10/06/23 10:16 Temperature 97.7 F L 97.7 F L Temperature Source Temporal Temporal Pulse Rate 92 96 96 Respiratory Rate 20 H 21 H 16 Respiratory Effort Respiratory Depth Respiratory Pattern Blood Pressure 111/83 H 110/72 110/72 Blood Pressure Mean 92 84 84 Pulse Ox 98 98 99 Oxygen Delivery Method Nasal Cannula Nasal Cannula Nasal Cannula Oxygen Flow Rate (L/min) 2 2 2 10/06/23 10:19 10/06/23 10:31 10/06/23 11:16 Temperature 97.7 F L Temperature Source Temporal Pulse Rate 89 Respiratory Rate 19 H Respiratory Effort Short of Breath Respiratory Depth Shallow Respiratory Pattern Normal Blood Pressure 102/69 Blood Pressure Mean 80 Pulse Ox 100 Oxygen Delivery Method Nasal Cannula Nasal Cannula Nasal Cannula Oxygen Flow Rate (L/min) 2 2 2 10/06/23 12:00 10/06/23 13:00 10/06/23 13:37 Temperature 98.2 F 97.8 F Temperature Source Oral Temporal Pulse Rate 98 102 H 100 Respiratory Rate 21 H 22 H 18 Respiratory Effort Respiratory Depth Respiratory Pattern Blood Pressure 103/66 134/85 H 113/70 Blood Pressure Mean 78 101 Pulse Ox 100 98 Oxygen Delivery Method Nasal Cannula Nasal Cannula Nasal Cannula Oxygen Flow Rate (L/min) 2 2 10/06/23 13:41 10/06/23 13:56 10/06/23 14:00 Temperature Temperature Source Pulse Rate 101 H 96 95 Respiratory Rate 21 H 20 H 19 H Respiratory Effort Respiratory Depth Respiratory Pattern Blood Pressure 116/66 113/61 111/63 Blood Pressure Mean Pulse Ox Oxygen Delivery Method Nasal Cannula Nasal Cannula Nasal Cannula Oxygen Flow Rate (L/min) 10/06/23 14:11 Temperature Temperature Source Pulse Rate 96 Respiratory Rate 19 H Respiratory Effort Respiratory Depth Respiratory Pattern Blood Pressure 112/59 L Blood Pressure Mean Pulse Ox Oxygen Delivery Method Nasal Cannula Oxygen Flow Rate (L/min) Weight Weight: 150 lb 9.211 oz Body Mass Index (BMI) 25.8 Physical Exam Narrative Physical Examination: General: Awake, alert, oriented x 3 and cooperative, seated upright in the ED bed, fatigued and ill-appearing, extremely jaundiced. Skin: Jaundiced color, scleral icterus present, normal turgor, no cyanosis, occasional staged ecchymoses, abrasion. HEENT: AT/NC, EOMI, scleral icterus present, PERRLA, dry MM, no carotid bruits or JVD noted. Lungs: Diminished, greater bases, coarse, difficulty clearing her airway with upper airway secretions noted, mild Rales, no wheezing or rhonchi. Heart: Mildly tachycardic with regular rhythm; no gallop, rub audible. Abdomen: Soft, mild generalized discomfort palpation, status post recent paracentesis with significant reduction in distention, hyperactive BS, positive HM. Extremities: No cyanosis, no clubbing, jaundice appearance as noted, peripheral pitting edema present. Neurological: Patient awake, alert, oriented as noted, cognitive function intact; pupils equally reactive to light and accommodation, cranial nerves grossly normal, moving all 4 extremities, no focal deficits, strength severely globally decreased. Psychiatric: Affect appears flat, fatigued, do suspect underlying depression especially with recent health issues but does not have previous history. Results Lab / Micro Data 10/06/23 10:45 10/06/23 10:45 Labs: Laboratory Results - last 24 hr 10/06/23 10:45: WBC 37.4 H*, RBC 3.49 L, Hgb 11.4 L, Hct 37.5, MCV 107.4 H, MCH 32.7 H, MCHC 30.4 L, RDW Std Deviation 68.8 H, RDW Coeff of Rebel 17.2 H, Plt Count 393, MPV 10.7, Immature Gran % (Auto) 1.700 H, Neut % (Auto) 90.4 H, Lymph % (Auto) 3.5 L, [place] % (Auto) 3.9, Eos % (Auto) 0.2, Baso % (Auto) 0.3, Absolute Neuts (auto) 33.8 H, Absolute Lymphs (auto) 1.29, Nucleated RBC % 0, Differential Comment SCANNED, Diff Path Review July, PT 18.0 H, INR 1.5, A PTT 36.3 H, Sodium 139, Potassium 3.6, Chloride 109 H, Carbon Dioxide 20.0 L, Anion Gap 10, BUN 62 H, Creatinine 1.27 H, Estim Creat Clear Calc 53.67, Est GFR (MDRD) Af Amer 59 L, Est GFR (MDRD) Non-Af 48 L, BUN/Creatinine Ratio 48.8 H, G lucose 128 H, Calcium 8.7, Magnesium 2.1, Total Bilirubin 12.50 H, Direct Bilirubin 10.31 H, AST 175 H, ALT 57 H, Alkaline Phosphatase 321 H, Troponin I High Sens 8, Total Protein 5.9 L, Albumin 1.5 L, Globulin 4.4 H, Amylase 31, Lipase 39 10/06/23 11:04: Urine Color Yellow, Urine Clarity Sl. Cloudy, Urine pH 6.0, Ur Specific [place] 1.015, Urine Protein 30 H, Urine Glucose (UA) Normal, Urine Ketones Negative, Urine Occult Blood 10 H, Urine Nitrite Negative, Urine Bilirubin 3 H, Urine Urobilinogen 1 H, Ur Leukocyte Esterase 25 H, Urine RBC 0 SEEN, Urine WBC 0-5 SEEN, Ur Squamous Epith Cells 0-5 SEEN, Urine Bacteria 2+, Urine Mucus 0 SEEN, Urine Yeast 1+ 10/06/23 11:08: Lactic Acid 1.2, B-Natriuretic Peptide 458.6 H 10/06/23 11:17: Ammonia 30.0 ABG Data ABG results: ABG 10/06/23 10:51 Specimen Type ART Sample Site L Radial pH 7.28 L Bicarbonate Actual 18.6 L Total CO2 20 Base Excess -8 L O2 Saturation 95 O2 % 2.0 ABG pCO2 39.3 ABG pO2 82 Oswald Test Positive O2 Delivery Device Cannula Vent Mode Not entered Imaging Radiology Impression Chest X-Ray 10/06/23 11:28 IMPRESSION: Mild degree of vascular congestion and patchy infiltrates in both lungs. Electronically Signed: Bong Krishnamurthy MD at 11:58 EDT , Abdomen/Pelvis CTA 10/06/23 12:09 IMPRESSION: Diffuse ascites. Findings suggestive of a pseudocyst and phlegmonous enlargement of the body and tail portions of the pancreas. Hepatomegaly and fatty infiltration of the liver. Limited visualization of the portal venous complex with thrombus within the portal vein. Electronically Signed: Bong Krishnamurthy MD at 13:16 EDT , Assessment & Plan Assessment/Plan (1) Ascites due to alcoholic hepatitis: PLAN: Plan The patient is a 43 y/o F w/ PMHx: HFrEF, HTN, HLD, Alcohol abuse with Chronic alcoholic hepatitis in addition to Chronic alcoholic pancreatitis, Chronic macrocytic anemia, CKD stage III unclear subtype per GFR trending, Lichen Sclerosis, recent discharge 09/20/23 following evaluation and treatment for acute hypoxic respiratory failure requiring admission to the ICU with noted liver failure and alcoholic associated pancreatitis with septic shock and acute kidney injury with severe electrolyte disturbances including severe hyponatremia and hypokalemia requiring intubation for several days eventually extubated with shock felt multifactorial secondary to sepsis as well as hypovolemia in the setting of pancreatitis, suspected pneumonia and C. difficile colitis transiently needing vasopressor support who now represents to the [facility] ED on 10/06/2023 with onset of dyspnea at nursing facility where she was recently discharged to with increased work of breathing starting the evening prior progressively worsening with increasing swelling of her legs and crackles per EMS as well as swelling in the abdomen with ongoing jaundice prompting return to the ED for evaluation. #1. Acute Persistent Liver Failure, Decompensated with Ascites, Possible Acute Cholecystitis given thickened GB wall/Pericholecystic fluid, significant worsened enlarged pancreatic pseudocysts and phlegmonous enlargement both body and tail concerning for possible necrotic pancreatitis with underlying concern of corresponding peritonitis with chronic alcoholic hepatitis and significant hyperbilirubinemia complicated by underlying HFrEF potentially also decompensated given this presentation: Per discussion with ED physician and gastroenterology given high concern if patient is not transferred to tertiary facility in a timely manner to be evaluated by surgery as well as gastroenterology given high risk of significant clinical decline ability would temporarily admit to [facility] and pending vitals at that time either PCU or intensive care unit, will maintain on imipenem given concurrent concern for necrotic pancreas, continue close monitoring given concern for possible hepatorenal syndrome development and if that given concern may need to initiate pressor therapy again, continue midodrine, continue Xifaxan, if worsens may even need to consider octreotide at that time, already administered IV lasix dose in the ED, would continue diuresis as needed pulse dose given lower BP currently and infectious concerns. 09/03/2023 echocardiogram with mild to moderate LV global hypokinesis, LVEF 40%, interventricular septal flattening during systole consistent with RV pressure overload, moderate RV hypokinesis, RA moderately enlarged, mild MVI, moderately severe TVI, RVSP 43 mmHg. Given patient history if pressures were decreased further or patient clinically deteriorated with septic shock onset would be preferential to utilize pressor therapy and cautiously use fluids given this history and significant ascites with recent paracentesis as noted. Would continue to monitor for reaccumulation of ascitic fluid and if necessary repeat paracentesis, certainly may tailor antibiotic therapy once ED initiated paracentesis cultures result, continue gastroenterology and wigs salesperson involvement as well as general surgery, continue. Additional comorbidities/plan of care: #2. Recent outpatient urinary tract diagnosis, unclear organism: Noted initiation on 10/01/2023 IV Rocephin for reported urinary tract infection, UA in the ED with negative nitrite, leukocyte Estrace 25, urine bacteria 2+ thus would obtain urine culture and as noted already on antibiotic therapy for above #1. #3. Recent C. difficile colitis: Patient previously had been on oral vancomycin with last date already completed, from discussion with patient and family stools have been soft but formed, would continue to closely monitor especially given broad-spectrum antibiotic therapy usage as high risk for recurrence. #4. Oral thrush: Would maintain on oral nystatin swish and swallow. #5. Chronic Kidney Disease Stage III per most recent GFR trending with patient previous admission with significant acute kidney injury, felt secondary to hepatorenal sydrome, appears likely stabilized at this time: Admission BUN/Cr 62/1.27, GFR 48, baseline renal function toward the end of presentation recently was primarily 1.3-1.5, 09/20/2023 creatinine 1.40,, repeat CMP in AM. If necessary certainly would reinvolve nephrology who was evaluating patient previously (Dr. Jones). #6. Chronic macrocytic anemia: Admission 11.4, MCV 107.4, previous baseline most recently 09/20/2023 7.8, suspect this is falsely elevated, will continue to trend CBC. #7. Lichen sclerosus: Currently in remission, especially given current presentation if stress elevation and onset of pruritus may initiate clobetasol topical regimen and if necessary pending further evaluation could consider topical exterior estrogen cream concurrently. #8. Former alcohol abuse: Encourage continued sobriety, magnesium per ED 2.1, phosphorus level will also be obtained. #9. Former tobacco use: Encourage continued tobacco cessation, continue nicotine replacement as desired. #10. DVT prophylaxis: SCDs. Given recent significant issues with coagulopathy would hold on chemoprophylaxis. #11. CODE status: Patient does not have healthcare power of claim analyst or living will in place but she notes her mother was present would be her decision-maker. Discussed CODE status at length including difference between FULL code, DNR-CCA and DNR-CC status. Following discussions about the differences in these status, requested Full Code status. Discussed patient's frail state of health and significant underlying current life-threatening issues and that if cardiopulmonary event did occur her prognosis would be very poor even with aggressive measures and she understands this. Advanced Care Planning Face to Face Time: 16 minutes. Charges/Coding Multi Select Codes Visit Charges Office Visit/Consults: 05821 ED Visit; High/Threatening Severity Hospitalists' Procedures Procedures: 89074 Advncd Care Plan 30 Min
--- NOTE | 2023-10-06 14:56 | ED.RN ---
dr. marques aware of sepsis flag, states she is already on atb, not truly septic at this time.
[2023-10-06 15:04] LABS: Body Fluid Mononuclear WBC # 0.119 10^3/uL; Body Fluid Mononuclear WBC % 55.9 %; Body Fluid Polynuclear WBC # 0.094 10^3/uL; Body Fluid Polynuclear WBC % 44.1 %; White Blood Count/Body Fluid 0.213 10^3/uL
[2023-10-06 15:18] LABS: LDH,Body Fluid 66 Units/L (Not Establ.)
[2023-10-06] MEDS: Albumin Human 25% (100 mL) 25 GM/100 ML BAG IV (16:15)
[2023-10-06 16:26] LABS: Lymphocytes 2 %; Macrophages 26 %; Monocytes 22 %; Neutrophil (Segs) 50 %
[2023-10-06 16:27] LABS: Appearance/Body Fluid CLEAR; Auto B Fluid Analyzer BKGD Ct COUNTS W/IN LIMITS (W/IN LIMITS); Body Fluid QC Type(s) BF2Q; Color/Body Fluid YELLOW; Red Cell Count/Body Fluid 18 /mm3; Source- Body Fluid ASCITES FLUID
--- NOTE | 2023-10-06 17:38 | CPS ---
patient increased to 10 l hfnc green.
--- NOTE | 2023-10-06 17:56 | ED.RN ---
1730 pt sats dropped to 85%, called respiratory and they placed her on high flow 10L and sats were 90%; Dr Allen was advised of pts saturation. He wanted bi-pap placed. Respiratory returned and attempted to place bi-pap and she could not handle it. She stated she felt claustrophobic. Kept in the room but placed her back on high flow 10L and Dr. Allen advised of this.
--- NOTE | 2023-10-06 18:00 | RAD_ITS ---
INDICATION: dyspnea EXAMINATION/TECHNIQUE: X-RAY - XR Chest 1 View COMPARISON: October 06, 2023 at 11:25 AM FINDINGS: LINES/DEVICES: None. LUNGS: There are stable patchy opacities within the mid and lower lungs. No pneumothorax. MEDIASTINUM AND CARDIOVASCULAR STRUCTURES: Cardiac silhouette not enlarged. Central airways and mediastinal contour are unremarkable. BONES AND SOFT TISSUES: Unremarkable. RAD/Chest 1 View (Portable) IMPRESSION: Stable bilateral patchy opacities may reflect multifocal pneumonia and/or edema. Electronically Signed: Analy Painter MD at 19:17 EDT ,
[2023-10-06] MEDS: LORazepam 2 MG/ML Syringe 1 MG IV (18:06)
[2023-10-06] MEDS: Ipratropium/Albuterol Sulfate 3 ML AMPUL.NEB INHALATION (18:30)
[2023-10-06 18:52] LABS: Allen Test Positive; Base Excess -7 mmol/L (-2 to +2); Bicarbonate 20.6 mmol/L (22-26); Blood Gas Specimen Type ART; Mode Not entered; O2 Delivery Device HFNC; PO2 74 mmHG (75-100); SITE L Radial; SO2 91 % (95-99); Total Carbon Dioxide 22 mmol/L; pCO2 52.8 mmHg (35-45)
[2023-10-06 22:11] LABS: Allen Test Positive; Base Excess -7 mmol/L (-2 to +2); Bicarbonate 20.5 mmol/L (22-26); Blood Gas Specimen Type ART; Comment 14/6 12 50%; Mode Not entered; O2 Delivery Device BiPAP; PO2 67 mmHG (75-100); SITE L Radial; SO2 90 % (95-99); Total Carbon Dioxide 22 mmol/L; pCO2 45.2 mmHg (35-45); pH 7.27 (7.35-7.45)
--- NOTE | 2023-10-06 22:30 | ED.RN ---
Phone call placed to [facility] to insure squad arrival time, they report arrival time has been delayed 60-90 minutes, and squad should arrive at midnight. They report run as not listed as needing a bipap, this nurse expressed concern that ED office secretary was heard by several people that bipap was needed. This nurse expressed concern that care is being delayed for pt by ambulance company.
[2023-10-07] VITALS: BP 87/69; PULSE 123; RESP 24; O2SAT 88
--- NOTE | 2023-10-07 00:29 | ED.RN ---
Family member to desk upset about the time it's taking for the squad to arrive for transport. Family member is demanding that if a squad is not here by 1am that she be admitted here and transferred in the am to an alternate hospital than [facility]. He states I could have put her in the car and got her there hours ago. This RN and charge master specialist explained to family member that unfortunately that's not an option because she has admission at another hospital and this is a squad issue. Also pt requires medical care to transport for her safety. van cdl driver Marissa stated she would call ems and get an update. Family member states he no longer wants her going to [facility] is out! This RN explained that this is not an [facility] issue. Family member appears to understand. Will continue to update family as eta is available.
--- NOTE | 2023-10-07 00:41 | ED.RN ---
Called [facility] for arrival time, ETA of 18 minutes given.
--- NOTE | 2023-10-07 00:52 | ED.RN ---
I CALLED [facility]YS[facility] AT 1999 FOR TRANSFER RIDE TO [facility], THEY GAVE THE ETA OF 2-3 HOURS PUTTING ARRIVAL AT [phone]
--- NOTE | 2023-10-07 00:54 | ED.RN ---
CALLED PHYSIC[facility]ANS AT 0000 FOR AN UPDATED ETA AFTER AN EXTENDED ETA, THEY SAID ANOTHER 30-45 MINUTES PUTTING THE ARRIVAL NOW AT 0045 THE LATEST.
[2023-10-07 00:55] VITALS: PULSE 116; RESP 12; RESP 25; O2SAT 88
[2023-10-07 01:00] VITALS: BP 107/57; PULSE 117; RESP 28
[2023-10-07] MEDS: LORazepam 2 MG/ML Syringe 1 MG IV (01:03)
[2023-10-09 00:07] LABS: Amylase Body Fluid 6 U/L (.)
[2023-10-09 14:30] LABS: Pathologist Review Reviewed
[2023-10-09 14:30] LABS: Pathologist Comment/Body Fluid Reviewed
== END 2023-10-07 01:11 | disposition short-term general hospital (02) ==
PROVIDERS: Emergency Provider Emergency Medicine; PCP Family Medicine; Visit Provider Emergency Medicine
DX: J96.01 Acute respiratory failure with hypoxia (principal); I50.20 Unspecified systolic (congestive) heart failure; K86.0 Alcohol-induced chronic pancreatitis; K70.11 Alcoholic hepatitis with ascites; N18.30 Chronic kidney disease, stage 3 unspecified; D63.1 Anemia in chronic kidney disease; B37.0 Candidal stomatitis; F10.10 Alcohol abuse, uncomplicated; Y90.9 Presence of alcohol in blood, level not specified; Z87.891 Personal history of nicotine dependence
CPT/HCPCS: 49083 ×2; 36600; 71045; 74174; 80048; 80076; 81001; 82140; 82150; 82803; 83605; 83615; 83690; 83735; 83880; 84484; 85025; 85610; 85730; 87070; 87075; 87205; 89050; 93005; 94002; 94003; 94640; J1940; P9047; Q9967

== ENCOUNTER 2023-10-07 01:54 | Inpatient (IN) | payer MEDICAID, SELFPAY ==
[2023-10-07 01:54] VITALS: PULSE 116; RESP 29; O2SAT 95
[2023-10-07 01:55] VITALS: BP 94/40; PULSE 115; RESP 31; TEMP 36.1; O2SAT 74; BMI 23.7
[2023-10-07] MEDS: Flumazenil 0.5 MG/5 ML Vial IV (02:01)
[2023-10-07 02:08] VITALS: BP 94/44
[2023-10-07 02:18] LABS: Base Excess -7 mmol/L (-2 to +2); Bicarbonate 21.8 mmol/L (22-26); Blood Gas Specimen Type ART; Mode Not entered; O2 Delivery Device BiPAP; PEEP 6; PO2 76 mmHG (75-100); SITE L Radial; SO2 90 % (95-99); Total Carbon Dioxide 24 mmol/L; pCO2 61.9 mmHg (35-45); pH 7.16 (7.35-7.45)
[2023-10-07 03:00] VITALS: BP 87/42; PULSE 113; RESP 27; O2SAT 98
--- NOTE | 2023-10-07 03:07 | HP.PCM.HOS_ITS ---
HPI - General General Date of Admission: 10/07/23 Date of Service: 10/07/23 Chief Complaint: Acute respiratory failure, shock HPI Narrative FIONA ZAFAR, is a 43 F who presented to [facility] ED on 10/07/2023 with acute respiratory failure and shock. Patient initially presented to the ED on the afternoon of 10/05 with worsening shortness of breath. She was found to have recurrent ascites and severe complications of recent pancreatitis including complex 5 x 5 x 6 cm cystic masses in the body and tail fo the pancreas suggestive of pseudocysts with phlegmonous enlargement of the pancreas. Paracentesis was done in the ED with 5 L removed. Patient notably had a prolonged hospitalization here from 09/01-09/19 with several significant issues including respiratory failure requiring intubation, shock requiring pressors, a cute pancreatitis, alcohol hepatitis, C. difficile colitis, new onset HFrEF, ANDRÉS and anemia. Case was discussed with Dr. Pedraza and he recommended transfer to a tertiary center for further management. Prior to transfer, patient developed worsening respiratory status requiring BiPAP. Chest imaging was fairly benign, unclear reason for respiratory failure. Patient was picked up by transport arou nd 1 AM and left with him, but they only got a few minutes down the road and were very concerned with her mental status and respiratory status so they brought her back to the ED. On arrival back here, her oxygen saturations were in the mid 80s on BiPAP with max oxygen requirements and blood pressure was now hypotensive in the 80s over 40s. Dr. Ramirez and I both discussed patient's grave condition at the bedside with family. Patient's mother, brother and stepfather were at bedside. They noted that earlier this evening prior to her becoming less responsive, she was adamant that she would not want either intubation or chest compressions even if that meant she could . Family was understanding and agreeable with this. Hospice was contacted but they are not available to see the patient until around 9 AM this morning. Patient will be made comfort care status and admitted to the PCU. [facility] Medical History Lichen sclerosus Former tobacco use CKD (chronic kidney disease), stage III Chronic anemia Alcohol induced acute pancreatitis HFrEF (heart failure with reduced ejection fraction) Alcoholic hepatitis with ascites Alcohol abuse Home Medications ?Medication ?Instructions ?Recorded ?Last Taken ?Type levocetirizine 5 mg tablet (Xyzal) 5 mg PO DAILY 09/02/23 Unknown History loperamide 2 mg capsule 2 mg PO Q4H PRN PRN Loose Stools 09/20/23 Unknown Rx #0 caps midodrine 5 mg tablet 10 mg (2 x 5 mg) PO TIDCM #0 tabs 09/20/23 Unknown Rx nicotine 14 mg/24 hr daily 14 mg transdermal DAILY #0 ea 09/20/23 Unknown Rx transdermal patch rifaximin 550 mg tablet (Xifaxan) 550 mg PO BID #0 tabs 09/20/23 Unknown Rx vancomycin 25 mg/mL oral solution 125 mg (5 mL) PO Q6 1 day #0 mL 09/20/23 Unknown Rx (Firvanq) albuterol sulfate 2.5 mg/3 mL mg inhalation 10/06/23 Unknown History (0.083 %) solution for nebulization budesonide-formoterol HFA 160 inhalation 10/06/23 Unknown History mcg-4.5 mcg/actuation aerosol inhaler (Symbicort) ceftriaxone 1 gram solution for 1 g IM DAILY 10/06/23 Unknown History injection Allergy/AdvReac Type Severity Reaction Status Date / Time No Known Allergies Allergy Verified 10/07/23 02:02 Family History Brother Diabetes Mother H/O: hysterectomy Surgical History No history of previous surgery Social History (Updated 10/06/23 @ 16:[address] Christie Vines MD) household members: spouse housing: [facility] number of children: 0 current occupational status: employed current occupation: [employer] Smoking Status: Former smoker alcohol intake: former details: Sober since transition from [facility] to [facility]. substance use type: does not use seatbelt use: always do you feel safe at home: Yes additional social history: [employer] [employer] Review of Systems ROS Unobtainable: due to mental status Vital Signs Vital Signs Vital Signs: 10/07/23 01:54 10/07/23 01:55 10/07/23 02:04 Temperature 97 F L Temperature Source Temporal Pulse Rate 116 H 115 H Respiratory Rate 29 H 31 H Respiratory Effort Short of Breath Blood Pressure 94/40 L Blood Pressure Mean 58 Pulse Ox 95 74 Oxygen Delivery Method Bi-pap Bi-pap 10/07/23 02:08 10/07/23 03:00 Temperature Temperature Source Pulse Rate 113 H Respiratory Rate 27 H Respiratory Effort Blood Pressure 94/44 L 87/42 L Blood Pressure Mean 60 57 Pulse Ox 98 Oxygen Delivery Method Bi-pap Weight Weight: 62.7 kg Body Mass Index (BMI) 23.7 Physical Exam Const Constitutional Narrative: Somnolent, arousing to verbal command but not answering any questions, labored breathing on BiPAP, very ill-appearing. HEENT normocephalic and head/scalp atraumatic Eyes PERRL, EOMs intact bilaterally and conjunctivae normal Resp Resp Narrative: Diminished breath sounds bilaterally throughout with mild crackles noted bilaterally. Cardio Cardio Narrative: Tachycardic, regular rhythm. GI GI Narrative: Abdomen distended and mildly tender, otherwise soft on palpation. Results ABG Data ABG results: ABG 10/07/23 02:12 Specimen Type ART Sample Site L Radial pH 7.16 L* Bicarbonate Actual 21.8 L Total CO2 24 Base Excess -7 L O2 Saturation 90 L O2 % 100.0 ABG pCO2 61.9 H ABG pO2 76 O2 Delivery Device BiPAP Vent Mode Not entered POC PEEP 6 Crit Call To/Read Back Yes Blood Gas Notified Whom dr ramirez Blood Gas Notified Time 02:13:41 Assessment & Plan Assessment/Plan (1) Acute hypoxemic respiratory failure: (2) Ascites due to alcoholic hepatitis: (3) Leukocytosis: (4) Shock: (5) Metabolic acidosis: (6) Pancreatitis: PLAN: Plan Patient is a 43-year-old female who presented [facility] ED on 10/07/2023 with acute respiratory failure and shock. 1. Acute respiratory failure with acidosis/undifferentiated shock/acute metabolic encephalopathy/severe acute pancreatitis/DNRCC status ? Admit under inpatient status to PCU. DNRCC status confirmed with family on admission. Orders placed per palliative care order set for as needed medications to keep patient comfortable. Hospice available to see patient later this morning if needed. Medical conditions: ? Severe leukocytosis ? Anemia ? CKD stage III ? Acute on chronic liver injury ? HFrEF ? History of alcohol abuse ? Physical deconditioning ? Tobacco abuse ? History of lichen sclerosus Total clinical time spent by myself addressing the patient's medical issues, reviewing all the data, and collaborating with patient's care team: 55 minutes. Charges/Coding Visit Charges Inpatient E&M: 45423 Init Hosp L2
--- NOTE | 2023-10-07 03:19 | EDS_ITS ---
HPI History of Present Illness Chief Complaint: Hypotension Informant: family and EMS Narrative Narrative: Patient is a 43-year-old female with history of alcohol abuse and hepatitis and cirrhosis secondary to this. She was seen in the ER earlier today and the de cision was made to transfer her to [facility] for further evaluation of her alcoholic hepatitis. She was picked up by EMS for transfer and just prior to transfer was given a dose of Ativan as the BiPAP was making her agitated. EMS states they were just a few minutes down the road and they noticed that her pulse ox was dropping and her blood pressure was low as well and therefore they turned around and brought her back to the hospital for evaluation. The patient cannot offer any further history based on her depressed mental status [facility] Medical History Lichen sclerosus Former tobacco use CKD (chronic kidney disease), stage III Chronic anemia Alcohol induced acute pancreatitis HFrEF (heart failure with reduced ejection fraction) Alcoholic hepatitis with ascites Alcohol abuse Home Medications ?Medication ?Instructions ?Recorded ?Last Taken ?Type levocetirizine 5 mg tablet (Xyzal) 5 mg PO DAILY 09/02/23 Unknown History loperamide 2 mg capsule 2 mg PO Q4H PRN PRN Loose Stools 09/20/23 Unknown Rx #0 caps midodrine 5 mg tablet 10 mg (2 x 5 mg) PO TIDCM #0 tabs 09/20/23 Unknown Rx nicotine 14 mg/24 hr daily 14 mg transdermal DAILY #0 ea 09/20/23 Unknown Rx transdermal patch rifaximin 550 mg tablet (Xifaxan) 550 mg PO BID #0 tabs 09/20/23 Unknown Rx vancomycin 25 mg/mL oral solution 125 mg (5 mL) PO Q6 1 day #0 mL 09/20/23 Unknown Rx (Firvanq) albuterol sulfate 2.5 mg/3 mL mg inhalation 10/06/23 Unknown History (0.083 %) solution for nebulization budesonide-formoterol HFA 160 inhalation 10/06/23 Unknown History mcg-4.5 mcg/actuation aerosol inhaler (Symbicort) ceftriaxone 1 gram solution for 1 g IM DAILY 10/06/23 Unknown History injection Allergy/AdvReac Type Severity Reaction Status Date / Time No Known Allergies Allergy Verified 10/07/23 02:02 Family History Brother Diabetes Mother H/O: hysterectomy Surgical History No history of previous surgery Social History (Updated 10/06/23 @ 16:[address] Christie Vines MD) household members: spouse housing: retirement number of children: 0 current occupational status: employed current occupation: [employer] Smoking Status: Former smoker alcohol intake: former details: Sober since transition from [facility] to [facility]. substance use type: does not use seatbelt use: always do you feel safe at home: Yes additional social history: [employer] [place] ROS ROS ED Review of Systems ROS Unobtainable: due to mental status EXAM Physical Exam Const Vital Signs: 10/07/23 01:54 10/07/23 01:55 10/07/23 02:04 Temperature 97 F L Temperature Source Temporal Pulse Rate 116 H 115 H Respiratory Rate 29 H 31 H Respiratory Effort Short of Breath Blood Pressure 94/40 L Blood Pressure Mean 58 Pulse Ox 95 74 Oxygen Delivery Method Bi-pap Bi-pap 10/07/23 02:08 10/07/23 03:00 Temperature Temperature Source Pulse Rate 113 H Respiratory Rate 27 H Respiratory Effort Blood Pressure 94/44 L 87/42 L Blood Pressure Mean 60 57 Pulse Ox 98 Oxygen Delivery Method Bi-pap Positive well developed Constitutional Narrative: Patient is minimally responsive General Appearance ED: well developed; Negative for pallor HEENT HEENT Narrative: Normocephalic atraumatic Eyes Eyes Narrative: Pupils are dilated and minimally responsive to light Scleral icterus is present bilaterally Neck no JVD Chest Wall palpation of chest normal Chest Narrative: No bony deformity or crepitance Resp Resp Narrative: Breath sounds are diminished throughout with faint rhonchi in bilateral bases Cardio regular rhythm Rate: tachycardic GI non-distended GI Narrative: Abdomen is soft and nondistended with hypoactive bowel sounds. Mild fluid wave is noted consistent with history of ascites Auscultation: hypoactive bowel sounds Palpation: soft Extremity Extremity Narrative: +1 pitting edema to the bilateral lower extremities Neuro Neuro Narrative: Patient is minimally responsive with GCS of 7 Psych Psych Narrative: Unable to assess as patient is minimally responsive Skin Skin Narrative: Jaundice is noted consistent with history of cirrhosis General Skin Exam: jaundice; Negative for pallor MDM MDM MDM Narrative Medical decision making narrative: Patient returned to the ER after transport was initiated and as her blood pressure began to drop and her pulse ox reduced as well. She was given Ativan just prior to transport and it was felt that maybe this was the cause of her decreased mental status so therefore she was given flumazenil to try and reverse this. Despite the reversal agent there was no real improvement to her mental status. A repeat blood gas was obtained and shows worsening acidosis as well as hypercarbia. I discussed with family that despite reversing her benzodiazepine there is been no improvement and her blood gas indicates her oxygenation is worsening and that this will require intubation. The family states that the patient did not wish to be intubated and are requesting that no further intervention in the BiPAP be performed at this time. We discussed that this would make her a DO NOT RESUSCITATE and DO NOT INTUBATE patient. Family states that is the patient's wishes. Therefore this time as her mental status/GCS as well as worsening pulse ox and CO2 would recommend intubation it goes against the patient and family's wishes and will not be performed. I discussed with family that this would indicate patient needs to move to comfort treatment only and they do agree with this. Therefore the transfer to [facility] was canceled. Hospice was contacted and stated they would not have a person available to evaluate the patient in the hospital until 8 or 9 this morning. Therefore I reached out to the hospitalist who agrees to accept the patient and we will continue to monitor the patient and provide comfort care but family understands that no further intervention will be performed and that there is high likelihood that the worsening symptoms will ultimately lead to the patient's . ABG Data ABG results: ABG 10/07/23 02:12 Specimen Type ART Sample Site L Radial pH 7.16 L* Bicarbonate Actual 21.8 L Total CO2 24 Base Excess -7 L O2 Saturation 90 L O2 % 100.0 ABG pCO2 61.9 H ABG pO2 76 O2 Delivery Device BiPAP Vent Mode Not entered POC PEEP 6 Crit Call To/Read Back Yes Blood Gas Notified Whom dr ramirez Blood Gas Notified Time 02:13:41 Discharge Plan Dx/Rx/DC Orders Clinical Impression: Alcoholic hepatitis, Abdominal ascites, Acute hypoxemic respiratory failure, Coagulopathy, Ascites due to alcoholic hepatitis, Shock Disposition Disposition: Acute Care Hospital [facility] Discharge Date/Time: 10/07/23 03:49
[2023-10-07 03:22] VITALS: BP 85/43; PULSE 110; RESP 29; TEMP 36.6; O2SAT 98
--- NOTE | 2023-10-07 05:03 | PCM.DEATH ---
Preliminary Cause of Preliminary Cause of Preliminary Cause of : Acute respiratory failure and shock secondary to severe recurrent pancreatitis and severe acute on chronic liver injury with ascites Date of Admission: 10/07/23 Date of : 10/07/23 Principle Diagnosis Acute respiratory failure and shock Problem List: Active and Suspected Problems (Updated 10/07/23 @ 04:[address] Da Cedeno, DO) Pancreatitis (Acute) Shock (Acute) Acute hypoxemic respiratory failure (Acute) Ascites due to alcoholic hepatitis (Acute) Metabolic acidosis (Acute) Leukocytosis (Acute) Abdominal ascites (Acute) Alcoholic hepatitis (Acute) Hospital Course FIONA ZAFAR, is a 43 F who presented to [facility] ED on 10/07/2023 with acute respiratory failure and shock. Patient initially presented to the ED on the afternoon of 10/05 with worsening shortness of breath. She was found to have recurrent ascites and severe complications of recent pancreatitis including complex 5 x 5 x 6 cm cystic masses in the body and tail fo the pancreas suggestive of pseudocysts with phlegmonous enlargement of the pancreas. Paracentesis was done in the ED with 5 L removed. Patient notably had a prolonged hospitalization here from 09/01-09/19 with several significant issues including respiratory failure requiring intubation, shock requiring pressors, acute pancreatitis, alcohol hepatitis, C. difficile colitis, new onset HFrEF, ANDRÉS and anemia. Case was discussed with Dr. Pedraza and he recommended transfer to a tertiary center for further management. Prior to transfer, patient developed worsening respiratory status requiring BiPAP. Chest imaging was fairly benign, unclear reason for respiratory failure. Patient was picked up by transport around 1 AM and left with him, but they only got a few minutes down the road and were very concerned with her mental status and respiratory status so they brought her back to the ED. On arrival back here, her oxygen saturations were in the mid 80s on BiPAP with max oxygen requirements and blood pressure was now hypotensive in the 80s over 40s. Dr. Cedeno and I both discussed patient's grave condition at the bedside with family. Patient's mother, brother and stepfather were at bedside. They noted that earlier this evening prior to her becoming less responsive, she was adamant that she would not want either intubation or chest compressions even if that meant she could . Family was understanding and agreeable with this. Hospice was contacted but they were not available to see the patient until around 9 AM this morning. Patient was made comfort care status and admitted to the PCU. Notified by nursing staff that patient went into PEA arrest and was verified to be . Time of 424. Assessment & Plan Assessment/Plan (1) Acute hypoxemic respiratory failure: (2) Shock: (3) Pancreatitis: (4) Ascites due to alcoholic hepatitis: (5) Metabolic acidosis: (6) Leukocytosis: PLAN: Plan Patient is a 43-year-old female who presented [facility] ED on 10/07/2023 with acute respiratory failure and shock. Was made DNR CC status on admission and on morning of 10/06. Medical conditions addressed: ? Acute respiratory failure with acidosis ? Undifferentiated shock ? Acute metabolic encephalopathy ? Severe acute pancreatitis ? Acute on chronic severe liver injury ? Severe leukocytosis ? Anemia ? CKD stage III ? HFrEF ? History of alcohol abuse ? Physical deconditioning ? Tobacco abuse ? History of lichen sclerosus Total clinical time spent by myself addressing the patient's medical issues, reviewing all the data, and collaborating with patient's care team: 35 minutes. Visit Charges Inpatient E&M: 46451 Disch Hosp >30min
--- NOTE | 2023-10-07 06:02 | NURSING ---
Two RN at bedside for TOD. Philomena RN and Debbie RN confirmed Time of at [address] Thao notified/acknowledged via cortext. Family (Mother and Stepfather) at bedside. [employer] [facility] called at 0440 hours -- not a eyeletter's case. Family has alerted staff that patient is to be transferred to [facility] [place]. [facility] called at [phone] -- Sandra Bingham, Hold placed on body, Eye Care Performed. 0540 - patient is clean and prepared to go to [facility] [place] bag.
--- NOTE | 2023-10-07 06:29 | NURSING ---
Hospice notified that no longer need to come see pt.
--- NOTE | 2023-10-07 07:43 | NURSING ---
as per documentation patient received no IVF or IV meds in the last hour of life
== END 2023-10-07 04:25 | DRG 133 ==
LOC: ED 03:19 → PCU 03:31
PROVIDERS: Admitting Provider Hospitalist; Emergency Provider Emergency Medicine; PCP Family Medicine; Visit Provider Internal Medicine
DX: J96.01 Acute respiratory failure with hypoxia (principal); R57.9 Shock, unspecified; G93.41 Metabolic encephalopathy; K85.20 Alcohol induced acute pancreatitis without necrosis or infection; K86.3 Pseudocyst of pancreas; N18.30 Chronic kidney disease, stage 3 unspecified; K70.11 Alcoholic hepatitis with ascites; I50.22 Chronic systolic (congestive) heart failure; D63.1 Anemia in chronic kidney disease; K86.0 Alcohol-induced chronic pancreatitis; I46.9 Cardiac arrest, cause unspecified; D72.829 Elevated white blood cell count, unspecified; F10.10 Alcohol abuse, uncomplicated; Y90.9 Presence of alcohol in blood, level not specified; B37.0 Candidal stomatitis; Z66 Do not resuscitate; Z79.51 Long term (current) use of inhaled steroids; Z87.2 Personal history of diseases of the skin and subcutaneous tissue; Z87.891 Personal history of nicotine dependence
CPT/HCPCS: 36600; 49083; 71045; 74174; 80048; 80076; 81001; 82140; 82150; 82803; 83605; 83615; 83690; 83735; 83880; 84484; 85025; 85610; 85730; 87070; 87075; 87205; 88108; 88305; 88313; 88341; 88342; 89050; 93005; 94002; 94003; 94640; 96365; 96366; 96367; 96375; 96376; 99283; 99285; P9047; Q9967; A4216; J1940